=== PATIENT | female | born 1960 | race Hispanic/Latino ===

== ENCOUNTER 2017-09-20 10:52 | Outpatient (CLI) | payer BC | END 2017-09-20 10:53 | disposition home or self-care (01) | LOC: BICRAD 10:52 | PROVIDERS: ATTEND Physician Assistant | DX: R93.8 Abnormal findings on diagnostic imaging of other specified body structures (principal); D64.9 Anemia, unspecified | CPT/HCPCS: 36415; 71020; 83540; 83550 ==

== ENCOUNTER 2018-03-16 09:05 | Outpatient (CLI) | payer BC | END 2018-03-16 09:06 | disposition home or self-care (01) | LOC: BICMAMMO 09:05 | PROVIDERS: ATTEND Family Medicine | DX: Z12.31 Encounter for screening mammogram for malignant neoplasm of breast (principal) | CPT/HCPCS: 77063; 77067 ==

== ENCOUNTER 2019-02-09 07:42 | Outpatient (CLI) | payer BC ==
--- NOTE | 2019-02-09 08:51 | ULT ---
GALLBLADDER ULTRASOUND: INDICATION: Right upper quadrant pain. FINDINGS: Gallbladder has a normal sonographic appearance. No evidence of gallstones. Common duct is normal ca liber measured at 2 mm. Liver is echogenic suggesting fatty infiltration. The pancreas is partially imaged and appears unremarkable as visualized but is mostly obscured. The right kidney is imaged an d appears unremarkable. IMPRESSION: 1. No evidence of gallstones. 2. Evidence of hepatic steatosis. POS: [facility]
== END 2019-02-09 07:43 | disposition home or self-care (01) ==
LOC: BICULT 07:42
PROVIDERS: ATTEND Internal Medicine Gastroenterology
DX: K21.9 Gastro-esophageal reflux disease without esophagitis (principal); R10.11 Right upper quadrant pain; D50.9 Iron deficiency anemia, unspecified; K76.0 Fatty (change of) liver, not elsewhere classified
CPT/HCPCS: 76705

== ENCOUNTER 2019-04-05 12:55 | Outpatient (CLI) | payer BC ==
--- NOTE | 2019-04-05 13:39 | MMO ---
Bilateral MAMMO Bilat Screen [facility]. CLINICAL HISTORY: Patient is 59 years old and is seen for screening. The patient has no family history of breast cancer. The patient has no personal history of cancer. VIEWS: The views performed were: bilateral craniocaudal with tomosynthesis; bilateral mediolateral oblique with tomosynthesis; and left mediolateral oblique. FILMS COMPARED: The present examination has been compared to a prior imaging study performed at [facility] on 03/16/2018. MAMMOGRAM FINDINGS: There are scattered fibroglandular densities. There are no suspicious masses, suspicious calcifications, or new areas of architectural distortion. IMPRESSION: THERE IS NO MAMMOGRAPHIC EVIDENCE OF MALIGNANCY. A ROUTINE FOLLOW-UP MAMMOGRAM IN 1 YEAR IS RECOMMENDED. THE RESULTS OF THIS EXAM WERE SENT TO THE PATIENT. ACR BI-RADS Category 1 - Negative MAMMOGRAPHY NOTE: 1. A negative mammogram report should not delay a biopsy if a dominant of clinically suspicious mass is present. 2. Approximately 10% to 15% of breast cancers are not detected by mammography. 3. Adenosis and dense breasts may obscure an underlying neoplasm.
== END 2019-04-05 12:56 | disposition home or self-care (01) ==
LOC: BICMAMMO 12:55
PROVIDERS: ATTEND Family Medicine
DX: Z12.31 Encounter for screening mammogram for malignant neoplasm of breast (principal)
CPT/HCPCS: 77063; 77067

== ENCOUNTER 2019-09-26 07:52 | Outpatient (CLI) | payer BC ==
--- NOTE | 2019-09-26 10:49 | ULT ---
ABDOMEN ULTRASOUND: HISTORY: Right upper quadrant pain. FINDINGS: The liver demonstrates increased echogenicity, consistent with fatty infiltration with a focal area o f sparing adjacent to the gallbladder. No focal mass or intrahepatic ductal dilatation is seen. No ga llstones, gallbladder wall thickening or pericholecystic fluid is identified. the spleen, kidneys, vi sualized portions of the aorta, IVC and pancreas appear normal. The urinary bladder has a normal appe arance. No free fluid is seen. IMPRESSION: Fatty liver. POS: [facility]
== END 2019-09-26 07:53 | disposition home or self-care (01) ==
LOC: BICULT 07:52
PROVIDERS: ATTEND Family Medicine
DX: R10.11 Right upper quadrant pain (principal); K76.0 Fatty (change of) liver, not elsewhere classified
CPT/HCPCS: 76856; 93975

== ENCOUNTER 2020-07-28 13:54 | Outpatient (CLI) | payer BC ==
--- NOTE | 2020-07-28 14:37 | MMO ---
Bilateral MAMMO Bilat Screen [facility]. CLINICAL HISTORY: Patient is 60 years old and is seen for screening. The patient has no family history of breast cancer. The patient has no personal history of cancer. VIEWS: The views performed were: bilateral craniocaudal with tomosynthesis and bilateral mediolateral oblique with tomosynthesis. FILMS COMPARED: The present examination has been compared to prior imaging studies performed at [facility] on 03/16/2018 and 04/05/2019, and at [facility] on 12/09/2015 and 02/10/2017. This study has been interpreted with the assistance of computer-aided detection. MAMMOGRAM FINDINGS: There are scattered fibroglandular densities. There are benign appearing calcifications in the right breast. There are no suspicious masses, suspicious calcifications, or new areas of architectural distortion. IMPRESSION: THERE IS NO MAMMOGRAPHIC EVIDENCE OF MALIGNANCY. A ROUTINE FOLLOW-UP MAMMOGRAM IN 1 YEAR IS RECOMMENDED. THE RESULTS OF THIS EXAM WERE SENT TO THE PATIENT. ACR BI-RADS Category 2 - Benign finding MAMMOGRAPHY NOTE: 1. A negative mammogram report should not delay a biopsy if a dominant of clinically suspicious mass is present. 2. Approximately 10% to 15% of breast cancers are not detected by mammography. 3. Adenosis and dense breasts may obscure an underlying neoplasm. Reported by: DONA HARRINGTON MD Electonically Signed: [id number]
== END 2020-07-28 13:55 | disposition home or self-care (01) ==
LOC: BICMAMMO 13:54
PROVIDERS: ATTEND Family Medicine
DX: Z12.31 Encounter for screening mammogram for malignant neoplasm of breast (principal)
CPT/HCPCS: 77063; 77067

== ENCOUNTER 2020-10-17 01:38 | Inpatient (IN) | payer BC ==
[2020-10-17 02:22] LABS: #Lymphocytes 0.7 thou/uL (1.20-3.40); #Monocytes 0.3 thou/uL (0.11-0.59); %Lymphocytes 14.5 % (21.0-51.0); %Monocytes 5.7 % (0.0-10.0); %Neutrophils 79.8 % (42.0-75.0); Hemoglobin 10.8 g/dL (12.0-16.0); Mean Corpuscular HGB CONC 32.4 g/dL (32.0-36.0); Mean Corpuscular Hemoglobin 25.8 pg (27.0-31.0); Mean Corpuscular Volume 79.7 fL (78.0-98.0); Mean Platelet Volume 7.9 fL (7.4-10.4); Platelet Count 202 thou/uL (130-400); RBC Distribution Width 13.6 % (11.5-14.5); Red Blood Cell (RBC) Count 4.19 mill/uL (4.20-5.40)
[2020-10-17 02:44] LABS: ALT (SGPT) 31 U/L (8-55); AST (SGOT) 41 U/L (5-34); Albumin 3.4 g/dL (3.5-5.0); Alkaline Phosphatase 74 U/L (40-110); Anion Gap 16 mmol/L (10-20); BUN (Urea Nitrogen) 16 mg/dL (9.8-20.1); Bilirubin, Total 0.3 mg/dL (0.2-1.2); Calc. Creatinine Clearance 0 mL/min (70-130); Calcium 7.7 mg/dL (7.8-10.44); Carbon Dioxide 23 mmol/L (22-29); Chloride 96 mmol/L (98-107); Globulin 3.3 g/dL (2.4-3.5); Glucose 145 mg/dL (70-105); Potassium 3.1 mmol/L (3.5-5.1); Protein, Total 6.7 g/dL (6.0-8.3); Sodium 132 mmol/L (136-145)
[2020-10-17] MEDS ORDERED: Acetaminophen 650 MG Suppository PR PRN (04:16)
[2020-10-17] MEDS ORDERED: Ondansetron PF 4 MG/2 ML Vial IVP PRN (04:16)
[2020-10-17] MEDS ORDERED: Ondansetron ODT 4 MG TAB PO PRN (04:16)
[2020-10-17] MEDS ORDERED: Calcium Carbonate 500 MG ChewTAB PO PRN (04:16)
--- NOTE | 2020-10-17 04:19 | PDOC.HHP ---
Hospitalist HPI - History of Present Illness resp distress History of Present Illness: Case of an 60y/o female with pmhx of htn and svts who comes to hospital due to respiratory distress. patient refers she was on her usual state of health until a few days ago when she was diagnosed w covid 19. patient states she tested positive on 10/08 after 2 days of symptoms, since then patient has been isolating on her house. today patient started with worsening sob took her 02 sats and showed 70% at RA for which she caome to hospital for evaluation. patient refers fever chills cough and general malaise Hospitalist ROS - Review of Systems All other systems reviewed; all pertinent +/- noted in HPI/Subj Hospitalist History - Past Surgical History Past Surgical History: reports: Tonsillectomy - Family History Family History: reports: no pertinent history - Social History Smoking Status: Never smoker Alcohol: reports: None Drugs: reports: none Living Situation: With Family - Exam General Appearance: NAD, awake alert Eye: PERRL, anicteric sclera ENT: normocephalic atraumatic, no oropharyngeal lesions Neck: supple, symmetric, no JVD Heart: RRR, no murmur, no gallops Respiratory: rhonchi, tachypneic Gastrointestinal: soft, non-tender, non-distended Extremities: no cyanosis, no clubbing, no edema Skin: normal turgor, no lesions, no rashes Neurological: cranial nerve grossly intact, normal sensation to touch, no weakness Musculoskeletal: normal tone, normal strength, no muscle wasting Psychiatric: normal affect, normal behavior, A&O x 3 Hospitalist Results - Labs Result Diagrams: 10/17/20 02:13 10/17/20 02:13 Lab results: WBC 5.0 thou/uL (4.8-10.8) 10/17/20 02:13 Hgb 10.8 g/dL (12.0-16.0) L 10/17/20 02:13 Hct 33.4 % (36.0-47.0) L 10/17/20 02:13 MCV 79.7 fL (78.0-98.0) 10/17/20 02:13 Plt Count 202 thou/uL (130-400) 10/17/20 02:13 Neutrophils % 79.8 % (42.0-75.0) H 10/17/20 02:13 ESR Westergren 77 mm/hr (Less than 30) H 10/17/20 02:13 Sodium 132 mmol/L (136-145) L 10/17/20 02:13 Potassium 3.1 mmol/L (3.5-5.1) L 10/17/20 02:13 Chloride 96 mmol/L (98-107) L 10/17/20 02:13 Carbon Dioxide 23 mmol/L (22-29) 10/17/20 02:13 BUN 16 mg/dL (9.8-20.1) 10/17/20 02:13 Creatinine 0.78 mg/dL (0.6-1.1) 10/17/20 02:13 Glucose 145 mg/dL (70-105) H 10/17/20 02:13 Lactic Acid 1.7 mmol/L (0.5-2.2) 10/17/20 02:13 Calcium 7.7 mg/dL (7.8-10.44) L 10/17/20 02:13 Total Bilirubin 0.3 mg/dL (0.2-1.2) 10/17/20 02:13 AST 41 U/L (5-34) H 10/17/20 02:13 ALT 31 U/L (8-55) 10/17/20 02:13 Alkaline Phosphatase 74 U/L (40-110) 10/17/20 02:13 C-Reactive Protein 18.68 mg/dL (= or < 0.5) H 10/17/20 02:13 Serum Total Protein 6.7 g/dL (6.0-8.3) 10/17/20 02:13 Albumin 3.4 g/dL (3.5-5.0) L 10/17/20 02:13 Hospitalist H&P A/P - Problem (1) Pneumonia due to COVID-19 virus Code(s): U07.1 - COVID-19; J12.89 - OTHER VIRAL PNEUMONIA Status: Acute (2) Acute respiratory failure Code(s): J96.00 - ACUTE RESPIRATORY FAILURE, UNSP W HYPOXIA OR HYPERCAPNIA Status: Acute (3) Hx of supraventricular tachycardia Code(s): Z86.79 - PERSONAL HISTORY OF OTHER DISEASES OF THE CIRCULATORY SYSTEM Status: Acute (4) HTN (hypertension) Code(s): I10 - ESSENTIAL (PRIMARY) HYPERTENSION Status: Acute (5) Sepsis Code(s): A41.9 - SEPSIS, UNSPECIFIED ORGANISM Status: Acute - Plan Plan: Case of an 60y/o female with the stated pmhx who presents with covid 19 pneumonia and resp failure covid 19 - testes 10/08/2020 - cxr consistent with covid 19 - will start decadron ivfd - vit c d + zinc - isolation precautions resp failure - secondary to above - on high flow - weas as tolerated sepsis - sepsis bundles started - f/u LA htn / hx of svts - continue home meds
[2020-10-17] MEDS: Sodium Chloride 0.9% 1,000 ML IV SCH ×2 (04:53→19:26)
[2020-10-17 05:05] LABS: Troponin I 0.022 ng/mL (< 0.028)
[2020-10-17 07:31] LABS: Troponin I 0.024 ng/mL (< 0.028)
[2020-10-17] MEDS ORDERED: Enoxaparin Sodium 40 MG/0.4 ML SYRINGE ONE (09:49)
[2020-10-17] MEDS ORDERED: Dexamethasone 4 mg/ml Vial ONE (09:49)
[2020-10-17] MEDS: Dexamethasone 4 mg/ml Vial SLOW IVP SCH (09:57)
[2020-10-17] MEDS: Zinc Sulfate 220 MG CAP PO SCH (09:57)
[2020-10-17] MEDS: Ascorbic Acid 500 mg Chewable Tablet PO SCH (09:57)
[2020-10-17] MEDS: Cholecalciferol (Vitamin D3) 400 UNITS TAB PO SCH (09:57)
[2020-10-17] MEDS: Enoxaparin Sodium 40 MG/0.4 ML SYRINGE SC SCH (17:37)
[2020-10-18] MEDS: Guaifenesin DM 100-10/5 ML UDCUP PO PRN ×4 (00:55→20:36)
[2020-10-18 05:22] LABS: ALT (SGPT) 33 U/L (8-55); AST (SGOT) 36 U/L (5-34); Albumin 3.4 g/dL (3.5-5.0); Alkaline Phosphatase 71 U/L (40-110); Anion Gap 15 mmol/L (10-20); BUN (Urea Nitrogen) 13 mg/dL (9.8-20.1); Bilirubin, Total 0.3 mg/dL (0.2-1.2); Calc. Creatinine Clearance 0 mL/min (70-130); Calcium 8.3 mg/dL (7.8-10.44); Carbon Dioxide 23 mmol/L (22-29); Chloride 104 mmol/L (98-107); Globulin 3.8 g/dL (2.4-3.5); Glucose 121 mg/dL (70-105); Potassium 3.4 mmol/L (3.5-5.1); Protein, Total 7.2 g/dL (6.0-8.3); Sodium 139 mmol/L (136-145)
[2020-10-18 05:24] LABS: Band 8 % (5-11); Hemoglobin 11.4 g/dL (12.0-16.0); Lymphocytes 5 % (21-51); MDiff Complete? YES; Mean Corpuscular HGB CONC 32.5 g/dL (32.0-36.0); Mean Corpuscular Hemoglobin 26.4 pg (27.0-31.0); Mean Corpuscular Volume 81.2 fL (78.0-98.0); Mean Platelet Volume 7.7 fL (7.4-10.4); Monocytes 3 % (0-10); Neutrophil 84 % (42-75); Platelet Count 272 thou/uL (130-400); Red Blood Cell (RBC) Count 4.32 mill/uL (4.20-5.40); White Blood Cell (WBC) Count 11.3 thou/uL (4.8-10.8)
[2020-10-18] MEDS ORDERED: Acetaminophen 500 MG TAB ONE (08:41)
[2020-10-18] MEDS: Acetaminophen 325 MG TAB PO PRN (08:47)
[2020-10-18] MEDS ORDERED: Enoxaparin Sodium 40 MG/0.4 ML SYRINGE ONE ×2 (09:01→22:54)
[2020-10-18] MEDS ORDERED: Dexamethasone 4 mg/ml Vial ONE (09:01)
[2020-10-18] MEDS: Cholecalciferol (Vitamin D3) 400 UNITS TAB PO SCH (09:41)
[2020-10-18] MEDS: Ascorbic Acid 500 mg Chewable Tablet PO SCH (09:41)
[2020-10-18] MEDS: Dexamethasone 4 mg/ml Vial SLOW IVP SCH (09:41)
[2020-10-18] MEDS: Enoxaparin Sodium 40 MG/0.4 ML SYRINGE SC SCH (09:42)
[2020-10-18] MEDS: Zinc Sulfate 220 MG CAP PO SCH (09:42)
[2020-10-18] MEDS ORDERED: Potassium Chloride 20 MEQ TAB PO SCH (10:00)
[2020-10-18] MEDS ORDERED: Potassium Chloride 20 MEQ TAB ONE (13:30)
--- NOTE | 2020-10-18 18:36 | PDOC.HOSPP ---
- Subjective Subjective: Patient was seen examined at bedside. Patient appears to be stable on high flow nasal cannula. She had a fevers of 101.2 today. - Objective Vital Signs & Weight: Vital Signs (12 hours) Temp Pulse 10/18/20 09:17 98.5 F 10/18/20 08:47 101.2 F H 98 Result Diagrams: 10/18/20 04:34 10/18/20 04:34 Hospitalist ROS - Medication Medications: Active Medications Generic Name Dose Route Start Last Admin Trade Name Freq PRN Reason Stop Dose Admin Acetaminophen 650 mg 10/17/20 04:16 10/18/20 08:47 Acetaminophen 325 Mg Tab PO 650 mg Q4H PRN Administration Headache/Fever/Mild Pain (1-3) Ascorbic Acid 1,000 mg 10/17/20 09:00 10/18/20 09:41 Ascorbic Acid 500 Mg Chewable Tablet PO 1,000 mg DAILY HEIDI Administration Calcium Carbonate 1,000 mg 10/17/20 04:16 10/17/20 04:51 Calcium Carbonate 500 Mg Chewtab PO 1,000 mg Q4H PRN Administration Heartburn or Indigestion Cholecalciferol 400 units 10/17/20 09:00 10/18/20 09:41 Cholecalciferol (Vitamin D3) 400 Units Tab PO 400 units DAILY HEIDI Administration Dexamethasone 6 mg 10/17/20 09:00 10/18/20 09:41 Dexamethasone 4 Mg/Ml Vial SLOW IVP 6 mg DAILY HEIDI Administration Guaifenesin/Dextromethorphan 15 ml 10/17/20 04:16 10/18/20 09:42 Guaifenesin Dm 100-10/5 Ml Udcup PO 15 ml Q4H PRN Administration Cough Sodium Chloride 1,000 mls @ 70 mls/hr 10/17/20 04:30 10/17/20 19:26 Normal Saline 0.9% IV 1,000 mls .[id number] HEIDI Administration Zinc Sulfate 220 mg 10/17/20 09:00 10/18/20 09:42 Zinc Sulfate 220 Mg Cap PO 220 mg DAILY HEIDI Administration - Exam General Appearance: NAD Eye: PERRL ENT: normocephalic atraumatic Neck: supple Heart: RRR Respiratory: no wheezes, rhonchi Gastrointestinal: soft, non-tender Extremities: no cyanosis Skin: normal turgor Neurological: cranial nerve grossly intact Musculoskeletal: normal tone Psychiatric: normal affect, normal behavior, A&O x 3 Hosp A/P - Plan Patient is a pleasant 60 years old female who has significant past medical history of SVT, who presented to ED with short of breath. She was diagnosed with Covid pneumonia on 10/08/2020 Acute hypoxic respiratory failure due to COVID-19 pneumonia --cont Decadron/Vit C/D/Zinc --start convalescent plasma. No remdesivir d/t onset of symptoms --cont empiric abx, supportive cares. --Cont Lovenox 40 mg BID for DVT ppx COVID-19 pneumonia --as above Sepsis, present on admission --follow cultures. d/t viral pna History of SVT --NSR, pending home meds
[2020-10-19] MEDS: Enoxaparin Sodium 40 MG/0.4 ML SYRINGE SC SCH ×3 (00:02→20:31)
[2020-10-19] MEDS: Sodium Chloride 0.9% 1,000 ML IV SCH (03:28)
[2020-10-19 05:18] LABS: #Basophils 0.1 thou/uL (0.0-0.2); #Lymphocytes 0.9 thou/uL (1.20-3.40); #Monocytes 0.5 thou/uL (0.11-0.59); #Neutrophils 8.6 thou/uL (1.40-6.50); %Basophils 0.8 % (0.0-1.0); %Eosinophils 0.2 % (0.0-10.0); %Lymphocytes 8.5 % (21.0-51.0); %Monocytes 4.5 % (0.0-10.0); Hemoglobin 10.8 g/dL (12.0-16.0); Mean Corpuscular HGB CONC 31.9 g/dL (32.0-36.0); Mean Corpuscular Hemoglobin 25.9 pg (27.0-31.0); Mean Corpuscular Volume 81.3 fL (78.0-98.0); Mean Platelet Volume 7.4 fL (7.4-10.4); Platelet Count 311 thou/uL (130-400); RBC Distribution Width 14.1 % (11.5-14.5); Red Blood Cell (RBC) Count 4.18 mill/uL (4.20-5.40)
[2020-10-19] MEDS: Guaifenesin DM 100-10/5 ML UDCUP PO PRN ×3 (05:26→20:33)
[2020-10-19 05:29] LABS: ALT (SGPT) 31 U/L (8-55); AST (SGOT) 31 U/L (5-34); Albumin 3.2 g/dL (3.5-5.0); Alkaline Phosphatase 75 U/L (40-110); Anion Gap 13 mmol/L (10-20); BUN (Urea Nitrogen) 13 mg/dL (9.8-20.1); Bilirubin, Total 0.4 mg/dL (0.2-1.2); CRP (Inflammatory) 12.62 mg/dL (= or < 0.5); Calc. Creatinine Clearance 130 mL/min (70-130); Calcium 8.2 mg/dL (7.8-10.44); Carbon Dioxide 25 mmol/L (22-29); Chloride 106 mmol/L (98-107); Globulin 3.6 g/dL (2.4-3.5); Glucose 106 mg/dL (70-105); Potassium 3.7 mmol/L (3.5-5.1); Protein, Total 6.8 g/dL (6.0-8.3); Sodium 140 mmol/L (136-145)
[2020-10-19] MEDS: Dexamethasone 4 mg/ml Vial SLOW IVP SCH (07:44)
[2020-10-19] MEDS: Cholecalciferol (Vitamin D3) 400 UNITS TAB PO SCH (07:44)
[2020-10-19] MEDS: Ascorbic Acid 500 mg Chewable Tablet PO SCH (07:44)
[2020-10-19] MEDS: Zinc Sulfate 220 MG CAP PO SCH (07:46)
[2020-10-19] MEDS ORDERED: PROVENTIL INHALER 6.7 G (200 INHALATIONS) INH PRN (09:14)
[2020-10-19] MEDS ORDERED: ALPRAZolam 0.25 MG TAB PO SCH (09:30)
--- NOTE | 2020-10-19 14:13 | PDOC.HOSPP ---
- Subjective Subjective: Patient was seen examined at bedside. Patient remains on high flow with a rate of 45, and FiO2 of 43. She is out of the bed, sitting in a chair. No significant change in her symptoms. Initial blood culture came back and was notified by nursing staff that she has positive blood culture 2 with gram- positive cocci in cluster she is currently not on antibiotics. Her T-max is 99.2. - Objective Vital Signs & Weight: Vital Signs (12 hours) Temp Pulse Resp BP BP Pulse Ox 10/19/20 13:00 98.9 F 98 20 121/72 96 10/19/20 08:00 99.2 F 76 20 134/62 97 10/19/20 05:05 98.8 F 80 24 H 143/74 H 96 10/19/20 02:57 94 L Weight Weight 199 lb 9.6 oz I&O: 10/18/20 10/19/20 10/20/20 06:59 06:59 06:59 Intake Total 0 650 Balance 0 650 Result Diagrams: 10/19/20 04:48 10/19/20 04:48 Hospitalist ROS - Medication Medications: Active Medications Generic Name Dose Route Start Last Admin Trade Name Freq PRN Reason Stop Dose Admin Acetaminophen 650 mg 10/17/20 04:16 10/18/20 08:47 Acetaminophen 325 Mg Tab PO 650 mg Q4H PRN Administration Headache/Fever/Mild Pain (1-3) Ascorbic Acid 1,000 mg 10/17/20 09:00 10/19/20 07:44 Ascorbic Acid 500 Mg Chewable Tablet PO 1,000 mg DAILY HEIDI Administration Calcium Carbonate 1,000 mg 10/17/20 04:16 10/17/20 04:51 Calcium Carbonate 500 Mg Chewtab PO 1,000 mg Q4H PRN Administration Heartburn or Indigestion Cholecalciferol 400 units 10/17/20 09:00 10/19/20 07:44 Cholecalciferol (Vitamin D3) 400 Units Tab PO 400 units DAILY HEIDI Administration Dexamethasone 6 mg 10/17/20 09:00 10/19/20 07:44 Dexamethasone 4 Mg/Ml Vial SLOW IVP 6 mg DAILY HEIDI Administration Enoxaparin Sodium 40 mg 10/18/20 21:00 10/19/20 07:46 Enoxaparin Sodium 40 Mg/0.4 Ml Syringe SC 40 mg BID HEIDI Administration Guaifenesin/Dextromethorphan 15 ml 10/17/20 04:16 10/19/20 13:00 Guaifenesin Dm 100-10/5 Ml Udcup PO 15 ml Q4H PRN Administration Cough Pantoprazole Sodium 40 mg 10/19/20 09:00 10/19/20 07:46 Pantoprazole 40 Mg Tab PO 40 mg DAILY HEIDI Administration Zinc Sulfate 220 mg 10/17/20 09:00 10/19/20 07:46 Zinc Sulfate 220 Mg Cap PO 220 mg DAILY HEIDI Administration - Exam General Appearance: NAD Eye: PERRL ENT: normocephalic atraumatic Neck: supple Heart: RRR Respiratory: rhonchi Gastrointestinal: soft Extremities: no cyanosis, no clubbing Skin: normal turgor Neurological: cranial nerve grossly intact Musculoskeletal: normal tone Psychiatric: normal affect, normal behavior, A&O x 3 Hosp A/P - Plan Patient is a pleasant 60 years old female who has significant past medical history of SVT, who presented to ED with short of breath. She was diagnosed with Covid pneumonia on 10/08/2020 Acute hypoxic respiratory failure due to COVID-19 pneumonia --cont Decadron/Vit C/D/Zinc --s/p convalescent plasma. No remdesivir d/t onset of symptoms --cont supportive cares. --Cont Lovenox 40 mg BID for DVT ppx COVID-19 pneumonia --as above Positive Blood culture --Notified by staff, BCx positive for 2/4 GPC, will start vanc empirically while waiting for culture to finalize Sepsis, present on admission --follow cultures. d/t viral pna History of SVT --NSR, resume home meds.
[2020-10-19] MEDS ORDERED: Vancomycin 1 GM in Premix Bag 1 BAG IVPB SCH (14:15)
[2020-10-19] MEDS: ALPRAZolam 0.25 MG TAB PO PRN (23:08)
[2020-10-20] MEDS: Vancomycin 1 GM in Premix Bag 1 BAG IVPB SCH ×2 (01:16→13:41)
[2020-10-20] MEDS: ALPRAZolam 0.25 MG TAB PO PRN (05:01)
[2020-10-20 05:25] LABS: #Basophils 0.1 thou/uL (0.0-0.2); #Monocytes 0.3 thou/uL (0.11-0.59); #Neutrophils 8.5 thou/uL (1.40-6.50); %Basophils 0.7 % (0.0-1.0); %Eosinophils 0.2 % (0.0-10.0); %Lymphocytes 10.4 % (21.0-51.0); %Monocytes 3.4 % (0.0-10.0); %Neutrophils 85.3 % (42.0-75.0); Hemoglobin 10.6 g/dL (12.0-16.0); Mean Corpuscular HGB CONC 31.3 g/dL (32.0-36.0); Mean Corpuscular Hemoglobin 25.5 pg (27.0-31.0); Mean Corpuscular Volume 81.5 fL (78.0-98.0); Mean Platelet Volume 7.5 fL (7.4-10.4); Platelet Count 339 thou/uL (130-400); Red Blood Cell (RBC) Count 4.16 mill/uL (4.20-5.40)
[2020-10-20 05:44] LABS: ALT (SGPT) 27 U/L (8-55); AST (SGOT) 24 U/L (5-34); Alkaline Phosphatase 79 U/L (40-110); Anion Gap 16 mmol/L (10-20); BUN (Urea Nitrogen) 11 mg/dL (9.8-20.1); Bilirubin, Total 0.4 mg/dL (0.2-1.2); Calc. Creatinine Clearance 117 mL/min (70-130); Calcium 8.2 mg/dL (7.8-10.44); Carbon Dioxide 25 mmol/L (22-29); Chloride 103 mmol/L (98-107); Globulin 3.6 g/dL (2.4-3.5); Glucose 96 mg/dL (70-105); Potassium 3.3 mmol/L (3.5-5.1); Protein, Total 6.6 g/dL (6.0-8.3); Sodium 141 mmol/L (136-145)
[2020-10-20] MEDS: Cholecalciferol (Vitamin D3) 400 UNITS TAB PO SCH (09:23)
[2020-10-20] MEDS: Dexamethasone 4 mg/ml Vial SLOW IVP SCH (09:23)
[2020-10-20] MEDS: Ascorbic Acid 500 mg Chewable Tablet PO SCH (09:23)
[2020-10-20] MEDS: Digoxin 0.125 MG TAB PO SCH (09:24)
[2020-10-20] MEDS: Enoxaparin Sodium 40 MG/0.4 ML SYRINGE SC SCH ×2 (09:24→20:46)
[2020-10-20] MEDS: Hydrochlorothiazide 25 MG TAB PO SCH (09:25)
[2020-10-20] MEDS: Zinc Sulfate 220 MG CAP PO SCH (09:26)
[2020-10-20] MEDS: Lisinopril 5 MG TAB PO SCH (09:26)
[2020-10-20] MEDS: Acetaminophen 325 MG TAB PO PRN (10:01)
--- NOTE | 2020-10-20 14:19 | PDOC.HOSPP ---
- Subjective Subjective: Pt was seen and examined. out of bed to chair. O2 requirement went up, but is feeling fine. Low grade temp noted. - Objective Vital Signs & Weight: Vital Signs (12 hours) Temp Pulse Resp BP BP Pulse Ox 10/20/20 11:15 100.3 F H 95 20 108/56 L 98 10/20/20 10:31 100.3 F H 10/20/20 10:01 100.7 F H 10/20/20 09:30 100.7 F H 90 24 H 132/63 95 10/20/20 09:26 66 10/20/20 09:24 66 10/20/20 05:01 66 23 H 98 10/20/20 04:01 99.0 F 78 25 H 81 L Weight Admit Weight 199 lb 9.6 oz Weight 199 lb 9.6 oz I&O: 10/19/20 10/20/20 10/21/20 06:59 06:59 06:59 Intake Total 0 650 Balance 0 650 Result Diagrams: 10/20/20 04:41 10/20/20 04:41 Radiology Reviewed by me: Yes EKG Reviewed by me: Yes Hospitalist ROS - Medication Medications: Active Medications Generic Name Dose Route Start Last Admin Trade Name Freq PRN Reason Stop Dose Admin Acetaminophen 650 mg 10/17/20 04:16 10/20/20 10:01 Acetaminophen 325 Mg Tab PO 650 mg Q4H PRN Administration Headache/Fever/Mild Pain (1-3) Alprazolam 0.25 mg 10/19/20 09:07 10/20/20 05:01 Alprazolam 0.25 Mg Tab PO 0.25 mg TIDPRN PRN Administration Anxiety Ascorbic Acid 1,000 mg 10/17/20 09:00 10/20/20 09:23 Ascorbic Acid 500 Mg Chewable Tablet PO 1,000 mg DAILY HEIDI Administration Calcium Carbonate 1,000 mg 10/17/20 04:16 10/17/20 04:51 Calcium Carbonate 500 Mg Chewtab PO 1,000 mg Q4H PRN Administration Heartburn or Indigestion Cholecalciferol 400 units 10/17/20 09:00 10/20/20 09:23 Cholecalciferol (Vitamin D3) 400 Units Tab PO 400 units DAILY HEIDI Administration Dexamethasone 6 mg 10/17/20 09:00 10/20/20 09:23 Dexamethasone 4 Mg/Ml Vial SLOW IVP 6 mg DAILY HEIDI Administration Digoxin 0.125 mg 10/20/20 09:00 10/20/20 09:24 Digoxin 0.125 Mg Tab PO 0.125 mg DAILY HEIDI Administration Enoxaparin Sodium 40 mg 10/18/20 21:00 10/20/20 09:24 Enoxaparin Sodium 40 Mg/0.4 Ml Syringe SC 40 mg BID HEIDI Administration Guaifenesin/Dextromethorphan 15 ml 10/17/20 04:16 10/19/20 20:33 Guaifenesin Dm 100-10/5 Ml Udcup PO 15 ml Q4H PRN Administration Cough Hydrochlorothiazide 12.5 mg 10/20/20 09:00 10/20/20 09:25 Hydrochlorothiazide 25 Mg Tab PO 12.5 mg DAILY HEIDI Administration Vancomycin HCl 1 gm/ Device 200 mls @ 200 mls/hr 10/20/20 02:00 10/20/20 13:41 IVPB 200 mls 0200,1400 HEIDI Administration Lisinopril 5 mg 10/20/20 09:00 10/20/20 09:26 Lisinopril 5 Mg Tab PO 5 mg DAILY HEIDI Administration Pantoprazole Sodium 40 mg 10/19/20 09:00 10/20/20 09:26 Pantoprazole 40 Mg Tab PO 40 mg DAILY HEIDI Administration Zinc Sulfate 220 mg 10/17/20 09:00 10/20/20 09:26 Zinc Sulfate 220 Mg Cap PO 220 mg DAILY HEIDI Administration - Exam General Appearance: NAD Eye: PERRL ENT: normocephalic atraumatic Neck: supple Heart: RRR Respiratory: rhonchi Gastrointestinal: soft Extremities: no cyanosis Skin: normal turgor Neurological: cranial nerve grossly intact Musculoskeletal: normal tone Psychiatric: normal affect, normal behavior, A&O x 3 Hosp A/P - Plan Patient is a pleasant 60 years old female who has significant past medical history of SVT, who presented to ED with short of breath. She was diagnosed with COVID pneumonia on 10/08/2020 Acute hypoxic respiratory failure due to COVID-19 pneumonia --cont Decadron/Vit C/D/Zinc --s/p convalescent plasma. No remdesivir d/t onset of symptoms --cont supportive cares. --Cont Lovenox 40 mg BID for DVT ppx. Wean O2 as tolerated. COVID-19 pneumonia --as above Positive Blood culture --Notified by staff, BCx positive for 2/4 GPC, started vanc empirically while waiting for culture to finalize Sepsis, present on admission --follow cultures. d/t viral pna History of SVT --NSR, resume home meds (Toprol, Dig)
[2020-10-20] MEDS: guaiFENesin/Codeine 200 mg/20 mg 10 ml Cup PO PRN ×2 (15:10→20:46)
[2020-10-20] MEDS ORDERED: Ketamine 50 MG/ML (10ML VIAL) ONE (15:29)
[2020-10-20] MEDS: guaiFENesin ER 600 MG TAB PO SCH (20:46)
[2020-10-21] MEDS: Vancomycin 1 GM in Premix Bag 1 BAG IVPB SCH ×2 (02:02→19:48)
[2020-10-21] MEDS: guaiFENesin/Codeine 200 mg/20 mg 10 ml Cup PO PRN (02:41)
[2020-10-21 05:18] LABS: #Basophils 0.1 thou/uL (0.0-0.2); #Lymphocytes 1.3 thou/uL (1.20-3.40); #Monocytes 0.4 thou/uL (0.11-0.59); #Neutrophils 8.1 thou/uL (1.40-6.50); %Eosinophils 0.2 % (0.0-10.0); %Lymphocytes 12.7 % (21.0-51.0); %Monocytes 3.6 % (0.0-10.0); %Neutrophils 82.4 % (42.0-75.0); Hemoglobin 10.4 g/dL (12.0-16.0); Mean Corpuscular HGB CONC 31.7 g/dL (32.0-36.0); Mean Corpuscular Hemoglobin 25.8 pg (27.0-31.0); Mean Corpuscular Volume 81.6 fL (78.0-98.0); Mean Platelet Volume 7.5 fL (7.4-10.4); Platelet Count 351 thou/uL (130-400); RBC Distribution Width 14.1 % (11.5-14.5); Red Blood Cell (RBC) Count 4.03 mill/uL (4.20-5.40); White Blood Cell (WBC) Count 9.9 thou/uL (4.8-10.8)
[2020-10-21 05:35] LABS: Vancomycin, Trough 25.6 ug/mL
[2020-10-21 05:40] LABS: ALT (SGPT) 38 U/L (8-55); AST (SGOT) 27 U/L (5-34); Albumin 2.9 g/dL (3.5-5.0); Alkaline Phosphatase 90 U/L (40-110); Anion Gap 13 mmol/L (10-20); BUN (Urea Nitrogen) 11 mg/dL (9.8-20.1); Bilirubin, Total 0.6 mg/dL (0.2-1.2); CRP (Inflammatory) 20.94 mg/dL (= or < 0.5); Calc. Creatinine Clearance 128 mL/min (70-130); Calcium 8.2 mg/dL (7.8-10.44); Carbon Dioxide 29 mmol/L (22-29); Chloride 99 mmol/L (98-107); Globulin 3.5 g/dL (2.4-3.5); Glucose 104 mg/dL (70-105); Potassium 3.4 mmol/L (3.5-5.1); Protein, Total 6.4 g/dL (6.0-8.3); Sodium 138 mmol/L (136-145)
[2020-10-21] MEDS: Ascorbic Acid 500 mg Chewable Tablet PO SCH (08:55)
[2020-10-21] MEDS: Dexamethasone 4 mg/ml Vial SLOW IVP SCH ×2 (08:56→19:48)
[2020-10-21] MEDS: Cholecalciferol (Vitamin D3) 400 UNITS TAB PO SCH (08:56)
[2020-10-21] MEDS: Digoxin 0.125 MG TAB PO SCH (08:56)
[2020-10-21] MEDS: guaiFENesin ER 600 MG TAB PO SCH ×2 (08:56→19:48)
[2020-10-21] MEDS: Enoxaparin Sodium 40 MG/0.4 ML SYRINGE SC SCH ×2 (08:56→19:49)
[2020-10-21] MEDS: Hydrochlorothiazide 25 MG TAB PO SCH (08:56)
[2020-10-21] MEDS: Zinc Sulfate 220 MG CAP PO SCH (08:57)
[2020-10-21] MEDS: Lisinopril 5 MG TAB PO SCH (08:57)
--- NOTE | 2020-10-21 09:51 | RAD ---
PORTABLE CHEST: HISTORY: Respiratory failure. COVID pneumonia. COMPARISON: 10/17/2020. FINDINGS: There are hazy bilateral infiltrates consistent with COVID pneumonia. More confluent infiltrates in the mid and peripheral left lung. 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 Heart size u pper normal and stable. IMPRESSION: Persistent bilateral infiltrates slightly more extensive on the left. POS: [facility]
[2020-10-21] MEDS ORDERED: Vancomycin 1 GM in Premix Bag 1 BAG IVPB SCH (13:00)
[2020-10-21 13:21] LABS: Vancomycin, Random 7.1 ug/mL (See Comment)
[2020-10-21] MEDS ORDERED: Potassium Chloride 20 MEQ TAB PO SCH (15:15)
--- NOTE | 2020-10-21 15:40 | PDOC.HOSPP ---
- Subjective Subjective: Patient was seen examined at bedside. Patient had a T-max of 99.2. She still remains on high flow, and when able with a rate of 60, and FiO2 of 65. She is out of bed to chair. Overall she is feeling fine. Potassium slightly low. Repeated chest x-ray today, still have extensive infiltrate, especially on the left side. Her CRP also went up. She currently is on Decadron at 6 mg daily. We will increase it to twice daily. - Objective Vital Signs & Weight: Vital Signs (12 hours) Temp Pulse Resp BP Pulse Ox 10/21/20 13:30 99.2 F 85 20 149/72 H 97 10/21/20 08:57 70 10/21/20 08:56 70 10/21/20 08:50 93 L 10/21/20 08:45 99.3 F 96 24 H 129/70 93 L Weight Admit Weight 199 lb 9.6 oz Weight 199 lb 9.6 oz I&O: 10/20/20 10/21/20 10/22/20 06:59 06:59 06:59 Intake Total 650 1050 400 Output Total 1250 Balance 650 -200 400 Result Diagrams: 10/21/20 04:36 10/21/20 04:36 Radiology Reviewed by me: Yes EKG Reviewed by me: Yes Hospitalist ROS - Medication Medications: Active Medications Generic Name Dose Route Start Last Admin Trade Name Freq PRN Reason Stop Dose Admin Acetaminophen 650 mg 10/17/20 04:16 10/20/20 10:01 Acetaminophen 325 Mg Tab PO 650 mg Q4H PRN Administration Headache/Fever/Mild Pain (1-3) Alprazolam 0.25 mg 10/19/20 09:07 10/20/20 05:01 Alprazolam 0.25 Mg Tab PO 0.25 mg TIDPRN PRN Administration Anxiety Ascorbic Acid 1,000 mg 10/17/20 09:00 10/21/20 08:55 Ascorbic Acid 500 Mg Chewable Tablet PO 1,000 mg DAILY HEIDI Administration Calcium Carbonate 1,000 mg 10/17/20 04:16 10/17/20 04:51 Calcium Carbonate 500 Mg Chewtab PO 1,000 mg Q4H PRN Administration Heartburn or Indigestion Cholecalciferol 400 units 10/17/20 09:00 10/21/20 08:56 Cholecalciferol (Vitamin D3) 400 Units Tab PO 400 units DAILY HEIDI Administration Digoxin 0.125 mg 10/20/20 09:00 10/21/20 08:56 Digoxin 0.125 Mg Tab PO 0.125 mg DAILY HEIDI Administration Enoxaparin Sodium 40 mg 10/18/20 21:00 10/21/20 08:56 Enoxaparin Sodium 40 Mg/0.4 Ml Syringe SC 40 mg BID HEIDI Administration Guaifenesin 600 mg 10/20/20 21:00 10/21/20 08:56 Guaifenesin Er 600 Mg Tab PO 600 mg Q12HR HEIDI Administration Guaifenesin/Codeine Phosphate 10 ml 10/20/20 13:04 10/21/20 02:41 Guaifenesin/Codeine 200 Mg/20 Mg 10 Ml Cup PO 10 ml Q6H PRN Administration Cough Guaifenesin/Dextromethorphan 15 ml 10/17/20 04:16 10/19/20 20:33 Guaifenesin Dm 100-10/5 Ml Udcup PO 15 ml Q4H PRN Administration Cough Hydrochlorothiazide 12.5 mg 10/20/20 09:00 10/21/20 08:56 Hydrochlorothiazide 25 Mg Tab PO 12.5 mg DAILY HEIDI Administration Lisinopril 5 mg 10/20/20 09:00 10/21/20 08:57 Lisinopril 5 Mg Tab PO 5 mg DAILY HEIDI Administration Metoprolol Succinate 25 mg 10/20/20 21:00 10/20/20 20:46 Metoprolol Succinate Xl 25 Mg Tab PO 25 mg HS HEIDI Administration Pantoprazole Sodium 40 mg 10/19/20 09:00 10/21/20 08:57 Pantoprazole 40 Mg Tab PO 40 mg DAILY HEIDI Administration Zinc Sulfate 220 mg 10/17/20 09:00 10/21/20 08:57 Zinc Sulfate 220 Mg Cap PO 220 mg DAILY HEIDI Administration - Exam General Appearance: NAD Eye: PERRL ENT: normocephalic atraumatic Neck: supple, symmetric, no JVD Heart: RRR Respiratory: rhonchi Gastrointestinal: soft, non-tender Extremities: no cyanosis Skin: normal turgor Neurological: cranial nerve grossly intact Musculoskeletal: normal tone, normal strength Psychiatric: normal affect, normal behavior, A&O x 3 Hosp A/P - Plan Patient is a pleasant 60 years old female who has significant past medical history of SVT, who presented to ED with short of breath. She was diagnosed with COVID pneumonia on 10/08/2020 Acute hypoxic respiratory failure due to COVID-19 pneumonia --Given incr CRP level, will bump Decadron to BID. Cont Vit C/D/Zinc --s/p convalescent plasma. No remdesivir d/t onset of symptoms out of timeframe for any meaningful treatment --cont supportive cares. --Cont Lovenox 40 mg BID for DVT ppx. Wean O2 as tolerated. COVID-19 pneumonia --as above Positive Blood culture --Notified by staff, BCx positive for 2/4 GPC, started vanc empirically while waiting for culture to finalize Sepsis, present on admission --follow cultures. d/t viral pna History of SVT --NSR, resume home meds (Toprol, Dig) Hypokalemia --replaced.
[2020-10-21] MEDS: Guaifenesin DM 100-10/5 ML UDCUP PO PRN (19:53)
[2020-10-22] MEDS: ALPRAZolam 0.25 MG TAB PO PRN ×2 (01:35→13:52)
[2020-10-22] MEDS: guaiFENesin/Codeine 200 mg/20 mg 10 ml Cup PO PRN ×3 (02:06→18:10)
[2020-10-22 05:24] LABS: #Basophils 0.1 thou/uL (0.0-0.2); #Lymphocytes 0.9 thou/uL (1.20-3.40); #Monocytes 0.4 thou/uL (0.11-0.59); #Neutrophils 5.7 thou/uL (1.40-6.50); %Basophils 1.7 % (0.0-1.0); %Eosinophils 0.1 % (0.0-10.0); %Lymphocytes 12.3 % (21.0-51.0); %Monocytes 5.3 % (0.0-10.0); %Neutrophils 80.7 % (42.0-75.0); Hemoglobin 10.6 g/dL (12.0-16.0); Mean Corpuscular HGB CONC 31.4 g/dL (32.0-36.0); Mean Corpuscular Hemoglobin 25.5 pg (27.0-31.0); Mean Corpuscular Volume 81.4 fL (78.0-98.0); Mean Platelet Volume 7.3 fL (7.4-10.4); Platelet Count 374 thou/uL (130-400); RBC Distribution Width 13.9 % (11.5-14.5); Red Blood Cell (RBC) Count 4.13 mill/uL (4.20-5.40); White Blood Cell (WBC) Count 7.1 thou/uL (4.8-10.8)
[2020-10-22 05:49] LABS: ALT (SGPT) 40 U/L (8-55); AST (SGOT) 30 U/L (5-34); Albumin 2.9 g/dL (3.5-5.0); Alkaline Phosphatase 103 U/L (40-110); Anion Gap 12 mmol/L (10-20); BUN (Urea Nitrogen) 15 mg/dL (9.8-20.1); Bilirubin, Total 0.5 mg/dL (0.2-1.2); CRP (Inflammatory) 18.62 mg/dL (= or < 0.5); Calc. Creatinine Clearance 132 mL/min (70-130); Calcium 8.3 mg/dL (7.8-10.44); Carbon Dioxide 30 mmol/L (22-29); Chloride 100 mmol/L (98-107); Globulin 3.8 g/dL (2.4-3.5); Glucose 131 mg/dL (70-105); Potassium 4.2 mmol/L (3.5-5.1); Protein, Total 6.7 g/dL (6.0-8.3); Sodium 138 mmol/L (136-145)
[2020-10-22] MEDS: Vancomycin 1 GM in Premix Bag 1 BAG IVPB SCH ×2 (05:59→17:35)
[2020-10-22] MEDS: Guaifenesin DM 100-10/5 ML UDCUP PO PRN (05:59)
[2020-10-22] MEDS: Ascorbic Acid 500 mg Chewable Tablet PO SCH (09:46)
[2020-10-22] MEDS: Dexamethasone 4 mg/ml Vial SLOW IVP SCH ×2 (09:47→20:26)
[2020-10-22] MEDS: Digoxin 0.125 MG TAB PO SCH (09:47)
[2020-10-22] MEDS: Cholecalciferol (Vitamin D3) 400 UNITS TAB PO SCH (09:47)
[2020-10-22] MEDS: Enoxaparin Sodium 40 MG/0.4 ML SYRINGE SC SCH ×2 (09:47→20:26)
[2020-10-22] MEDS: guaiFENesin ER 600 MG TAB PO SCH ×2 (09:48→20:26)
[2020-10-22] MEDS: Hydrochlorothiazide 25 MG TAB PO SCH (09:48)
[2020-10-22] MEDS: Lisinopril 5 MG TAB PO SCH (09:49)
[2020-10-22] MEDS: Zinc Sulfate 220 MG CAP PO SCH (09:49)
--- NOTE | 2020-10-22 15:14 | PDOC.HOSPP ---
- Subjective Subjective: breathing better. but no change in oxygenation. CRP trending down. No fever. - Objective Vital Signs & Weight: Vital Signs (12 hours) Temp Pulse Resp BP Pulse Ox 10/22/20 09:49 63 10/22/20 09:47 63 10/22/20 09:45 98.6 F 86 22 H 108/52 L 96 10/22/20 08:00 96 Weight Admit Weight 199 lb 9.6 oz Weight 199 lb 9.6 oz I&O: 10/21/20 10/22/20 10/23/20 06:59 06:59 06:59 Intake Total 1050 1570 Output Total 1250 900 Balance -200 670 Result Diagrams: 10/22/20 05:11 10/22/20 05:11 Radiology Reviewed by me: Yes EKG Reviewed by me: Yes Hospitalist ROS - Medication Medications: Active Medications Generic Name Dose Route Start Last Admin Trade Name Freq PRN Reason Stop Dose Admin Acetaminophen 650 mg 10/17/20 04:16 10/20/20 10:01 Acetaminophen 325 Mg Tab PO 650 mg Q4H PRN Administration Headache/Fever/Mild Pain (1-3) Alprazolam 0.25 mg 10/19/20 09:07 10/22/20 13:52 Alprazolam 0.25 Mg Tab PO 0.25 mg TIDPRN PRN Administration Anxiety Ascorbic Acid 1,000 mg 10/17/20 09:00 10/22/20 09:46 Ascorbic Acid 500 Mg Chewable Tablet PO 1,000 mg DAILY HEIDI Administration Calcium Carbonate 1,000 mg 10/17/20 04:16 10/17/20 04:51 Calcium Carbonate 500 Mg Chewtab PO 1,000 mg Q4H PRN Administration Heartburn or Indigestion Cholecalciferol 400 units 10/17/20 09:00 10/22/20 09:47 Cholecalciferol (Vitamin D3) 400 Units Tab PO 400 units DAILY [facility]I Administration Dexamethasone 6 mg 10/21/20 21:00 10/22/20 09:47 Dexamethasone 4 Mg/Ml Vial SLOW IVP 6 mg BID HEIDI Administration Digoxin 0.125 mg 10/20/20 09:00 10/22/20 09:47 Digoxin 0.125 Mg Tab PO 0.125 mg DAILY [facility] Administration Enoxaparin Sodium 40 mg 10/18/20 21:00 10/22/20 09:47 Enoxaparin Sodium 40 Mg/0.4 Ml Syringe SC 40 mg BID HEIDI Administration Guaifenesin 600 mg 10/20/20 21:00 10/22/20 09:48 Guaifenesin Er 600 Mg Tab PO 600 mg Q12HR HEIDI Administration Guaifenesin/Codeine Phosphate 10 ml 10/20/20 13:04 10/22/20 10:29 Guaifenesin/Codeine 200 Mg/20 Mg 10 Ml Cup PO 10 ml Q6H PRN Administration Cough Guaifenesin/Dextromethorphan 15 ml 10/17/20 04:16 10/22/20 05:59 Guaifenesin Dm 100-10/5 Ml Udcup PO 15 ml Q4H PRN Administration Cough Hydrochlorothiazide 12.5 mg 10/20/20 09:00 10/22/20 09:48 Hydrochlorothiazide 25 Mg Tab PO 12.5 mg DAILY HEIDI Administration Vancomycin HCl 1 gm/ Device 200 mls @ 200 mls/hr 10/21/20 17:00 10/22/20 05:59 IVPB 200 mls 0500,1700 HEIDI Administration Lisinopril 5 mg 10/20/20 09:00 10/22/20 09:49 Lisinopril 5 Mg Tab PO 5 mg DAILY [facility] Administration Metoprolol Succinate 25 mg 10/20/20 21:00 10/21/20 19:48 Metoprolol Succinate Xl 25 Mg Tab PO 25 mg HS HEIDI Administration Pantoprazole Sodium 40 mg 10/19/20 09:00 10/22/20 09:49 Pantoprazole 40 Mg Tab PO 40 mg DAILY [facility] Administration Zinc Sulfate 220 mg 10/17/20 09:00 10/22/20 09:49 Zinc Sulfate 220 Mg Cap PO 220 mg DAILY HEIDI Administration - Exam General Appearance: NAD Eye: PERRL ENT: normocephalic atraumatic Neck: supple Heart: RRR Respiratory: rhonchi Gastrointestinal: soft Extremities: no cyanosis Skin: normal turgor, no lesions Neurological: cranial nerve grossly intact Hosp A/P - Plan Patient is a pleasant 60 years old female who has significant past medical history of SVT, who presented to ED with short of breath. She was diagnosed with COVID pneumonia on 10/08/2020 Acute hypoxic respiratory failure due to COVID-19 pneumonia --Given incr CRP level, will bump Decadron to BID. Cont Vit C/D/Zinc --s/p convalescent plasma. No remdesivir d/t onset of symptoms out of timeframe for any meaningful treatment --cont supportive cares. --Cont Lovenox 40 mg BID for DVT ppx. Wean O2 as tolerated. COVID-19 pneumonia --as above Positive Blood culture --Notified by nursing staff, BCx positive for 2/4 GPC, started vanc empirically while waiting for culture to finalize. However, so far i do not see anything appears under micro. Sepsis, present on admission --follow cultures. d/t viral pna History of SVT --NSR, resume home meds (Toprol, Dig) Hypokalemia --replaced.
[2020-10-23] MEDS: guaiFENesin/Codeine 200 mg/20 mg 10 ml Cup PO PRN ×4 (02:47→22:43)
[2020-10-23] MEDS: Vancomycin 1 GM in Premix Bag 1 BAG IVPB SCH (04:55)
[2020-10-23 05:18] LABS: #Basophils 0.2 thou/uL (0.0-0.2); #Lymphocytes 0.9 thou/uL (1.20-3.40); #Monocytes 0.4 thou/uL (0.11-0.59); #Neutrophils 8.6 thou/uL (1.40-6.50); %Basophils 1.7 % (0.0-1.0); %Eosinophils 0.4 % (0.0-10.0); %Lymphocytes 8.6 % (21.0-51.0); %Monocytes 4.2 % (0.0-10.0); %Neutrophils 85.1 % (42.0-75.0); Hemoglobin 10.6 g/dL (12.0-16.0); Mean Corpuscular HGB CONC 31.6 g/dL (32.0-36.0); Mean Corpuscular Hemoglobin 26.1 pg (27.0-31.0); Mean Corpuscular Volume 82.7 fL (78.0-98.0); Mean Platelet Volume 7.6 fL (7.4-10.4); Platelet Count 367 thou/uL (130-400); Red Blood Cell (RBC) Count 4.04 mill/uL (4.20-5.40)
[2020-10-23 05:35] LABS: ALT (SGPT) 42 U/L (8-55); AST (SGOT) 24 U/L (5-34); Albumin 2.8 g/dL (3.5-5.0); Alkaline Phosphatase 95 U/L (40-110); Anion Gap 13 mmol/L (10-20); BUN (Urea Nitrogen) 14 mg/dL (9.8-20.1); Bilirubin, Total 0.4 mg/dL (0.2-1.2); CRP (Inflammatory) 8.39 mg/dL (= or < 0.5); Calc. Creatinine Clearance 126 mL/min (70-130); Calcium 8.3 mg/dL (7.8-10.44); Carbon Dioxide 29 mmol/L (22-29); Chloride 98 mmol/L (98-107); Globulin 3.8 g/dL (2.4-3.5); Glucose 134 mg/dL (70-105); Potassium 4.4 mmol/L (3.5-5.1); Protein, Total 6.6 g/dL (6.0-8.3); Sodium 136 mmol/L (136-145)
[2020-10-23] MEDS ORDERED: Vancomycin HCl 500 MG in Sodium Chloride 0.9% 100 ML IVPB SCH (06:00)
[2020-10-23] MEDS: Ascorbic Acid 500 mg Chewable Tablet PO SCH (07:49)
[2020-10-23] MEDS: Digoxin 0.125 MG TAB PO SCH (07:49)
[2020-10-23] MEDS: Cholecalciferol (Vitamin D3) 400 UNITS TAB PO SCH (07:49)
[2020-10-23] MEDS: Enoxaparin Sodium 40 MG/0.4 ML SYRINGE SC SCH ×2 (07:50→20:15)
[2020-10-23] MEDS: guaiFENesin ER 600 MG TAB PO SCH ×2 (07:50→20:14)
[2020-10-23] MEDS: Hydrochlorothiazide 25 MG TAB PO SCH (07:50)
[2020-10-23] MEDS: Zinc Sulfate 220 MG CAP PO SCH (07:51)
[2020-10-23] MEDS: Lisinopril 5 MG TAB PO SCH (07:51)
[2020-10-23] MEDS: Dexamethasone 4 mg/ml Vial SLOW IVP SCH ×2 (07:54→21:09)
[2020-10-23] MEDS: PROVENTIL INHALER 6.7 G (200 INHALATIONS) INH PRN ×3 (10:56→20:14)
[2020-10-23] MEDS: ALPRAZolam 0.25 MG TAB PO PRN (13:36)
--- NOTE | 2020-10-23 14:22 | PDOC.HOSPP ---
- Subjective Subjective: Patient was seen examined at bedside. She remains on high flow, weaning down slightly on FiO2 from 74-70 today. Blood pressure stable. Her CRP start coming down from 18 to 8 today. No fever - Objective Vital Signs & Weight: Vital Signs (12 hours) Temp Pulse Resp BP BP BP Pulse Ox 10/23/20 11:40 98.5 F 64 26 H 147/65 H 99 10/23/20 10:10 124/60 129/59 L 10/23/20 10:00 92 L 10/23/20 07:51 97.9 F 67 21 H 148/68 H 92 L 10/23/20 04:00 98.4 F 61 20 131/62 95 Pulse Ox Pulse Ox 10/23/20 11:40 10/23/20 10:10 96 92 L 10/23/20 10:00 10/23/20 07:51 10/23/20 04:00 Weight Admit Weight 199 lb 9.6 oz Weight 199 lb 9.6 oz I&O: 10/22/20 10/23/20 10/24/20 06:59 06:59 06:59 Intake Total 1570 550 Output Total 900 Balance 670 550 Result Diagrams: 10/23/20 04:04 10/23/20 04:03 Hospitalist ROS - Medication Medications: Active Medications Generic Name Dose Route Start Last Admin Trade Name Freq PRN Reason Stop Dose Admin Acetaminophen 650 mg 10/17/20 04:16 10/20/20 10:01 Acetaminophen 325 Mg Tab PO 650 mg Q4H PRN Administration Headache/Fever/Mild Pain (1-3) Albuterol Sulfate 0 puff 10/23/20 09:50 10/23/20 10:56 Proventil Inhaler 6.7 G (200 Inhalations) INH 2 puff Q4H PRN Administration SOB &/or Wheezing Alprazolam 0.25 mg 10/19/20 09:07 10/23/20 13:36 Alprazolam 0.25 Mg Tab PO 0.25 mg TIDPRN PRN Administration Anxiety Ascorbic Acid 1,000 mg 10/17/20 09:00 10/23/20 07:49 Ascorbic Acid 500 Mg Chewable Tablet PO 1,000 mg DAILY HEIDI Administration Calcium Carbonate 1,000 mg 10/17/20 04:16 10/17/20 04:51 Calcium Carbonate 500 Mg Chewtab PO 1,000 mg Q4H PRN Administration Heartburn or Indigestion Cholecalciferol 400 units 10/17/20 09:00 10/23/20 07:49 Cholecalciferol (Vitamin D3) 400 Units Tab PO 400 units DAILY [facility]I Administration Dexamethasone 6 mg 10/21/20 21:00 10/23/20 07:54 Dexamethasone 4 Mg/Ml Vial SLOW IVP 6 mg BID HEIDI Administration Digoxin 0.125 mg 10/20/20 09:00 10/23/20 07:49 Digoxin 0.125 Mg Tab PO 0.125 mg DAILY [facility]I Administration Enoxaparin Sodium 40 mg 10/18/20 21:00 10/23/20 07:50 Enoxaparin Sodium 40 Mg/0.4 Ml Syringe SC 40 mg BID HEIDI Administration Guaifenesin 600 mg 10/20/20 21:00 10/23/20 07:50 Guaifenesin Er 600 Mg Tab PO 600 mg Q12HR HEIDI Administration Guaifenesin/Codeine Phosphate 10 ml 10/20/20 13:04 10/23/20 11:03 Guaifenesin/Codeine 200 Mg/20 Mg 10 Ml Cup PO 10 ml Q6H PRN Administration Cough Hydrochlorothiazide 12.5 mg 10/20/20 09:00 10/23/20 07:50 Hydrochlorothiazide 25 Mg Tab PO 12.5 mg DAILY HEIDI Administration Lisinopril 5 mg 10/20/20 09:00 10/23/20 07:51 Lisinopril 5 Mg Tab PO 5 mg DAILY [facility]IDI Administration Metoprolol Succinate 25 mg 10/20/20 21:00 10/22/20 20:26 Metoprolol Succinate Xl 25 Mg Tab PO 25 mg HS HEIDI Administration Pantoprazole Sodium 40 mg 10/19/20 09:00 10/23/20 07:51 Pantoprazole 40 Mg Tab PO 40 mg DAILY [facility]I Administration Zinc Sulfate 220 mg 10/17/20 09:00 10/23/20 07:51 Zinc Sulfate 220 Mg Cap PO 220 mg DAILY HEIDI Administration - Exam General Appearance: NAD Eye: PERRL ENT: normocephalic atraumatic Neck: supple Heart: RRR Respiratory: rhonchi Gastrointestinal: soft Extremities: no cyanosis Skin: normal turgor Neurological: cranial nerve grossly intact Musculoskeletal: normal tone Psychiatric: normal affect, normal behavior, A&O x 3 Hosp A/P - Plan Patient is a pleasant 60 years old female who has significant past medical history of SVT, who presented to ED with short of breath. She was diagnosed with COVID pneumonia on 10/08/2020 Acute hypoxic respiratory failure due to COVID-19 pneumonia - on HiFlo --Given incr CRP level, will bump Decadron to BID. Cont Vit C/D/Zinc --s/p convalescent plasma. No remdesivir d/t onset of symptoms out of timeframe for any meaningful treatment --Cont Lovenox 40 mg BID for DVT ppx. Wean O2 as tolerated. --CRP is now trending down and finally able to wean her down on FiO2 --rpt CXR in AM COVID-19 pneumonia --as above Positive Blood culture --Notified by nursing staff, BCx positive for 2/4 GPC, started vanc empirically while waiting for culture to finalize. However, so far i do not see anything appears under micro. Sepsis, present on admission --follow cultures. d/t viral pna History of SVT --NSR, resume home meds (Toprol, Dig) Hypokalemia --replaced.
[2020-10-23] MEDS: Vancomycin 1.5 GRAM/300 ML BAG 1.5 GM in Premix Bag 1 BAG IVPB SCH ×2 (17:07→20:01)
[2020-10-24] MEDS: ALPRAZolam 0.25 MG TAB PO PRN ×3 (00:16→20:46)
[2020-10-24] MEDS: Benzonatate 100 MG CAP PO PRN ×2 (03:03→12:28)
[2020-10-24] MEDS: guaiFENesin/Codeine 200 mg/20 mg 10 ml Cup PO PRN ×4 (04:10→22:20)
[2020-10-24] MEDS: Dexamethasone 4 mg/ml Vial SLOW IVP SCH ×2 (07:31→20:45)
[2020-10-24] MEDS: PROVENTIL INHALER 6.7 G (200 INHALATIONS) INH PRN ×3 (07:32→16:22)
[2020-10-24] MEDS: Vancomycin 1.5 GRAM/300 ML BAG 1.5 GM in Premix Bag 1 BAG IVPB SCH (07:32)
--- NOTE | 2020-10-24 07:54 | RAD ---
Chest one view HISTORY: Pneumonia. Follow-up. COMPARISON: 10/21/2020. FINDINGS: Cardiac silhouette is magnified by projection. Pulmonary vasculature engorged. Patchy areas of predominantly peripheral infiltrate involving each lung slightly more dense than on t he prior study. Partial obscuration of the right hemidiaphragm apex. No pneumothorax. Retrocardiac density unchanged. Possible hiatal hernia. IMPRESSION : Slight interval radiographic progression of multifocal infiltrates.
[2020-10-24] MEDS: guaiFENesin ER 600 MG TAB PO SCH ×2 (08:04→20:46)
[2020-10-24] MEDS: Cholecalciferol (Vitamin D3) 400 UNITS TAB PO SCH (09:51)
[2020-10-24] MEDS: Enoxaparin Sodium 40 MG/0.4 ML SYRINGE SC SCH ×2 (09:52→20:46)
[2020-10-24] MEDS: Hydrochlorothiazide 25 MG TAB PO SCH (09:52)
[2020-10-24] MEDS: Lisinopril 5 MG TAB PO SCH (09:53)
[2020-10-24] MEDS: Digoxin 0.125 MG TAB PO SCH (09:53)
[2020-10-24] MEDS: Ascorbic Acid 500 mg Chewable Tablet PO SCH (09:53)
[2020-10-24] MEDS: Zinc Sulfate 220 MG CAP PO SCH (09:54)
--- NOTE | 2020-10-24 14:51 | PDOC.HOSPP ---
- Subjective Subjective: Pt was seen examined at bedside. Patient remains on high flow, at the rate of 60, and FiO2 of 74. Unfortunately, not weanable at this point. Repeated chest x-ray showed dense infiltrates, still remain pretty extensive. Her CRP is trending down. Patient in good spirit. No fever. No blood cultures updated. I was notified by the nursing staff few days ago, that her preliminary culture was positive. However, since stands no blood culture was updated. We will DC her empiric IV antibiotic at this time. We will continue with Decadron, and treatment for her COVID-19 pneumonia. Follow clinically. Hopefully she will start turnaround soon. Updated her sister on the phone. - Objective Vital Signs & Weight: Vital Signs (12 hours) Temp Pulse Resp BP BP Pulse Ox 10/24/20 11:40 98.6 F 102 H 30 H 115/59 L 97 10/24/20 07:20 98.5 F 70 13 133/62 88 L 10/24/20 03:39 98.2 F 66 28 H 118/72 92 L Weight Admit Weight 199 lb 9.6 oz Weight 199 lb 9.6 oz I&O: 10/23/20 10/24/20 10/25/20 06:59 06:59 06:59 Intake Total 550 900 Output Total 2600 Balance 550 -1700 Result Diagrams: 10/23/20 04:04 10/23/20 04:03 Hospitalist ROS - Medication Medications: Active Medications Generic Name Dose Route Start Last Admin Trade Name Freq PRN Reason Stop Dose Admin Acetaminophen 650 mg 10/17/20 04:16 10/20/20 10:01 Acetaminophen 325 Mg Tab PO 650 mg Q4H PRN Administration Headache/Fever/Mild Pain (1-3) Albuterol Sulfate 0 puff 10/23/20 09:50 10/24/20 12:29 Proventil Inhaler 6.7 G (200 Inhalations) INH 2 puff Q4H PRN Administration SOB &/or Wheezing Alprazolam 0.25 mg 10/19/20 09:07 10/24/20 14:32 Alprazolam 0.25 Mg Tab PO 0.25 mg TIDPRN PRN Administration Anxiety Ascorbic Acid 1,000 mg 10/17/20 09:00 10/24/20 09:53 Ascorbic Acid 500 Mg Chewable Tablet PO 1,000 mg DAILY HEIDI Administration Benzonatate 100 mg 10/24/20 02:50 10/24/20 12:28 Benzonatate 100 Mg Cap PO 100 mg TIDPRN PRN Administration Cough Calcium Carbonate 1,000 mg 10/17/20 04:16 10/17/20 04:51 Calcium Carbonate 500 Mg Chewtab PO 1,000 mg Q4H PRN Administration Heartburn or Indigestion Cholecalciferol 400 units 10/17/20 09:00 10/24/20 09:51 Cholecalciferol (Vitamin D3) 400 Units Tab PO 400 units DAILY HEIDI Administration Dexamethasone 6 mg 10/21/20 21:00 10/24/20 07:31 Dexamethasone 4 Mg/Ml Vial SLOW IVP 6 mg BID HEIDI Administration Digoxin 0.125 mg 10/20/20 09:00 10/24/20 09:53 Digoxin 0.125 Mg Tab PO 0.125 mg DAILY HEIDI Administration Enoxaparin Sodium 40 mg 10/18/20 21:00 10/24/20 09:52 Enoxaparin Sodium 40 Mg/0.4 Ml Syringe SC 40 mg BID HEIDI Administration Guaifenesin 600 mg 10/20/20 21:00 10/24/20 08:04 Guaifenesin Er 600 Mg Tab PO 600 mg Q12HR HEIDI Administration Guaifenesin/Codeine Phosphate 10 ml 10/20/20 13:04 10/24/20 09:51 Guaifenesin/Codeine 200 Mg/20 Mg 10 Ml Cup PO 10 ml Q6H PRN Administration Cough Hydrochlorothiazide 12.5 mg 10/20/20 09:00 10/24/20 09:52 Hydrochlorothiazide 25 Mg Tab PO 12.5 mg DAILY HEIDI Administration Lisinopril 5 mg 10/20/20 09:00 10/24/20 09:53 Lisinopril 5 Mg Tab PO 5 mg DAILY HEIDI Administration Metoprolol Succinate 25 mg 10/20/20 21:00 10/23/20 20:14 Metoprolol Succinate Xl 25 Mg Tab PO 25 mg HS HEIDI Administration Pantoprazole Sodium 40 mg 10/19/20 09:00 10/24/20 09:53 Pantoprazole 40 Mg Tab PO 40 mg DAILY HEIDI Administration Zinc Sulfate 220 mg 10/17/20 09:00 10/24/20 09:54 Zinc Sulfate 220 Mg Cap PO 220 mg DAILY HEIDI Administration Hosp A/P - Plan Patient is a pleasant 60 years old female who has significant past medical history of SVT, who presented to ED with short of breath. She was diagnosed with COVID pneumonia on 10/08/2020 Acute hypoxic respiratory failure due to COVID-19 pneumonia - on HiFlo --Given incr CRP level, will bump Decadron to BID. Cont Vit C/D/Zinc --s/p convalescent plasma. No remdesivir d/t onset of symptoms out of timeframe for any meaningful treatment --Cont Lovenox 40 mg BID for DVT ppx. Wean O2 as tolerated. --CRP is now trending down and finally able to wean her down on FiO2 --rpt CXR in AM COVID-19 pneumonia --as above Positive Blood culture --Notified by nursing staff, BCx positive for 2/4 GPC, started vanc empirically while waiting for culture to finalize. However, so far i do not see anything appears under micro. Sepsis, present on admission --follow cultures. d/t viral pna History of SVT --NSR, resume home meds (Toprol, Dig) Hypokalemia --replaced.
[2020-10-24] MEDS: Benzonatate 100 MG CAP PO SCH ×2 (16:18→20:45)
--- NOTE | 2020-10-24 17:33 | PDOC.HOSPP ---
- Subjective Subjective: Pt was seen examined at bedside. Patient remains on high flow, at the rate of 60, and FiO2 of 74. Unfortunately, not weanable at this point. Repeated chest x-ray showed dense infiltrates, still remain pretty extensive. Her CRP is trending down. Patient in good spirit. No fever. No blood cultures updated. I was notified by the nursing staff few days ago, that her preliminary culture was positive. However, since stands no blood culture was updated. We will DC her empiric IV antibiotic at this time. We will continue with Decadron, and treatment for her COVID-19 pneumonia. Follow clinically. Hopefully she will start turnaround soon. Updated her sister on the phone. - Objective Vital Signs & Weight: Vital Signs (12 hours) Temp Pulse Resp BP Pulse Ox 10/24/20 16:15 98.5 F 72 32 H 126/61 98 10/24/20 11:40 98.6 F 102 H 30 H 115/59 L 97 10/24/20 07:20 98.5 F 70 13 133/62 88 L Weight Admit Weight 199 lb 9.6 oz Weight 199 lb 9.6 oz I&O: 10/23/20 10/24/20 10/25/20 06:59 06:59 06:59 Intake Total 550 900 Output Total 2600 850 Balance 550 -1700 -850 Result Diagrams: 10/23/20 04:04 10/23/20 04:03 Hospitalist ROS - Medication Medications: Active Medications Generic Name Dose Route Start Last Admin Trade Name Freq PRN Reason Stop Dose Admin Acetaminophen 650 mg 10/17/20 04:16 10/20/20 10:01 Acetaminophen 325 Mg Tab PO 650 mg Q4H PRN Administration Headache/Fever/Mild Pain (1-3) Albuterol Sulfate 0 puff 10/23/20 09:50 10/24/20 16:22 Proventil Inhaler 6.7 G (200 Inhalations) INH 2 puff Q4H PRN Administration SOB &/or Wheezing Alprazolam 0.25 mg 10/19/20 09:07 10/24/20 14:32 Alprazolam 0.25 Mg Tab PO 0.25 mg TIDPRN PRN Administration Anxiety Ascorbic Acid 1,000 mg 10/17/20 09:00 10/24/20 09:53 Ascorbic Acid 500 Mg Chewable Tablet PO 1,000 mg DAILY HEIDI Administration Benzonatate 100 mg 10/24/20 02:50 10/24/20 12:28 Benzonatate 100 Mg Cap PO 100 mg TIDPRN PRN Administration Cough Benzonatate 100 mg 10/24/20 15:00 10/24/20 16:18 Benzonatate 100 Mg Cap PO Not Given TID [facility] Calcium Carbonate 1,000 mg 10/17/20 04:16 10/17/20 04:51 Calcium Carbonate 500 Mg Chewtab PO 1,000 mg Q4H PRN Administration Heartburn or Indigestion Cholecalciferol 400 units 10/17/20 09:00 10/24/20 09:51 Cholecalciferol (Vitamin D3) 400 Units Tab PO 400 units DAILY [facility] Administration Dexamethasone 6 mg 10/21/20 21:00 10/24/20 07:31 Dexamethasone 4 Mg/Ml Vial SLOW IVP 6 mg BID [facility] Administration Digoxin 0.125 mg 10/20/20 09:00 10/24/20 09:53 Digoxin 0.125 Mg Tab PO 0.125 mg DAILY HEIDI Administration Enoxaparin Sodium 40 mg 10/18/20 21:00 10/24/20 09:52 Enoxaparin Sodium 40 Mg/0.4 Ml Syringe SC 40 mg BID HEIDI Administration Guaifenesin 600 mg 10/20/20 21:00 10/24/20 08:04 Guaifenesin Er 600 Mg Tab PO 600 mg Q12HR HEIDI Administration Guaifenesin/Codeine Phosphate 10 ml 10/20/20 13:04 10/24/20 16:23 Guaifenesin/Codeine 200 Mg/20 Mg 10 Ml Cup PO 10 ml Q6H PRN Administration Cough Hydrochlorothiazide 12.5 mg 10/20/20 09:00 10/24/20 09:52 Hydrochlorothiazide 25 Mg Tab PO 12.5 mg DAILY HEIDI Administration Lisinopril 5 mg 10/20/20 09:00 10/24/20 09:53 Lisinopril 5 Mg Tab PO 5 mg DAILY HEIDI Administration Metoprolol Succinate 25 mg 10/20/20 21:00 10/23/20 20:14 Metoprolol Succinate Xl 25 Mg Tab PO 25 mg HS HEIDI Administration Pantoprazole Sodium 40 mg 10/19/20 09:00 10/24/20 09:53 Pantoprazole 40 Mg Tab PO 40 mg DAILY HEIDI Administration Zinc Sulfate 220 mg 10/17/20 09:00 10/24/20 09:54 Zinc Sulfate 220 Mg Cap PO 220 mg DAILY EHIDI Administration - Exam General Appearance: NAD Eye: PERRL ENT: normocephalic atraumatic Neck: supple Heart: RRR Respiratory: rhonchi Gastrointestinal: soft Extremities: no cyanosis Neurological: cranial nerve grossly intact Hosp A/P - Plan Patient is a pleasant 60 years old female who has significant past medical history of SVT, who presented to ED with short of breath. She was diagnosed with COVID pneumonia on 10/08/2020 Acute hypoxic respiratory failure due to COVID-19 pneumonia - on HiFlo --Given incr CRP level and severity of disease; Decadron was increased to BID. Cont Vit C/D/Zinc --s/p convalescent plasma. No remdesivir d/t onset of symptoms out of timeframe for any meaningful treatment --Cont Lovenox 40 mg BID for DVT ppx. Wean O2 as tolerated. --CRP is now trending down, wean O2 as sonja --rpt CXR - still dense and extensive infiltrate --cont supportive cares. Add Doxy empirically COVID-19 pneumonia --as above Positive Blood culture --Notified by nursing staff, BCx positive for 2/4 GPC, pt was started on Vanc while waiting to finalize but nothing show up in micro last several days. Will d/c empiric IV abx, Vanc at this time and follow clinically. Sepsis, present on admission --follow cultures. d/t viral pna History of SVT --NSR, resume home meds (Toprol, Dig) Hypokalemia --replaced.
[2020-10-24] MEDS: Doxycycline 100 MG CAP PO SCH (20:45)
[2020-10-24] MEDS: Acetaminophen 325 MG TAB PO PRN (22:20)
[2020-10-25] MEDS: Benzonatate 100 MG CAP PO PRN (03:34)
[2020-10-25 05:11] LABS: #Basophils 0.2 thou/uL (0.0-0.2); #Lymphocytes 1.1 thou/uL (1.20-3.40); #Monocytes 0.5 thou/uL (0.11-0.59); #Neutrophils 12.2 thou/uL (1.40-6.50); %Basophils 1.1 % (0.0-1.0); %Eosinophils 0.3 % (0.0-10.0); %Lymphocytes 7.8 % (21.0-51.0); %Monocytes 3.5 % (0.0-10.0); %Neutrophils 87.4 % (42.0-75.0); Hemoglobin 10.8 g/dL (12.0-16.0); Mean Corpuscular HGB CONC 31.6 g/dL (32.0-36.0); Mean Corpuscular Hemoglobin 25.8 pg (27.0-31.0); Mean Corpuscular Volume 81.6 fL (78.0-98.0); Mean Platelet Volume 7.6 fL (7.4-10.4); Platelet Count 335 thou/uL (130-400); RBC Distribution Width 14.2 % (11.5-14.5); White Blood Cell (WBC) Count 13.9 thou/uL (4.8-10.8)
[2020-10-25 05:35] LABS: Anion Gap 12 mmol/L (10-20); BUN (Urea Nitrogen) 18 mg/dL (9.8-20.1); Calc. Creatinine Clearance 145 mL/min (70-130); Calcium 8.5 mg/dL (7.8-10.44); Carbon Dioxide 29 mmol/L (22-29); Chloride 98 mmol/L (98-107); Glucose 141 mg/dL (70-105); Potassium 4.9 mmol/L (3.5-5.1); Sodium 134 mmol/L (136-145)
[2020-10-25] MEDS: Hydrochlorothiazide 25 MG TAB PO SCH (09:12)
[2020-10-25] MEDS: Zinc Sulfate 220 MG CAP PO SCH (09:13)
[2020-10-25] MEDS: guaiFENesin ER 600 MG TAB PO SCH ×2 (09:13→20:20)
[2020-10-25] MEDS: Enoxaparin Sodium 40 MG/0.4 ML SYRINGE SC SCH ×2 (09:13→20:20)
[2020-10-25] MEDS: PROVENTIL INHALER 6.7 G (200 INHALATIONS) INH PRN ×2 (09:13→18:03)
[2020-10-25] MEDS: Cholecalciferol (Vitamin D3) 400 UNITS TAB PO SCH (09:14)
[2020-10-25] MEDS: Doxycycline 100 MG CAP PO SCH ×2 (09:14→20:20)
[2020-10-25] MEDS: Digoxin 0.125 MG TAB PO SCH (09:14)
[2020-10-25] MEDS: Lisinopril 5 MG TAB PO SCH (09:14)
[2020-10-25] MEDS: Ascorbic Acid 500 mg Chewable Tablet PO SCH (09:14)
[2020-10-25] MEDS: Benzonatate 100 MG CAP PO SCH ×3 (09:14→20:20)
[2020-10-25] MEDS: Dexamethasone 4 mg/ml Vial SLOW IVP SCH ×2 (09:15→20:19)
[2020-10-25] MEDS: guaiFENesin/Codeine 200 mg/20 mg 10 ml Cup PO PRN ×2 (12:17→18:03)
[2020-10-25] MEDS: ALPRAZolam 0.25 MG TAB PO PRN ×2 (13:55→20:20)
[2020-10-25] MEDS: Acetaminophen 325 MG TAB PO PRN (18:19)
--- NOTE | 2020-10-25 20:30 | PDOC.HOSPP ---
- Subjective Encounter Date: 10/25/20 Encounter Time: 19:15 Subjective: f/u for COVID PNA/hypoxic resp failure on high-flow with 60L/min. Feels better overall. - Objective Vital Signs & Weight: Vital Signs (12 hours) Temp Pulse Resp BP Pulse Ox 10/25/20 17:23 98.4 F 76 22 H 121/59 L 99 10/25/20 09:14 94 L Weight Admit Weight 199 lb 9.6 oz Weight 199 lb 9.6 oz I&O: 10/24/20 10/25/20 10/26/20 06:59 06:59 06:59 Intake Total 900 1200 1300 Output Total 2600 1750 1600 Balance -1700 -550 -300 Result Diagrams: 10/25/20 04:58 10/25/20 04:58 Additional Labs: Laboratory Tests 10/20/20 10/21/20 10/22/20 04:41 04:36 05:11 C-Reactive Protein 11.30 H 20.94 H 18.62 H 10/23/20 10/24/20 10/25/20 04:03 04:29 04:58 C-Reactive Protein 8.39 H 5.12 H 7.10 H Radiology Reviewed by me: Yes (PCXR - bilat pulm infiltrates) Hospitalist ROS - Medication Medications: Active Medications Generic Name Dose Route Start Last Admin Trade Name Freq PRN Reason Stop Dose Admin Acetaminophen 650 mg 10/17/20 04:16 10/25/20 18:19 Acetaminophen 325 Mg Tab PO 650 mg Q4H PRN Administration Headache/Fever/Mild Pain (1-3) Albuterol Sulfate 0 puff 10/23/20 09:50 10/25/20 18:03 Proventil Inhaler 6.7 G (200 Inhalations) INH 2 puff Q4H PRN Administration SOB &/or Wheezing Alprazolam 0.25 mg 10/19/20 09:07 10/25/20 20:20 Alprazolam 0.25 Mg Tab PO 0.25 mg TIDPRN PRN Administration Anxiety Ascorbic Acid 1,000 mg 10/17/20 09:00 10/25/20 09:14 Ascorbic Acid 500 Mg Chewable Tablet PO 1,000 mg DAILY HEIDI Administration Benzonatate 100 mg 10/24/20 02:50 10/25/20 03:34 Benzonatate 100 Mg Cap PO 100 mg TIDPRN PRN Administration Cough Benzonatate 100 mg 10/24/20 15:00 10/25/20 20:20 Benzonatate 100 Mg Cap PO 100 mg TID HEIDI Administration Calcium Carbonate 1,000 mg 10/17/20 04:16 10/17/20 04:51 Calcium Carbonate 500 Mg Chewtab PO 1,000 mg Q4H PRN Administration Heartburn or Indigestion Cholecalciferol 400 units 10/17/20 09:00 10/25/20 09:14 Cholecalciferol (Vitamin D3) 400 Units Tab PO 400 units DAILY HEIDI Administration Dexamethasone 6 mg 10/21/20 21:00 10/25/20 20:19 Dexamethasone 4 Mg/Ml Vial SLOW IVP 6 mg BID HEIDI Administration Digoxin 0.125 mg 10/20/20 09:00 10/25/20 09:14 Digoxin 0.125 Mg Tab PO 0.125 mg DAILY HEIDI Administration Doxycycline Hyclate 100 mg 10/24/20 21:00 10/25/20 20:20 Doxycycline 100 Mg Cap PO 100 mg BID HEIDI Administration Enoxaparin Sodium 40 mg 10/18/20 21:00 10/25/20 20:20 Enoxaparin Sodium 40 Mg/0.4 Ml Syringe SC 40 mg BID HEIDI Administration Guaifenesin 600 mg 10/20/20 21:00 10/25/20 20:20 Guaifenesin Er 600 Mg Tab PO 600 mg Q12HR HEIDI Administration Guaifenesin/Codeine Phosphate 10 ml 10/20/20 13:04 10/25/20 18:03 Guaifenesin/Codeine 200 Mg/20 Mg 10 Ml Cup PO 10 ml Q6H PRN Administration Cough Hydrochlorothiazide 12.5 mg 10/20/20 09:00 10/25/20 09:12 Hydrochlorothiazide 25 Mg Tab PO 12.5 mg DAILY HEIDI Administration Lisinopril 5 mg 10/20/20 09:00 10/25/20 09:14 Lisinopril 5 Mg Tab PO 5 mg DAILY HEIDI Administration Metoprolol Succinate 25 mg 10/20/20 21:00 10/25/20 20:20 Metoprolol Succinate Xl 25 Mg Tab PO 25 mg HS HEIDI Administration Pantoprazole Sodium 40 mg 10/19/20 09:00 10/25/20 09:13 Pantoprazole 40 Mg Tab PO 40 mg DAILY HEIDI Administration Zinc Sulfate 220 mg 10/17/20 09:00 10/25/20 09:13 Zinc Sulfate 220 Mg Cap PO 220 mg DAILY HEIDI Administration - Exam General Appearance: NAD, awake alert Eye: PERRL, anicteric sclera ENT: normocephalic atraumatic, no oropharyngeal lesions Neck: supple, symmetric, no JVD, no thyromegaly, no lymphadenopathy Heart: RRR, no gallops, no rubs, normal peripheral pulses Heart - other findings: S1, S2 Respiratory: tachypneic Respiratory - other findings: scattered coarse sounds, diminished in bases Gastrointestinal: soft, non-tender, non-distended, normal bowel sounds, no palpable masses Extremities: no cyanosis, no clubbing, no edema Skin: normal turgor, no lesions, no rashes Neurological: cranial nerve grossly intact, no new deficit Musculoskeletal: normal tone, normal strength, no muscle wasting Psychiatric: normal affect, A&O x 3 Hosp A/P (1) Pneumonia due to COVID-19 virus Code(s): U07.1 - COVID-19; J12.89 - OTHER VIRAL PNEUMONIA Status: Acute Plan: Slow progress, continue Dexamethasone/Doxycycline/Albuterol/Vit C/Zinc/Vit D3/Lovenox (2) Acute respiratory failure Code(s): J96.00 - ACUTE RESPIRATORY FAILURE, UNSP W HYPOXIA OR HYPERCAPNIA Status: Acute Plan: Continue high-flow NC, wean as clinically indicated (3) HTN (hypertension) Code(s): I10 - ESSENTIAL (PRIMARY) HYPERTENSION Status: Chronic Qualifiers: Hypertension type: essential hypertension Qualified Code(s): I10 - Ess ential (primary) hypertension Plan: Stable, continue Metoprolol (4) Sepsis Code(s): A41.9 - SEPSIS, UNSPECIFIED ORGANISM Status: Acute Plan: Secondary to #1, resolved - Plan continue antibiotics, PT/OT, delinquency prevention social worker, respiratory therapy, out of bed/ambulate, DVT proph w/SCDs continue supportive mgmt Continue Dexamethasone/Lovenox/Doxycycline Incentive spirometry OOB/ambulate Wean high-flow as clinically indicated
[2020-10-26] MEDS: guaiFENesin/Codeine 200 mg/20 mg 10 ml Cup PO PRN (00:30)
[2020-10-26] MEDS: ALPRAZolam 0.25 MG TAB PO PRN ×2 (05:54→20:20)
[2020-10-26] MEDS: Hydrochlorothiazide 25 MG TAB PO SCH (09:19)
[2020-10-26] MEDS: Doxycycline 100 MG CAP PO SCH ×2 (09:19→20:15)
[2020-10-26] MEDS: Enoxaparin Sodium 40 MG/0.4 ML SYRINGE SC SCH ×2 (09:19→20:17)
[2020-10-26] MEDS: Cholecalciferol (Vitamin D3) 400 UNITS TAB PO SCH (09:20)
[2020-10-26] MEDS: Lisinopril 5 MG TAB PO SCH (09:20)
[2020-10-26] MEDS: Ascorbic Acid 500 mg Chewable Tablet PO SCH (09:20)
[2020-10-26] MEDS: Zinc Sulfate 220 MG CAP PO SCH (09:20)
[2020-10-26] MEDS: Digoxin 0.125 MG TAB PO SCH (09:20)
[2020-10-26] MEDS: Benzonatate 100 MG CAP PO SCH ×3 (09:20→20:15)
[2020-10-26] MEDS: Dexamethasone 4 mg/ml Vial SLOW IVP SCH ×2 (09:21→20:15)
[2020-10-26] MEDS: guaiFENesin ER 600 MG TAB PO SCH ×2 (09:27→20:14)
[2020-10-26] MEDS ORDERED: Ketorolac Tromethamine 30 MG/ML VIAL IVP PRN (10:24)
[2020-10-26] MEDS ORDERED: Ketorolac Tromethamine 30 MG/ML VIAL IVP SCH (10:30)
[2020-10-26] MEDS: PROVENTIL INHALER 6.7 G (200 INHALATIONS) INH PRN (18:04)
--- NOTE | 2020-10-26 19:33 | PDOC.HOSPP ---
- Subjective Encounter Date: 10/26/20 Encounter Time: 18:40 Subjective: f/u for COVID PNA/hypoxic resp failure on high-flow @ 60L/min NC. Still SOB with minimal exertion. Prone ventilated approx 3hrs today. - Objective Vital Signs & Weight: Vital Signs (12 hours) Temp Pulse Resp BP Pulse Ox 10/26/20 15:14 98.4 F 72 22 H 144/66 H 96 10/26/20 12:00 86 29 H 100 10/26/20 09:14 100 10/26/20 08:00 98.5 F 80 28 H 127/70 100 Weight Admit Weight 199 lb 9.6 oz Weight 199 lb 9.6 oz I&O: 10/25/20 10/26/20 10/27/20 06:59 06:59 06:59 Intake Total 1200 1300 400 Output Total 1750 1600 600 Balance -550 -300 -200 Result Diagrams: 10/25/20 04:58 10/25/20 04:58 Additional Labs: Laboratory Tests 10/20/20 10/21/20 10/22/20 04:41 04:36 05:11 C-Reactive Protein 11.30 H 20.94 H 18.62 H 10/23/20 10/24/20 10/25/20 04:03 04:29 04:58 C-Reactive Protein 8.39 H 5.12 H 7.10 H EKG Reviewed by me: Yes (Tele - SR) Hospitalist ROS - Medication Medications: Active Medications Generic Name Dose Route Start Last Admin Trade Name Freq PRN Reason Stop Dose Admin Acetaminophen 650 mg 10/17/20 04:16 10/25/20 18:19 Acetaminophen 325 Mg Tab PO 650 mg Q4H PRN Administration Headache/Fever/Mild Pain (1-3) Albuterol Sulfate 0 puff 10/23/20 09:50 10/26/20 18:04 Proventil Inhaler 6.7 G (200 Inhalations) INH 2 puff Q4H PRN Administration SOB &/or Wheezing Alprazolam 0.25 mg 10/19/20 09:07 10/26/20 05:54 Alprazolam 0.25 Mg Tab PO 0.25 mg TIDPRN PRN Administration Anxiety Ascorbic Acid 1,000 mg 10/17/20 09:00 10/26/20 09:20 Ascorbic Acid 500 Mg Chewable Tablet PO 1,000 mg DAILY HEIDI Administration Benzonatate 100 mg 10/24/20 02:50 10/25/20 03:34 Benzonatate 100 Mg Cap PO 100 mg TIDPRN PRN Administration Cough Benzonatate 100 mg 10/24/20 15:00 10/26/20 15:07 Benzonatate 100 Mg Cap PO 100 mg TID HEIDI Administration Calcium Carbonate 1,000 mg 10/17/20 04:16 10/17/20 04:51 Calcium Carbonate 500 Mg Chewtab PO 1,000 mg Q4H PRN Administration Heartburn or Indigestion Cholecalciferol 400 units 10/17/20 09:00 10/26/20 09:20 Cholecalciferol (Vitamin D3) 400 Units Tab PO 400 units DAILY HEIDI Administration Dexamethasone 6 mg 10/21/20 21:00 10/26/20 09:21 Dexamethasone 4 Mg/Ml Vial SLOW IVP 6 mg BID HEIDI Administration Digoxin 0.125 mg 10/20/20 09:00 10/26/20 09:20 Digoxin 0.125 Mg Tab PO 0.125 mg DAILY HEIDI Administration Doxycycline Hyclate 100 mg 10/24/20 21:00 10/26/20 09:19 Doxycycline 100 Mg Cap PO 100 mg BID HEIDI Administration Enoxaparin Sodium 40 mg 10/18/20 21:00 10/26/20 09:19 Enoxaparin Sodium 40 Mg/0.4 Ml Syringe SC 40 mg BID HEIDI Administration Guaifenesin 600 mg 10/20/20 21:00 10/26/20 09:27 Guaifenesin Er 600 Mg Tab PO 600 mg Q12HR HEIDI Administration Guaifenesin/Codeine Phosphate 10 ml 10/20/20 13:04 10/26/20 00:30 Guaifenesin/Codeine 200 Mg/20 Mg 10 Ml Cup PO 10 ml Q6H PRN Administration Cough Hydrochlorothiazide 12.5 mg 10/20/20 09:00 10/26/20 09:19 Hydrochlorothiazide 25 Mg Tab PO 12.5 mg DAILY HEIDI Administration Lisinopril 5 mg 10/20/20 09:00 10/26/20 09:20 Lisinopril 5 Mg Tab PO 5 mg DAILY HEIDI Administration Metoprolol Succinate 25 mg 10/20/20 21:00 10/25/20 20:20 Metoprolol Succinate Xl 25 Mg Tab PO 25 mg HS HEIDI Administration Pantoprazole Sodium 40 mg 10/19/20 09:00 10/26/20 09:20 Pantoprazole 40 Mg Tab PO 40 mg DAILY HEIDI Administration Zinc Sulfate 220 mg 10/17/20 09:00 10/26/20 09:20 Zinc Sulfate 220 Mg Cap PO 220 mg DAILY HEIDI Administration - Exam General Appearance: NAD, awake alert Eye: PERRL, anicteric sclera ENT: normocephalic atraumatic, no oropharyngeal lesions Neck: supple, symmetric, no JVD, no thyromegaly, no lymphadenopathy Heart: RRR, no gallops, no rubs, normal peripheral pulses Heart - other findings: S1, S2 Respiratory: tachypneic Respiratory - other findings: diminished in bases, scattered coarse sounds Gastrointestinal: soft, non-tender, non-distended, normal bowel sounds, no palpable masses Extremities: no cyanosis, no clubbing, no edema Skin: normal turgor, no lesions Neurological: cranial nerve grossly intact, no new deficit Musculoskeletal: normal tone, normal strength, no muscle wasting Psychiatric: normal affect, A&O x 3 Hosp A/P (1) Pneumonia due to COVID-19 virus Code(s): U07.1 - COVID-19; J12.89 - OTHER VIRAL PNEUMONIA Status: Acute Plan: Continue Dexamethasone/Doxycycline/Lovenox/Vit C/Zinc (2) Acute respiratory failure Code(s): J96.00 - ACUTE RESPIRATORY FAILURE, UNSP W HYPOXIA OR HYPERCAPNIA Status: Acute Plan: Attempt slow wean of high-flow in am, currently on 60L/min (3) HTN (hypertension) Code(s): I10 - ESSENTIAL (PRIMARY) HYPERTENSION Status: Chronic Qualifiers: Hypertension type: essential hypertension Qualified Code(s): I10 - Essential (primary) hypertension (4) Sepsis Code(s): A41.9 - SEPSIS, UNSPECIFIED ORGANISM Status: Acute - Plan continue antibiotics, PT/OT, social work job titles, respiratory therapy, incentive spirometry, DVT proph w/SCDs continue supportive mgmt Continue Dexamethasone/Lovenox/Doxycycline Incentive spirometry OOB/ambulate Wean high-flow as clinically indicated
[2020-10-26] MEDS: Acetaminophen 325 MG TAB PO PRN (20:20)
[2020-10-27] MEDS: ALPRAZolam 0.25 MG TAB PO PRN ×3 (06:54→20:00)
[2020-10-27] MEDS: Enoxaparin Sodium 40 MG/0.4 ML SYRINGE SC SCH ×2 (09:50→20:05)
[2020-10-27] MEDS: Doxycycline 100 MG CAP PO SCH ×2 (09:50→20:00)
[2020-10-27] MEDS: Dexamethasone 4 mg/ml Vial SLOW IVP SCH ×2 (09:50→20:02)
[2020-10-27] MEDS: Digoxin 0.125 MG TAB PO SCH (09:51)
[2020-10-27] MEDS: Zinc Sulfate 220 MG CAP PO SCH (09:51)
[2020-10-27] MEDS: Lisinopril 5 MG TAB PO SCH (09:51)
[2020-10-27] MEDS: Ascorbic Acid 500 mg Chewable Tablet PO SCH (09:51)
[2020-10-27] MEDS: guaiFENesin ER 600 MG TAB PO SCH ×2 (09:51→20:01)
[2020-10-27] MEDS: Benzonatate 100 MG CAP PO SCH ×3 (09:52→20:00)
[2020-10-27] MEDS: Hydrochlorothiazide 25 MG TAB PO SCH (09:52)
[2020-10-27] MEDS: Cholecalciferol (Vitamin D3) 400 UNITS TAB PO SCH (09:52)
--- NOTE | 2020-10-27 19:16 | PDOC.HOSPP ---
- Subjective Encounter Date: 10/27/20 Encounter Time: 18:20 Subjective: f/u for COVID PNA/hypoxic resp failure on high-flow 60L/min NC. Prone ventilation in bed and feels better. - Objective Vital Signs & Weight: Vital Signs (12 hours) Temp Pulse Resp BP BP Pulse Ox 10/27/20 16:00 98.2 F 88 22 H 128/62 93 L 10/27/20 12:00 98.8 F 82 24 H 113/66 97 10/27/20 09:51 77 10/27/20 07:50 91 L 10/27/20 07:23 97.3 F L 77 22 H 114/64 94 L Weight Admit Weight 199 lb 9.6 oz Weight 199 lb 9.6 oz I&O: 10/26/20 10/27/20 10/28/20 06:59 06:59 06:59 Intake Total 1300 400 840 Output Total 1600 600 900 Balance -300 -200 -60 Result Diagrams: 10/25/20 04:58 10/25/20 04:58 Additional Labs: Laboratory Tests 10/20/20 10/21/20 10/22/20 04:41 04:36 05:11 C-Reactive Protein 11.30 H 20.94 H 18.62 H 10/23/20 10/24/20 10/25/20 04:03 04:29 04:58 C-Reactive Protein 8.39 H 5.12 H 7.10 H Hospitalist ROS - Medication Medications: Active Medications Generic Name Dose Route Start Last Admin Trade Name Freq PRN Reason Stop Dose Admin Acetaminophen 650 mg 10/17/20 04:16 10/26/20 20:20 Acetaminophen 325 Mg Tab PO 650 mg Q4H PRN Administration Headache/Fever/Mild Pain (1-3) Albuterol Sulfate 0 puff 10/23/20 09:50 10/26/20 18:04 Proventil Inhaler 6.7 G (200 Inhalations) INH 2 puff Q4H PRN Administration SOB &/or Wheezing Alprazolam 0.25 mg 10/19/20 09:07 10/27/20 15:19 Alprazolam 0.25 Mg Tab PO 0.25 mg TIDPRN PRN Administration Anxiety Ascorbic Acid 1,000 mg 10/17/20 09:00 10/27/20 09:51 Ascorbic Acid 500 Mg Chewable Tablet PO 1,000 mg DAILY HEIDI Administration Benzonatate 100 mg 10/24/20 02:50 10/25/20 03:34 Benzonatate 100 Mg Cap PO 100 mg TIDPRN PRN Administration Cough Benzonatate 100 mg 10/24/20 15:00 10/27/20 15:05 Benzonatate 100 Mg Cap PO 100 mg TID HEIDI Administration Calcium Carbonate 1,000 mg 10/17/20 04:16 10/17/20 04:51 Calcium Carbonate 500 Mg Chewtab PO 1,000 mg Q4H PRN Administration Heartburn or Indigestion Cholecalciferol 400 units 10/17/20 09:00 10/27/20 09:52 Cholecalciferol (Vitamin D3) 400 Units Tab PO 400 units DAILY HEIDI Administration Dexamethasone 6 mg 10/21/20 21:00 10/27/20 09:50 Dexamethasone 4 Mg/Ml Vial SLOW IVP 6 mg BID HEIDI Administration Digoxin 0.125 mg 10/20/20 09:00 10/27/20 09:51 Digoxin 0.125 Mg Tab PO 0.125 mg DAILY HEIDI Administration Doxycycline Hyclate 100 mg 10/24/20 21:00 10/27/20 09:50 Doxycycline 100 Mg Cap PO 100 mg BID HEIDI Administration Enoxaparin Sodium 40 mg 10/18/20 21:00 10/27/20 09:50 Enoxaparin Sodium 40 Mg/0.4 Ml Syringe SC 40 mg BID HEIDI Administration Guaifenesin 600 mg 10/20/20 21:00 10/27/20 09:51 Guaifenesin Er 600 Mg Tab PO 600 mg Q12HR HEIDI Administration Guaifenesin/Codeine Phosphate 10 ml 10/20/20 13:04 10/26/20 00:30 Guaifenesin/Codeine 200 Mg/20 Mg 10 Ml Cup PO 10 ml Q6H PRN Administration Cough Hydrochlorothiazide 12.5 mg 10/20/20 09:00 10/27/20 09:52 Hydrochlorothiazide 25 Mg Tab PO 12.5 mg DAILY HEIDI Administration Lisinopril 5 mg 10/20/20 09:00 10/27/20 09:51 Lisinopril 5 Mg Tab PO 5 mg DAILY HEIDI Administration Metoprolol Succinate 25 mg 10/20/20 21:00 10/26/20 20:15 Metoprolol Succinate Xl 25 Mg Tab PO 25 mg HS HEIDI Administration Pantoprazole Sodium 40 mg 10/19/20 09:00 10/27/20 09:51 Pantoprazole 40 Mg Tab PO 40 mg DAILY HEIDI Administration Sodium Chloride 10 ml 10/26/20 21:00 10/27/20 09:52 Flush - Normal Saline 10 Ml Syringe IVF 10 ml Q12HR HEIDI Administration Zinc Sulfate 220 mg 10/17/20 09:00 10/27/20 09:51 Zinc Sulfate 220 Mg Cap PO 220 mg DAILY HEIDI Administration - Exam General Appearance: NAD, awake alert Eye: PERRL, anicteric sclera ENT: normocephalic atraumatic, no oropharyngeal lesions Neck: supple, symmetric, no JVD, no thyromegaly Heart: RRR, no gallops, no rubs, normal peripheral pulses Heart - other findings: S1, S2 Respiratory: tachypneic Respiratory - other findings: scattered coarse sounds, diminished in bases Gastrointestinal: soft, non-tender, non-distended, normal bowel sounds, no palpable masses Extremities: no cyanosis, no clubbing, no edema Skin: normal turgor, no lesions Neurological: cranial nerve grossly intact, no new deficit Musculoskeletal: normal tone, normal strength, no muscle wasting Psychiatric: normal affect, A&O x 3 Hosp A/P (1) Pneumonia due to COVID-19 virus Code(s): U07.1 - COVID-19; J12.89 - OTHER VIRAL PNEUMONIA Status: Acute Plan: Continue Dexamethasone/Lovenox/Doxycycline/Vit C/Zinc (2) Acute respiratory failure Code(s): J96.00 - ACUTE RESPIRATORY FAILURE, UNSP W HYPOXIA OR HYPERCAPNIA Status: Acute Plan: Continue O2 supplementation, titrate to clinical response (3) HTN (hypertension) Code(s): I10 - ESSENTIAL (PRIMARY) HYPERTENSION Status: Chronic Qualifiers: Hypertension type: essential hypertension Qualified Code(s): I10 - Essential (primary) hypertension (4) Sepsis Code(s): A41.9 - SEPSIS, UNSPECIFIED ORGANISM Status: Acute - Plan continue antibiotics, geriatric social worker, respiratory therapy, incentive spirometry, out of bed/ambulate, DVT proph w/SCDs continue supportive mgmt Continue Dexamethasone/Lovenox/Doxycycline Incentive spirometry OOB/ambulate Wean high-flow as clinically indicated Add Phenergan syrup for cough AM lab: CRP, Ferritin, CRP
[2020-10-28] MEDS: Digoxin 0.125 MG TAB PO SCH (10:20)
[2020-10-28] MEDS: Hydrochlorothiazide 25 MG TAB PO SCH (10:20)
[2020-10-28] MEDS: Benzonatate 100 MG CAP PO SCH ×3 (10:20→20:32)
[2020-10-28] MEDS: Lisinopril 5 MG TAB PO SCH (10:20)
[2020-10-28] MEDS: Doxycycline 100 MG CAP PO SCH (10:20)
[2020-10-28] MEDS: Cholecalciferol (Vitamin D3) 400 UNITS TAB PO SCH (10:21)
[2020-10-28] MEDS: Ascorbic Acid 500 mg Chewable Tablet PO SCH (10:21)
[2020-10-28] MEDS: guaiFENesin ER 600 MG TAB PO SCH ×2 (10:22→20:41)
[2020-10-28] MEDS: Enoxaparin Sodium 40 MG/0.4 ML SYRINGE SC SCH ×2 (10:22→20:40)
[2020-10-28] MEDS: Zinc Sulfate 220 MG CAP PO SCH (10:22)
[2020-10-28] MEDS: ALPRAZolam 0.25 MG TAB PO PRN (10:36)
[2020-10-28 11:48] LABS: Actual Bicarbonate (HCO3a) 25.9 mEq/L (22-28); Base Excess (BEa) 1.7 mEq/L (-2.0 to +3.0); CO2 Tension 39.4 mmHg (35.0-45.0); Calcium, Ionized (arterial) 1.17 mmol/L (1.12-1.30); Carboxyhemoglobin (COHb) 0.9 gm% (0.0-3.0); Hemoglobin (Hb) 12.6 g/dL (12.0-16.0); pH, Arterial 7.44 (7.35-7.45)
[2020-10-28] MEDS ORDERED: Dexamethasone 4 mg/ml Vial SLOW IVP SCH (12:00)
[2020-10-28 12:04] LABS: O2 Tension (PaO2), arterial 53.3 mmHg (> 80.0)
[2020-10-28 12:05] LABS: Puncture Site RRA
[2020-10-28] MEDS ORDERED: Fentanyl CADD 100 ML ONE (12:57)
[2020-10-28] MEDS ORDERED: Ventilator Sedation Protocol 1 EACH FS ONE (13:00)
[2020-10-28] MEDS ORDERED: Propofol 1,000 MG/100 ML VIAL IV ONE (13:00)
[2020-10-28 13:30] LABS: Actual Bicarbonate (HCO3a) 26.7 mEq/L (22-28); Base Excess (BEa) -0.4 mEq/L (-2.0 to +3.0); CO2 Tension 54.8 mmHg (35.0-45.0); Calcium, Ionized (arterial) 1.18 mmol/L (1.12-1.30); Carboxyhemoglobin (COHb) 0.9 gm% (0.0-3.0); O2 Tension (PaO2), arterial 64.9 mmHg (> 80.0); Potassium - ABG Lab 4.57 mmol/L (3.70-5.30); pH, Arterial 7.31 (7.35-7.45)
[2020-10-28 13:32] LABS: Puncture Site RRA
--- NOTE | 2020-10-28 13:45 | RAD ---
XR Chest 1 View Portable History: Intubated patient Comparison: Radiograph October 24, 2020 Findings: Degenerative tip above the rosemary 1.2 cm. Enteric tube tip gastric fundus. Extensive perihilar peripheral airspace opacities. No pneumothorax. No definite pneumomediastinum. Impression: Interval intubation and placement of enteric tube both in good position.
[2020-10-28] MEDS ORDERED: Propofol BOLUS 1,000 MG/100 ML VIAL IV PRN (14:45)
[2020-10-28] MEDS ORDERED: DISCONTINUE PREVIOUS NARCOTIC PAIN MEDICATIONS AND BENZODIAZEPINES FS SCH (14:45)
[2020-10-28] MEDS ORDERED: Morphine 2 MG/ML VIAL SLOW IVP PRN (14:45)
[2020-10-28] MEDS ORDERED: Fentanyl BOLUS 250 ML IVPB PRN (14:45)
[2020-10-28] MEDS: Dexamethasone 4 mg/ml Vial SLOW IVP SCH ×2 (14:49→20:34)
[2020-10-28] MEDS: Vancomycin 1.5 GRAM/300 ML BAG 1.5 GM in Premix Bag 1 BAG IVPB SCH (15:01)
--- NOTE | 2020-10-28 15:10 | PDOC.HOSPP ---
- Subjective Encounter Date: 10/28/20 Encounter Time: 10:30 Subjective: Patient appears very short of breath currently on BiPAP. Appears very tachypneic. - Objective Vital Signs & Weight: Vital Signs (12 hours) Temp Pulse Resp BP BP BP Pulse Ox 10/28/20 14:42 110 H 90/55 L 10/28/20 14:00 98.9 F 24 H 100 10/28/20 13:00 110 H 164/97 H 10/28/20 12:54 24 H 10/28/20 11:45 106 H 10/28/20 11:36 100 40 H 125/77 91 L 10/28/20 11:10 118 H 10/28/20 11:01 96.0 F L 114 H 36 H 118/84 91 L 10/28/20 10:30 95 36 H 151/68 H 93 L 10/28/20 10:20 87 10/28/20 09:00 87 10/28/20 08:50 85 36 H 164/70 H 94 L 10/28/20 08:25 90 L 10/28/20 07:37 97.6 F 78 26 H 130/61 130/61 96 10/28/20 05:00 90 L 10/28/20 03:19 98.3 F 95 21 H 138/85 Weight Admit Weight 199 lb 9.6 oz Weight 199 lb 9.6 oz Most Recent Monitor Data Heart Rate from ECG 105 NIBP 75/45 NIBP BP-Mean 55 Respiration from ECG 25 SpO2 97 I&O: 10/27/20 10/28/20 10/29/20 06:59 06:59 06:59 Intake Total 400 840 Output Total 600 900 850 Balance -200 -60 -850 Result Diagrams: 10/25/20 04:58 10/25/20 04:58 Hospitalist ROS - Review of Systems Other: Patient tachypneic unable to provide. - Medication Medications: Active Medications Generic Name Dose Route Start Last Admin Trade Name Freq PRN Reason Stop Dose Admin Acetaminophen 650 mg 10/17/20 04:16 10/26/20 20:20 Acetaminophen 325 Mg Tab PO 650 mg Q4H PRN Administration Headache/Fever/Mild Pain (1-3) Albuterol Sulfate 0 puff 10/23/20 09:50 10/26/20 18:04 Proventil Inhaler 6.7 G (200 Inhalations) INH 2 puff Q4H PRN Administration SOB &/or Wheezing Ascorbic Acid 1,000 mg 10/17/20 09:00 10/28/20 10:21 Ascorbic Acid 500 Mg Chewable Tablet PO Not Given DAILY HEIDI Benzonatate 100 mg 10/24/20 02:50 10/25/20 03:34 Benzonatate 100 Mg Cap PO 100 mg TIDPRN PRN Administration Cough Benzonatate 100 mg 10/24/20 15:00 10/28/20 15:00 Benzonatate 100 Mg Cap PO Not Given TID HEIDI Calcium Carbonate 1,000 mg 10/17/20 04:16 10/17/20 04:51 Calcium Carbonate 500 Mg Chewtab PO 1,000 mg Q4H PRN Administration Heartburn or Indigestion Cholecalciferol 400 units 10/17/20 09:00 10/28/20 10:21 Cholecalciferol (Vitamin D3) 400 Units Tab PO Not Given DAILY [facility] Digoxin 0.125 mg 10/20/20 09:00 10/28/20 10:20 Digoxin 0.125 Mg Tab PO 0.125 mg DAILY [facility] Administration Enoxaparin Sodium 40 mg 10/18/20 21:00 10/28/20 10:22 Enoxaparin Sodium 40 Mg/0.4 Ml Syringe SC 40 mg BID [facility] Administration Guaifenesin 600 mg 10/20/20 21:00 10/28/20 10:22 Guaifenesin Er 600 Mg Tab PO Not Given Q12HR HEIDI Guaifenesin/Codeine Phosphate 10 ml 10/20/20 13:04 10/26/20 00:30 Guaifenesin/Codeine 200 Mg/20 Mg 10 Ml Cup PO 10 ml Q6H PRN Administration Cough Hydrochlorothiazide 12.5 mg 10/20/20 09:00 10/28/20 10:20 Hydrochlorothiazide 25 Mg Tab PO 12.5 mg DAILY HEIDI Administration Lisinopril 5 mg 10/20/20 09:00 10/28/20 10:20 Lisinopril 5 Mg Tab PO 5 mg DAILY HEIDI Administration Metoprolol Succinate 25 mg 10/20/20 21:00 10/27/20 20:01 Metoprolol Succinate Xl 25 Mg Tab PO 25 mg HS HEIDI Administration Pantoprazole Sodium 40 mg 10/19/20 09:00 10/28/20 10:20 Pantoprazole 40 Mg Tab PO 40 mg DAILY HEIDI Administration Sodium Chloride 10 ml 10/26/20 21:00 10/28/20 10:22 Flush - Normal Saline 10 Ml Syringe IVF 10 ml Q12HR HEIDI Administration Zinc Sulfate 220 mg 10/17/20 09:00 10/28/20 10:22 Zinc Sulfate 220 Mg Cap PO Not Given DAILY HEIDI - Exam General - other findings: Appears tachypneic, uncomfortable Heart: negative: RRR, no murmur, no gallops, no rubs, normal peripheral pulses, irregular, diminshed peripheral pulses, murmur present, II/IV, III/IV Respiratory: negative: CTAB, no wheezes, no rales, no ronchi, normal chest expansion, no tachypnea, normal percussion, rales, rhonchi, tachypneic, wheezes Gastrointestinal: negative: soft, non-tender, non-distended, normal bowel sounds, no palpable masses, no hepatomegaly, no splenomegaly, no bruit, no guarding, no rigidity, tender to palpation, distended, diminished bowl sounds, voluntary guarding Extremities: 1+ LE edema Hosp A/P (1) Acute respiratory failure with hypoxia Code(s): J96.01 - ACUTE RESPIRATORY FAILURE WITH HYPOXIA Status: Acute (2) Pneumonia due to COVID-19 virus Code(s): U07.1 - COVID-19; J12.89 - OTHER VIRAL PNEUMONIA Status: Acute (3) Sepsis Code(s): A41.9 - SEPSIS, UNSPECIFIED ORGANISM Status: Acute (4) HTN (hypertension) Code(s): I10 - ESSENTIAL (PRIMARY) HYPERTENSION Status: Chronic Qualifiers: Hypertension type: essential hypertension Qualified Code(s): I10 - Essential (primary) hypertension - Plan Patient up in bed appears ill. Appears very tachypneic on BiPAP. ABG O2 is 53. Patient will be transferred to ICU for possible intubation today. Will check labs in the a.m. Family called and updated.
[2020-10-28] MEDS: Lorazepam 2 MG/ML VIAL SLOW IVP PRN ×3 (15:13→20:44)
[2020-10-28] MEDS: Vecuronium 10 MG VIAL IV PRN ×2 (15:22→20:43)
[2020-10-28] MEDS ORDERED: Norepinephrine 8 MG/0.9% NS 250 ML ONE (15:26)
[2020-10-28] MEDS ORDERED: Norepinephrine 8 MG/0.9% NS 250 ML IVPB SCH (15:30)
[2020-10-28] MEDS ORDERED: Albumin 5% 500 ML ONE (15:30)
[2020-10-28] MEDS: Sodium Chloride 0.9% 1,000 ML IV SCH (16:47)
[2020-10-28] MEDS: Propofol 1,000 MG/100 ML VIAL IV PRN (17:37)
[2020-10-28] MEDS: Cefepime 1 GM in Sodium Chloride 0.9% 100 ML IVPB SCH (20:33)
[2020-10-29] MEDS: Lorazepam 2 MG/ML VIAL SLOW IVP PRN ×5 (00:17→22:35)
[2020-10-29] MEDS: Vecuronium 10 MG VIAL IV PRN ×4 (00:39→22:52)
[2020-10-29] MEDS: Sodium Chloride 0.9% 1,000 ML IV SCH ×2 (00:51→11:29)
[2020-10-29 05:43] LABS: Anion Gap 11 mmol/L (10-20); BUN (Urea Nitrogen) 20 mg/dL (9.8-20.1); CRP (Inflammatory) 30.38 mg/dL (= or < 0.5); Calc. Creatinine Clearance 143 mL/min (70-130); Calcium 8.4 mg/dL (7.8-10.44); Carbon Dioxide 27 mmol/L (22-29); Chloride 104 mmol/L (98-107); Glucose 157 mg/dL (70-105); Potassium 4.7 mmol/L (3.5-5.1); Sodium 137 mmol/L (136-145)
[2020-10-29 05:57] LABS: INR-International Normal Ratio 1.2; PTT 37.9 sec (22.9-36.1); Prothrombin Time 15.8 sec (12.0-14.7)
[2020-10-29 06:09] LABS: Band 5 % (5-11); Hemoglobin 9.8 g/dL (12.0-16.0); Hypochromia SLIGHT = 6-15 cells (100X) (0-5/hpf); Lymphocytes 7 % (21-51); MDiff Complete? YES; Mean Corpuscular HGB CONC 31.2 g/dL (32.0-36.0); Mean Corpuscular Hemoglobin 26.7 pg (27.0-31.0); Mean Corpuscular Volume 85.6 fL (78.0-98.0); Mean Platelet Volume 8.2 fL (7.4-10.4); Monocytes 5 % (0-10); Neutrophil 83 % (42-75); Platelet Count 307 thou/uL (130-400); Platelet Morphology Comment Appears Adequate; RBC Distribution Width 14.7 % (11.5-14.5); Red Blood Cell (RBC) Count 3.65 mill/uL (4.20-5.40); White Blood Cell (WBC) Count 24.3 thou/uL (4.8-10.8)
[2020-10-29] MEDS ORDERED: Fentanyl CADD 100 ML ONE ×2 (06:10→23:19)
[2020-10-29] MEDS: Fentanyl CADD 100 ML IV SCH ×2 (06:16→23:39)
--- NOTE | 2020-10-29 06:53 | CON ---
DATE OF CONSULTATION: HISTORY OF PRESENT ILLNESS: Abida Bourgeois is a 60-year-old female, who has been in the hospital since 10/17/2020, this is day #12 with payan positive pneumonia progressively getting worse for the last 24 hours. Blood gas shows severe hypoxemia with respiratory acidosis. No recent x-ray in the last 4 days. Last x-ray showed bilateral pulmonary infiltrates. When I went to visit in the room, she is breathing 40 times a minute, sats were 90% on a BiPAP. She needs to be intubated. Anesthesia is called to intubate the patient. Her initial presentation, she had fever, cough. She has received antibiotics and Decadron. In spite of this, condition has gotten progressively worse. PAST MEDICAL HISTORY: 1. Cardiac arrhythmias. 2. Hyperlipidemia. 3. Hypertension. PREVIOUS SURGERIES: Tonsillectomy. SOCIAL HISTORY: No alcohol. No tobacco abuse. HOME MEDICINES: Prior to admission; 1. Toprol-XL 25. 2. Hydrochlorothiazide 12.5. 3. Protonix 40. 4. Enalapril 5. 5. Digoxin 125. ALLERGIES: PENICILLIN, AMOXICILLIN. PHYSICAL EXAMINATION: VITAL SIGNS: O2 saturation 90%, respirations 40, blood pressure 120/80, pulse 120. CHEST: Rhonchi without crackles. No wheezing. CARDIAC: Sinus tach. ABDOMEN: Soft. LABORATORY DATA: PO2 was 53, pCO2 of 39, pH of 7.44 on a BiPAP, FiO2 of 75%, low PEEP of 7. No recent lab is done. Last labs; white count 13,000, H and H of 10 and 34, platelet count 335. Last chemistry, lytes were normal. C-reactive protein has been elevated at 7. Thyroid function was normal. Cultures negative. ASSESSMENT: Payan positive pneumonia, respiratory failure, obesity, cardiac arrhythmias. PLAN: Decadron increased to 10 mg, empiric broad-spectrum antibiotics, we will intubate and prone her for 3 days. Prognosis remains guarded. This is a 45-minute critical care time. Job ID: [id number]
[2020-10-29] MEDS: Dexamethasone 4 mg/ml Vial SLOW IVP SCH ×2 (07:48→20:34)
[2020-10-29] MEDS: Cefepime 1 GM in Sodium Chloride 0.9% 100 ML IVPB SCH ×2 (07:50→20:34)
[2020-10-29] MEDS: Enoxaparin Sodium 40 MG/0.4 ML SYRINGE SC SCH ×2 (07:50→20:35)
[2020-10-29] MEDS: Cholecalciferol (Vitamin D3) 400 UNITS TAB PO SCH (07:51)
[2020-10-29] MEDS: Ascorbic Acid 500 mg Chewable Tablet PO SCH (07:51)
[2020-10-29] MEDS: Digoxin 0.125 MG TAB PO SCH (07:51)
[2020-10-29] MEDS: Zinc Sulfate 220 MG CAP PO SCH (07:51)
[2020-10-29] MEDS: guaiFENesin ER 600 MG TAB PO SCH ×2 (07:51→20:35)
[2020-10-29] MEDS: Benzonatate 100 MG CAP PO SCH (07:52)
--- NOTE | 2020-10-29 08:14 | RAD ---
XR Chest 1 View Portable History: Ventilated patient Comparison: Radiograph prior day Findings: Endotracheal tube tip at the clavicular level. Enteric tube tip in gastric body. Extensive airspace opacities of the lungs. Heart size is enlarged. No pneumothorax. The right IJ central venous catheter has been removed. Possible catheter projects over the left neck not definitively venous in location. Impression: 1. Possible catheter projecting over the left neck not definitively venous. The right IJ central veno us catheter has been removed. 2. Background parenchymal opacities are similar. No pneumothorax or pneumomediastinum. Lindsey notified of findings via telephone at 8:11 AM.
[2020-10-29] MEDS ORDERED: Dexamethasone 4 mg/ml Vial SLOW IVP SCH (09:00)
[2020-10-29] MEDS: Propofol 1,000 MG/100 ML VIAL IV PRN ×2 (10:03→17:44)
--- NOTE | 2020-10-29 10:06 | PRG ---
DATE OF SERVICE: 10/29/2020 SUBJECTIVE: Abida Bourgeois is a 60-year-old female who was intubated yesterday, day 12 in the hospital. OBJECTIVE: VITAL SIGNS: Blood pressure is low at 99/50, pulse , respiratory rate 18, sats , on 65% with low PEEP of 8. CHEST: No wheezing, no crackles. CARDIAC: Normal S1. ABDOMEN: No masses. LABORATORY DATA: White count 24,000, H and H 9 and 31, platelet count is normal. Lytes are normal. X-ray still shows bilateral infiltrates. ASSESSMENT: 1. Cheatham positive pneumonia. 2. Respiratory failure. 3. Morbid obesity. PLAN: We are going to prone her for 3 days. Continue PT, supportive care. One-half hour of critical time. Job ID: [id number]
[2020-10-29] MEDS: PROVENTIL INHALER 6.7 G (200 INHALATIONS) INH PRN (18:58)
[2020-10-30] MEDS: Lorazepam 2 MG/ML VIAL SLOW IVP PRN ×3 (01:16→16:06)
[2020-10-30] MEDS: Vecuronium 10 MG VIAL IV PRN (01:16)
[2020-10-30] MEDS: Sodium Chloride 0.9% 1,000 ML IV SCH ×4 (03:07→23:16)
[2020-10-30] MEDS: Propofol 1,000 MG/100 ML VIAL IV PRN ×3 (04:43→17:56)
[2020-10-30 04:52] LABS: #Lymphocytes 0.5 thou/uL (1.20-3.40); #Monocytes 0.6 thou/uL (0.11-0.59); #Neutrophils 10.9 thou/uL (1.40-6.50); %Basophils 0.1 % (0.0-1.0); %Eosinophils 0.2 % (0.0-10.0); %Lymphocytes 4.1 % (21.0-51.0); %Monocytes 4.6 % (0.0-10.0); Mean Corpuscular HGB CONC 31.3 g/dL (32.0-36.0); Mean Corpuscular Hemoglobin 26.7 pg (27.0-31.0); Mean Corpuscular Volume 85.3 fL (78.0-98.0); Mean Platelet Volume 8.2 fL (7.4-10.4); Platelet Count 284 thou/uL (130-400); RBC Distribution Width 14.7 % (11.5-14.5); Red Blood Cell (RBC) Count 3.37 mill/uL (4.20-5.40)
[2020-10-30 05:04] LABS: Anion Gap 11 mmol/L (10-20); BUN (Urea Nitrogen) 27 mg/dL (9.8-20.1); Calc. Creatinine Clearance 128 mL/min (70-130); Calcium 8.1 mg/dL (7.8-10.44); Carbon Dioxide 25 mmol/L (22-29); Chloride 107 mmol/L (98-107); Glucose 157 mg/dL (70-105); Potassium 5.1 mmol/L (3.5-5.1); Sodium 138 mmol/L (136-145)
--- NOTE | 2020-10-30 08:49 | RAD ---
EXAM: CHEST ONE VIEW HISTORY: On ventilator. Follow-up evaluation. COMPARISON: 10/29/2020 FINDINGS: Endotracheal tube, nasogastric tube, right-sided vascular catheter remain in place and unchanged in p osition. Cardiac silhouette is magnified by patient rotation and portable technique. Again noted is elevation of the right hemidiaphragm. Increased interstitial alveolar opacities are again seen diffus georgiana throughout the lungs bilaterally not significantly changed when compared to prior exam. No significant interval change from prior study. IMPRESSION: Stable chest with diffuse bilateral interstitial and alveolar opacities likely related to bilateral p neumonia.
[2020-10-30] MEDS: Ascorbic Acid 500 mg Chewable Tablet PO SCH (09:00)
--- NOTE | 2020-10-30 09:36 | PDOC.HOSPP ---
- Subjective Encounter Date: 10/29/20 Encounter Time: 10:30 Subjective: pt is intubated - Objective Vital Signs & Weight: Vital Signs (12 hours) Temp Pulse Resp BP 10/30/20 06:17 63 132/66 10/30/20 06:00 32 H 10/30/20 04:00 51 H 10/30/20 02:00 24 H 10/30/20 01:08 115 H 105/62 10/30/20 00:00 24 H 10/29/20 22:05 73 93/59 L 10/29/20 22:00 96.1 F L 24 H Weight Admit Weight 199 lb 9.6 oz Weight 199 lb 9.6 oz Most Recent Monitor Data Heart Rate from ECG 61 NIBP 104/63 NIBP BP-Mean 76 Respiration from ECG 24 SpO2 96 I&O: 10/29/20 10/30/20 10/31/20 06:59 06:59 06:59 Intake Total 2914.1 1632 Output Total 2490 1225 170 Balance 424.1 407 -170 Result Diagrams: 10/30/20 04:23 10/30/20 04:23 Hospitalist ROS - Review of Systems Other: intubated - Medication Medications: Active Medications Generic Name Dose Route Start Last Admin Trade Name Freq PRN Reason Stop Dose Admin Acetaminophen 650 mg 10/17/20 04:16 10/26/20 20:20 Acetaminophen 325 Mg Tab PO 650 mg Q4H PRN Administration Headache/Fever/Mild Pain (1-3) Albuterol Sulfate 0 puff 10/23/20 09:50 10/29/20 18:58 Proventil Inhaler 6.7 G (200 Inhalations) INH 2 puff Q4H PRN Administration SOB &/or Wheezing Ascorbic Acid 1,000 mg 10/17/20 09:00 10/29/20 07:51 Ascorbic Acid 500 Mg Chewable Tablet PO 1,000 mg DAILY HEIDI Administration Benzonatate 100 mg 10/24/20 02:50 10/25/20 03:34 Benzonatate 100 Mg Cap PO 100 mg TIDPRN PRN Administration Cough Calcium Carbonate 1,000 mg 10/17/20 04:16 10/17/20 04:51 Calcium Carbonate 500 Mg Chewtab PO 1,000 mg Q4H PRN Administration Heartburn or Indigestion Cholecalciferol 400 units 10/17/20 09:00 10/29/20 07:51 Cholecalciferol (Vitamin D3) 400 Units Tab PO 400 units DAILY HEIDI Administration Dexamethasone 10 mg 10/28/20 21:00 10/29/20 20:34 Dexamethasone 4 Mg/Ml Vial SLOW IVP 10 mg BID HEIDI Administration Digoxin 0.125 mg 10/20/20 09:00 10/29/20 07:51 Digoxin 0.125 Mg Tab PO Not Given DAILY HEIDI Enoxaparin Sodium 40 mg 10/18/20 21:00 10/29/20 20:35 Enoxaparin Sodium 40 Mg/0.4 Ml Syringe SC 40 mg BID HEIDI Administration Guaifenesin 600 mg 10/20/20 21:00 10/29/20 20:35 Guaifenesin Er 600 Mg Tab PO 600 mg Q12HR HEIDI Administration Guaifenesin/Codeine Phosphate 10 ml 10/20/20 13:04 10/26/20 00:30 Guaifenesin/Codeine 200 Mg/20 Mg 10 Ml Cup PO 10 ml Q6H PRN Administration Cough Cefepime HCl 1 gm/ Sodium 100 mls @ 200 mls/hr 10/28/20 21:00 10/29/20 20:34 Chloride IVPB 100 mls Q12HR HEIDI Administration Doxycycline Hyclate 100 mg/ 100 mls @ 100 mls/hr 10/28/20 21:00 10/29/20 20:34 Sodium Chloride IVPB 11/04/20 21:01 100 mls Q12HR HEIDI Administration Fentanyl 100 mls @ 0 mls/hr 10/28/20 14:45 10/29/20 23:39 Fentanyl Cadd IV 11/27/20 14:45 100 mls INF HEIDI Administration Protocol Per Protocol Lorazepam 2 mg 10/28/20 14:45 10/30/20 06:28 Lorazepam 2 Mg/Ml Vial SLOW IVP 11/27/20 14:45 2 mg Q1H PRN Administration Breakthrough agitation Metoprolol Succinate 25 mg 10/20/20 21:00 10/29/20 20:35 Metoprolol Succinate Xl 25 Mg Tab PO Not Given HS HEIDI Propofol 1,000 mg 10/28/20 14:45 10/30/20 04:43 Propofol 1,000 Mg/100 Ml Vial IV 11/27/20 14:45 1,000 mg INF PRN Administration TO ACHIEVE GOAL RASS Protocol Sodium Chloride 10 ml 10/26/20 21:00 10/29/20 20:35 Flush - Normal Saline 10 Ml Syringe IVF 10 ml Q12HR HEIDI Administration Vecuronium [place] 10 mg 10/28/20 12:54 10/30/20 01:16 Vecuronium 10 Mg Vial IV 10 mg Q1H PRN Administration Agitation Zinc Sulfate 220 mg 10/17/20 09:00 10/29/20 07:51 Zinc Sulfate 220 Mg Cap PO 220 mg DAILY HEIDI Administration - Exam Heart: negative: RRR, no murmur, no gallops, no rubs, normal peripheral pulses, irregular, diminshed peripheral pulses, murmur present, II/IV, III/IV Respiratory: negative: CTAB, no wheezes, no rales, no ronchi, normal chest expansion, no tachypnea, normal percussion, rales, rhonchi, tachypneic, wheezes Gastrointestinal: negative: soft, non-tender, non-distended, normal bowel sounds, no palpable masses, no hepatomegaly, no splenomegaly, no bruit, no guarding, no rigidity, tender to palpation, distended, diminished bowl sounds, voluntary guarding Extremities: negative: no cyanosis, no clubbing, no edema, 1+ LE edema, 2+ LE edema, clubbing Hosp A/P (1) Acute respiratory failure with hypoxia Code(s): J96.01 - ACUTE RESPIRATORY FAILURE WITH HYPOXIA Status: Acute (2) Pneumonia due to COVID-19 virus Code(s): U07.1 - COVID-19; J12.89 - OTHER VIRAL PNEUMONIA Status: Acute (3) Sepsis Code(s): A41.9 - SEPSIS, UNSPECIFIED ORGANISM Status: Acute (4) HTN (hypertension) Code(s): I10 - ESSENTIAL (PRIMARY) HYPERTENSION Status: Chronic Qualifiers: Hypertension type: essential hypertension Qualified Code(s): I10 - Essential (primary) hypertension - Plan Patient up in bed appears ill. Appears very tachypneic on BiPAP. ABG O2 is 53. Patient will be transferred to ICU for possible intubation today. Will check labs in the a.m. Family called and updated. 10/29 pt continues to be intubated. will continue to monitor. pt's oxygen has been weaned down. Her crp is high. will montior. she is on abx. dvt ppx.
--- NOTE | 2020-10-30 09:40 | PRG ---
DATE OF SERVICE: 10/30/2020 SUBJECTIVE: Abida Bourgeois this morning remains in the prone position. OBJECTIVE: VITAL SIGNS: Temperature 96, pulse 80, blood pressure 106/59, respiratory rate 18. CHEST: No wheezing, no crackles. CARDIAC: Normal S1, S2. No gallops. ABDOMEN: Soft. LABORATORY DATA: White count 12,000. Lytes are normal. Her saturations are 96%, low PEEP of 9. She is on bilevel at 70%. ASSESSMENT: [place] positive pneumonia, respiratory failure, morbid obesity. PLAN: She is day 3 in the prone position. She is on high-dose steroids, antibiotics, Decadron. One-half hour of critical care time. Job ID: [id number]
[2020-10-30] MEDS: Enoxaparin Sodium 40 MG/0.4 ML SYRINGE SC SCH ×2 (09:41→22:02)
[2020-10-30] MEDS: Digoxin 0.125 MG TAB PO SCH ×2 (09:41→09:43)
[2020-10-30] MEDS: Cefepime 1 GM in Sodium Chloride 0.9% 100 ML IVPB SCH ×2 (09:41→21:19)
[2020-10-30] MEDS: Zinc Sulfate 220 MG CAP PO SCH (09:43)
[2020-10-30] MEDS: Cholecalciferol (Vitamin D3) 400 UNITS TAB PO SCH (09:44)
[2020-10-30] MEDS: Dexamethasone 4 mg/ml Vial SLOW IVP SCH ×2 (09:45→22:01)
[2020-10-30] MEDS: Pantoprazole 40 MG GRANULES PACKET PER TUBE SCH (09:45)
[2020-10-30] MEDS: guaiFENesin ER 600 MG TAB PO SCH (09:47)
[2020-10-30] MEDS: GUAIFENESIN SF SOLN 200 MG/10 ML UDCUP PO SCH ×3 (11:47→23:39)
[2020-10-30] MEDS: Fentanyl CADD 100 ML IV SCH (14:26)
--- NOTE | 2020-10-30 15:17 | PDOC.HOSPP ---
- Subjective Encounter Date: 10/30/20 Encounter Time: 10:00 Subjective: Patient intubated - Objective Vital Signs & Weight: Vital Signs (12 hours) Pulse Resp BP Pulse Ox 10/30/20 14:13 79 115/60 10/30/20 12:00 30 H 10/30/20 10:37 62 104/66 10/30/20 10:00 29 H 10/30/20 09:43 63 10/30/20 08:00 30 H 94 L 10/30/20 06:17 63 132/66 10/30/20 06:00 32 H 10/30/20 04:00 51 H Weight Admit Weight 199 lb 9.6 oz Weight 199 lb 9.6 oz Most Recent Monitor Data Heart Rate from ECG 55 NIBP 110/64 NIBP BP-Mean 79 Respiration from ECG 24 SpO2 95 I&O: 10/29/20 10/30/20 10/31/20 06:59 06:59 06:59 Intake Total 2914.1 1632 Output Total 2490 1225 325 Balance 424.1 407 -325 Result Diagrams: 10/30/20 04:23 10/30/20 04:23 Hospitalist ROS - Review of Systems Gastrointestinal: denies: nausea, vomiting, abdominal pain, diarrhea, constipation, melena, hematochezia, other Genitourinary: denies: dysuria, frequency, incontinence, hematuria, retention, other Musculoskeletal: denies: neck pain, shoulder pain, arm pain, back pain, hand pain, leg pain, foot pain, other - Medication Medications: Active Medications Generic Name Dose Route Start Last Admin Trade Name Freq PRN Reason Stop Dose Admin Acetaminophen 650 mg 10/17/20 04:16 10/26/20 20:20 Acetaminophen 325 Mg Tab PO 650 mg Q4H PRN Administration Headache/Fever/Mild Pain (1-3) Albuterol Sulfate 0 puff 10/23/20 09:50 10/29/20 18:58 Proventil Inhaler 6.7 G (200 Inhalations) INH 2 puff Q4H PRN Administration SOB &/or Wheezing Ascorbic Acid 1,000 mg 10/17/20 09:00 10/30/20 09:00 Ascorbic Acid 500 Mg Chewable Tablet PO 1,000 mg DAILY HEIDI Administration Benzonatate 100 mg 10/24/20 02:50 10/25/20 03:34 Benzonatate 100 Mg Cap PO 100 mg TIDPRN PRN Administration Cough Calcium Carbonate 1,000 mg 10/17/20 04:16 10/17/20 04:51 Calcium Carbonate 500 Mg Chewtab PO 1,000 mg Q4H PRN Administration Heartburn or Indigestion Cholecalciferol 400 units 10/17/20 09:00 10/30/20 09:44 Cholecalciferol (Vitamin D3) 400 Units Tab PO 400 units DAILY HEIDI Administration Dexamethasone 10 mg 10/28/20 21:00 10/30/20 09:45 Dexamethasone 4 Mg/Ml Vial SLOW IVP 10 mg BID HEIDI Administration Digoxin 0.125 mg 10/20/20 09:00 10/30/20 09:43 Digoxin 0.125 Mg Tab PO 0.125 mg DAILY HEIDI Administration Enoxaparin Sodium 40 mg 10/18/20 21:00 10/30/20 09:41 Enoxaparin Sodium 40 Mg/0.4 Ml Syringe SC 40 mg BID HEIDI Administration Guaifenesin 200 mg 10/30/20 12:00 10/30/20 11:47 Diabetic Tussin 200 Mg/10 Ml Udcup PO 200 mg Q6HR HEIDI Administration Guaifenesin/Codeine Phosphate 10 ml 10/20/20 13:04 10/26/20 00:30 Guaifenesin/Codeine 200 Mg/20 Mg 10 Ml Cup PO 10 ml Q6H PRN Administration Cough Cefepime HCl 1 gm/ Sodium 100 mls @ 200 mls/hr 10/28/20 21:00 10/30/20 09:41 Chloride IVPB 100 mls Q12HR HEIDI Administration Doxycycline Hyclate 100 mg/ 100 mls @ 100 mls/hr 10/28/20 21:00 10/30/20 09:46 Sodium Chloride IVPB 11/04/20 21:01 100 mls Q12HR HEIDI Administration Fentanyl 100 mls @ 0 mls/hr 10/28/20 14:45 10/30/20 14:26 Fentanyl Cadd IV 11/27/20 14:45 100 mls INF HEIDI Administration Protocol Per Protocol Sodium Chloride 1,000 mls @ 50 mls/hr 10/30/20 09:23 10/30/20 09:47 Normal Saline 0.9% IV Not Given .Q20H HEIDI Lorazepam 2 mg 10/28/20 14:45 10/30/20 06:28 Lorazepam 2 Mg/Ml Vial SLOW IVP 11/27/20 14:45 2 mg Q1H PRN Administration Breakthrough agitation Metoprolol Succinate 25 mg 10/20/20 21:00 10/29/20 20:35 Metoprolol Succinate Xl 25 Mg Tab PO Not Given HS HEIDI Pantoprazole Sodium 40 mg 10/30/20 09:00 10/30/20 09:45 Pantoprazole 40 Mg Granules Packet PER TUBE 40 mg DAILY HEIDI Administration Propofol 1,000 mg 10/28/20 14:45 10/30/20 11:47 Propofol 1,000 Mg/100 Ml Vial IV 11/27/20 14:45 1,000 mg INF PRN Administration TO ACHIEVE GOAL RASS Protocol Sodium Chloride 10 ml 10/26/20 21:00 10/30/20 09:46 Flush - Normal Saline 10 Ml Syringe IVF 10 ml Q12HR HEIDI Administration Vecuronium [place] 10 mg 10/28/20 12:54 10/30/20 01:16 Vecuronium 10 Mg Vial IV 10 mg Q1H PRN Administration Agitation Zinc Sulfate 220 mg 10/17/20 09:00 10/30/20 09:43 Zinc Sulfate 220 Mg Cap PO 220 mg DAILY HEIDI Administration - Exam Heart: negative: RRR, no murmur, no gallops, no rubs, normal peripheral pulses, irregular, diminshed peripheral pulses, murmur present, II/IV, III/IV Respiratory: negative: CTAB, no wheezes, no rales, no ronchi, normal chest expansion, no tachypnea, normal percussion, rales, rhonchi, tachypneic, wheezes Gastrointestinal: negative: soft, non-tender, non-distended, normal bowel sounds, no palpable masses, no hepatomegaly, no splenomegaly, no bruit, no guarding, no rigidity, tender to palpation, distended, diminished bowl sounds, voluntary guarding Hosp A/P (1) Acute respiratory failure with hypoxia Code(s): J96.01 - ACUTE RESPIRATORY FAILURE WITH HYPOXIA Status: Acute (2) Pneumonia due to COVID-19 virus Code(s): U07.1 - COVID-19; J12.89 - OTHER VIRAL PNEUMONIA Status: Acute (3) Sepsis Code(s): A41.9 - SEPSIS, UNSPECIFIED ORGANISM Status: Acute (4) HTN (hypertension) Code(s): I10 - ESSENTIAL (PRIMARY) HYPERTENSION Status: Chronic Qualifiers: Hypertension type: essential hypertension Qualified Code(s): I10 - Essential (primary) hypertension - Plan Patient up in bed appears ill. Appears very tachypneic on BiPAP. ABG O2 is 53. Patient will be transferred to ICU for possible intubation today. Will check labs in the a.m. Family called and updated. 10/29 pt continues to be intubated. will continue to monitor. pt's oxygen has been weaned down. Her crp is high. will montior. she is on abx. dvt ppx. 10/30 patient continues to be intubated. Will continue antibiotics. We will check CRP in a.m. Patient on antibiotics. Patient on DVT prophylaxis
[2020-10-31] MEDS: Propofol 1,000 MG/100 ML VIAL IV PRN ×3 (02:32→22:49)
[2020-10-31 04:55] LABS: #Lymphocytes 0.7 thou/uL (1.20-3.40); #Monocytes 0.5 thou/uL (0.11-0.59); #Neutrophils 11.2 thou/uL (1.40-6.50); %Basophils 0.1 % (0.0-1.0); %Eosinophils 0.1 % (0.0-10.0); %Lymphocytes 5.3 % (21.0-51.0); %Monocytes 4.2 % (0.0-10.0); %Neutrophils 90.3 % (42.0-75.0); Hemoglobin 8.7 g/dL (12.0-16.0); Mean Corpuscular HGB CONC 31.5 g/dL (32.0-36.0); Mean Corpuscular Hemoglobin 26.5 pg (27.0-31.0); Mean Corpuscular Volume 84.3 fL (78.0-98.0); Mean Platelet Volume 8.4 fL (7.4-10.4); Platelet Count 267 thou/uL (130-400); RBC Distribution Width 14.9 % (11.5-14.5); Red Blood Cell (RBC) Count 3.29 mill/uL (4.20-5.40); White Blood Cell (WBC) Count 12.4 thou/uL (4.8-10.8)
[2020-10-31] MEDS ORDERED: Fentanyl CADD 100 ML ONE ×2 (04:57→20:50)
[2020-10-31 05:00] LABS: Anion Gap 12 mmol/L (10-20); BUN (Urea Nitrogen) 28 mg/dL (9.8-20.1); Calc. Creatinine Clearance 143 mL/min (70-130); Carbon Dioxide 25 mmol/L (22-29); Chloride 107 mmol/L (98-107); Glucose 164 mg/dL (70-105); Potassium 4.9 mmol/L (3.5-5.1); Sodium 139 mmol/L (136-145)
[2020-10-31] MEDS: Fentanyl CADD 100 ML IV SCH ×2 (05:04→21:00)
[2020-10-31] MEDS: GUAIFENESIN SF SOLN 200 MG/10 ML UDCUP PO SCH ×3 (05:08→20:35)
[2020-10-31] MEDS: Lorazepam 2 MG/ML VIAL SLOW IVP PRN ×2 (05:08→10:18)
[2020-10-31] MEDS: Vecuronium 10 MG VIAL IV PRN ×3 (05:08→16:58)
[2020-10-31 06:59] LABS: Actual Bicarbonate (HCO3a) 25.8 mEq/L (22-28); Base Excess (BEa) 0.2 mEq/L (-2.0 to +3.0); CO2 Tension 46.5 mmHg (35.0-45.0); Calcium, Ionized (arterial) 1.19 mmol/L (1.12-1.30); Carboxyhemoglobin (COHb) 0.7 gm% (0.0-3.0); Hemoglobin (Hb) 9.5 g/dL (12.0-16.0); O2 Tension (PaO2), arterial 64.6 mmHg (> 80.0); Potassium - ABG Lab 4.73 mmol/L (3.70-5.30); pH, Arterial 7.36 (7.35-7.45)
[2020-10-31 07:25] LABS: Puncture Site RRA
[2020-10-31 07:39] LABS: ALV-art Gradient 412.025 mmHg (0-20)
[2020-10-31] MEDS: Cefepime 1 GM in Sodium Chloride 0.9% 100 ML IVPB SCH ×2 (08:41→20:35)
[2020-10-31] MEDS: Ascorbic Acid 500 mg Chewable Tablet PO SCH (08:41)
[2020-10-31] MEDS: Dexamethasone 4 mg/ml Vial SLOW IVP SCH ×2 (08:42→20:36)
[2020-10-31] MEDS: Pantoprazole 40 MG GRANULES PACKET PER TUBE SCH (08:43)
[2020-10-31] MEDS: Enoxaparin Sodium 40 MG/0.4 ML SYRINGE SC SCH ×2 (08:48→20:43)
[2020-10-31] MEDS: Cholecalciferol (Vitamin D3) 400 UNITS TAB PO SCH (09:12)
[2020-10-31] MEDS: Digoxin 0.125 MG TAB PO SCH (09:12)
[2020-10-31] MEDS: Zinc Sulfate 220 MG CAP PO SCH (09:17)
--- NOTE | 2020-10-31 09:17 | PRG ---
DATE OF SERVICE: 10/31/2020 SUBJECTIVE: A 60-year-old female who was prone for 3 days. OBJECTIVE: VITAL SIGNS: Pulse 89, blood pressure 140/76, sats are rate of 18, low PEEP of 11, still 70% FiO2. CHEST: No wheezing. No crackles. CARDIAC: Normal S1, S2. ABDOMEN: No masses. LABORATORY DATA: X-ray still shows bilateral infiltrates. White count 12,000. PO2 was 64, pCO2 . ASSESSMENT: Respiratory failure, pay[place] positive pneumonia, morbid obesity, encephalopathy. PLAN: Try and decrease FiO2 as possible less than 50. Continue otherwise supportive care. She is not weanable. One-half hour of critical time. Job ID: [id number]
--- NOTE | 2020-10-31 09:22 | RAD ---
PORTABLE CHEST: HISTORY: Respiratory distress and COVID pneumonia. COMPARISON: Endotracheal and NG tubes and right central line are unchanged in position. Interstitial alveolar in filtrates are stable. IMPRESSION: Stable exam. POS: ASMITA
--- NOTE | 2020-10-31 20:18 | PDOC.HOSPP ---
- Subjective Encounter Date: 10/31/20 Encounter Time: 12:30 Subjective: Intubated - Objective Vital Signs & Weight: Vital Signs (12 hours) Pulse Resp 10/31/20 18:41 70 10/31/20 18:00 20 10/31/20 16:00 20 10/31/20 14:26 66 10/31/20 14:00 25 H 10/31/20 12:00 32 H 10/31/20 10:55 131 H 10/31/20 10:00 25 H 10/31/20 09:12 68 Weight Admit Weight 199 lb 9.6 oz Weight 199 lb 9.6 oz Most Recent Monitor Data Heart Rate from ECG 68 NIBP 106/67 NIBP BP-Mean 80 Respiration from ECG 18 SpO2 94 I&O: 10/30/20 10/31/20 11/01/20 06:59 06:59 06:59 Intake Total 1632 2669 1231 Output Total 1225 1375 890 Balance 407 1294 341 Result Diagrams: 10/31/20 04:06 10/31/20 04:06 Hospitalist ROS - Review of Systems Other: Patient intubated - Medication Medications: Active Medications Generic Name Dose Route Start Last Admin Trade Name Freq PRN Reason Stop Dose Admin Acetaminophen 650 mg 10/17/20 04:16 10/26/20 20:20 Acetaminophen 325 Mg Tab PO 650 mg Q4H PRN Administration Headache/Fever/Mild Pain (1-3) Albuterol Sulfate 0 puff 10/23/20 09:50 10/29/20 18:58 Proventil Inhaler 6.7 G (200 Inhalations) INH 2 puff Q4H PRN Administration SOB &/or Wheezing Ascorbic Acid 1,000 mg 10/17/20 09:00 10/31/20 08:41 Ascorbic Acid 500 Mg Chewable Tablet PO 1,000 mg DAILY HEIDI Administration Benzonatate 100 mg 10/24/20 02:50 10/25/20 03:34 Benzonatate 100 Mg Cap PO 100 mg TIDPRN PRN Administration Cough Calcium Carbonate 1,000 mg 10/17/20 04:16 10/17/20 04:51 Calcium Carbonate 500 Mg Chewtab PO 1,000 mg Q4H PRN Administration Heartburn or Indigestion Cholecalciferol 400 units 10/17/20 09:00 10/31/20 09:12 Cholecalciferol (Vitamin D3) 400 Units Tab PO 400 units DAILY HEIDI Administration Dexamethasone 10 mg 10/28/20 21:00 10/31/20 08:42 Dexamethasone 4 Mg/Ml Vial SLOW IVP 10 mg BID HEIDI Administration Digoxin 0.125 mg 10/20/20 09:00 10/31/20 09:12 Digoxin 0.125 Mg Tab PO 0.125 mg DAILY HEIDI Administration Enoxaparin Sodium 40 mg 10/18/20 21:00 10/31/20 08:48 Enoxaparin Sodium 40 Mg/0.4 Ml Syringe SC 40 mg BID HEIDI Administration Guaifenesin 200 mg 10/30/20 12:00 10/31/20 13:15 Diabetic Tussin 200 Mg/10 Ml Udcup PO 200 mg Q6HR HEIDI Administration Guaifenesin/Codeine Phosphate 10 ml 10/20/20 13:04 10/26/20 00:30 Guaifenesin/Codeine 200 Mg/20 Mg 10 Ml Cup PO 10 ml Q6H PRN Administration Cough Cefepime HCl 1 gm/ Sodium 100 mls @ 200 mls/hr 10/28/20 21:00 10/31/20 08:41 Chloride IVPB 100 mls Q12HR HEIDI Administration Doxycycline Hyclate 100 mg/ 100 mls @ 100 mls/hr 10/28/20 21:00 10/31/20 09:13 Sodium Chloride IVPB 11/04/20 21:01 100 mls Q12HR HEIDI Administration Fentanyl 100 mls @ 0 mls/hr 10/28/20 14:45 10/31/20 05:04 Fentanyl Cadd IV 11/27/20 14:45 100 mls INF HEIDI Administration Protocol Per Protocol Sodium Chloride 1,000 mls @ 50 mls/hr 10/30/20 09:23 10/30/20 18:43 Normal Saline 0.9% IV 1,000 mls .Q20H HEIDI Administration Lorazepam 2 mg 10/28/20 14:45 10/31/20 10:18 Lorazepam 2 Mg/Ml Vial SLOW IVP 11/27/20 14:45 2 mg Q1H PRN Administration Breakthrough agitation Metoprolol Succinate 25 mg 10/20/20 21:00 10/30/20 22:03 Metoprolol Succinate Xl 25 Mg Tab PO Not Given HS HEIDI Pantoprazole Sodium 40 mg 10/30/20 09:00 10/31/20 08:43 Pantoprazole 40 Mg Granules Packet PER TUBE 40 mg DAILY HEIDI Administration Propofol 1,000 mg 10/28/20 14:45 10/31/20 09:40 Propofol 1,000 Mg/100 Ml Vial IV 11/27/20 14:45 1,000 mg INF PRN Administration TO ACHIEVE GOAL RASS Protocol Sodium Chloride 10 ml 10/26/20 21:00 10/31/20 09:14 Flush - Normal Saline 10 Ml Syringe IVF 10 ml Q12HR HEIDI Administration Sodium Chloride 10 ml 10/26/20 10:30 10/31/20 09:13 Flush - Normal Saline 10 Ml Syringe IVF 10 ml PRN PRN Administration Saline Flush Vecuronium [place] 10 mg 10/28/20 12:54 10/31/20 16:58 Vecuronium 10 Mg Vial IV 10 mg Q1H PRN Administration Agitation Zinc Sulfate 220 mg 10/17/20 09:00 10/31/20 09:17 Zinc Sulfate 220 Mg Cap PO 220 mg DAILY HEIDI Administration - Exam Neck: negative: supple, symmetric, no JVD, no thyromegaly, no lymphadenopathy, no carotid bruit, JVD Heart: negative: RRR, no murmur, no gallops, no rubs, normal peripheral pulses, irregular, diminshed peripheral pulses, murmur present, II/IV, III/IV Respiratory: negative: CTAB, no wheezes, no rales, no ronchi, normal chest expansion, no tachypnea, normal percussion, rales, rhonchi, tachypneic, wheezes Gastrointestinal: negative: soft, non-tender, non-distended, normal bowel sounds, no palpable masses, no hepatomegaly, no splenomegaly, no bruit, no guarding, no rigidity, tender to palpation, distended, diminished bowl sounds, voluntary guarding Hosp A/P (1) Acute respiratory failure with hypoxia Code(s): J96.01 - ACUTE RESPIRATORY FAILURE WITH HYPOXIA Status: Acute (2) Pneumonia due to COVID-19 virus Code(s): U07.1 - COVID-19; J12.89 - OTHER VIRAL PNEUMONIA Status: Acute (3) Sepsis Code(s): A41.9 - SEPSIS, UNSPECIFIED ORGANISM Status: Acute (4) HTN (hypertension) Code(s): I10 - ESSENTIAL (PRIMARY) HYPERTENSION Status: Chronic Qualifiers: Hypertension type: essential hypertension Qualified Code(s): I10 - Essential (primary) hypertension - Plan Patient up in bed appears ill. Appears very tachypneic on BiPAP. ABG O2 is 53. Patient will be transferred to ICU for possible intubation today. Will check labs in the a.m. Family called and updated. 10/29 pt continues to be intubated. will continue to monitor. pt's oxygen has been weaned down. Her crp is high. will montior. she is on abx. dvt ppx. 10/30 patient continues to be intubated. Will continue antibiotics. We will check CRP in a.m. Patient on antibiotics. Patient on DVT prophylaxis 10/31 continues to be intubated she was prone before however currently she is on her back. Patient's sister called and updated. We will continue antibiotics. Patient on DVT prophylaxis. We will continue steroids. She is not on Levophed.
[2020-10-31] MEDS: Sodium Chloride 0.9% 1,000 ML IV SCH (22:49)
[2020-11-01] MEDS: GUAIFENESIN SF SOLN 200 MG/10 ML UDCUP PO SCH ×4 (02:17→17:34)
[2020-11-01] MEDS: Propofol 1,000 MG/100 ML VIAL IV PRN ×3 (05:00→18:16)
[2020-11-01 05:05] LABS: #Lymphocytes 0.8 thou/uL (1.20-3.40); #Monocytes 0.4 thou/uL (0.11-0.59); #Neutrophils 9.7 thou/uL (1.40-6.50); %Eosinophils 0.2 % (0.0-10.0); %Lymphocytes 7.2 % (21.0-51.0); %Monocytes 3.8 % (0.0-10.0); %Neutrophils 88.8 % (42.0-75.0); Hemoglobin 8.8 g/dL (12.0-16.0); Mean Corpuscular HGB CONC 31.1 g/dL (32.0-36.0); Mean Corpuscular Hemoglobin 26.4 pg (27.0-31.0); Mean Corpuscular Volume 84.8 fL (78.0-98.0); Mean Platelet Volume 8.3 fL (7.4-10.4); Platelet Count 251 thou/uL (130-400); Red Blood Cell (RBC) Count 3.34 mill/uL (4.20-5.40); White Blood Cell (WBC) Count 10.9 thou/uL (4.8-10.8)
[2020-11-01 05:24] LABS: ALT (SGPT) 39 U/L (8-55); AST (SGOT) 19 U/L (5-34); Albumin 2.6 g/dL (3.5-5.0); Alkaline Phosphatase 97 U/L (40-110); Bilirubin, Direct 0.2 mg/dL (0.1-0.3); Bilirubin, Total 0.3 mg/dL (0.2-1.2); Protein, Total 5.9 g/dL (6.0-8.3)
[2020-11-01 05:38] LABS: Anion Gap 12 mmol/L (10-20); BUN (Urea Nitrogen) 27 mg/dL (9.8-20.1); Calc. Creatinine Clearance 158 mL/min (70-130); Carbon Dioxide 26 mmol/L (22-29); Chloride 105 mmol/L (98-107); Glucose 176 mg/dL (70-105); Potassium 5.1 mmol/L (3.5-5.1); Sodium 138 mmol/L (136-145)
--- NOTE | 2020-11-01 08:02 | PDOC.PULCC ---
CCU Progress Note: Subj/Obj - Subjective Date: 11/01/20 Time: 08:01 Subjective: Remains on mechanical ventilation, bilevel mode, in the supine position for treatment of COVID-19 pneumonia. - Objective Allergies/Adverse Reactions: Allergies Allergy/AdvReac Type Severity Reaction Status Date / Time amoxicillin Allergy Intermediate Rash Verified 10/19/20 01:49 latex Allergy Verified 10/19/20 01:49 Medications: Current Medications Acetaminophen (Acetaminophen 325 Mg Tab) 650 mg PO Q4H PRN PRN Reason: Headache/Fever/Mild Pain (1-3) Last Admin: 10/26/20 20:20 Dose: 650 mg Documented by: Acetaminophen (Acetaminophen 650 Mg Suppository) 650 mg [place] Q4H PRN PRN Reason: Headache/Fever/Mild Pain (1-3) Albuterol Sulfate (Proventil Inhaler 6.7 G (200 Inhalations)) 0 puff INH Q4H PRN PRN Reason: SOB &/or Wheezing Last Admin: 10/29/20 18:58 Dose: 2 puff Documented by: Ascorbic Acid (Ascorbic Acid 500 Mg Chewable Tablet) 1,000 mg PO DAILY [facility] Last Admin: 10/31/20 08:41 Dose: 1,000 mg Documented by: Benzonatate (Benzonatate 100 Mg Cap) 100 mg PO TIDPRN PRN PRN Reason: Cough Last Admin: 10/25/20 03:34 Dose: 100 mg Documented by: Calcium Carbonate (Calcium Carbonate 500 Mg Chewtab) 1,000 mg PO Q4H PRN PRN Reason: Heartburn or Indigestion Last Admin: 10/17/20 04:51 Dose: 1,000 mg Documented by: Cholecalciferol (Cholecalciferol (Vitamin D3) 400 Units Tab) 400 units PO DAILY [facility] Last Admin: 10/31/20 09:12 Dose: 400 units Documented by: Dexamethasone (Dexamethasone 4 Mg/Ml Vial) 10 mg SLOW IVP BID [facility] Last Admin: 10/31/20 20:36 Dose: 10 mg Documented by: Digoxin (Digoxin 0.125 Mg Tab) 0.125 mg PO DAILY [facility] Last Admin: 10/31/20 09:12 Dose: 0.125 mg Documented by: Enoxaparin Sodium (Enoxaparin Sodium 40 Mg/0.4 Ml Syringe) 40 mg SC BID [facility] Last Admin: 10/31/20 20:43 Dose: 40 mg Documented by: Guaifenesin (Diabetic Tussin 200 Mg/10 Ml Udcup) 200 mg PO Q6HR [facility] Last Admin: 11/01/20 06:06 Dose: 200 mg Documented by: Guaifenesin/Codeine Phosphate (Guaifenesin/Codeine 200 Mg/20 Mg 10 Ml Cup) 10 ml PO Q6H PRN PRN Reason: Cough Last Admin: 10/26/20 00:30 Dose: 10 ml Documented by: Cefepime HCl 1 gm/ Sodium (Chloride) 100 mls @ 200 mls/hr IVPB Q12HR [facility] Last Admin: 10/31/20 20:35 Dose: 100 mls Documented by: Doxycycline Hyclate 100 mg/ (Sodium Chloride) 100 mls @ 100 mls/hr IVPB Q12HR [facility] Stop: 11/04/20 21:01 Last Admin: 10/31/20 20:38 Dose: 100 mls Documented by: Fentanyl (Fentanyl Cadd) 100 mls @ 0 mls/hr IV INF [facility]; Protocol Stop: 11/27/20 14:45 Last Admin: 10/31/20 21:00 Dose: 100 mls Documented by: Fentanyl Citrate (Fentanyl Bolus) 250 mls @ 0 mls/hr IVPB PRN PRN PRN Reason: Breakthrough pain/agitation Stop: 11/27/20 14:45 Norepinephrine Bitartrate (Levophed) 250 mls @ 0 mls/hr IVPB INF [facility]; Protocol Sodium Chloride (Normal Saline 0.9%) 1,000 mls @ 50 mls/hr IV .Q20H [facility] Last Admin: 10/31/20 22:49 Dose: 1,000 mls Documented by: Lorazepam (Lorazepam 2 Mg/Ml Vial) 2 mg SLOW IVP Q1H PRN PRN Reason: Breakthrough agitation Stop: 11/27/20 14:45 Last Admin: 10/31/20 10:18 Dose: 2 mg Documented by: Metoprolol Succinate (Metoprolol Succinate Xl 25 Mg Tab) 25 mg PO HS [facility] Last Admin: 10/31/20 20:43 Dose: 25 mg Documented by: Morphine Sulfate (Morphine 2 Mg/Ml Vial) 2 mg SLOW IVP Q1H PRN PRN Reason: Breakthrough Pain/Agitation Stop: 11/27/20 14:45 Discontinue Previous Narcotic Pain Medications And Benzodiazepines 1 each FS .ONE [facility] Stop: 11/27/20 14:45 Ondansetron HCl (Ondansetron Odt 4 Mg Tab) 4 mg PO Q6H PRN PRN Reason: Nausea/Vomiting Ondansetron HCl (Ondansetron Pf 4 Mg/2 Ml Vial) 4 mg IVP Q6H PRN PRN Reason: Nausea/Vomiting Pantoprazole Sodium (Pantoprazole 40 Mg Granules Packet) 40 mg PER TUBE DAILY [facility] Last Admin: 10/31/20 08:43 Dose: 40 mg Documented by: Propofol (Propofol 1,000 Mg/100 Ml Vial) 1,000 mg IV INF [facility]; Protocol PRN Reason: TO ACHIEVE GOAL RASS Stop: 11/27/20 14:45 Last Admin: 11/01/20 05:00 Dose: 1,000 mg Documented by: Propofol (Propofol Bolus 1,000 Mg/100 Ml Vial) 20 mg IV Q5MIN PRN PRN Reason: BREAKTHROUGH AGITATION Stop: 11/27/20 14:45 Sodium Chloride (Flush - Normal Saline 10 Ml Syringe) 10 ml IVF Q12HR [facility] Last Admin: 10/31/20 20:42 Dose: 10 ml Documented by: Sodium Chloride (Flush - Normal Saline 10 Ml Syringe) 10 ml IVF PRN PRN PRN Reason: Saline Flush Last Admin: 10/31/20 09:13 Dose: 10 ml Documented by: Vecuronium [place] (Vecuronium 10 Mg Vial) 10 mg IV Q1H PRN PRN Reason: Agitation Last Admin: 10/31/20 16:58 Dose: 10 mg Documented by: Zinc Sulfate (Zinc Sulfate 220 Mg Cap) 220 mg PO DAILY [facility] Last Admin: 10/31/20 09:17 Dose: 220 mg Documented by: FELIX Reviewed: Yes Vital Signs and I&O: Vital Signs Temp 97.5 F L 11/01/20 04:00 Pulse 75 11/01/20 07:37 Resp 21 H 11/01/20 06:00 BP 113/75 10/31/20 22:16 Pulse Ox 92 L 10/31/20 20:00 Intake & Output 10/31/20 11/01/20 11/01/20 18:59 06:59 18:59 Intake Total 1231 1001 Output Total 890 890 50 Balance 341 111 -50 Weight 199 lb 9.6 oz 199 lb 1.239 oz Intake: Intake, IV Amount 1111 454 Cefepime 1 gm In Sodium 100 100 Chloride 0.9% 100 ml @ 200 mls/hr IVPB Q12HR [facility] Rx#:[id number] Doxycycline Hyclate 100 100 100 mg In Sodium Chloride 0.9 % 100 ml @ 100 mls/hr IVPB Q12HR [facility] Rx#: [id number] Fentanyl CADD 100 ml @ 70 75 Per Protocol IV INF [facility] Rx#:[id number] Propofol 1000 mg (See 193 179 Protocol) IV INF PRN Rx#: [id number] Sodium Chloride 0.9% 1, 648 000 ml @ 50 mls/hr IV . Q20H [facility] Rx#:[id number] Tube Feeding 547 Tube Irrigant 120 Output: Output, [place] [phone] Other: Voiding Method Indwelling Catheter Indwelling Catheter Vent Setting: Bilevel, rate 18, high pressure 34, low pressure 12, FiO2 70% Spontaneous Breathing Test: not done CCU Progress Note: Exam - Physical Exam Constitutional: NAD HEENT: PERRLA Neck: no nodes, no JVD Cardiovascular: RRR Respiratory: rhonchi Gastrointestinal: soft, non-tender Musculoskeletal: edema present Neurological: moves all 4 limbs Lymphatic: no nodes Skin: no rash CCU Progress Note: Data - Labs Result Diagrams: 11/01/20 04:08 11/01/20 04:08 - ABG Interpretation ABG Results: ABG pH 7.36 (7.35-7.45) 10/31/20 06:51 ABG pCO2 46.5 mmHg (35.0-45.0) H 10/31/20 06:51 ABG Base Excess 0.2 mEq/L (-2.0 to +3.0) 10/31/20 06:51 CCU Progress Note: A/P - Time Spent with Patient Time (minutes): 35 (Critical care time) - Plan Plan: COVID-19 pneumonia Acute hypoxic respiratory failure require mechanical relation with no improvement in oxygenation overnight The plan is to continue mechanical ventilation on current settings. Continue steroids, anticoagulation, and antibiotics. Prognosis is very poor for functional recovery.
[2020-11-01] MEDS: Digoxin 0.125 MG TAB PO SCH (08:30)
[2020-11-01] MEDS: Cholecalciferol (Vitamin D3) 400 UNITS TAB PO SCH (08:31)
[2020-11-01] MEDS: Ascorbic Acid 500 mg Chewable Tablet PO SCH (08:31)
[2020-11-01] MEDS: Cefepime 1 GM in Sodium Chloride 0.9% 100 ML IVPB SCH ×2 (08:34→19:38)
[2020-11-01] MEDS: Enoxaparin Sodium 40 MG/0.4 ML SYRINGE SC SCH ×2 (08:35→19:40)
[2020-11-01] MEDS: Pantoprazole 40 MG GRANULES PACKET PER TUBE SCH (08:35)
[2020-11-01] MEDS: Dexamethasone 4 mg/ml Vial SLOW IVP SCH ×2 (08:35→19:39)
[2020-11-01] MEDS: Zinc Sulfate 220 MG CAP PO SCH (08:36)
--- NOTE | 2020-11-01 09:59 | EKG ---
Test Reason : SOB Blood Pressure : / mmHG Vent. Rate : 068 BPM Atrial Rate : 068 BPM P-R Int : 156 ms QRS Dur : 104 ms QT Int : 414 ms P-R-T Axes : 032 004 -04 degrees QTc Int : 440 ms Normal sinus rhythm Normal ECG Confirmed by ANGIE BURNETTE, XIOMARA Doshi ([id number]), online editor DEAN CASTRO ([id number]) on 11/01/2020 9:59:05 AM Referred By: Confirmed By:XIOMARA ADAMS MD
[2020-11-01] MEDS: Lorazepam 2 MG/ML VIAL SLOW IVP PRN (12:07)
[2020-11-01] MEDS ORDERED: Fentanyl CADD 100 ML ONE (14:01)
--- NOTE | 2020-11-01 15:23 | PDOC.HOSPP ---
- Subjective Encounter Date: 11/01/20 non-verbal (On the vent) - Objective Vital Signs & Weight: Vital Signs (12 hours) Temp Pulse Resp 11/01/20 14:39 97 11/01/20 12:00 98 F 21 H 11/01/20 11:25 64 11/01/20 10:00 20 11/01/20 08:30 68 11/01/20 08:00 99 F 18 11/01/20 07:37 75 11/01/20 06:00 21 H 11/01/20 04:00 97.5 F L 22 H Weight Admit Weight 199 lb 9.6 oz Weight 199 lb 1.239 oz Most Recent Monitor Data Heart Rate from ECG 63 NIBP 116/69 NIBP BP-Mean 84 Respiration from ECG 18 SpO2 93 I&O: 10/31/20 11/01/20 11/02/20 06:59 06:59 06:59 Intake Total 2669 2232 200 Output Total 1375 1780 530 Balance 1294 452 -330 Result Diagrams: 11/01/20 04:08 11/01/20 04:08 Hospitalist ROS - Medication Medications: Active Medications Generic Name Dose Route Start Last Admin Trade Name Freq PRN Reason Stop Dose Admin Acetaminophen 650 mg 10/17/20 04:16 10/26/20 20:20 Acetaminophen 325 Mg Tab PO 650 mg Q4H PRN Administration Headache/Fever/Mild Pain (1-3) Albuterol Sulfate 0 puff 10/23/20 09:50 10/29/20 18:58 Proventil Inhaler 6.7 G (200 Inhalations) INH 2 puff Q4H PRN Administration SOB &/or Wheezing Ascorbic Acid 1,000 mg 10/17/20 09:00 11/01/20 08:31 Ascorbic Acid 500 Mg Chewable Tablet PO 1,000 mg DAILY [facility] Administration Benzonatate 100 mg 10/24/20 02:50 10/25/20 03:34 Benzonatate 100 Mg Cap PO 100 mg TIDPRN PRN Administration Cough Calcium Carbonate 1,000 mg 10/17/20 04:16 10/17/20 04:51 Calcium Carbonate 500 Mg Chewtab PO 1,000 mg Q4H PRN Administration Heartburn or Indigestion Cholecalciferol 400 units 10/17/20 09:00 11/01/20 08:31 Cholecalciferol (Vitamin D3) 400 Units Tab PO 400 units DAILY [facility] Administration Dexamethasone 10 mg 10/28/20 21:00 11/01/20 08:35 Dexamethasone 4 Mg/Ml Vial SLOW IVP 10 mg BID [facility] Administration Digoxin 0.125 mg 10/20/20 09:00 11/01/20 08:30 Digoxin 0.125 Mg Tab PO 0.125 mg DAILY [facility] Administration Enoxaparin Sodium 40 mg 10/18/20 21:00 11/01/20 08:35 Enoxaparin Sodium 40 Mg/0.4 Ml Syringe SC 40 mg BID [facility] Administration Guaifenesin 200 mg 10/30/20 12:00 11/01/20 11:30 Diabetic Tussin 200 Mg/10 Ml Udcup PO 200 mg Q6HR [facility] Administration Guaifenesin/Codeine Phosphate 10 ml 10/20/20 13:04 10/26/20 00:30 Guaifenesin/Codeine 200 Mg/20 Mg 10 Ml Cup PO 10 ml Q6H PRN Administration Cough Cefepime HCl 1 gm/ Sodium 100 mls @ 200 mls/hr 10/28/20 21:00 11/01/20 08:34 Chloride IVPB 100 mls Q12HR [facility] Administration Doxycycline Hyclate 100 mg/ 100 mls @ 100 mls/hr 10/28/20 21:00 11/01/20 11:29 Sodium Chloride IVPB 11/04/20 21:01 100 mls Q12HR [facility] Administration Fentanyl 100 mls @ 0 mls/hr 10/28/20 14:45 10/31/20 21:00 Fentanyl Cadd IV 11/27/20 14:45 100 mls INF [facility] Administration Protocol Per Protocol Sodium Chloride 1,000 mls @ 50 mls/hr 10/30/20 09:23 10/31/20 22:49 Normal Saline 0.9% IV 1,000 mls .Q20H [facility] Administration Lorazepam 2 mg 10/28/20 14:45 11/01/20 12:07 Lorazepam 2 Mg/Ml Vial SLOW IVP 11/27/20 14:45 2 mg Q1H PRN Administration Breakthrough agitation Metoprolol Succinate 25 mg 10/20/20 21:00 10/31/20 20:43 Metoprolol Succinate Xl 25 Mg Tab PO 25 mg HS [facility] Administration Pantoprazole Sodium 40 mg 10/30/20 09:00 11/01/20 08:35 Pantoprazole 40 Mg Granules Packet PER TUBE 40 mg DAILY [facility] Administration Propofol 1,000 mg 10/28/20 14:45 11/01/20 12:07 Propofol 1,000 Mg/100 Ml Vial IV 11/27/20 14:45 1,000 mg INF PRN Administration TO ACHIEVE GOAL RASS Protocol Sodium Chloride 10 ml 10/26/20 21:00 11/01/20 09:00 Flush - Normal Saline 10 Ml Syringe IVF 10 ml Q12HR [facility] Administration Sodium Chloride 10 ml 10/26/20 10:30 10/31/20 09:13 Flush - Normal Saline 10 Ml Syringe IVF 10 ml PRN PRN Administration Saline Flush Vecuronium [place] 10 mg 10/28/20 12:54 10/31/20 16:58 Vecuronium 10 Mg Vial IV 10 mg Q1H PRN Administration Agitation Zinc Sulfate 220 mg 10/17/20 09:00 11/01/20 08:36 Zinc Sulfate 220 Mg Cap PO 220 mg DAILY [facility] Administration - Exam General Appearance: ill appearing ENT: normocephalic atraumatic Heart: RRR Respiratory: normal chest expansion, no tachypnea Hosp A/P (1) Acute respiratory failure Code(s): J96.00 - ACUTE RESPIRATORY FAILURE, UNSP W HYPOXIA OR HYPERCAPNIA Status: Acute (2) Pneumonia due to COVID-19 virus Code(s): U07.1 - COVID-19; J12.89 - OTHER VIRAL PNEUMONIA Status: Acute - Plan Continue ventilator management per critical care team. The patient is on 70% FiO2. Continue dexamethasone and anticoagulation.
[2020-11-01] MEDS: Sodium Chloride 0.9% 1,000 ML IV SCH (17:28)
[2020-11-02] MEDS: Propofol 1,000 MG/100 ML VIAL IV PRN ×4 (01:13→17:29)
[2020-11-02] MEDS: GUAIFENESIN SF SOLN 200 MG/10 ML UDCUP PO SCH ×5 (01:13→20:18)
[2020-11-02 04:47] LABS: #Eosinphils 0.2 thou/uL (0.0-0.7); #Lymphocytes 1.1 thou/uL (1.20-3.40); #Monocytes 0.7 thou/uL (0.11-0.59); #Neutrophils 7.8 thou/uL (1.40-6.50); %Basophils 0.1 % (0.0-1.0); %Eosinophils 1.7 % (0.0-10.0); %Lymphocytes 11.7 % (21.0-51.0); %Monocytes 6.9 % (0.0-10.0); %Neutrophils 79.5 % (42.0-75.0); Mean Corpuscular HGB CONC 31.8 g/dL (32.0-36.0); Mean Corpuscular Hemoglobin 27.1 pg (27.0-31.0); Mean Corpuscular Volume 85.2 fL (78.0-98.0); Mean Platelet Volume 8.3 fL (7.4-10.4); Platelet Count 268 thou/uL (130-400); RBC Distribution Width 14.9 % (11.5-14.5); Red Blood Cell (RBC) Count 3.32 mill/uL (4.20-5.40); White Blood Cell (WBC) Count 9.8 thou/uL (4.8-10.8)
[2020-11-02 05:12] LABS: Anion Gap 10 mmol/L (10-20); BUN (Urea Nitrogen) 23 mg/dL (9.8-20.1); Calc. Creatinine Clearance 152 mL/min (70-130); Calcium 8.1 mg/dL (7.8-10.44); Carbon Dioxide 31 mmol/L (22-29); Chloride 103 mmol/L (98-107); Glucose 158 mg/dL (70-105); Potassium 5.3 mmol/L (3.5-5.1); Sodium 139 mmol/L (136-145)
[2020-11-02] MEDS ORDERED: Fentanyl CADD 100 ML ONE ×2 (05:58→21:23)
[2020-11-02] MEDS: Fentanyl CADD 100 ML IV SCH ×2 (06:00→21:28)
[2020-11-02] MEDS: Dexamethasone 4 mg/ml Vial SLOW IVP SCH ×2 (09:50→20:14)
[2020-11-02] MEDS: Enoxaparin Sodium 40 MG/0.4 ML SYRINGE SC SCH ×2 (09:50→20:18)
[2020-11-02] MEDS: Pantoprazole 40 MG GRANULES PACKET PER TUBE SCH (09:50)
[2020-11-02] MEDS: Cholecalciferol (Vitamin D3) 400 UNITS TAB PO SCH (09:50)
[2020-11-02] MEDS: Lorazepam 2 MG/ML VIAL SLOW IVP PRN ×3 (09:51→21:16)
[2020-11-02] MEDS: Digoxin 0.125 MG TAB PO SCH (10:36)
[2020-11-02] MEDS: Zinc Sulfate 220 MG CAP PO SCH (10:36)
[2020-11-02] MEDS: Cefepime 1 GM in Sodium Chloride 0.9% 100 ML IVPB SCH ×2 (10:36→20:13)
[2020-11-02] MEDS: Ascorbic Acid 500 mg Chewable Tablet PO SCH (10:37)
--- NOTE | 2020-11-02 10:42 | PDOC.PULCC ---
CCU Progress Note: Subj/Obj - Subjective Date: 11/02/20 Time: 10:40 Subjective: About the same, sedated on mechanical ventilation. - Objective Allergies/Adverse Reactions: Allergies Allergy/AdvReac Type Severity Reaction Status Date / Time amoxicillin Allergy Intermediate Rash Verified 10/19/20 01:49 latex Allergy Verified 10/19/20 01:49 MAR Reviewed: Yes Vital Signs and I&O: Vital Signs Temp 98.5 F 11/02/20 08:00 Pulse 82 11/02/20 10:36 Resp 20 11/02/20 06:00 BP 100/57 L 11/02/20 02:25 Pulse Ox 96 11/01/20 20:00 Intake & Output 11/01/20 11/02/20 11/02/20 18:59 06:59 18:59 Intake Total 1618 597.5 Output Total 945 800 230 Balance 673 -202.5 -230 Weight 199 lb 4.766 oz Intake: Intake, IV Amount 1038 457.5 Cefepime 1 gm In Sodium 100 100 Chloride 0.9% 100 ml @ 200 mls/hr IVPB Q12HR [facility] Rx#:[id number] Doxycycline Hyclate 100 100 100 mg In Sodium Chloride 0.9 % 100 ml @ 100 mls/hr IVPB Q12HR [facility] Rx#: [id number] Fentanyl CADD 100 ml @ 74.5 Per Protocol IV INF [facility] Rx#:[id number] Propofol 1000 mg (See 196 183 Protocol) IV INF PRN Rx#: [id number] Sodium Chloride 0.9% 1, 642 000 ml @ 50 mls/hr IV . Q20H [facility] Rx#:[id number] Tube Feeding 520 Tube Irrigant 60 140 Output: Output, [place] 945 800 230 Other: Voiding Method Indwelling Catheter Indwelling Catheter Vent Setting: Bilevel, rate 18, high pressure 34, low pressure 12, FiO2 50% Spontaneous Breathing Test: not done CCU Progress Note: Exam - Physical Exam Constitutional: NAD HEENT: PERRLA Neck: no nodes, no JVD Cardiovascular: RRR Respiratory: rhonchi Gastrointestinal: soft, non-tender Musculoskeletal: edema present Neurological: moves all 4 limbs CCU Progress Note: Data - Labs Result Diagrams: 11/02/20 04:25 11/02/20 04:25 - ABG Interpretation ABG Results: ABG pH 7.36 (7.35-7.45) 10/31/20 06:51 ABG pCO2 46.5 mmHg (35.0-45.0) H 10/31/20 06:51 ABG Base Excess 0.2 mEq/L (-2.0 to +3.0) 10/31/20 06:51 - Radiology Interpretation Chest x-ray Status: image reviewed by me (Unchanged) CCU Progress Note: A/P - Problems (1) Acute respiratory failure with hypoxia Current Visit: Yes Status: Acute Code(s): J96.01 - ACUTE RESPIRATORY FAILURE WITH HYPOXIA (2) Pneumonia due to COVID-19 virus Current Visit: Yes Status: Acute Code(s): U07.1 - COVID-19; J12.89 - OTHER VIRAL PNEUMONIA - Time Spent with Patient Time (minutes): 30 (Critical care time) - Plan Plan: The patient is stable on current mechanical ventilation settings. I do not feel she is weanable at the moment. I reviewed her orders and we will continue current management.
--- NOTE | 2020-11-02 13:13 | PDOC.HOSPP ---
- Subjective Encounter Date: 11/02/20 non-verbal (On the vent) Subjective: No significant change since yesterday. - Objective Vital Signs & Weight: Vital Signs (12 hours) Temp Pulse Resp BP 11/02/20 10:36 82 11/02/20 08:00 98.5 F 11/02/20 07:25 85 11/02/20 06:00 98.3 F 20 11/02/20 04:00 97.9 F 18 11/02/20 02:25 67 100/57 L 11/02/20 02:00 21 H Weight Admit Weight 199 lb 9.6 oz Weight 199 lb 4.766 oz Most Recent Monitor Data Heart Rate from ECG 73 NIBP 100/58 NIBP BP-Mean 72 Respiration from ECG 16 SpO2 97 I&O: 11/01/20 11/02/20 11/03/20 06:59 06:59 06:59 Intake Total 2232 2215.5 Output Total 1780 1745 475 Balance 452 470.5 -475 Result Diagrams: 11/02/20 04:25 11/02/20 04:25 Hospitalist ROS - Medication Medications: Active Medications Generic Name Dose Route Start Last Admin Trade Name Freq PRN Reason Stop Dose Admin Acetaminophen 650 mg 10/17/20 04:16 10/26/20 20:20 Acetaminophen 325 Mg Tab PO 650 mg Q4H PRN Administration Headache/Fever/Mild Pain (1-3) Albuterol Sulfate 0 puff 10/23/20 09:50 10/29/20 18:58 Proventil Inhaler 6.7 G (200 Inhalations) INH 2 puff Q4H PRN Administration SOB &/or Wheezing Ascorbic Acid 1,000 mg 10/17/20 09:00 11/02/20 10:37 Ascorbic Acid 500 Mg Chewable Tablet PO 1,000 mg DAILY [facility] Administration Benzonatate 100 mg 10/24/20 02:50 10/25/20 03:34 Benzonatate 100 Mg Cap PO 100 mg TIDPRN PRN Administration Cough Calcium Carbonate 1,000 mg 10/17/20 04:16 10/17/20 04:51 Calcium Carbonate 500 Mg Chewtab PO 1,000 mg Q4H PRN Administration Heartburn or Indigestion Cholecalciferol 400 units 10/17/20 09:00 11/02/20 09:50 Cholecalciferol (Vitamin D3) 400 Units Tab PO 400 units DAILY [facility] Administration Dexamethasone 10 mg 10/28/20 21:00 11/02/20 09:50 Dexamethasone 4 Mg/Ml Vial SLOW IVP 10 mg BID [facility] Administration Digoxin 0.125 mg 10/20/20 09:00 11/02/20 10:36 Digoxin 0.125 Mg Tab PO 0.125 mg DAILY [facility] Administration Enoxaparin Sodium 40 mg 10/18/20 21:00 11/02/20 09:50 Enoxaparin Sodium 40 Mg/0.4 Ml Syringe SC 40 mg BID [facility] Administration Guaifenesin 200 mg 10/30/20 12:00 11/02/20 12:25 Diabetic Tussin 200 Mg/10 Ml Udcup PO 200 mg Q6HR [facility] Administration Guaifenesin/Codeine Phosphate 10 ml 10/20/20 13:04 10/26/20 00:30 Guaifenesin/Codeine 200 Mg/20 Mg 10 Ml Cup PO 10 ml Q6H PRN Administration Cough Cefepime HCl 1 gm/ Sodium 100 mls @ 200 mls/hr 10/28/20 21:00 11/02/20 10:36 Chloride IVPB 100 mls Q12HR [facility] Administration Doxycycline Hyclate 100 mg/ 100 mls @ 100 mls/hr 10/28/20 21:00 11/02/20 09: 00 Sodium Chloride IVPB 11/04/20 21:01 100 mls Q12HR [facility] Administration Fentanyl 100 mls @ 0 mls/hr 10/28/20 14:45 11/02/20 06:00 Fentanyl Cadd IV 11/27/20 14:45 100 mls INF [facility] Administration Protocol Per Protocol Sodium Chloride 1,000 mls @ 50 mls/hr 10/30/20 09:23 11/01/20 17:28 Normal Saline 0.9% IV 1,000 mls .Q20H [facility] Administration Lorazepam 2 mg 10/28/20 14:45 11/02/20 13:06 Lorazepam 2 Mg/Ml Vial SLOW IVP 11/27/20 14:45 2 mg Q1H PRN Administration Breakthrough agitation Metoprolol Succinate 25 mg 10/20/20 21:00 11/01/20 19:40 Metoprolol Succinate Xl 25 Mg Tab PO 25 mg HS [facility] Administration Pantoprazole Sodium 40 mg 10/30/20 09:00 01/17/21 09:50 Pantoprazole 40 Mg Granules Packet PER TUBE 40 mg DAILY [facility] Administration Propofol 1,000 mg 10/28/20 14:45 11/02/20 12:06 Propofol 1,000 Mg/100 Ml Vial IV 11/27/20 14:45 1,000 mg INF PRN Administration TO ACHIEVE GOAL RASS Protocol Sodium Chloride 10 ml 10/26/20 21:00 11/01/20 19:40 Flush - Normal Saline 10 Ml Syringe IVF 10 ml Q12HR [facility] Administration Sodium Chloride 10 ml 10/26/20 10:30 10/31/20 09:13 Flush - Normal Saline 10 Ml Syringe IVF 10 ml PRN PRN Administration Saline Flush Vecuronium [place] 10 mg 10/28/20 12:54 10/31/20 16:58 Vecuronium 10 Mg Vial IV 10 mg Q1H PRN Administration Agitation Zinc Sulfate 220 mg 10/17/20 09:00 11/02/20 10:36 Zinc Sulfate 220 Mg Cap PO 220 mg DAILY [facility] Administration Hosp A/P (1) Acute respiratory failure Code(s): J96.00 - ACUTE RESPIRATORY FAILURE, UNSP W HYPOXIA OR HYPERCAPNIA Status: Acute (2) Pneumonia due to COVID-19 virus Code(s): U07.1 - COVID-19; J12.89 - OTHER VIRAL PNEUMONIA Status: Acute - Plan Continue ventilator management per critical care team. The patient is on 70% FiO2. Continue dexamethasone, antibiotics and anticoagulation.
[2020-11-02] MEDS: Sodium Chloride 0.9% 1,000 ML IV SCH (17:29)
[2020-11-02] MEDS ORDERED: Polyethylene Glycol 3350 17 GM Packet PO SCH (23:45)
[2020-11-03] MEDS: Propofol 1,000 MG/100 ML VIAL IV PRN ×3 (00:13→17:30)
[2020-11-03] MEDS: Vecuronium 10 MG VIAL IV PRN (00:14)
[2020-11-03 04:49] LABS: #Monocytes 0.4 thou/uL (0.11-0.59); %Basophils 0.1 % (0.0-1.0); %Eosinophils 0.5 % (0.0-10.0); %Lymphocytes 11.9 % (21.0-51.0); %Monocytes 4.2 % (0.0-10.0); %Neutrophils 83.4 % (42.0-75.0); Hemoglobin 8.6 g/dL (12.0-16.0); Mean Corpuscular HGB CONC 30.5 g/dL (32.0-36.0); Mean Corpuscular Hemoglobin 26.1 pg (27.0-31.0); Mean Corpuscular Volume 85.6 fL (78.0-98.0); Mean Platelet Volume 8.3 fL (7.4-10.4); Platelet Count 247 thou/uL (130-400); RBC Distribution Width 14.7 % (11.5-14.5); Red Blood Cell (RBC) Count 3.29 mill/uL (4.20-5.40); White Blood Cell (WBC) Count 8.5 thou/uL (4.8-10.8)
[2020-11-03 05:03] LABS: Anion Gap 9 mmol/L (10-20); BUN (Urea Nitrogen) 19 mg/dL (9.8-20.1); Calc. Creatinine Clearance 171 mL/min (70-130); Calcium 7.9 mg/dL (7.8-10.44); Carbon Dioxide 32 mmol/L (22-29); Chloride 101 mmol/L (98-107); Glucose 140 mg/dL (70-105); Potassium 5.2 mmol/L (3.5-5.1); Sodium 137 mmol/L (136-145)
[2020-11-03 05:05] LABS: Digoxin Less than 0.15 ng/mL (0.8-2.0)
[2020-11-03] MEDS: GUAIFENESIN SF SOLN 200 MG/10 ML UDCUP PO SCH ×3 (05:37→17:29)
[2020-11-03 07:50] LABS: Actual Bicarbonate (HCO3a) 34.2 mEq/L (22-28); Base Excess (BEa) 5.7 mEq/L (-2.0 to +3.0); Carboxyhemoglobin (COHb) 0.6 gm% (0.0-3.0); Hemoglobin (Hb) 9.8 g/dL (12.0-16.0); O2 Tension (PaO2), arterial 78.9 mmHg (> 80.0); Potassium - ABG Lab 4.95 mmol/L (3.70-5.30); pH, Arterial 7.27 (7.35-7.45)
[2020-11-03 08:41] LABS: CO2 Tension 75.9 mmHg (35.0-45.0); Puncture Site LRA
[2020-11-03 08:42] LABS: ALV-art Gradient 254.025 mmHg (0-20)
[2020-11-03] MEDS: Pantoprazole 40 MG GRANULES PACKET PER TUBE SCH (09:46)
[2020-11-03] MEDS: Cholecalciferol (Vitamin D3) 400 UNITS TAB PO SCH (09:46)
[2020-11-03] MEDS: Ascorbic Acid 500 mg Chewable Tablet PO SCH (09:46)
[2020-11-03] MEDS: Dexamethasone 4 mg/ml Vial SLOW IVP SCH ×2 (09:46→20:52)
[2020-11-03] MEDS: Zinc Sulfate 220 MG CAP PO SCH (09:46)
[2020-11-03] MEDS: Enoxaparin Sodium 40 MG/0.4 ML SYRINGE SC SCH ×2 (09:47→20:53)
[2020-11-03] MEDS: Polyethylene Glycol 3350 17 GM Packet PO SCH (09:47)
[2020-11-03] MEDS: Cefepime 1 GM in Sodium Chloride 0.9% 100 ML IVPB SCH ×2 (09:47→20:52)
[2020-11-03] MEDS: Digoxin 0.125 MG TAB PO SCH (09:59)
--- NOTE | 2020-11-03 10:02 | PRG ---
DATE OF SERVICE: 11/03/2020 SUBJECTIVE: Abida Bourgeois is a 60-year-old morbidly obese female, who is intubated on the vent with payan positive pneumonia. OBJECTIVE: VITAL SIGNS: Temperature is 97, pulse 56, blood pressure 94/56, sats are 94%, I's and O's have been consistently positive. CHEST: No wheezing. No crackles. CARDIAC: Normal S1, S2. ABDOMEN: No masses. LABORATORY DATA: White count 8000, 26, platelet count is normal. PO2 is 78, pCO2 60%, low PEEP of 12, bilevel. Lytes are normal. ASSESSMENT: Payan positive pneumonia, respiratory failure, respiratory acidosis, morbidly obese. PLAN: She is not weanable at this stage, day 17 in the hospital. Continue supportive care, PT. Nutrition. Prognosis is guarded. One-half hour of critical care time. Job ID: [id number]
[2020-11-03] MEDS ORDERED: Fentanyl CADD 100 ML ONE (12:07)
[2020-11-03] MEDS: Lorazepam 2 MG/ML VIAL SLOW IVP PRN ×2 (12:24→20:51)
--- NOTE | 2020-11-03 14:34 | PDOC.HOSPP ---
- Subjective Encounter Date: 11/03/20 Subjective: Remains on the ventilator. - Objective Vital Signs & Weight: Vital Signs (12 hours) Temp Pulse Resp BP Pulse Ox 11/03/20 14:27 57 L 105/65 11/03/20 14:00 21 H 11/03/20 12:00 24 H 11/03/20 11:39 53 L 98/66 11/03/20 10:00 20 11/03/20 09:59 53 L 11/03/20 08:00 97.5 F L 20 96 11/03/20 07:25 53 L 94/56 L 11/03/20 06:00 18 11/03/20 04:00 97.8 F 18 Weight Admit Weight 199 lb 9.6 oz Weight 201 lb 8.04 oz Most Recent Monitor Data Heart Rate from ECG 56 NIBP 105/65 NIBP BP-Mean 78 Respiration from ECG 18 SpO2 98 I&O: 11/02/20 11/03/20 11/04/20 06:59 06:59 06:59 Intake Total 2215.5 2726 60 Output Total 1745 1615 388 Balance 470.5 1111 -328 Result Diagrams: 11/03/20 04:15 11/03/20 04:15 Hospitalist ROS - Medication Medications: Active Medications Generic Name Dose Route Start Last Admin Trade Name Freq PRN Reason Stop Dose Admin Acetaminophen 650 mg 10/17/20 04:16 10/26/20 20:20 Acetaminophen 325 Mg Tab PO 650 mg Q4H PRN Administration Headache/Fever/Mild Pain (1-3) Albuterol Sulfate 0 puff 10/23/20 09:50 10/29/20 18:58 Proventil Inhaler 6.7 G (200 Inhalations) INH 2 puff Q4H PRN Administration SOB &/or Wheezing Ascorbic Acid 1,000 mg 10/17/20 09:00 11/03/20 09:46 Ascorbic Acid 500 Mg Chewable Tablet PO 1,000 mg DAILY [facility] Administration Benzonatate 100 mg 10/24/20 02:50 10/25/20 03:34 Benzonatate 100 Mg Cap PO 100 mg TIDPRN PRN Administration Cough Calcium Carbonate 1,000 mg 10/17/20 04:16 10/17/20 04:51 Calcium Carbonate 500 Mg Chewtab PO 1,000 mg Q4H PRN Administration Heartburn or Indigestion Cholecalciferol 400 units 10/17/20 09:00 11/03/20 09:46 Cholecalciferol (Vitamin D3) 400 Units Tab PO 400 units DAILY [facility] Administration Dexamethasone 10 mg 10/28/20 21:00 11/03/20 09:46 Dexamethasone 4 Mg/Ml Vial SLOW IVP 10 mg BID [facility] Administration Digoxin 0.125 mg 10/20/20 09:00 11/03/20 09:59 Digoxin 0.125 Mg Tab PO Not Given DAILY [facility] Enoxaparin Sodium 40 mg 10/18/20 21:00 11/03/20 09:47 Enoxaparin Sodium 40 Mg/0.4 Ml Syringe SC 40 mg BID [facility] Administration Guaifenesin 200 mg 10/30/20 12:00 11/03/20 13:05 Diabetic Tussin 200 Mg/10 Ml Udcup PO 200 mg Q6HR [facility] Administration Guaifenesin/Codeine Phosphate 10 ml 10/20/20 13:04 10/26/20 00:30 Guaifenesin/Codeine 200 Mg/20 Mg 10 Ml Cup PO 10 ml Q6H PRN Administration Cough Cefepime HCl 1 gm/ Sodium 100 mls @ 200 mls/hr 10/28/20 21:00 11/03/20 09:47 Chloride IVPB 100 mls Q12HR [facility] Administration Doxycycline Hyclate 100 mg/ 100 mls @ 100 mls/hr 10/28/20 21:00 11/03/20 09:46 Sodium Chloride IVPB 11/04/20 21:01 100 mls Q12HR [facility] Administration Fentanyl 100 mls @ 0 mls/hr 10/28/20 14:45 11/02/20 21:28 Fentanyl Cadd IV 11/27/20 14:45 100 mls INF [facility] Administration Protocol Per Protocol Sodium Chloride 1,000 mls @ 50 mls/hr 10/30/20 09:23 11/02/20 17:29 Normal Saline 0.9% IV 1,000 mls .Q20H [facility] Administration Lorazepam 2 mg 10/28/20 14:45 11/03/20 12:24 Lorazepam 2 Mg/Ml Vial SLOW IVP 11/27/20 14:45 2 mg Q1H PRN Administration Breakthrough agitation Metoprolol Succinate 25 mg 10/20/20 21:00 11/02/20 20:18 Metoprolol Succinate Xl 25 Mg Tab PO Not Given HS [facility] Morphine Sulfate 2 mg 10/28/20 14:45 11/02/20 21:39 Morphine 2 Mg/Ml Vial SLOW IVP 11/27/20 14:45 2 mg Q1H PRN Administration Breakthrough Pain/Agitation Pantoprazole Sodium 40 mg 10/30/20 09:00 11/03/20 09:46 Pantoprazole 40 Mg Granules Packet PER TUBE 40 mg DAILY HEIDI Administration Polyethylene Glycol 17 gm 11/03/20 09:00 11/03/20 09:47 Polyethylene Glycol 3350 17 Gm Packet PO 17 gm DAILY HEIDI Administration Propofol 1,000 mg 10/28/20 14:45 11/03/20 05:37 Propofol 1,000 Mg/100 Ml Vial IV 11/27/20 14:45 1,000 mg INF PRN Administration TO ACHIEVE GOAL RASS Protocol Sodium Chloride 10 ml 10/26/20 21:00 11/03/20 09:47 Flush - Normal Saline 10 Ml Syringe IVF 10 ml Q12HR HEIDI Administration Sodium Chloride 10 ml 10/26/20 10:30 10/31/20 09:13 Flush - Normal Saline 10 Ml Syringe IVF 10 ml PRN PRN Administration Saline Flush Vecuronium [place] 10 mg 10/28/20 12:54 11/03/20 00:14 Vecuronium 10 Mg Vial IV 10 mg Q1H PRN Administration Agitation Zinc Sulfate 220 mg 10/17/20 09:00 11/03/20 09:46 Zinc Sulfate 220 Mg Cap PO 220 mg DAILY HEIDI Administration - Exam ENT: normocephalic atraumatic Neck: supple Respiratory: normal chest expansion, no tachypnea Extremities: no cyanosis Hosp A/P (1) Acute respiratory failure Code(s): J96.00 - ACUTE RESPIRATORY FAILURE, UNSP W HYPOXIA OR HYPERCAPNIA Status: Acute (2) Pneumonia due to COVID-19 virus Code(s): U07.1 - COVID-19; J12.89 - OTHER VIRAL PNEUMONIA Status: Acute - Plan Continue ventilator management per critical care team. The patient is on 70% FiO2 unchanged from yesterday. Continue dexamethasone, antibiotics and anticoagulation.
[2020-11-03] MEDS: Sodium Chloride 0.9% 1,000 ML IV SCH (15:36)
[2020-11-04] MEDS: Propofol 1,000 MG/100 ML VIAL IV PRN ×4 (01:11→18:20)
[2020-11-04] MEDS: GUAIFENESIN SF SOLN 200 MG/10 ML UDCUP PO SCH ×4 (01:39→18:00)
[2020-11-04] MEDS: Lorazepam 2 MG/ML VIAL SLOW IVP PRN ×4 (01:44→20:39)
[2020-11-04] MEDS ORDERED: Fentanyl CADD 100 ML ONE ×2 (01:47→15:22)
[2020-11-04] MEDS: Fentanyl CADD 100 ML IV SCH (01:48)
[2020-11-04 05:07] LABS: #Eosinphils 0.1 thou/uL (0.0-0.7); #Lymphocytes 0.9 thou/uL (1.20-3.40); #Monocytes 0.5 thou/uL (0.11-0.59); #Neutrophils 8.6 thou/uL (1.40-6.50); %Basophils 0.1 % (0.0-1.0); %Eosinophils 0.6 % (0.0-10.0); %Lymphocytes 8.9 % (21.0-51.0); %Monocytes 4.5 % (0.0-10.0); %Neutrophils 85.9 % (42.0-75.0); Hemoglobin 8.8 g/dL (12.0-16.0); Mean Corpuscular HGB CONC 30.9 g/dL (32.0-36.0); Mean Corpuscular Hemoglobin 26.5 pg (27.0-31.0); Mean Corpuscular Volume 85.9 fL (78.0-98.0); Mean Platelet Volume 8.5 fL (7.4-10.4); Platelet Count 236 thou/uL (130-400); RBC Distribution Width 14.8 % (11.5-14.5); Red Blood Cell (RBC) Count 3.32 mill/uL (4.20-5.40)
[2020-11-04 05:34] LABS: Anion Gap 9 mmol/L (10-20); BUN (Urea Nitrogen) 19 mg/dL (9.8-20.1); Calc. Creatinine Clearance 181 mL/min (70-130); Calcium 7.8 mg/dL (7.8-10.44); Carbon Dioxide 33 mmol/L (22-29); Glucose 161 mg/dL (70-105); Potassium 5.4 mmol/L (3.5-5.1)
[2020-11-04 06:05] LABS: Chloride 99 mmol/L (98-107); Sodium 136 mmol/L (136-145)
--- NOTE | 2020-11-04 08:17 | RAD ---
Portable frontal chest radiograph: 11/04/2020 COMPARISON: 10/31/2020 HISTORY: Ventilated patient, Covid pneumonia FINDINGS: Stable endotracheal tube, nasogastric tube, and right-sided vascular catheter. No pneumothorax is evident. There is extensive interstitial and alveolar opacity bilaterally, most pr ominent within the left lung base, not significantly changed when compared to the prior exam. IMPRESSION: No significant interval change.
[2020-11-04] MEDS: Cefepime 1 GM in Sodium Chloride 0.9% 100 ML IVPB SCH ×2 (08:23→19:49)
[2020-11-04] MEDS: Pantoprazole 40 MG GRANULES PACKET PER TUBE SCH (08:23)
[2020-11-04] MEDS: Polyethylene Glycol 3350 17 GM Packet PO SCH (08:23)
[2020-11-04] MEDS: Zinc Sulfate 220 MG CAP PO SCH (08:23)
[2020-11-04] MEDS: Cholecalciferol (Vitamin D3) 400 UNITS TAB PO SCH (08:23)
[2020-11-04] MEDS: Ascorbic Acid 500 mg Chewable Tablet PO SCH (08:23)
[2020-11-04] MEDS: Dexamethasone 4 mg/ml Vial SLOW IVP SCH ×2 (08:24→19:50)
[2020-11-04] MEDS: Enoxaparin Sodium 40 MG/0.4 ML SYRINGE SC SCH ×2 (08:24→19:50)
[2020-11-04] MEDS: Digoxin 0.125 MG TAB PO SCH (08:30)
[2020-11-04] MEDS: Sodium Chloride 0.9% 1,000 ML IV SCH (08:56)
--- NOTE | 2020-11-04 09:18 | PRG ---
DATE OF SERVICE: 11/04/2020 SUBJECTIVE: A 60-year-old morbidly obese female. OBJECTIVE: VITAL SIGNS: This morning, temperature is 97, pulse 56, blood pressure 94/52, 60% FiO2, sats 100%. I's and O's remain good. CHEST: No wheezing. No crackles. CARDIAC: Normal S1, S2. ABDOMEN: No masses. LABORATORY STUDIES: White count 10,000, hemoglobin and hematocrit are stable, platelet count is normal. Lytes are normal. X-ray looks slightly improved. ASSESSMENT AND PLAN: [place] positive pneumonia, morbid obesity, respiratory failure. Continue high-dose steroids, antibiotics, supportive care, PT, nutrition. Laxative is given in the form of Kayexalate today. We will follow. One-half hour of critical care time. Job ID: [id number]
--- NOTE | 2020-11-04 12:45 | PDOC.HOSPP ---
- Subjective Encounter Date: 11/04/20 non-verbal (On the ventilator) - Objective Vital Signs & Weight: Vital Signs (12 hours) Temp Pulse Resp BP Pulse Ox 11/04/20 11:00 73 156/77 H 11/04/20 10:00 18 11/04/20 08:00 18 96 11/04/20 07:51 56 L 94/52 L 11/04/20 06:00 24 H 11/04/20 04:00 97.0 F L 23 H 11/04/20 02:00 18 Weight Admit Weight 199 lb 9.6 oz Weight 202 lb 6.15 oz Most Recent Monitor Data Heart Rate from ECG 64 NIBP 115/64 NIBP BP-Mean 81 Respiration from ECG 18 SpO2 91 I&O: 11/03/20 11/04/20 11/05/20 06:59 06:59 06:59 Intake Total 2726 3265 30 Output Total 1615 1218 900 Balance 1111 2047 -870 Result Diagrams: 11/04/20 04:40 11/04/20 04:40 Hospitalist ROS - Medication Medications: Active Medications Generic Name Dose Route Start Last Admin Trade Name Freq PRN Reason Stop Dose Admin Acetaminophen 650 mg 10/17/20 04:16 10/26/20 20:20 Acetaminophen 325 Mg Tab PO 650 mg Q4H PRN Administration Headache/Fever/Mild Pain (1-3) Albuterol Sulfate 0 puff 10/23/20 09:50 10/29/20 18:58 Proventil Inhaler 6.7 G (200 Inhalations) INH 2 puff Q4H PRN Administration SOB &/or Wheezing Ascorbic Acid 1,000 mg 10/17/20 09:00 11/04/20 08:23 Ascorbic Acid 500 Mg Chewable Tablet PO 1,000 mg DAILY HEIDI Administration Benzonatate 100 mg 10/24/20 02:50 10/25/20 03:34 Benzonatate 100 Mg Cap PO 100 mg TIDPRN PRN Administration Cough Calcium Carbonate 1,000 mg 10/17/20 04:16 10/17/20 04:51 Calcium Carbonate 500 Mg Chewtab PO 1,000 mg Q4H PRN Administration Heartburn or Indigestion Cholecalciferol 400 units 10/17/20 09:00 11/04/20 08:23 Cholecalciferol (Vitamin D3) 400 Units Tab PO 400 units DAILY HEIDI Administration Dexamethasone 10 mg 10/28/20 21:00 11/04/20 08:24 Dexamethasone 4 Mg/Ml Vial SLOW IVP 10 mg BID HEIDI Administration Digoxin 0.125 mg 10/20/20 09:00 11/03/20 09:59 Digoxin 0.125 Mg Tab PO Not Given DAILY HEIDI Enoxaparin Sodium 40 mg 10/18/20 21:00 11/04/20 08:24 Enoxaparin Sodium 40 Mg/0.4 Ml Syringe SC 40 mg BID HEIDI Administration Guaifenesin 200 mg 10/30/20 12:00 11/04/20 12:21 Diabetic Tussin 200 Mg/10 Ml Udcup PO 200 mg Q6HR HEIDI Administration Guaifenesin/Codeine Phosphate 10 ml 10/20/20 13:04 10/26/20 00:30 Guaifenesin/Codeine 200 Mg/20 Mg 10 Ml Cup PO 10 ml Q6H PRN Administration Cough Cefepime HCl 1 gm/ Sodium 100 mls @ 200 mls/hr 10/28/20 21:00 11/04/20 08:23 Chloride IVPB 100 mls Q12HR HEIDI Administration Doxycycline Hyclate 100 mg/ 100 mls @ 100 mls/hr 10/28/20 21:00 11/04/20 08:24 Sodium Chloride IVPB 11/04/20 21:01 100 mls Q12HR HEIDI Administration Fentanyl 100 mls @ 0 mls/hr 10/28/20 14:45 11/04/20 01:48 Fentanyl Cadd IV 11/27/20 14:45 100 mls INF HEIDI Administration Protocol Per Protocol Sodium Chloride 1,000 mls @ 50 mls/hr 10/30/20 09:23 11/04/20 08:56 Normal Saline 0.9% IV 1,000 mls .Q20H HEIDI Administration Lorazepam 2 mg 10/28/20 14:45 11/04/20 11:06 Lorazepam 2 Mg/Ml Vial SLOW IVP 11/27/20 14:45 2 mg Q1H PRN Administration Breakthrough agitation Metoprolol Succinate 25 mg 10/20/20 21:00 11/03/20 20:53 Metoprolol Succinate Xl 25 Mg Tab PO Not Given HS HEIDI Morphine Sulfate 2 mg 10/28/20 14:45 11/02/20 21:39 Morphine 2 Mg/Ml Vial SLOW IVP 11/27/20 14:45 2 mg Q1H PRN Administration Breakthrough Pain/Agitation Pantoprazole Sodium 40 mg 10/30/20 09:00 11/04/20 08:23 Pantoprazole 40 Mg Granules Packet PER TUBE 40 mg DAILY HEIDI Administration Polyethylene Glycol 17 gm 11/03/20 09:00 11/04/20 08:23 Polyethylene Glycol 3350 17 Gm Packet PO 17 gm DAILY HEIDI Administration Propofol 1,000 mg 10/28/20 14:45 11/04/20 07:30 Propofol 1,000 Mg/100 Ml Vial IV 11/27/20 14:45 1,000 mg INF PRN Administration TO ACHIEVE GOAL RASS Protocol Sodium Chloride 10 ml 10/26/20 21:00 11/04/20 08:26 Flush - Normal Saline 10 Ml Syringe IVF 10 ml Q12HR HEIDI Administration Sodium Chloride 10 ml 10/26/20 10:30 11/04/20 08:25 Flush - Normal Saline 10 Ml Syringe IVF 10 ml PRN PRN Administration Saline Flush Vecuronium Gardner 10 mg 10/28/20 12:54 11/03/20 00:14 Vecuronium 10 Mg Vial IV 10 mg Q1H PRN Administration Agitation Zinc Sulfate 220 mg 10/17/20 09:00 11/04/20 08:23 Zinc Sulfate 220 Mg Cap PO 220 mg DAILY HEIDI Administration - Exam General Appearance: awake alert ENT: normocephalic atraumatic Neck: supple Heart: RRR Respiratory: normal chest expansion, no tachypnea Extremities: no cyanosis, no clubbing Hosp A/P (1) Acute respiratory failure Code(s): J96.00 - ACUTE RESPIRATORY FAILURE, UNSP W HYPOXIA OR HYPERCAPNIA Status: Acute (2) Pneumonia due to COVID-19 virus Code(s): U07.1 - COVID-19; J12.89 - OTHER VIRAL PNEUMONIA Status: Acute - Plan Continue ventilator management per critical care team. The patient has been bradycardic. Digoxin was placed on hold. The patient is on 70% FiO2 unchanged from yesterday. Continue dexamethasone, antibiotics and anticoagulation.
[2020-11-05] MEDS: GUAIFENESIN SF SOLN 200 MG/10 ML UDCUP PO SCH ×4 (00:23→17:50)
[2020-11-05] MEDS: Lorazepam 2 MG/ML VIAL SLOW IVP PRN ×5 (01:15→19:28)
[2020-11-05] MEDS: Propofol 1,000 MG/100 ML VIAL IV PRN ×3 (01:15→16:34)
[2020-11-05] MEDS: Sodium Chloride 0.9% 1,000 ML IV SCH ×2 (03:29→16:30)
[2020-11-05 05:30] LABS: BUN (Urea Nitrogen) 16 mg/dL (9.8-20.1); Calc. Creatinine Clearance 184 mL/min (70-130); Calcium 7.8 mg/dL (7.8-10.44); Glucose 143 mg/dL (70-105)
[2020-11-05 05:34] LABS: Band 5 % (5-11); Hemoglobin 8.8 g/dL (12.0-16.0); Lymphocytes 12 % (21-51); MDiff Complete? YES; Mean Corpuscular HGB CONC 30.5 g/dL (32.0-36.0); Mean Corpuscular Hemoglobin 26.2 pg (27.0-31.0); Mean Platelet Volume 8.5 fL (7.4-10.4); Metamyelocyte 1 % (0-0); Monocytes 5 % (0-10); Myelocyte 1 % (0-0); Neutrophil 76 % (42-75); Platelet Count 230 thou/uL (130-400); RBC Distribution Width 14.8 % (11.5-14.5); Red Blood Cell (RBC) Count 3.35 mill/uL (4.20-5.40); White Blood Cell (WBC) Count 10.7 thou/uL (4.8-10.8)
[2020-11-05 05:51] LABS: Chloride 97 mmol/L (98-107); Sodium 138 mmol/L (136-145)
[2020-11-05 05:54] LABS: Anion Gap 13 mmol/L (10-20); Carbon Dioxide 33 mmol/L (22-29)
[2020-11-05] MEDS ORDERED: Fentanyl CADD 100 ML ONE ×3 (06:25→17:44)
[2020-11-05] MEDS: Fentanyl CADD 100 ML IV SCH ×2 (06:31→18:55)
--- NOTE | 2020-11-05 08:58 | RAD ---
PORTABLE CHEST: INDICATION: Pneumonia. CCU followup on ventilator. COMPARISON: 11/04/2020. FINDINGS: ET tube, NG tube, and central line unchanged. There are hazy bilateral infiltrates which do not appe ar significantly changed from yesterday considering the differences in technique. IMPRESSION: Stable chest. POS: OFF
[2020-11-05] MEDS: Enoxaparin Sodium 40 MG/0.4 ML SYRINGE SC SCH ×2 (08:59→19:27)
[2020-11-05] MEDS: Cholecalciferol (Vitamin D3) 400 UNITS TAB PO SCH (08:59)
[2020-11-05] MEDS: Ascorbic Acid 500 mg Chewable Tablet PO SCH (08:59)
[2020-11-05] MEDS: Polyethylene Glycol 3350 17 GM Packet PO SCH (08:59)
[2020-11-05] MEDS: Zinc Sulfate 220 MG CAP PO SCH (08:59)
[2020-11-05] MEDS: Dexamethasone 4 mg/ml Vial SLOW IVP SCH ×2 (09:00→19:27)
[2020-11-05] MEDS: Cefepime 1 GM in Sodium Chloride 0.9% 100 ML IVPB SCH ×2 (09:00→19:27)
[2020-11-05] MEDS: Pantoprazole 40 MG GRANULES PACKET PER TUBE SCH (09:01)
[2020-11-05] MEDS: Digoxin 0.125 MG TAB PO SCH (09:01)
--- NOTE | 2020-11-05 09:13 | PRG ---
DATE OF SERVICE: 11/05/2020 SUBJECTIVE: Abida Bourgeois, morbidly obese female, still sedated on the vent. OBJECTIVE: VITAL SIGNS: Temperature 97, pulse 65, blood pressure 95/56, 50%, PEEP of 12, sats 90%. I's and O's have been even. She has still not had a bowel movement. CHEST: No wheezing. No crackles. CARDIAC: Normal S1. ABDOMEN: No masses. LABORATORY AND DIAGNOSTIC STUDIES: Potassium is 5, H and H is stable. X-ray looks somewhat better. ASSESSMENT: Respiratory failure, payan positive pneumonia, slowly improving. Vent being adjusted. Continue antibiotics, doxycycline, high-dose steroids. Avoid paralytics if possible. One-half hour of critical time. Job ID: [id number]
--- OUTSIDE RECORDS SUMMARY | 2020-11-05 10:29 | XMS | Patient Health Record ---
:1960 Author Organization [facility] Address [address] [place] [address] Care Team Providers Name Role Phone Elian Unavailable [phone] Jet Unavailable [phone] Parminder Unavailable [phone] Cameron Unavailable [phone] Curly Unavailable [phone] Veracrblake Unavailable [phone] Andriy Unavailable [phone] Sanchez Unavailable [phone] Deleyosef Unavailable [phone] PROBLEMS Type Condition ICD9-CM JST54-LP Onset Condition SNOMED Code Notes Code Code Dates Status Problem Hyperlipemia 272.4 Active 77799105 Problem Unspecified 401.9 Active 50335991 essential hypertension Problem Acute non G44.209 Active 687909160 intractable tension-type headache Problem Menopause 627.2 Active 392562989 Problem SVT I47.1 Active 3457611 (supraventricular tachycardia) Problem Other iron D50.8 Active 02342316 deficiency anemia Problem Depression with F41.8 Active 15647909 anxiety Problem Contact with and Z20.828 Active 295408668 (suspected) exposure to other viral communicable diseases Problem Essential I10 Active 48144101 hypertension Problem Encounter for Z11.59 Active 795422668 screening for other viral diseases Problem Bruxism F45.8 Active 416163448 Problem Eye muscle twitches R25.3 Active 502897719 Problem Fatty liver K76.0 Active 789918358 Problem Gastroesophageal K21.9 Active 504672422 reflux disease, esophagitis presence not specified Problem Acute upper J06.9 Active 37204233 respiratory infection, unspecified ALLERGIES Allergen (clinical drug Drug/Non Drug Allergy Reaction Allergy Type Onset Date Status ingredient) documented on EMR amoxicillin Amoxicillin([facility] rash Drug Allergy Active Code:[address]-11) ENCOUNTERS from 1960 to 2020-11-05 Encounter Location Date Provider Diagnosis [facility] [address] Sep, Yudith Plummer COVID-19 U07.1 [facility] [place] [place] Hypox ia R09.02 ; [id number] Nausea R11.0 an d Other viral pneumonia J12.8 9 IMMUNIZATIONS Vaccine Route Administration Date Status Flu Quadrivalent PF 0.5 ml IM IM Intramuscular Aug 13, 2019 A dministered Flu Quadrivalent PF 0.5 ml IM IM Intramuscular Aug 10, 2018 A dministered Flu Quadrivalent PF 0.5 ml IM IM Intramuscular Aug 08, 2017 A dministered Flu Quadrivalent PF 0.5 ml IM IM Intramuscular Sep 26, 2014 Administered zzFlu Trivalent 0.5 (3 Yrs +) IM Unknown Jul 06, 2013 Administered Dexamethasone IM Intramuscular Oct 16, 2020 Administered Tdap (Adacel) IM Intramuscular Aug 10, 2018 Administered SOCIAL HISTORY Tobacco Use: Social History Observation Description Date Details (start date - stop date) Never Smoker Sex Assigned At : Social History Observation Description Sex Assigned At Unknown Smoking Question Answer Notes Are you a: never smoker REASON FOR REFERRAL from 1960 to 2020-11-05 Reason CCM Referring Provider First Name Krystle Referring Provider Last Name Parminder Referring Provider Specialty Family Practice Referred Provider [facility], Medical Records Referral Priority Routine VITAL SIGNS from 1960 to 2020-11-05 Weight 190.8 lbs February, Height 60 in February, BMI 37.26 kg/m2 February, Heart Rate 91 /min Sep, Temperature 99.4 degrees Fahrenheit Sep, Oximetry 91 % Sep, Respiratory Rate 18 /min February, Blood pressure systolic 128 mm Hg February, Blood pressure diastolic 80 mm Hg February, MEDICATIONS Medication SIG (Take, Route, Notes Start Date End Date Status Frequency, Duration) Dexamethasone 6 MG 1 tablet Orally Once a Sep, Active day START 10/17/20 for 5 days Albuterol Sulfate 108 (90 1 puff as needed Sep, Active Base) MCG/ACT Inhalation via spacer every 4 hrs as needed for chest tightness/cough Omeprazole 40 MG 1 capsule 30 minutes Sep, Active before morning meal Orally Once a day for 30 day(s) INHALER SPACER FOR USE DIRECTED Q4-6 Sep, Active ALBUTEROL INHALER HRS W INHALER FOR WHEEZE Azithromycin 250 MG 2 tablet on the first Sep, Active day, then 1 tablet daily for 4 days Orally Once a day for 5 day(s) PROCEDURES No Information RESULTS REASON FOR VISIT sxs, Respiratory [facility] PUI, covid-19 positive...fever, SXS AND EXP 10/04, Respiratory Clinic PUI, exp/sxs, Respiratory Clinic PUI, covid testing , sore throat/coughing , 6 month follow up weight , call back, burning/pain in upper abdomen-oked gh , 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, 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, Refill, Hida Scan Denial, 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, new dx code , Weight loss, Weight loss, talk about test , physical/lab , Needs referral, Needs referral, refill, uti, Prescription , shakey, Prescription, Annual Physical , labs per AD ,Work Excuse , Discussion of bloodwork, refill , Prescription , question for a work note , Tamiflu, si nus(congestion, cough, fever, chills), Medications verified by reviewing meds in EHR; pt did not bring bottles or list today, referral , needs to change referral doctor name , nurse call back , Medciation questions, had another attack, f/u er, Medications verified by reviewing bottles brought in by patient today, return your call, FEET SWOLLEN/FLU SHOT , AD pt- Tension Headache x 3 days, Medications verified by reviewing meds in EHR; pt did not bring bottles or list today, headaches, discuss issue, headache, right ear ,discomfort, Medications verified by reviewing meds in EHR; pt did not bring bottles or list today, f/u bp meds, bp meds, abdominal pain, RLQ pain for 3 weeks. pt denies fever, denies change in appetite/bowel habbits. pt states pain is inconsistent, dull achy., f/u depression, flexeril refill, flu like sxs, Returning a calll , Shoulder pain - not w/c & flu vaccine , 2. shoulder pain starts in L shoulder and sometimes radiates across her back to the R side. "Feels like tension or muscle pain". Has been going on for about 6months, recently getting worse and interfering with ADL's. , 3 mo fu for htn, Poss URI , RE: QUESTION ABOUT MEDS, BP follow up , Discuss poss refer, Dizzy , Medications verified by reviewing meds in EHR; pt did not bring bottles or list today, BPprobs , Medications verified by reviewing bottles brought in by patient today, Needs a referral, ultrasound questions , UTI not better , Abd pain , AD pt - LABS LFTS.LIPIDS, F/U UTI, TIGHTNESS IN CHEST, blood cell count question , UTI , f/u cholesterol . AD HTN/LIPIDS, NEEDS REFFERALL, f/u rash : c/oitchy rash all over body x 6wks, rx, PREDNISONE 20 MG, RASH OVER BODY x 2 wks, hypertension, brought meds. F/U Hypertension, SINUS INF. AD URI, elevated lipid, FU B/P. F/U Hypertension, F/U ON BP. F/U Hypertension, POSS FLU. AD URI MEDICAL (GENERAL) HISTORY Type Description Date Medical History menopausal age 43 Medical History hypertension Medical History hyperchol Medical History SVT--Davis Medical History Hiatal Hernia Medical History fatty liver and GB sludge Surgical History colonoscopy-due every 5 yrs 2013 Surgical History EGD-Astudillo (Dx Hiatal Hernia) 11/17/17 Goals Section No Information Health Concerns No Information MEDICAL EQUIPMENT No Information MENTAL STATUS No Information FUNCTIONAL STATUS No Information ASSESSMENTS Encounter Date Diagnosis Assessment Notes Treatment Notes Treatm ent Clinical Notes Sep, COVID-19 (ICD-10 - d/w'd pt go U07.1) to the ED for ANY worsening symptoms Sep, Hypoxia (ICD-10 - R09.02) Sep, Nausea (ICD-10 - R11.0) Sep, Other viral pneumonia (ICD-10 - J12.89) Sep, COVID-19 (ICD-10 - cont supportive care U07.1) and prec to pt Sep, Other Increase fluids, vaporizor/steam showers, tylenol/ibuprofen for comfort. Pt to call or return to clinic if sxs persist or worsen. Pt understands and agrees to plan Sep, Encounter for COVID FACTS AND screening for other INFORMATION: viral diseases The most up to date (ICD-10 - Z11.59) information on COVID-19 can be found at https://www.cdc.gov/ COVID19. There are many COVID viruses. COVID-19 is caused by the SARS-CoV-2 virus. The COVID-19 virus can cause mild to severe respiratory illness. This particular COVID virus was first identified in [facility]. It has now been identified in over 60 countries. COVID-19 is an aerosol virus. A third of infections are spread by individuals who do not have symptoms. Many individuals will show signs or symptoms of being sick. They can have fevers, cough, sneezing, difficulty breathing, loss of taste and/or smell. It can also feel like allergies. You can be tested because you have been in close contact with an individual suspected of or confirmed to have COVID-19. Known and potential risks and benefits of the COVID-19 nasal swab test: Potential risks: 1) possible discomfort or other complications that can happen during sample collection; 2) possible incorrect test. Potential benefits include: 1) the results, along with other information, can help your healthcare provider make informed recommendations about your care. 2) the results of this test may help limit the spread of COVID-19 to your family and other contacts in the community. A positive test means that it is very likely that you have COVID-19. Therefore, you should isolate yourself to avoid spreading the virus to others. There is a small risk that this positive test can be wrong. Your healthcare provider will work with you to determine how to best take care of you based on the test results along with other factors of your medical history and your symptoms, possible exposures, and geographic location of places you recently travele d. A negative test result means that the virus that causes COVID-19 was not found in the sample from your nasal cavity. A negative test while a patient has symptoms usually, but not always, indicates that the patients symptoms are not caused by COVID-19. Again, your healthcare provider will work with you to determine how to best take care of you based on the test results along with other factors of your medical history and your symptoms, possible exposures, and geographic location of places you recently travele d. It is important that you work with your health care provider to determine the next steps you should take. IF YOU DO TEST POSITIVE FOR COVID-19: PLEASE PURCHASE A PULSE OXIMETER TO MONITOR YOUR OXYGEN SATURATION. IF YOU HAVE COVID, YOU MUST PAY CLOSE ATTENTION TO YOUR OXYGEN SATURATION PATIENT DO NOT HAVE A SENSE OF SHORTNESS OF BREATH WITH THIS INFECTION. THIS INFECTION IS AN UPPER RESPIRATORY AND LOWER RESPIRATORY INFECTION. TRY TO LIE ON YOU STOMACH MUCH POSSIBLE THIS TAKES THE WEIGHT OFF YOUR HEART AND MAY SLOW MOVEMENT OF THE INFECTION TO THE CHEST. OVER THE COUNTER REMEDIES THAT HAVE BEEN FOUND HELPFUL FOR ADULTS (Parents should talk to their child's production gear cutter): 1) VITAMIN C, 2,000 MG 2 -3 TIMES DAILY FOR 2) ZINC 325 MG DAILY 3) ASPIRIN 325 MG DAILY (UNLESS CONTRAINDICATED AND NOT FOR CHILDREN ) 4) MELATONIN 10 MG BEFORE BED. PLEASE HAVE A LOW THESHOLD FOR GOING TO THE ER PATIENTS GET INTO TROUBLE WHEN THEY WAIT TOO LONG. ISOLATION CAN BE STOPPED WHEN ALL FOUR CONDTIONS HAVE BEEN MET: 1. PATIENT HAS BEEN FEVER FREE FOR AT LEAST 24 HOURS WITHOUT FEVER REDUCING MEDICATIONS (SUCH ACETAMINOPHEN OR IBUPROFEN). 2. COUGH AND RESPIRATIORY SYMPTOMS HAVE IMPROVED FOR AT LEAST 24 HRS. 3. IT HAS BEEN 10 DAYS SINCE SYMPTOMS COMMENCED. 4. PATIENT'S PRIMARY CARE PHYSICIAN AGREES THAT SELF-ISOLATION CAN BE STOPPED. Please follow up with a primary care provider at the next available visit. If you need assistance scheduling with a [facility] primary care provider or finding a primary care provider then please contact the clinic at [phone]. If your symptoms worsen then you need to be re-evaluated. For worsening symptoms, please go to the ER. See your patient instructions for more information on warning signs and symptoms. Sep, Contact with and (suspected) exposure to other viral communicable diseases (ICD-10 - Z20.828) Sep, Acute upper respiratory infection, unspecified (ICD-10 - J06.9) Sep, Other PCP notes say she should be tested in a few days, and appt scheduled for 10/11 already. Will return 10/11 for [address]. Sep, Acute URI (ICD-10 - Drowsiness or J06.9) Dizziness can occur with physical condition or medication and this could pose a hazard with operating heavy machinery such as a motor vehicle or other activies., Return to clinic/health care for condition that worsens or fails to improve. QUARANTINE UNTIL NEGATIVE TEST RECEIVED; I WOULD BE TESTED FOR COVID IN ABOUT 4-5 DAYS SINCE YOU ARE ASYMPTOMATIC. February, Adult BMI > 30 Discussed risks (ICD-10 - E66.8) associated with pt's weight and BMI>30. Discussed the need for weight loss, preferably by lifestyle changes, to reduce current and future health risks. Encouraged increased intake of fresh fruits/vegetables, reduction of processed and high-calorie/high-ca rb foods, and portion control. February, High blood pressure stable with meds (ICD-10 - I10) February, Hyperglycemia (ICD-10 noted wt loss with - R73.9) diet and exercise. will repeat lab February, Fatty liver (ICD-10 - see above K76.0) February, Other Importance of low sodium diet, exercise, and compliance with medication discussed. 15 minutes face to face with pt Dec, Fatty liver (ICD-10 - K76.0) Dec, Gastroesophageal If not improving reflux disease, return to clinic esophagitis presence not specified (ICD-10 - K21.9) Sep, Right upper quadrant pain (ICD-10 - R10.11) Aug, Right upper quadrant pain (ICD-10 - R10.11) Aug, Right upper quadrant pain (ICD-10 - R10.11) Aug, Gallbladder pain (ICD-10 - K82.9) Jul, Annual physical exam (ICD-10 - Z00.00) Jul, Severe obesity (BMI Discussed risks >= 40) (ICD-10 - associated with pt's E66.01) weight and BMI>40. Discussed the need for weight loss, preferably by lifestyle changes, to reduce current and future health risks. Encouraged increased intake of fresh fruits/vegetables, reduction of processed and high-calorie/high-ca rb foods, and portion control. Jul, Encounter for screening mammogram for breast cancer (ICD-10 - Z12.31) Jul, Fasting hyperglycemia (ICD-10 - R73.01) Jul, Encounter for administration of vaccine (ICD-10 - Z23) Nov, Depression with anxiety (ICD-10 - F41.8) Oct, Frequency of Return to urination and clinic/health care polyuria (ICD-10 - for condition that R35.0) worsens or fails to improve. Oct, UTI symptoms (ICD-10 - R39.9) Sep, Depression with Discussed risks, anxiety (ICD-10 - benefits, and side F41.8) effects of antidepressants, including worsening of symptoms and increased risk of suicidal ideation and sexual side effects. Discussed risks of initial nausea and headache which usually resolves within the first 7-14 days. Discussed that initial benefits may not be achieved until 14-21 days after starting it and maximum effect may not be achieved for 1-2 months. Patient should discontinue medication if symptoms worsen, including suicidal ideation, but that pt should notify us if this occurs. Pt verbalized understanding. Sep, Elevated fasting glucose (ICD-10 - R73.01) Sep, Eye muscle twitches (ICD-10 - R25.3) Jul, Annual physical exam (ICD-10 - Z00.00) Jul, Hirsutism (ICD-10 - L68.0) Jul, Encounter for administration of vaccine (ICD-10 - Z23) Jul, Annual physical exam (ICD-10 - Z00.00) Mar, Other iron deficiency anemia (ICD-10 - D50.8) Mar, Other iron deficiency anemia (ICD-10 - D50.8) Mar, Other iron deficiency consider FIT and anemia (ICD-10 - referral for D50.8) colonoscopy Mar, Other iron deficiency anemia (ICD-10 - D50.8) Mar, Other iron deficiency anemia (ICD-10 - D50.8) Mar, High blood pressure (ICD-10 - I10) Mar, High blood pressure (ICD-10 - I10) Mar, High blood pressure (ICD-10 - I10) Mar, High blood pressure (ICD-10 - I10) Mar, High blood pressure (ICD-10 - I10) Mar, SVT (supraventricular tachycardia) (ICD-10 - I47.1) Mar, SVT (supraventricular tachycardia) (ICD-10 - I47.1) Mar, SVT (supraventricular tachycardia) (ICD-10 - I47.1) Mar, SVT (supraventricular tachycardia) (ICD-10 - I47.1) Mar, SVT (supraventricular tachycardia) (ICD-10 - I47.1) Mar, Annual physical exam (ICD-10 - Z00.00) Mar, Annual physical exam (ICD-10 - Z00.00) Mar, Annual physical exam (ICD-10 - Z00.00) Mar, Annual physical exam (ICD-10 - Z00.00) Mar, Annual physical exam (ICD-10 - Z00.00) Mar, Other Importance of low sodium diet, exercise, and compliance with medication discussed. 15 minutes face to face with pt Nov, Essential hypertension (ICD-10 - I10) Nov, Influenza B (ICD-10 - Recommend rest, J10.1) fluids, OTC symptomatic meds prn. RTC if not better in 7-10 days. Nov, Flu-like symptoms Patient notifed. (ICD-10 - R68.89) Meds sent in. Sep, SVT (supraventricular Discussed use of tachycardia) (ICD-10 cardizem as needed - I47.1) in the interim pending appt with cardiology if she is minimally symptomatic. May also try preforming Valsava maneuver to terminate the rhythm. If tachycardia persists despite these measures or she has syncope or near syncope, she should go back to ER. Sep, Abnormal chest x-ray (ICD-10 - R93.8) Sep, Anemia, unspecified type (ICD-10 - D64.9) Sep, Essential hypertension (ICD-10 - I10) Jul, Annual physical exam (ICD-10 - Z00.00) Jul, High blood pressure (ICD-10 - I10) Jul, Other Importance of low sodium diet, exercise, and compliance with medication discussed. 15 minutes face to face with pt Jul, Tension headache Advised patient to (ICD-10 - G44.209) take valium prior to bedtime x 3 days then as needed thereafter. Jul, Bruxism (ICD-10 - Recommended follow F45.8) up with her dentist to discuss possible use of mouthguards. Jan, AGE (acute gastroenteritis) (ICD-10 - K52.9) Dec, Acute non intractable tension-type headache (ICD-10 - G44.209) Dec, AGE (acute increase fluids gastroenteritis) (ICD-10 - K52.9) Mar, High blood pressure (ICD-10 - I10) Mar, Other Importance of low sodium diet, exercise, and compliance with medication discussed. 15 minutes face to face with pt Jan, Abdominal pain rec eval with dr (ICD9-CM - 789.00) Iker with possible pelvic u/s and if NL will proceed with CT abd and pelvis. start daily fiber and OTC probiotic. consider SSRI Oct, Trapezius muscle spasm (ICD9-CM - 728.85) Sep, Influenza-like Although your flu illness (ICD9-CM - test is negative 487.1) today due to your symptoms and exposure to sister with similar symptoms and her testing positive for flu will treat for flu. Sep, Fever (ICD9-CM - Alternate Tylenol 780.60) with Motrin every 4 hours. Drink plenty of clear fluids. Sep, Exposure to influenza (ICD9-CM - V01.79) Sep, Upper back pain (ICD9-CM - 724.5) Sep, Trapezius muscle Recommend take spasm (ICD9-CM - muscle relaxer at 728.85) night. Recommend Aleve 2 pills in the morning and 1 pill at night x 10-14 days. Alternate heat and then ice to affected area. Stretches daily. Recommend massage and managed care director. [facility] ([facility]), Dr[facility] Jarvis, [facility], [facility]. If symptoms worsen or persist return to clinic to discuss need for imaging. Sep, Rhomboid muscle pain (ICD9-CM - 729.1) Sep, Grief reaction Discussion regading (ICD9-CM - 309.0) treatment options including medications and couseling held. Discussed different types of medication, usual course of treatment and time to improvement in symptoms along with side effects of medications. Will start Viibryd trial-coupon for a free starter kit provided. Recommend you look into couseling, possibly through catholic, if you need a referral for a couselor call and one will be plac ed. If you develop thoughts of harming yourself or others call the office immediately. Sep, Other Healthy Upper Back: Exercises material was printed The following Patient Education materials were given: Healthy Upper Back: Exercises [id number], en-us, 10.3 Apr, Upper respiratory Drink plenty of infection (ICD9-CM - clear fluids and get 465.9) plenty of rest. Recommend continue with the Robitussin DM or use Corcidin HBP. Vaporizer in your room. If symptoms worsen or persist return to clinic. Apr, Hypertension (ICD9-CM Continue with your - 401.9) medications as prescribed. Check your blood pressure at least 2 times per week and keep a log of this, and bring this to your next appointment. Low salt diet. Avoid tobacco exposure. Aim for 30 minutes of moderately vigorous exercise at least 3 times a week. Apr, Hypertension (ICD9-CM uncontrolled Check your blood - 401.9) today pressure at least 2 times per week and keep a log of this, and bring this to your next appointment. Low salt diet. Avoid tobacco exposure. Aim for 30 minutes of moderately vigorous exercise at least 3 times a week. Will give you a prescription for Clonidine to take if your blood pressure is greater than 160/90 Apr, Chest pain (ICD9-CM - A referral has been 786.50) placed, if you do not hear from our referral center within a week about arranging an appointment please call our office. Jan, Unspecified essential Continue with your hypertension (ICD9-CM Vasotec as - 401.9) prescribed. Will add HCTZ 1/2-1 pill as needed for elevated BP readings (>140 for the top and/or >85 for the bottom). Drink plenty of clear fluids. Jan, Elevated blood pressure reading (ICD9-CM - 796.2) Nov, Abdominal pain (ICD9-CM - 789.00) Nov, Dysuria (ICD9-CM - 788.1) Nov, Vaginitis (ICD9-CM - 616.10) Nov, Unspecified essential hypertension (ICD9-CM - 401.9) Nov, Other and unspecified hyperlipidemia (ICD9-CM - 272.4) Oct, Other abnormal clinical finding (ICD9-CM - 796.4) Oct, Dysuria (ICD9-CM - 788.1) Oct, Dysuria (ICD9-CM - 788.1) Oct, Urinary tract infection, site not specified (ICD9-CM - 599.0) Jun, Unspecified essential hypertension (ICD9-CM - 401.9) Jun, Other and unspecified hyperlipidemia (ICD9-CM - 272.4) May, Rash and other nonspecific skin eruption (ICD9-CM - 782.1) Apr, Rash and other nonspecific skin eruption (ICD9-CM - 782.1) May, Unspecified essential hypertension (ICD9-CM - 401.9) Apr, Unspecified sinusitis (chronic) (ICD9-CM - 473.9) Apr, Acute upper respiratory infections of unspecified site (ICD9-CM - 465.9) Apr, Unspecified essential hypertension (ICD9-CM - 401.9) May, Unspecified essential hypertension (ICD9-CM - 401.9) May, Unspecified essential hypertension (ICD9-CM - 401.9) Aug, Fever and other physiologic disturbances of temperature regulation (ICD9-CM - 780.6) Aug, Acute upper respiratory infections of unspecified site (ICD9-CM - 465.9) Aug, Acute pharyngitis (ICD9-CM - 462) PLAN OF TREATMENT Medication Medication Name Sig Start Date Stop Date Dexamethasone 6 MG 1 tablet Orally Once a day Sep, START 10/17/20 for 5 days INHALER SPACER FOR ALBUTEROL USE DIRECTED Q4-6 HRS W Sep, INHALER INHALER FOR WHEEZE Azithromycin 250 MG 2 tablet on the first day, Sep, then 1 tablet daily for 4 days Orally Once a day for 5 day(s) Omeprazole 40 MG 1 capsule 30 minutes before Sep, morning meal Orally Once a day for 30 day(s) Albuterol Sulfate 108 (90 Base) 1 puff as needed Inhalation 31 D ec, 2020 MCG/ACT via spacer every 4 hrs as needed for chest tightness/cough Treatment Notes Assessment Notes Clinical Notes Acute URI Drowsiness or Dizziness can occur with physical condition or medication and this could pose a hazard with operating heavy machinery such as a motor vehicle or other activies., Return to clinic/health care for condition that worsens or fails to improve.QUARANTINE UNTIL NEGATIVE TEST RECEIVED; I WOULD BE TESTED FOR COVID IN ABOUT 4-5 DAYS SINCE YOU ARE ASYMPTOMATIC. SVT (supraventricular Discussed use of cardizem as tachycardia) needed in the interim pending appt with cardiology if she is minimally symptomatic. May also try preforming Valsava maneuver to terminate the rhythm. If tachycardia persists despite these measures or she has syncope or near syncope, she should go back to ER. Hypertension Continue with your medications as prescribed. Check your blood pressure at least 2 times per week and keep a log of this, and bring this to your next appointment. Low salt diet. Avoid tobacco exposure. Aim for 30 minutes of moderately vigorous exercise at least 3 times a week. Tension headache Advised patient to take valium prior to bedtime x 3 days then as needed thereafter. Encounter for screening for COVID FACTS AND other viral diseases INFORMATION:The most up to date information on COVID-19 can be found at https://www.cdc.gov/COVID19.Th ere are many COVID viruses. COVID-19 is caused by the SARS-CoV-2 virus. The COVID-19 virus can cause mild to severe respiratory illness. This particular COVID virus was first identified in [facility]. It has now been identified in over 60 countries. COVID-19 is an aerosol virus. A third of infections are spread by individuals who do not have symptoms. Many individuals will show signs or symptoms of being sick. They can have fevers, cough, sneezing, difficulty breathing, loss of taste and/or smell. It can also feel like allergies.You can be tested because you have been in close contact with an individual suspected of or confirmed to have COVID-19.Known and potential risks and benefits of the COVID-19 nasal swab test:Potential risks: 1) possible discomfort or other complications that can happen during sample collection; 2) possible incorrect test.Potential benefits include: 1) the results, along with other information, can help your healthcare provider make informed recommendations about your care. 2) the results of this test may help limit the spread of COVID-19 to your family and other contacts in the community.A positive test means that it is very likely that you have COVID-19. Therefore, you should isolate yourself to avoid spreading the virus to others. There is a small risk that this positive test can be wrong. Your healthcare provider will work with you to determine how to best take care of you based on the test results along with other factors of your medical history and your symptoms, possible exposures, and geographic location of places you recently traveled.A negative test result means that the virus that causes COVID-19 was not found in the sample from your nasal cavity. A negative test while a patient has symptoms usually, but not always, indicates that the patients symptoms are not caused by COVID-19. Again, your healthcare provider will work with you to determine how to best take care of you based on the test results along with other factors of your medical history and your symptoms, possible exposures, and geographic location of places you recently traveled.It is important that you work with your health care provider to determine the next steps you should take.IF YOU DO TEST POSITIVE FOR COVID-19:PLEASE PURCHASE A PULSE OXIMETER TO MONITOR YOUR OXYGEN SATURATION. IF YOU HAVE COVID, YOU MUST PAY CLOSE ATTENTION TO YOUR OXYGEN SATURATION PATIENT DO NOT HAVE A SENSE OF SHORTNESS OF BREATH WITH THIS INFECTION.THIS INFECTION IS AN UPPER RESPIRATORY AND LOWER RESPIRATORY INFECTION. 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 PATIENT HAS BEEN FEVER FREE FOR AT LEAST 24 HOURS WITHOUT FEVER REDUCING MEDICATIONS (SUCH ACETAMINOPHEN OR IBUPROFEN).2. COUGH AND RESPIRATIORY SYMPTOMS HAVE IMPROVED FOR AT LEAST 24 HRS.3. IT HAS BEEN 10 DAYS SINCE SYMPTOMS COMMENCED.4. PATIENT'S PRIMARY CARE PHYSICIAN AGREES THAT SELF-ISOLATION CAN BE STOPPED.Please follow up with a primary care provider at the next available visit. If you need assistance scheduling with a [facility] primary care provider or finding a primary care provider then please contact the clinic at [phone]. If your symptoms worsen then you need to be re-evaluated. For worsening symptoms, please go to the ER. See your patient instructions for more information on warning signs and symptoms. COVID-19 cont supportive care and prec to pt Severe obesity (BMI >= 40) Discussed risks associated with pt's weight and BMI>40. Discussed the need for weight loss, preferably by lifestyle changes, to reduce current and future health risks. Encouraged increased intake of fresh fruits/vegetables, reduction of processed and high-calorie/high-carb foods, and portion control. Bruxism Recommended follow up with her dentist to discuss possible use of mouthguards. Influenza-like illness Although your flu test is negative today due to your symptoms and exposure to sister with similar symptoms and her testing positive for flu will treat for flu. Influenza B Recommend rest, fluids, OTC symptomatic meds prn. RTC if not better in 7-10 days. AGE (acute gastroenteritis) increase fluids COVID-19 d/w'd pt go to the E D for ANY worsening symptoms Hyperglycemia noted wt loss with diet and exercise. will repeat lab Unspecified essential Continue with your Vasotec as hypertension prescribed. Will add HCTZ 1/2-1 pill as needed for elevated BP readings (>140 for the top and/or >85 for the bottom). Drink plenty of clear fluids. Trapezius muscle spasm Recommend take muscle relaxer at night. Recommend Aleve 2 pills in the morning and 1 pill at night x 10-14 days. Alternate heat and then ice to affected area. Stretches daily. Recommend massage and managed care director. [facility] ([facility]), Dr. Jarvis, [facility], [facility]. If symptoms worsen or persist return to clinic to discuss need for imaging. Abdominal pain rec eval with dr Dong with possible pelvic u/s and if NL will proceed with CT abd and pelvis. start daily fiber and OTC probiotic. consider SSRI Gastroesophageal reflux If not improving return to disease, esophagitis presence clinic not specified Depression with anxiety Discussed risks, benefits, and side effects of antidepressants, including worsening of symptoms and increased risk of suicidal ideation and sexual side effects. Discussed risks of initial nausea and headache which usually resolves within the first 7-14 days. Discussed that initial benefits may not be achieved until 14-21 days after starting it and maximum effect may not be achieved for 1-2 months. Patient should discontinue medication if symptoms worsen, including suicidal ideation, but that pt should notify us if this occurs. Pt verbalized understanding. Grief reaction Discussion regading treatment options including medications and couseling held. Discussed different types of medication, usual course of treatment and time to improvement in symptoms along with side effects of medications.Will start Viibryd trial-coupon for a free starter kit provided.Recommend you look into couseling, possibly through [facility], if you need a referral for a couselor call and one will be placed.If you develop thoughts of harming yourself or others call the office immediately. Upper respiratory infection Drink plenty of clear fluids and get plenty of rest. Recommend continue with the Robitussin DM or use Corcidin HBP. Vaporizer in your room. If symptoms worsen or persist return to clinic. Fatty liver see above Frequency of urination and Return to clinic/health care polyuria for condition that worsens or fails to improve. Other iron deficiency anemia consider FIT and referral for colonoscopy Flu-like symptoms Patient notifed. Meds sent in. Chest pain A referral has been placed, if you do not hear from our referral center within a week about arranging an appointment please call our office. Fever Alternate Tylenol with Motrin every 4 hours. Drink plenty of clear fluids. Hypertension Check your blood pressure at least 2 times per week and keep a log of this, and bring this to your next appointment. Low salt diet. Avoid tobacco exposure. Aim for 30 minutes of moderately vigorous exercise at least 3 times a week.Will give you a prescription for Clonidine to take if your blood pressure is greater than 160/90 Adult BMI > 30 Discussed risks associated with pt's weight and BMI>30. Discussed the need for weight loss, preferably by lifestyle changes, to reduce current and future health risks. Encouraged increased intake of fresh fruits/vegetables, reduction of processed and high-calorie/high-carb foods, and portion control. High blood pressure stable with meds Future Test Test Name Order Date GEN [id number] COMPREHENSIVE METABOLIC [id number] Referrals Referral Date Details 2014-01-01 2014-01-01, RUQ Abdominal pa in, Que Astudillo 2014-04-25 2014-04-25, chest pain/press ure|HTN, Paul Brenden 2017-10-11 2017-10-11, SVT, Paul Ed rehmanerrez 2017-11-09 2017-11-09, new onset anemia , change in bowel habits, hx of polyps, 1st degree relative with colon C A, Que Astudillo eval and treat ? Leland Bradford, [address], [place], [address], 2019-01-29 2019-01-29, eval and treat , [facility], Que Astudillo SVT / Hypertension, Paul Davis 2019-08-23 2019-08-23, obesity 2020-06-11 2020-06-11, SVT / Hypertensi on, Paul Davis [facility] Next Appt Details 1-7d, prn Reason: Insurance Providers Payer Name Payer Payer Insured Name Patient Coverage Covera ge End Address Phone Relationship to Start Date [place] [employer] [phone] Maryam Bourgeois [facility] [employer] [id number] [facility] [address]"
--- NOTE | 2020-11-05 13:29 | PDOC.HOSPP ---
- Subjective Encounter Date: 11/05/20 non-verbal (On the ventilator) - Objective Vital Signs & Weight: Vital Signs (12 hours) Temp Pulse Resp BP 11/05/20 12:00 23 H 11/05/20 11:16 64 133/76 11/05/20 10:00 18 11/05/20 09:01 60 11/05/20 08:00 98.1 F 18 11/05/20 07:16 65 95/56 L 11/05/20 06:00 20 11/05/20 04:00 97.4 F L 22 H 11/05/20 02:00 18 Weight Admit Weight 199 lb 9.6 oz Weight 200 lb 2.876 oz Most Recent Monitor Data Heart Rate from ECG 77 NIBP 101/70 NIBP BP-Mean 80 Respiration from ECG 17 SpO2 85 I&O: 11/04/20 11/05/20 11/06/20 06:59 06:59 06:59 Intake Total 3265 3658.5 100 Output Total 1218 2550 320 Balance 2047 1108.5 -220 Result Diagrams: 11/05/20 04:05 11/05/20 04:05 Hospitalist ROS - Medication Medications: Active Medications Generic Name Dose Route Start Last Admin Trade Name Freq PRN Reason Stop Dose Admin Acetaminophen 650 mg 10/17/20 04:16 10/26/20 20:20 Acetaminophen 325 Mg Tab PO 650 mg Q4H PRN Administration Headache/Fever/Mild Pain (1-3) Albuterol Sulfate 0 puff 10/23/20 09:50 10/29/20 18:58 Proventil Inhaler 6.7 G (200 Inhalations) INH 2 puff Q4H PRN Administration SOB &/or Wheezing Ascorbic Acid 1,000 mg 10/17/20 09:00 11/05/20 08:59 Ascorbic Acid 500 Mg Chewable Tablet PO 1,000 mg DAILY HEIDI Administration Benzonatate 100 mg 10/24/20 02:50 10/25/20 03:34 Benzonatate 100 Mg Cap PO 100 mg TIDPRN PRN Administration Cough Calcium Carbonate 1,000 mg 10/17/20 04:16 10/17/20 04:51 Calcium Carbonate 500 Mg Chewtab PO 1,000 mg Q4H PRN Administration Heartburn or Indigestion Cholecalciferol 400 units 10/17/20 09:00 11/05/20 08:59 Cholecalciferol (Vitamin D3) 400 Units Tab PO 400 units DAILY HEIDI Administration Dexamethasone 10 mg 10/28/20 21:00 11/05/20 09:00 Dexamethasone 4 Mg/Ml Vial SLOW IVP 10 mg BID HEIDI Administration Digoxin 0.125 mg 10/20/20 09:00 11/05/20 09:01 Digoxin 0.125 Mg Tab PO Not Given DAILY HEIDI Enoxaparin Sodium 40 mg 10/18/20 21:00 11/05/20 08:59 Enoxaparin Sodium 40 Mg/0.4 Ml Syringe SC 40 mg BID HEIDI Administration Guaifenesin 200 mg 10/30/20 12:00 11/05/20 11:58 Diabetic Tussin 200 Mg/10 Ml Udcup PO 200 mg Q6HR HEIDI Administration Guaifenesin/Codeine Phosphate 10 ml 10/20/20 13:04 10/26/20 00:30 Guaifenesin/Codeine 200 Mg/20 Mg 10 Ml Cup PO 10 ml Q6H PRN Administration Cough Cefepime HCl 1 gm/ Sodium 100 mls @ 200 mls/hr 10/28/20 21:00 11/05/20 09:00 Chloride IVPB 100 mls Q12HR HEIDI Administration Fentanyl 100 mls @ 0 mls/hr 10/28/20 14:45 11/05/20 06:31 Fentanyl Cadd IV 11/27/20 14:45 100 mls INF HEIDI Administration Protocol Per Protocol Sodium Chloride 1,000 mls @ 50 mls/hr 10/30/20 09:23 11/05/20 03:29 Normal Saline 0.9% IV Not Given .Q20H HEIDI Lactulose 20 gm 11/05/20 08:50 11/05/20 09:12 Lactulose 20 Gm/30 Ml Udcup PO 20 gm DAILYPRN PRN Administration Constipation Lorazepam 2 mg 10/28/20 14:45 11/05/20 10:30 Lorazepam 2 Mg/Ml Vial SLOW IVP 11/27/20 14:45 2 mg Q1H PRN Administration Breakthrough agitation Metoprolol Succinate 25 mg 10/20/20 21:00 11/04/20 19:42 Metoprolol Succinate Xl 25 Mg Tab PO Not Given HS HEIDI Morphine Sulfate 2 mg 10/28/20 14:45 11/02/20 21:39 Morphine 2 Mg/Ml Vial SLOW IVP 11/27/20 14:45 2 mg Q1H PRN Administration Breakthrough Pain/Agitation Pantoprazole Sodium 40 mg 10/30/20 09:00 11/05/20 09:01 Pantoprazole 40 Mg Granules Packet PER TUBE 40 mg DAILY HEIDI Administration Polyethylene Glycol 17 gm 11/03/20 09:00 11/05/20 08:59 Polyethylene Glycol 3350 17 Gm Packet PO 17 gm DAILY HEIDI Administration Propofol 1,000 mg 10/28/20 14:45 11/05/20 05:56 Propofol 1,000 Mg/100 Ml Vial IV 11/27/20 14:45 1,000 mg INF PRN Administration TO ACHIEVE GOAL RASS Protocol Sodium Chloride 10 ml 10/26/20 21:00 11/05/20 09:03 Flush - Normal Saline 10 Ml Syringe IVF 10 ml Q12HR HEIDI Administration Sodium Chloride 10 ml 10/26/20 10:30 11/05/20 09:02 Flush - Normal Saline 10 Ml Syringe IVF 10 ml PRN PRN Administration Saline Flush Vecuronium [place] 10 mg 10/28/20 12:54 11/03/20 00:14 Vecuronium 10 Mg Vial IV 10 mg Q1H PRN Administration Agitation Zinc Sulfate 220 mg 10/17/20 09:00 11/05/20 08:59 Zinc Sulfate 220 Mg Cap PO 220 mg DAILY HEIDI Administration - Exam ENT: normocephalic atraumatic Heart: RRR Respiratory: normal chest expansion, no tachypnea Hosp A/P (1) Acute respiratory failure Code(s): J96.00 - ACUTE RESPIRATORY FAILURE, UNSP W HYPOXIA OR HYPERCAPNIA Status: Acute (2) Pneumonia due to COVID-19 virus Code(s): U07.1 - COVID-19; J12.89 - OTHER VIRAL PNEUMONIA Status: Acute - Plan Continue ventilator management per critical care team. Bradycardia resolved. Continue dexamethasone, antibiotics and anticoagulation.
[2020-11-06] MEDS: GUAIFENESIN SF SOLN 200 MG/10 ML UDCUP PO SCH ×4 (00:37→19:34)
[2020-11-06] MEDS: Propofol 1,000 MG/100 ML VIAL IV PRN ×4 (00:37→19:14)
[2020-11-06] MEDS: Lorazepam 2 MG/ML VIAL SLOW IVP PRN ×6 (01:10→21:56)
[2020-11-06 05:34] LABS: BUN (Urea Nitrogen) 16 mg/dL (9.8-20.1); Calc. Creatinine Clearance 179 mL/min (70-130); Calcium 8.5 mg/dL (7.8-10.44); Glucose 130 mg/dL (70-105)
[2020-11-06 05:43] LABS: Anion Gap 14 mmol/L (10-20); Carbon Dioxide 37 mmol/L (22-29); Chloride 93 mmol/L (98-107); Potassium 4.6 mmol/L (3.5-5.1); Sodium 139 mmol/L (136-145)
[2020-11-06 06:42] LABS: Band 8 % (5-11); Hemoglobin 9.7 g/dL (12.0-16.0); Lymphocytes 10 % (21-51); MDiff Complete? YES; Mean Corpuscular HGB CONC 31.1 g/dL (32.0-36.0); Mean Corpuscular Hemoglobin 26.5 pg (27.0-31.0); Mean Corpuscular Volume 85.5 fL (78.0-98.0); Mean Platelet Volume 8.6 fL (7.4-10.4); Monocytes 2 % (0-10); Neutrophil 80 % (42-75); Platelet Count 246 thou/uL (130-400); RBC Distribution Width 15.5 % (11.5-14.5); Red Blood Cell (RBC) Count 3.66 mill/uL (4.20-5.40); White Blood Cell (WBC) Count 19.6 thou/uL (4.8-10.8)
[2020-11-06] MEDS: Ascorbic Acid 500 mg Chewable Tablet PO SCH (08:26)
[2020-11-06] MEDS: Cholecalciferol (Vitamin D3) 400 UNITS TAB PO SCH (08:26)
[2020-11-06] MEDS: Pantoprazole 40 MG GRANULES PACKET PER TUBE SCH (08:27)
[2020-11-06] MEDS: Dexamethasone 4 mg/ml Vial SLOW IVP SCH ×2 (08:28→21:23)
[2020-11-06] MEDS: Enoxaparin Sodium 40 MG/0.4 ML SYRINGE SC SCH ×2 (08:29→21:23)
[2020-11-06] MEDS: Zinc Sulfate 220 MG CAP PO SCH (08:29)
[2020-11-06] MEDS: Polyethylene Glycol 3350 17 GM Packet PO SCH (08:45)
[2020-11-06] MEDS: Cefepime 1 GM in Sodium Chloride 0.9% 100 ML IVPB SCH ×2 (08:45→21:23)
--- NOTE | 2020-11-06 08:50 | RAD ---
AP CHEST: HISTORY: Pneumonia. CCU followup. COMPARISON: 11/05/2020. FINDINGS: ET tube and NG tube unchanged. Bilateral diffuse hazy infiltrates again noted. Small effusions. No evidence of significant interval change. POS: AGW
--- NOTE | 2020-11-06 09:23 | PRG ---
DATE OF SERVICE: 11/06/2020 SUBJECTIVE: Abida Bourgeois is a 60-year-old female, who is intubated on the vent. OBJECTIVE: VITAL SIGNS: She is on 50% FiO2, saturations are 96%. Pulse 75, blood pressure 140/80, respirations 23. She is on day 20 in the hospital. CHEST: rhonchi. CARDIAC: Normal S1 and S2. No gallop. ABDOMEN: Soft. LABORATORY DATA: White count . X-ray shows bilateral infiltrates. ASSESSMENT AND PLAN: [place] positive pneumonia, respiratory failure, obesity. Not weanable. We are going to continue high-dose steroids; antibiotics, empiric; supportive care. We can probably try and discontinue the isolation 3 weeks into the course of her disease. Job ID: [id number]
[2020-11-06] MEDS ORDERED: Fentanyl CADD 100 ML ONE ×2 (09:39→23:28)
[2020-11-06] MEDS: Digoxin 0.125 MG TAB PO SCH (10:30)
--- NOTE | 2020-11-06 13:28 | PDOC.HOSPP ---
- Subjective Encounter Date: 11/06/20 non-verbal (On the vent) - Objective Vital Signs & Weight: Vital Signs (12 hours) Temp Pulse Resp BP 11/06/20 10:49 61 124/79 11/06/20 10:30 81 11/06/20 10:00 18 11/06/20 08:46 81 137/82 11/06/20 08:00 24 H 11/06/20 06:00 16 11/06/20 04:00 97.6 F 16 11/06/20 02:28 79 94/58 L 11/06/20 02:00 16 Weight Admit Weight 199 lb 9.6 oz Weight 198 lb 6.656 oz Most Recent Monitor Data Heart Rate from ECG 63 NIBP 124/79 NIBP BP-Mean 94 Respiration from ECG 17 SpO2 91 I&O: 11/05/20 11/06/20 11/07/20 06:59 06:59 06:59 Intake Total 3658.5 2910 100 Output Total 2550 2890 80 Balance 1108.5 20 20 Result Diagrams: 11/06/20 03:40 11/06/20 03:40 Hospitalist ROS - Medication Medications: Active Medications Generic Name Dose Route Start Last Admin Trade Name Freq PRN Reason Stop Dose Admin Acetaminophen 650 mg 10/17/20 04:16 10/26/20 20:20 Acetaminophen 325 Mg Tab PO 650 mg Q4H PRN Administration Headache/Fever/Mild Pain (1-3) Albuterol Sulfate 0 puff 10/23/20 09:50 10/29/20 18:58 Proventil Inhaler 6.7 G (200 Inhalations) INH 2 puff Q4H PRN Administration SOB &/or Wheezing Ascorbic Acid 1,000 mg 10/17/20 09:00 11/06/20 08:26 Ascorbic Acid 500 Mg Chewable Tablet PO 1,000 mg DAILY HEIDI Administration Benzonatate 100 mg 10/24/20 02:50 10/25/20 03:34 Benzonatate 100 Mg Cap PO 100 mg TIDPRN PRN Administration Cough Calcium Carbonate 1,000 mg 10/17/20 04:16 10/17/20 04:51 Calcium Carbonate 500 Mg Chewtab PO 1,000 mg Q4H PRN Administration Heartburn or Indigestion Cholecalciferol 400 units 10/17/20 09:00 11/06/20 08:26 Cholecalciferol (Vitamin D3) 400 Units Tab PO 400 units DAILY HEIDI Administration Dexamethasone 10 mg 10/28/20 21:00 11/06/20 08:28 Dexamethasone 4 Mg/Ml Vial SLOW IVP 10 mg BID HEIDI Administration Digoxin 0.125 mg 10/20/20 09:00 11/06/20 10:30 Digoxin 0.125 Mg Tab PO Not Given DAILY HEIDI Enoxaparin Sodium 40 mg 10/18/20 21:00 11/06/20 08:29 Enoxaparin Sodium 40 Mg/0.4 Ml Syringe SC 40 mg BID HEIDI Administration Guaifenesin 200 mg 10/30/20 12:00 11/06/20 05:18 Diabetic Tussin 200 Mg/10 Ml Udcup PO 200 mg Q6HR HEIDI Administration Guaifenesin/Codeine Phosphate 10 ml 10/20/20 13:04 10/26/20 00:30 Guaifenesin/Codeine 200 Mg/20 Mg 10 Ml Cup PO 10 ml Q6H PRN Administration Cough Cefepime HCl 1 gm/ Sodium 100 mls @ 200 mls/hr 10/28/20 21:00 11/06/20 08:45 Chloride IVPB 100 mls Q12HR HEIDI Administration Fentanyl 100 mls @ 0 mls/hr 10/28/20 14:45 11/05/20 18:55 Fentanyl Cadd IV 11/27/20 14:45 100 mls INF HEIDI Administration Protocol Per Protocol Sodium Chloride 1,000 mls @ 50 mls/hr 10/30/20 09:23 11/05/20 16:30 Normal Saline 0.9% IV 1,000 mls .Q20H HEIDI Administration Lactulose 20 gm 11/05/20 08:50 11/06/20 08:45 Lactulose 20 Gm/30 Ml Udcup PO 20 gm DAILYPRN PRN Administration Constipation Lorazepam 2 mg 10/28/20 14:45 11/06/20 11:42 Lorazepam 2 Mg/Ml Vial SLOW IVP 11/27/20 14:45 2 mg Q1H PRN Administration Breakthrough agitation Metoprolol Succinate 25 mg 10/20/20 21:00 11/05/20 19:14 Metoprolol Succinate Xl 25 Mg Tab PO Not Given HS HEIDI Morphine Sulfate 2 mg 10/28/20 14:45 11/02/20 21:39 Morphine 2 Mg/Ml Vial SLOW IVP 11/27/20 14:45 2 mg Q1H PRN Administration Breakthrough Pain/Agitation Pantoprazole Sodium 40 mg 10/30/20 09:00 11/06/20 08:27 Pantoprazole 40 Mg Granules Packet PER TUBE 40 mg DAILY HEIDI Administration Polyethylene Glycol 17 gm 11/03/20 09:00 11/06/20 08:45 Polyethylene Glycol 3350 17 Gm Packet PO 17 gm DAILY HEIDI Administration Propofol 1,000 mg 10/28/20 14:45 11/06/20 13:18 Propofol 1,000 Mg/100 Ml Vial IV 11/27/20 14:45 1,000 mg INF PRN Administration TO ACHIEVE GOAL RASS Protocol Sodium Chloride 10 ml 10/26/20 21:00 11/06/20 09:44 Flush - Normal Saline 10 Ml Syringe IVF 10 ml Q12HR HEIDI Administration Sodium Chloride 10 ml 10/26/20 10:30 11/05/20 09:02 Flush - Normal Saline 10 Ml Syringe IVF 10 ml PRN PRN Administration Saline Flush Vecuronium [place] 10 mg 10/28/20 12:54 11/03/20 00:14 Vecuronium 10 Mg Vial IV 10 mg Q1H PRN Administration Agitation Zinc Sulfate 220 mg 10/17/20 09:00 11/06/20 08:29 Zinc Sulfate 220 Mg Cap PO 220 mg DAILY HEIDI Administration - Exam ENT: normocephalic atraumatic Neck: supple Respiratory: normal chest expansion, no tachypnea Extremities: no cyanosis, no clubbing Hosp A/P (1) Acute respiratory failure Code(s): J96.00 - ACUTE RESPIRATORY FAILURE, UNSP W HYPOXIA OR HYPERCAPNIA Status: Acute (2) Pneumonia due to COVID-19 virus Code(s): U07.1 - COVID-19; J12.89 - OTHER VIRAL PNEUMONIA Status: Acute - Plan Continue ventilator management per critical care team. She remains mildly bradycardic. Not ready to be weaned off yet per pulmonology. Continue dexamethasone, antibiotics and anticoagulation.
[2020-11-06] MEDS: Sodium Chloride 0.9% 1,000 ML IV SCH (14:08)
[2020-11-06] MEDS ORDERED: Magnesium Citrate 300 ML BOT PO SCH (17:30)
[2020-11-06] MEDS: guaiFENesin/Codeine 200 mg/20 mg 10 ml Cup PO PRN (18:05)
[2020-11-07] MEDS: GUAIFENESIN SF SOLN 200 MG/10 ML UDCUP PO SCH ×5 (00:10→23:05)
[2020-11-07] MEDS: Lorazepam 2 MG/ML VIAL SLOW IVP PRN ×4 (00:18→21:31)
[2020-11-07] MEDS: Propofol 1,000 MG/100 ML VIAL IV PRN ×5 (00:25→23:29)
[2020-11-07 04:03] LABS: #Basophils 0.1 thou/uL (0.0-0.2); #Eosinphils 0.1 thou/uL (0.0-0.7); #Lymphocytes 0.8 thou/uL (1.20-3.40); #Monocytes 0.3 thou/uL (0.11-0.59); #Neutrophils 8.9 thou/uL (1.40-6.50); %Basophils 1.4 % (0.0-1.0); %Eosinophils 0.8 % (0.0-10.0); %Lymphocytes 7.4 % (21.0-51.0); %Neutrophils 87.4 % (42.0-75.0); Hemoglobin 8.8 g/dL (12.0-16.0); Mean Corpuscular HGB CONC 31.3 g/dL (32.0-36.0); Mean Corpuscular Hemoglobin 27.1 pg (27.0-31.0); Mean Corpuscular Volume 86.6 fL (78.0-98.0); Mean Platelet Volume 8.4 fL (7.4-10.4); Platelet Count 201 thou/uL (130-400); RBC Distribution Width 15.6 % (11.5-14.5); Red Blood Cell (RBC) Count 3.24 mill/uL (4.20-5.40); White Blood Cell (WBC) Count 10.1 thou/uL (4.8-10.8)
[2020-11-07 04:24] LABS: BUN (Urea Nitrogen) 17 mg/dL (9.8-20.1); Calc. Creatinine Clearance 189 mL/min (70-130); Calcium 8.2 mg/dL (7.8-10.44); Glucose 132 mg/dL (70-105)
[2020-11-07 04:33] LABS: Anion Gap 15 mmol/L (10-20); Carbon Dioxide 35 mmol/L (22-29); Chloride 94 mmol/L (98-107); Potassium 4.8 mmol/L (3.5-5.1); Sodium 139 mmol/L (136-145)
[2020-11-07] MEDS: Cefepime 1 GM in Sodium Chloride 0.9% 100 ML IVPB SCH ×2 (08:14→19:51)
[2020-11-07] MEDS: Ascorbic Acid 500 mg Chewable Tablet PO SCH (08:14)
[2020-11-07] MEDS: Enoxaparin Sodium 40 MG/0.4 ML SYRINGE SC SCH ×2 (08:15→19:51)
[2020-11-07] MEDS: Dexamethasone 4 mg/ml Vial SLOW IVP SCH ×2 (08:15→19:51)
[2020-11-07] MEDS: Zinc Sulfate 220 MG CAP PO SCH (08:16)
[2020-11-07] MEDS: Pantoprazole 40 MG GRANULES PACKET PER TUBE SCH (08:16)
[2020-11-07] MEDS ORDERED: Dexamethasone 4 mg/ml Vial SLOW IVP SCH (09:30)
--- NOTE | 2020-11-07 09:40 | PRG ---
DATE OF SERVICE: 11/07/2020 SUBJECTIVE: Abida Bourgeois is a 60-year-old female, remains intubated on the vent. OBJECTIVE: VITAL SIGNS: Temperature 98. She has finally had a big bowel movement. Her sats on 50% are 98%. She is in bilevel high peak pressures at 30, but most of it may be from obesity. CHEST: No wheezing. No crackles. CARDIAC: Normal S1. IMPRESSION: Morbid obesity, respiratory failure, slowly improving. PLAN: I am going to decrease her low PEEP. Continue high-dose steroids, supportive care, PT, empiric antibiotics. She is probably going to end up getting a trach because she has significant sleep apnea. Day #21, one-half hour of critical time. Job ID: [id number]
[2020-11-07] MEDS: Digoxin 0.125 MG TAB PO SCH (09:50)
[2020-11-07] MEDS: Polyethylene Glycol 3350 17 GM Packet PO SCH (10:25)
--- NOTE | 2020-11-07 13:40 | PDOC.HOSPP ---
- Subjective Encounter Date: 11/07/20 non-verbal (On the ventilator.) - Objective Vital Signs & Weight: Vital Signs (12 hours) Temp Pulse Resp BP 11/07/20 12:00 97.6 F 16 11/07/20 10:53 60 11/07/20 10:00 18 11/07/20 09:50 71 11/07/20 08:00 97.9 F 22 H 11/07/20 06:41 71 11/07/20 06:00 22 H 11/07/20 04:00 19 11/07/20 02:16 67 116/69 11/07/20 02:00 16 Weight Admit Weight 199 lb 9.6 oz Weight 205 lb 7.533 oz Most Recent Monitor Data Heart Rate from ECG 57 NIBP 122/74 NIBP BP-Mean 90 Respiration from ECG 16 SpO2 94 I&O: 11/06/20 11/07/20 11/08/20 06:59 06:59 06:59 Intake Total 2910 2909.6 160 Output Total 2890 2915 475 Balance 20 -5.4 -315 Result Diagrams: 11/07/20 03:39 11/07/20 03:30 Hospitalist ROS - Medication Medications: Active Medications Generic Name Dose Route Start Last Admin Trade Name Freq PRN Reason Stop Dose Admin Acetaminophen 650 mg 10/17/20 04:16 10/26/20 20:20 Acetaminophen 325 Mg Tab PO 650 mg Q4H PRN Administration Headache/Fever/Mild Pain (1-3) Albuterol Sulfate 0 puff 10/23/20 09:50 10/29/20 18:58 Proventil Inhaler 6.7 G (200 Inhalations) INH 2 puff Q4H PRN Administration SOB &/or Wheezing Ascorbic Acid 1,000 mg 10/17/20 09:00 11/07/20 08:14 Ascorbic Acid 500 Mg Chewable Tablet PO 1,000 mg DAILY HEIDI Administration Benzonatate 100 mg 10/24/20 02:50 10/25/20 03:34 Benzonatate 100 Mg Cap PO 100 mg TIDPRN PRN Administration Cough Calcium Carbonate 1,000 mg 10/17/20 04:16 10/17/20 04:51 Calcium Carbonate 500 Mg Chewtab PO 1,000 mg Q4H PRN Administration Heartburn or Indigestion Cholecalciferol 400 units 10/17/20 09:00 11/06/20 08:26 Cholecalciferol (Vitamin D3) 400 Units Tab PO 400 units DAILY HEIDI Administration Digoxin 0.125 mg 10/20/20 09:00 11/07/20 09:50 Digoxin 0.125 Mg Tab PO Not Given DAILY HEIDI Enoxaparin Sodium 40 mg 10/18/20 21:00 11/07/20 08:15 Enoxaparin Sodium 40 Mg/0.4 Ml Syringe SC 40 mg BID HEIDI Administration Guaifenesin 200 mg 10/30/20 12:00 11/07/20 09:49 Diabetic Tussin 200 Mg/10 Ml Udcup PO 200 mg Q6HR HEIDI Administration Guaifenesin/Codeine Phosphate 10 ml 10/20/20 13:04 11/06/20 18:05 Guaifenesin/Codeine 200 Mg/20 Mg 10 Ml Cup PO 10 ml Q6H PRN Administration Cough Cefepime HCl 1 gm/ Sodium 100 mls @ 200 mls/hr 10/28/20 21:00 11/07/20 08:14 Chloride IVPB 100 mls Q12HR HEIDI Administration Fentanyl 100 mls @ 0 mls/hr 10/28/20 14:45 11/05/20 18:55 Fentanyl Cadd IV 11/27/20 14:45 100 mls INF HEIDI Administration Protocol Per Protocol Sodium Chloride 1,000 mls @ 50 mls/hr 10/30/20 09:23 11/06/20 14:08 Normal Saline 0.9% IV 1,000 mls .Q20H HEIDI Administration Lactulose 20 gm 11/05/20 08:50 11/06/20 08:45 Lactulose 20 Gm/30 Ml Udcup PO 20 gm DAILYPRN PRN Administration Constipation Lorazepam 2 mg 10/28/20 14:45 11/07/20 13:05 Lorazepam 2 Mg/Ml Vial SLOW IVP 11/27/20 14:45 2 mg Q1H PRN Administration Breakthrough agitation Metoprolol Succinate 25 mg 10/20/20 21:00 11/06/20 21:23 Metoprolol Succinate Xl 25 Mg Tab PO 25 mg HS HEIDI Administration Morphine Sulfate 2 mg 10/28/20 14:45 11/02/20 21:39 Morphine 2 Mg/Ml Vial SLOW IVP 11/27/20 14:45 2 mg Q1H PRN Administration Breakthrough Pain/Agitation Pantoprazole Sodium 40 mg 10/30/20 09:00 11/07/20 08:16 Pantoprazole 40 Mg Granules Packet PER TUBE 40 mg DAILY HEIDI Administration Polyethylene Glycol 17 gm 11/03/20 09:00 11/07/20 10:25 Polyethylene Glycol 3350 17 Gm Packet PO Not Given DAILY HEIDI Propofol 1,000 mg 10/28/20 14:45 11/07/20 08:16 Propofol 1,000 Mg/100 Ml Vial IV 11/27/20 14:45 1,000 mg INF PRN Administration TO ACHIEVE GOAL RASS Protocol Sodium Chloride 10 ml 10/26/20 21:00 11/07/20 09:49 Flush - Normal Saline 10 Ml Syringe IVF 10 ml Q12HR HEIDI Administration Sodium Chloride 10 ml 10/26/20 10:30 11/05/20 09:02 Flush - Normal Saline 10 Ml Syringe IVF 10 ml PRN PRN Administration Saline Flush Vecuronium [place] 10 mg 10/28/20 12:54 11/03/20 00:14 Vecuronium 10 Mg Vial IV 10 mg Q1H PRN Administration Agitation Zinc Sulfate 220 mg 10/17/20 09:00 11/07/20 08:16 Zinc Sulfate 220 Mg Cap PO 220 mg DAILY HEIDI Administration - Exam General Appearance: awake alert Neck: supple Heart: RRR Respiratory: normal chest expansion, no tachypnea Extremities: no cyanosis, no clubbing Hosp A/P (1) Acute respiratory failure Code(s): J96.00 - ACUTE RESPIRATORY FAILURE, UNSP W HYPOXIA OR HYPERCAPNIA Status: Acute (2) Pneumonia due to COVID-19 virus Code(s): U07.1 - COVID-19; J12.89 - OTHER VIRAL PNEUMONIA Status: Acute - Plan Continue ventilator management per critical care team. She is on pressure support setting and her PEEP is being weaned off as tolerated. She remains mildly bradycardic. Not ready to be weaned off yet per pulmonology. Continue dexamethasone, antibiotics and anticoagulation. Anticipate that the patient will require tracheostomy.
[2020-11-07] MEDS: Sodium Chloride 0.9% 1,000 ML IV SCH (15:07)
[2020-11-07] MEDS ORDERED: Fentanyl CADD 100 ML ONE (15:38)
[2020-11-07] MEDS: Cholecalciferol (Vitamin D3) 400 UNITS TAB PO SCH (15:53)
[2020-11-07] MEDS ORDERED: Morphine 2 MG/ML VIAL SLOW IVP PRN (19:35)
[2020-11-07] MEDS ORDERED: Fentanyl BOLUS 250 ML IVPB PRN (19:35)
[2020-11-08] MEDS: GUAIFENESIN SF SOLN 200 MG/10 ML UDCUP PO SCH ×4 (05:05→23:10)
[2020-11-08 05:34] LABS: #Basophils 0.2 thou/uL (0.0-0.2); #Eosinphils 0.1 thou/uL (0.0-0.7); #Lymphocytes 1.5 thou/uL (1.20-3.40); #Monocytes 0.6 thou/uL (0.11-0.59); #Neutrophils 11.6 thou/uL (1.40-6.50); %Basophils 1.4 % (0.0-1.0); %Eosinophils 0.6 % (0.0-10.0); %Lymphocytes 10.8 % (21.0-51.0); %Monocytes 4.5 % (0.0-10.0); %Neutrophils 82.6 % (42.0-75.0); Hemoglobin 9.4 g/dL (12.0-16.0); Mean Corpuscular HGB CONC 30.5 g/dL (32.0-36.0); Mean Platelet Volume 8.2 fL (7.4-10.4); Platelet Count 222 thou/uL (130-400); Red Blood Cell (RBC) Count 3.62 mill/uL (4.20-5.40); White Blood Cell (WBC) Count 14.1 thou/uL (4.8-10.8)
[2020-11-08 06:04] LABS: BUN (Urea Nitrogen) 18 mg/dL (9.8-20.1); Calc. Creatinine Clearance 177 mL/min (70-130); Calcium 8.6 mg/dL (7.8-10.44); Glucose 106 mg/dL (70-105)
[2020-11-08 06:13] LABS: Anion Gap 16 mmol/L (10-20); Carbon Dioxide 37 mmol/L (22-29); Chloride 93 mmol/L (98-107); Potassium 4.8 mmol/L (3.5-5.1); Sodium 141 mmol/L (136-145)
[2020-11-08] MEDS: Propofol 1,000 MG/100 ML VIAL IV PRN ×4 (06:45→23:42)
[2020-11-08] MEDS ORDERED: Fentanyl CADD 0 ML ONE (06:58)
[2020-11-08] MEDS ORDERED: Fentanyl CADD 100 ML ONE ×2 (07:50→23:07)
[2020-11-08] MEDS: Enoxaparin Sodium 40 MG/0.4 ML SYRINGE SC SCH ×2 (09:00→20:00)
[2020-11-08] MEDS: Zinc Sulfate 220 MG CAP PO SCH (09:01)
[2020-11-08] MEDS: Dexamethasone 4 mg/ml Vial SLOW IVP SCH ×2 (09:02→20:00)
[2020-11-08] MEDS: Ascorbic Acid 500 mg Chewable Tablet PO SCH (09:02)
[2020-11-08] MEDS: Pantoprazole 40 MG GRANULES PACKET PER TUBE SCH (09:02)
[2020-11-08] MEDS: Polyethylene Glycol 3350 17 GM Packet PO SCH (09:02)
[2020-11-08] MEDS: Cholecalciferol (Vitamin D3) 400 UNITS TAB PO SCH (09:02)
[2020-11-08] MEDS: Digoxin 0.125 MG TAB PO SCH (10:02)
--- NOTE | 2020-11-08 14:41 | PDOC.HOSPP ---
- Subjective Encounter Date: 11/08/20 Subjective: ORALLY INTUBATED - Objective Vital Signs & Weight: Vital Signs (12 hours) Temp Pulse Resp 11/08/20 13:52 68 11/08/20 11:20 70 11/08/20 10:02 69 11/08/20 08:00 98.2 F 20 11/08/20 07:02 69 11/08/20 06:00 18 11/08/20 04:00 24 H 11/08/20 03:24 58 L 11/08/20 03:00 98.1 F Weight Admit Weight 199 lb 9.6 oz Weight 198 lb 13.711 oz Most Recent Monitor Data Heart Rate from ECG 65 NIBP 131/71 NIBP BP-Mean 91 Respiration from ECG 16 SpO2 95 I&O: 11/07/20 11/08/20 11/09/20 06:59 06:59 06:59 Intake Total 2909.6 2416.1 Output Total 2915 4170 1275 Balance -5.4 -1753.9 -1275 Result Diagrams: 11/08/20 05:20 11/08/20 05:20 Hospitalist ROS - Review of Systems ROS unobtainable: due to endotracheal tube - Medication Medications: Active Medications Generic Name Dose Route Start Last Admin Trade Name Freq PRN Reason Stop Dose Admin Acetaminophen 650 mg 10/17/20 04:16 10/26/20 20:20 Acetaminophen 325 Mg Tab PO 650 mg Q4H PRN Administration Headache/Fever/Mild Pain (1-3) Albuterol Sulfate 0 puff 10/23/20 09:50 10/29/20 18:58 Proventil Inhaler 6.7 G (200 Inhalations) INH 2 puff Q4H PRN Administration SOB &/or Wheezing Ascorbic Acid 1,000 mg 10/17/20 09:00 11/08/20 09:02 Ascorbic Acid 500 Mg Chewable Tablet PO 1,000 mg DAILY HEIDI Administration Benzonatate 100 mg 10/24/20 02:50 10/25/20 03:34 Benzonatate 100 Mg Cap PO 100 mg TIDPRN PRN Administration Cough Calcium Carbonate 1,000 mg 10/17/20 04:16 10/17/20 04:51 Calcium Carbonate 500 Mg Chewtab PO 1,000 mg Q4H PRN Administration Heartburn or Indigestion Cholecalciferol 400 units 10/17/20 09:00 11/08/20 09:02 Cholecalciferol (Vitamin D3) 400 Units Tab PO 400 units DAILY HEIDI Administration Dexamethasone 6 mg 11/07/20 21:00 11/08/20 09:02 Dexamethasone 4 Mg/Ml Vial SLOW IVP 6 mg BID HEIDI Administration Digoxin 0.125 mg 10/20/20 09:00 11/08/20 10:02 Digoxin 0.125 Mg Tab PO Not Given DAILY HEIDI Enoxaparin Sodium 40 mg 10/18/20 21:00 11/08/20 09:00 Enoxaparin Sodium 40 Mg/0.4 Ml Syringe SC 40 mg BID HEIDI Administration Guaifenesin 200 mg 10/30/20 12:00 11/08/20 05:05 Diabetic Tussin 200 Mg/10 Ml Udcup PO 200 mg Q6HR HEIDI Administration Guaifenesin/Codeine Phosphate 10 ml 10/20/20 13:04 11/06/20 18:05 Guaifenesin/Codeine 200 Mg/20 Mg 10 Ml Cup PO 10 ml Q6H PRN Administration Cough Sodium Chloride 1,000 mls @ 50 mls/hr 10/30/20 09:23 11/07/20 15:07 Normal Saline 0.9% IV 1,000 mls .Q20H HEIDI Administration Lactulose 20 gm 11/05/20 08:50 11/06/20 08:45 Lactulose 20 Gm/30 Ml Udcup PO 20 gm DAILYPRN PRN Administration Constipation Metoprolol Succinate 25 mg 10/20/20 21:00 11/07/20 19:52 Metoprolol Succinate Xl 25 Mg Tab PO 25 mg HS HEIDI Administration Pantoprazole Sodium 40 mg 10/30/20 09:00 11/08/20 09:02 Pantoprazole 40 Mg Granules Packet PER TUBE 40 mg DAILY HEIDI Administration Polyethylene Glycol 17 gm 11/03/20 09:00 11/08/20 09:02 Polyethylene Glycol 3350 17 Gm Packet PO 17 gm DAILY HEIDI Administration Propofol 1,000 mg 10/28/20 14:45 11/08/20 12:33 Propofol 1,000 Mg/100 Ml Vial IV 11/27/20 14:45 1,000 mg INF PRN Administration TO ACHIEVE GOAL RASS Protocol Sodium Chloride 10 ml 10/26/20 21:00 11/08/20 09:04 Flush - Normal Saline 10 Ml Syringe IVF 10 ml Q12HR HEIDI Administration Sodium Chloride 10 ml 10/26/20 10:30 11/05/20 09:02 Flush - Normal Saline 10 Ml Syringe IVF 10 ml PRN PRN Administration Saline Flush Vecuronium [place] 10 mg 10/28/20 12:54 11/03/20 00:14 Vecuronium 10 Mg Vial IV 10 mg Q1H PRN Administration Agitation Zinc Sulfate 220 mg 10/17/20 09:00 11/08/20 09:01 Zinc Sulfate 220 Mg Cap PO 220 mg DAILY HEIDI Administration - Exam General - other findings: Orally intubated Eye: anicteric sclera ENT: normocephalic atraumatic Neck: supple Heart: no murmur Respiratory - other findings: decrease air [place] Gastrointestinal: soft Extremities: no cyanosis Skin: no lesions Neurological: cranial nerve grossly intact Psychiatric - other findings: unable to access intubated Hosp A/P - Plan Acute respiratory failure Pneumonia due to COVID-19 virus Continue ventilator management per critical care team. Continue dexamethasone, s/p antibiotics Anemia most likely of anemia of chronic disease DVT Prophylaxis with lovenox Discussed with nursing vickie
[2020-11-08] MEDS: Sodium Chloride 0.9% 1,000 ML IV SCH (15:18)
--- NOTE | 2020-11-08 19:00 | PRG ---
DATE OF SERVICE: 11/08/2020 SUBJECTIVE: Ms. Bourgeois remains mechanically ventilated. OBJECTIVE: VITAL SIGNS: Blood pressure 141/89, heart rate is in the 60s, respiratory rates in the teens. LUNGS: Remarkable for equal breath sounds. HEART: Regular rhythm. ABDOMEN: Soft. EXTREMITIES: Without asymmetry. DIAGNOSTIC STUDIES: chest x-ray done a couple days. White count is 14.1, hemoglobin 9.44, platelets 222. Electrolytes are unremarkable. Bicarb is 37, BUN 18, creatinine 0.48. IMPRESSION: 1. COVID pneumonia with extremely poor lung compliance at this point in time. 2. We will continue mechanical ventilation, sedation, nutritional support, etc. Job ID: [id number]
[2020-11-09 04:37] LABS: #Basophils 0.3 thou/uL (0.0-0.2); #Eosinphils 0.1 thou/uL (0.0-0.7); #Monocytes 0.4 thou/uL (0.11-0.59); #Neutrophils 10.7 thou/uL (1.40-6.50); %Basophils 2.1 % (0.0-1.0); %Eosinophils 0.5 % (0.0-10.0); %Lymphocytes 8.2 % (21.0-51.0); %Monocytes 2.8 % (0.0-10.0); %Neutrophils 86.4 % (42.0-75.0); Hemoglobin 9.8 g/dL (12.0-16.0); Mean Corpuscular Hemoglobin 26.3 pg (27.0-31.0); Mean Platelet Volume 8.7 fL (7.4-10.4); Platelet Count 229 thou/uL (130-400); RBC Distribution Width 16.3 % (11.5-14.5); Red Blood Cell (RBC) Count 3.72 mill/uL (4.20-5.40); White Blood Cell (WBC) Count 12.4 thou/uL (4.8-10.8)
[2020-11-09 05:04] LABS: BUN (Urea Nitrogen) 16 mg/dL (9.8-20.1); Calc. Creatinine Clearance 174 mL/min (70-130); Calcium 8.8 mg/dL (7.8-10.44); Glucose 131 mg/dL (70-105)
[2020-11-09 05:13] LABS: Anion Gap 13 mmol/L (10-20); Carbon Dioxide 34 mmol/L (22-29); Chloride 93 mmol/L (98-107); Potassium 4.3 mmol/L (3.5-5.1); Sodium 136 mmol/L (136-145)
[2020-11-09] MEDS: GUAIFENESIN SF SOLN 200 MG/10 ML UDCUP PO SCH ×4 (05:41→23:09)
[2020-11-09] MEDS: Propofol 1,000 MG/100 ML VIAL IV PRN ×2 (06:44→13:52)
--- NOTE | 2020-11-09 09:19 | RAD ---
PORTABLE CHEST: 11/09/20 PROVIDED CLINICAL HISTORY: Respiratory insufficiency. COMPARISON: 11/06/2020 FINDINGS: Interval improvement in bilateral air space disease. Additional significant interval change with resp ect to the prior examination is not apparent. IMPRESSION: As above. POS: [place]
[2020-11-09] MEDS: Enoxaparin Sodium 40 MG/0.4 ML SYRINGE SC SCH ×2 (10:11→20:33)
[2020-11-09] MEDS: Polyethylene Glycol 3350 17 GM Packet PO SCH (10:11)
[2020-11-09] MEDS: Ascorbic Acid 500 mg Chewable Tablet PO SCH (10:12)
[2020-11-09] MEDS: Dexamethasone 4 mg/ml Vial SLOW IVP SCH ×2 (10:12→20:33)
[2020-11-09] MEDS: Cholecalciferol (Vitamin D3) 400 UNITS TAB PO SCH (10:12)
[2020-11-09] MEDS: Pantoprazole 40 MG GRANULES PACKET PER TUBE SCH (10:12)
[2020-11-09] MEDS: Lorazepam 2 MG/ML VIAL SLOW IVP PRN ×2 (10:13→17:35)
[2020-11-09] MEDS: Zinc Sulfate 220 MG CAP PO SCH (10:14)
[2020-11-09] MEDS: Sodium Chloride 0.9% 1,000 ML IV SCH (10:16)
--- NOTE | 2020-11-09 11:53 | PDOC.HOSPP ---
- Subjective Encounter Date: 11/09/20 - Objective Vital Signs & Weight: Vital Signs (12 hours) Temp Pulse Resp 11/09/20 10:57 87 11/09/20 07:00 58 L 11/09/20 06:00 16 11/09/20 04:00 98.3 F 17 11/09/20 02:59 61 11/09/20 02:00 20 11/09/20 00:00 98.7 F 18 Weight Admit Weight 199 lb 9.6 oz Weight 193 lb 12.581 oz Most Recent Monitor Data Heart Rate from ECG 57 NIBP 113/69 NIBP BP-Mean 83 Respiration from ECG 16 SpO2 100 I&O: 11/08/20 11/09/20 11/10/20 06:59 06:59 06:59 Intake Total 2416.1 3064.3 Output Total 4170 6400 Balance -1753.9 -3335.7 Result Diagrams: 11/09/20 03:45 11/09/20 03:45 Hospitalist ROS - Review of Systems ROS unobtainable: due to endotracheal tube - Medication Medications: Active Medications Generic Name Dose Route Start Last Admin Trade Name Freq PRN Reason Stop Dose Admin Acetaminophen 650 mg 10/17/20 04:16 10/26/20 20:20 Acetaminophen 325 Mg Tab PO 650 mg Q4H PRN Administration Headache/Fever/Mild Pain (1-3) Albuterol Sulfate 0 puff 10/23/20 09:50 10/29/20 18:58 Proventil Inhaler 6.7 G (200 Inhalations) INH 2 puff Q4H PRN Administration SOB &/or Wheezing Ascorbic Acid 1,000 mg 10/17/20 09:00 11/09/20 10:12 Ascorbic Acid 500 Mg Chewable Tablet PO 1,000 mg DAILY HEIDI Administration Benzonatate 100 mg 10/24/20 02:50 10/25/20 03:34 Benzonatate 100 Mg Cap PO 100 mg TIDPRN PRN Administration Cough Calcium Carbonate 1,000 mg 10/17/20 04:16 10/17/20 04:51 Calcium Carbonate 500 Mg Chewtab PO 1,000 mg Q4H PRN Administration Heartburn or Indigestion Cholecalciferol 400 units 10/17/20 09:00 11/09/20 10:12 Cholecalciferol (Vitamin D3) 400 Units Tab PO 400 units DAILY HEIDI Administration Dexamethasone 6 mg 11/07/20 21:00 11/09/20 10:12 Dexamethasone 4 Mg/Ml Vial SLOW IVP 6 mg BID HEIDI Administration Digoxin 0.125 mg 10/20/20 09:00 11/08/20 10:02 Digoxin 0.125 Mg Tab PO Not Given DAILY HEIDI Enoxaparin Sodium 40 mg 10/18/20 21:00 11/09/20 10:11 Enoxaparin Sodium 40 Mg/0.4 Ml Syringe SC 40 mg BID HEIDI Administration Guaifenesin 200 mg 10/30/20 12:00 11/09/20 10:11 Diabetic Tussin 200 Mg/10 Ml Udcup PO 200 mg Q6HR HEIDI Administration Guaifenesin/Codeine Phosphate 10 ml 10/20/20 13:04 11/06/20 18:05 Guaifenesin/Codeine 200 Mg/20 Mg 10 Ml Cup PO 10 ml Q6H PRN Administration Cough Sodium Chloride 1,000 mls @ 50 mls/hr 10/30/20 09:23 11/09/20 10:16 Normal Saline 0.9% IV 1,000 mls .Q20H HEIDI Administration Lactulose 20 gm 11/05/20 08:50 11/06/20 08:45 Lactulose 20 Gm/30 Ml Udcup PO 20 gm DAILYPRN PRN Administration Constipation Lorazepam 2 mg 11/07/20 19:35 11/09/20 10:13 Lorazepam 2 Mg/Ml Vial SLOW IVP 2 mg Q1H PRN Administration Breakthrough agitation Metoprolol Succinate 25 mg 10/20/20 21:00 11/08/20 20:01 Metoprolol Succinate Xl 25 Mg Tab PO 25 mg HS HEIDI Administration Pantoprazole Sodium 40 mg 10/30/20 09:00 11/09/20 10:12 Pantoprazole 40 Mg Granules Packet PER TUBE 40 mg DAILY HEIDI Administration Polyethylene Glycol 17 gm 11/03/20 09:00 11/09/20 10:11 Polyethylene Glycol 3350 17 Gm Packet PO 17 gm DAILY HEIDI Administration Propofol 1,000 mg 10/28/20 14:45 11/09/20 06:44 Propofol 1,000 Mg/100 Ml Vial IV 11/27/20 14:45 1,000 mg INF PRN Administration TO ACHIEVE GOAL RASS Protocol Sodium Chloride 10 ml 10/26/20 21:00 11/09/20 10:15 Flush - Normal Saline 10 Ml Syringe IVF 10 ml Q12HR HEIDI Administration Sodium Chloride 10 ml 10/26/20 10:30 11/05/20 09:02 Flush - Normal Saline 10 Ml Syringe IVF 10 ml PRN PRN Administration Saline Flush Vecuronium [place] 10 mg 10/28/20 12:54 11/03/20 00:14 Vecuronium 10 Mg Vial IV 10 mg Q1H PRN Administration Agitation Zinc Sulfate 220 mg 10/17/20 09:00 11/09/20 10:14 Zinc Sulfate 220 Mg Cap PO 220 mg DAILY HEIDI Administration - Exam General - other findings: orally intubated Eye: anicteric sclera ENT: normocephalic atraumatic Neck: supple Heart: no murmur Respiratory - other findings: decrease air [place] b/l Gastrointestinal: soft Extremities: no cyanosis Neurological: cranial nerve grossly intact Musculoskeletal: normal tone Psychiatric: normal affect Hosp A/P - Plan Acute respiratory failure Pneumonia due to COVID-19 virus Continue ventilator management per critical care team and wean as tolerated Continue dexamethasone, s/p antibiotics Anemia most likely of anemia of chronic disease DVT Prophylaxis with lovenox Discussed with nursing staff
[2020-11-09] MEDS: Digoxin 0.125 MG TAB PO SCH (13:17)
[2020-11-09] MEDS ORDERED: Fentanyl CADD 100 ML ONE (15:28)
--- NOTE | 2020-11-09 16:19 | PRG ---
DATE OF SERVICE: 11/09/2020 SUBJECTIVE: Abida Bourgeois remains mechanically ventilated. We have decreased her high PEEP some today. OBJECTIVE: VITAL SIGNS: Heart rate 70s, blood pressure 137/99, FiO2 is at 40%, and respiratory rates in the teens. LUNGS: Remarkable for equal breath sounds. HEART: Regular rhythm. ABDOMEN: Soft. EXTREMITIES: Without asymmetry or edema. DIAGNOSTIC STUDIES: Chest x-ray reviewed by me shows actually surprising improvement in both lungs. LABORATORY DATA: White count 12.4, hemoglobin 9.8, and platelets 229. Sodium 141, potassium 4.8, chloride 93, bicarb 37, BUN 18, and creatinine 0.48. IMPRESSION: Respiratory failure secondary to COVID pneumonia, perhaps improving slowly. We will continue supportive care. Job ID: [id number]
[2020-11-10 04:25] LABS: BUN (Urea Nitrogen) 17 mg/dL (9.8-20.1); Calc. Creatinine Clearance 169 mL/min (70-130); Calcium 8.5 mg/dL (7.8-10.44); Glucose 128 mg/dL (70-105)
[2020-11-10 04:34] LABS: Anion Gap 12 mmol/L (10-20); Carbon Dioxide 36 mmol/L (22-29); Chloride 96 mmol/L (98-107); Hemoglobin 9.4 g/dL (12.0-16.0); Mean Corpuscular HGB CONC 31.4 g/dL (32.0-36.0); Mean Corpuscular Hemoglobin 26.8 pg (27.0-31.0); Mean Corpuscular Volume 85.2 fL (78.0-98.0); Mean Platelet Volume 8.8 fL (7.4-10.4); Platelet Count 210 thou/uL (130-400); Potassium 4.3 mmol/L (3.5-5.1); RBC Distribution Width 16.3 % (11.5-14.5); Red Blood Cell (RBC) Count 3.52 mill/uL (4.20-5.40); Sodium 140 mmol/L (136-145); White Blood Cell (WBC) Count 11.3 thou/uL (4.8-10.8)
[2020-11-10 04:35] LABS: Band 4 % (5-11); Lymphocytes 9 % (21-51); MDiff Complete? YES; Metamyelocyte 1 % (0-0); Monocytes 5 % (0-10); Myelocyte 2 % (0-0); Neutrophil 79 % (42-75); Platelet Morphology Comment Appears Adequate
[2020-11-10] MEDS ORDERED: Fentanyl CADD 100 ML ONE (05:34)
[2020-11-10] MEDS: Propofol 1,000 MG/100 ML VIAL IV PRN ×3 (05:35→20:19)
[2020-11-10] MEDS: Sodium Chloride 0.9% 1,000 ML IV SCH ×2 (05:35→22:26)
[2020-11-10] MEDS: GUAIFENESIN SF SOLN 200 MG/10 ML UDCUP PO SCH ×3 (05:36→20:20)
[2020-11-10] MEDS: Dexamethasone 4 mg/ml Vial SLOW IVP SCH ×2 (08:24→20:18)
[2020-11-10] MEDS: Ascorbic Acid 500 mg Chewable Tablet PO SCH (08:25)
[2020-11-10] MEDS: Enoxaparin Sodium 40 MG/0.4 ML SYRINGE SC SCH ×2 (08:25→20:19)
[2020-11-10] MEDS: Zinc Sulfate 220 MG CAP PO SCH (08:25)
[2020-11-10] MEDS: Cholecalciferol (Vitamin D3) 400 UNITS TAB PO SCH (08:25)
[2020-11-10] MEDS: Pantoprazole 40 MG GRANULES PACKET PER TUBE SCH (08:25)
--- NOTE | 2020-11-10 09:01 | PRG ---
DATE OF SERVICE: 11/10/2020 SUBJECTIVE: Abida Bourgeois remains intubated on the vent. OBJECTIVE: VITAL SIGNS: Temperature 98, pulse 67, she is on 40% FiO2 with sats of 100%, low PEEP of 8, blood pressure 120/70. CHEST: No wheezing. No crackles. CARDIAC: Normal S1. ABDOMEN: No masses. LABORATORY DATA: White count is 11,000. Creatinine is normal. Bicarb is 36. IMPRESSION: Acute on chronic respiratory failure, probably underlying sleep apnea. PLAN: Trach and a PEG. X-ray is much improved. Slow weaning. One-half hour of critical time. Job ID: [id number]
[2020-11-10] MEDS: Polyethylene Glycol 3350 17 GM Packet PO SCH (09:17)
[2020-11-10] MEDS: Lorazepam 2 MG/ML VIAL SLOW IVP PRN (09:19)
--- NOTE | 2020-11-10 09:26 | PDOC.HOSPP ---
- Subjective Encounter Date: 11/10/20 Encounter Time: 11:30 Subjective: Patient stable on the vent. No events overnight. Brother is at bedside. Plan is for a trach and a PEG. Currently they are trying to get consent from patient's child. - Objective Vital Signs & Weight: Vital Signs (12 hours) Temp Pulse Resp 11/10/20 07:41 67 11/10/20 06:00 18 11/10/20 04:00 98.0 F 16 11/10/20 02:00 16 11/10/20 01:50 58 L 11/10/20 00:00 98.3 F 22 H 11/09/20 23:11 62 11/09/20 22:00 23 H Weight Admit Weight 199 lb 9.6 oz Weight 193 lb 5.526 oz Most Recent Monitor Data Heart Rate from ECG 58 NIBP 123/70 NIBP BP-Mean 87 Respiration from ECG 23 SpO2 96 I&O: 11/09/20 11/10/20 11/11/20 06:59 06:59 06:59 Intake Total 3064.3 2568.6 Output Total 6400 2545 Balance -3335.7 23.6 Result Diagrams: 11/10/20 03:20 11/10/20 03:20 Hospitalist ROS - Review of Systems ROS unobtainable: due to endotracheal tube - Medication Medications: Active Medications Generic Name Dose Route Start Last Admin Trade Name Freq PRN Reason Stop Dose Admin Acetaminophen 650 mg 10/17/20 04:16 10/26/20 20:20 Acetaminophen 325 Mg Tab PO 650 mg Q4H PRN Administration Headache/Fever/Mild Pain (1-3) Albuterol Sulfate 0 puff 10/23/20 09:50 10/29/20 18:58 Proventil Inhaler 6.7 G (200 Inhalations) INH 2 puff Q4H PRN Administration SOB &/or Wheezing Ascorbic Acid 1,000 mg 10/17/20 09:00 11/10/20 08:25 Ascorbic Acid 500 Mg Chewable Tablet PO 1,000 mg DAILY HEIDI Administration Benzonatate 100 mg 10/24/20 02:50 10/25/20 03:34 Benzonatate 100 Mg Cap PO 100 mg TIDPRN PRN Administration Cough Calcium Carbonate 1,000 mg 10/17/20 04:16 10/17/20 04:51 Calcium Carbonate 500 Mg Chewtab PO 1,000 mg Q4H PRN Administration Heartburn or Indigestion Cholecalciferol 400 units 10/17/20 09:00 11/10/20 08:25 Cholecalciferol (Vitamin D3) 400 Units Tab PO 400 units DAILY HEIDI Administration Dexamethasone 6 mg 11/07/20 21:00 11/10/20 08:24 Dexamethasone 4 Mg/Ml Vial SLOW IVP 6 mg BID HEIDI Administration Enoxaparin Sodium 40 mg 10/18/20 21:00 11/10/20 08:25 Enoxaparin Sodium 40 Mg/0.4 Ml Syringe SC 40 mg BID HEIDI Administration Guaifenesin 200 mg 10/30/20 12:00 11/10/20 05:36 Diabetic Tussin 200 Mg/10 Ml Udcup PO 200 mg Q6HR HEIDI Administration Guaifenesin/Codeine Phosphate 10 ml 10/20/20 13:04 11/06/20 18:05 Guaifenesin/Codeine 200 Mg/20 Mg 10 Ml Cup PO 10 ml Q6H PRN Administration Cough Sodium Chloride 1,000 mls @ 50 mls/hr 10/30/20 09:23 11/10/20 05:35 Normal Saline 0.9% IV 1,000 mls .Q20H HEIDI Administration Lactulose 20 gm 11/05/20 08:50 11/10/20 09:17 Lactulose 20 Gm/30 Ml Udcup PO 20 gm DAILYPRN PRN Administration Constipation Lorazepam 2 mg 11/07/20 19:35 11/10/20 09:19 Lorazepam 2 Mg/Ml Vial SLOW IVP 2 mg Q1H PRN Administration Breakthrough agitation Metoprolol Succinate 25 mg 10/20/20 21:00 11/09/20 20:34 Metoprolol Succinate Xl 25 Mg Tab PO 25 mg HS HEIDI Administration Pantoprazole Sodium 40 mg 10/30/20 09:00 11/10/20 08:25 Pantoprazole 40 Mg Granules Packet PER TUBE 40 mg DAILY HEIDI Administration Polyethylene Glycol 17 gm 11/03/20 09:00 11/10/20 09:17 Polyethylene Glycol 3350 17 Gm Packet PO 17 gm DAILY HEIDI Administration Propofol 1,000 mg 10/28/20 14:45 11/10/20 05:35 Propofol 1,000 Mg/100 Ml Vial IV 02/11/21 14:45 1,000 mg INF PRN Administration TO ACHIEVE GOAL RASS Protocol Sodium Chloride 10 ml 10/26/20 21:00 11/10/20 08:26 Flush - Normal Saline 10 Ml Syringe IVF 10 ml Q12HR HEIDI Administration Sodium Chloride 10 ml 10/26/20 10:30 11/05/20 09:02 Flush - Normal Saline 10 Ml Syringe IVF 10 ml PRN PRN Administration Saline Flush Vecuronium [place] 10 mg 10/28/20 12:54 11/03/20 00:14 Vecuronium 10 Mg Vial IV 10 mg Q1H PRN Administration Agitation Zinc Sulfate 220 mg 10/17/20 09:00 11/10/20 08:25 Zinc Sulfate 220 Mg Cap PO 220 mg DAILY HEIDI Administration - Exam General - other findings: Sedated on the vent ENT: moist mucosa ENT - other findings: ET tube and OG tube in place Heart: RRR, no murmur, no gallops, no rubs Respiratory: CTAB, no wheezes, no rales, no ronchi Respiratory - other findings: Good air movement on the vent Gastrointestinal: soft, non-tender, non-distended, normal bowel sounds Extremities: no edema Psychiatric - other findings: Sedated and minimally responsive Hosp A/P (1) Acute respiratory failure with hypoxia Code(s): J96.01 - ACUTE RESPIRATORY FAILURE WITH HYPOXIA Status: Acute (2) Pneumonia due to COVID-19 virus Code(s): U07.1 - COVID-19; J12.89 - OTHER VIRAL PNEUMONIA Status: Acute (3) HTN (hypertension) Code(s): I10 - ESSENTIAL (PRIMARY) HYPERTENSION Status: Chronic Qualifiers: Hypertension type: essential hypertension Qualified Code(s): I10 - Essential (primary) hypertension (4) MYLA (obstructive sleep apnea) Code(s): G47.33 - OBSTRUCTIVE SLEEP APNEA (ADULT) (PEDIATRIC) Status: Suspected - Plan Continue ventilator management per critical care team. She is on pressure support setting and her PEEP is being weaned off as tolerated. She remains mildly bradycardic. Not ready to be weaned off yet per pulmonology. Continue dexamethasone and anticoagulation. Off antibiotics Plan is for Trach and PEG, currently obtaining informed consent from family.
[2020-11-11] MEDS: Fentanyl CADD 100 ML IV SCH ×2 (00:16→20:38)
[2020-11-11] MEDS: GUAIFENESIN SF SOLN 200 MG/10 ML UDCUP PO SCH ×5 (01:06→20:09)
[2020-11-11] MEDS: Propofol 1,000 MG/100 ML VIAL IV PRN ×4 (03:50→20:09)
[2020-11-11 03:51] LABS: #Lymphocytes 1.5 thou/uL (1.20-3.40); #Monocytes 0.5 thou/uL (0.11-0.59); #Neutrophils 9.2 thou/uL (1.40-6.50); %Basophils 0.2 % (0.0-1.0); %Eosinophils 0.4 % (0.0-10.0); %Monocytes 4.1 % (0.0-10.0); %Neutrophils 82.3 % (42.0-75.0); Hemoglobin 9.5 g/dL (12.0-16.0); Mean Corpuscular HGB CONC 32.7 g/dL (32.0-36.0); Mean Corpuscular Hemoglobin 27.8 pg (27.0-31.0); Mean Corpuscular Volume 84.9 fL (78.0-98.0); Mean Platelet Volume 8.7 fL (7.4-10.4); Platelet Count 202 thou/uL (130-400); RBC Distribution Width 16.2 % (11.5-14.5); Red Blood Cell (RBC) Count 3.42 mill/uL (4.20-5.40); White Blood Cell (WBC) Count 11.2 thou/uL (4.8-10.8)
[2020-11-11 04:29] LABS: Anion Gap 12 mmol/L (10-20); BUN (Urea Nitrogen) 16 mg/dL (9.8-20.1); Calc. Creatinine Clearance 207 mL/min (70-130); Calcium 8.6 mg/dL (7.8-10.44); Carbon Dioxide 32 mmol/L (22-29); Chloride 98 mmol/L (98-107); Glucose 118 mg/dL (70-105); Potassium 3.7 mmol/L (3.5-5.1); Sodium 138 mmol/L (136-145)
[2020-11-11] MEDS ORDERED: Rocuronium Bromide 10 MG/ML (10ML VIAL) ONE (09:00)
[2020-11-11] MEDS ORDERED: PHENYLEPHRINE-NS 100 MCG/ML 10 ML SYRINGE ONE (09:00)
[2020-11-11] MEDS ORDERED: Dexamethasone 20 MG/5 ML VIAL ONE (09:00)
--- NOTE | 2020-11-11 09:06 | PDOC.HOSPP ---
- Subjective Encounter Date: 11/11/20 Encounter Time: 11:50 Subjective: Patient remains sedated on the vent. No events overnight. Plan for PEG and trach this week. - Objective Vital Signs & Weight: Vital Signs (12 hours) Temp Pulse Resp BP 11/11/20 08:32 56 L 91/47 L 11/11/20 08:00 97.4 F L 11/11/20 06:00 23 H 11/11/20 03:30 16 11/11/20 02:09 61 115/65 11/11/20 00:00 16 11/10/20 22:09 61 11/10/20 22:00 29 H Weight Admit Weight 199 lb 9.6 oz Weight 2.91 oz Most Recent Monitor Data Heart Rate from ECG 54 NIBP 96/50 NIBP BP-Mean 65 Respiration from ECG 18 SpO2 100 I&O: 11/10/20 11/11/20 11/12/20 06:59 06:59 06:59 Intake Total 2568.6 2132.8 Output Total 2545 3475 140 Balance 23.6 -1342.2 -140 Result Diagrams: 11/11/20 03:23 11/11/20 03:23 Hospitalist ROS - Review of Systems ROS unobtainable: due to endotracheal tube - Medication Medications: Active Medications Generic Name Dose Route Start Last Admin Trade Name Freq PRN Reason Stop Dose Admin Acetaminophen 650 mg 10/17/20 04:16 10/26/20 20:20 Acetaminophen 325 Mg Tab PO 650 mg Q4H PRN Administration Headache/Fever/Mild Pain (1-3) Albuterol Sulfate 0 puff 10/23/20 09:50 10/29/20 18:58 Proventil Inhaler 6.7 G (200 Inhalations) INH 2 puff Q4H PRN Administration SOB &/or Wheezing Ascorbic Acid 1,000 mg 10/17/20 09:00 11/10/20 08:25 Ascorbic Acid 500 Mg Chewable Tablet PO 1,000 mg DAILY HEIDI Administration Benzonatate 100 mg 10/24/20 02:50 10/25/20 03:34 Benzonatate 100 Mg Cap PO 100 mg TIDPRN PRN Administration Cough Calcium Carbonate 1,000 mg 10/17/20 04:16 10/17/20 04:51 Calcium Carbonate 500 Mg Chewtab PO 1,000 mg Q4H PRN Administration Heartburn or Indigestion Cholecalciferol 400 units 10/17/20 09:00 11/10/20 08:25 Cholecalciferol (Vitamin D3) 400 Units Tab PO 400 units DAILY HEIDI Administration Dexamethasone 6 mg 11/07/20 21:00 11/10/20 20:18 Dexamethasone 4 Mg/Ml Vial SLOW IVP 6 mg BID HEIDI Administration Enoxaparin Sodium 40 mg 10/18/20 21:00 11/10/20 20:19 Enoxaparin Sodium 40 Mg/0.4 Ml Syringe SC 40 mg BID HEIDI Administration Guaifenesin 200 mg 10/30/20 12:00 11/11/20 05:51 Diabetic Tussin 200 Mg/10 Ml Udcup PO 200 mg Q6HR HEIDI Administration Guaifenesin/Codeine Phosphate 10 ml 10/20/20 13:04 11/06/20 18:05 Guaifenesin/Codeine 200 Mg/20 Mg 10 Ml Cup PO 10 ml Q6H PRN Administration Cough Sodium Chloride 1,000 mls @ 50 mls/hr 10/30/20 09:23 11/10/20 22:26 Normal Saline 0.9% IV 1,000 mls .Q20H HEIDI Administration Fentanyl 100 mls @ 0 mls/hr 11/07/20 19:45 11/11/20 00:16 Fentanyl Cadd IV 100 mls INF HEIDI Administration Protocol Per Protocol Lactulose 20 gm 11/05/20 08:50 11/10/20 09:17 Lactulose 20 Gm/30 Ml Udcup PO 20 gm DAILYPRN PRN Administration Constipation Lorazepam 2 mg 11/07/20 19:35 11/10/20 09:19 Lorazepam 2 Mg/Ml Vial SLOW IVP 2 mg Q1H PRN Administration Breakthrough agitation Metoprolol Succinate 25 mg 10/20/20 21:00 11/10/20 20:16 Metoprolol Succinate Xl 25 Mg Tab PO Not Given HS HEIDI Pantoprazole Sodium 40 mg 10/30/20 09:00 11/10/20 08:25 Pantoprazole 40 Mg Granules Packet PER TUBE 40 mg DAILY HEIDI Administration Polyethylene Glycol 17 gm 11/03/20 09:00 11/10/20 09:17 Polyethylene Glycol 3350 17 Gm Packet PO 17 gm DAILY HEIDI Administration Propofol 1,000 mg 10/28/20 14:45 11/11/20 05:51 Propofol 1,000 Mg/100 Ml Vial IV 11/27/20 14:45 1,000 mg INF PRN Administration TO ACHIEVE GOAL RASS Protocol Sodium Chloride 10 ml 10/26/20 21:00 11/10/20 20:16 Flush - Normal Saline 10 Ml Syringe IVF 10 ml Q12HR HEIDI Administration Sodium Chloride 10 ml 10/26/20 10:30 11/05/20 09:02 Flush - Normal Saline 10 Ml Syringe IVF 10 ml PRN PRN Administration Saline Flush Zinc Sulfate 220 mg 10/17/20 09:00 11/10/20 08:25 Zinc Sulfate 220 Mg Cap PO 220 mg DAILY HEIDI Administration Hospitalist Exam Vitals: Vital Signs (12 hours) Temp Pulse Resp BP 11/11/20 08:32 56 L 91/47 L 11/11/20 08:00 97.4 F L 11/11/20 06:00 23 H 11/11/20 03:30 16 11/11/20 02:09 61 115/65 11/11/20 00:00 16 11/10/20 22:09 61 11/10/20 22:00 29 H Weight Admit Weight 199 lb 9.6 oz Weight 2.91 oz Most Recent Monitor Data Heart Rate from ECG 54 NIBP 96/50 NIBP BP-Mean 65 Respiration from ECG 18 SpO2 100 General - other findings: Sedated on the vent, no distress ENT: moist mucosa ENT - other findings: ET tube in place Heart: RRR, no murmur, no gallops, no rubs Respiratory: CTAB, no wheezes, no rales, no ronchi Gastrointestinal: soft, non-tender, non-distended, normal bowel sounds Extremities: no edema Psychiatric - other findings: Sedated Hosp A/P (1) Acute respiratory failure with hypoxia Code(s): J96.01 - ACUTE RESPIRATORY FAILURE WITH HYPOXIA Status: Acute (2) Pneumonia due to COVID-19 virus Code(s): U07.1 - COVID-19; J12.89 - OTHER VIRAL PNEUMONIA Status: Acute (3) HTN (hypertension) Code(s): I10 - ESSENTIAL (PRIMARY) HYPERTENSION Status: Chronic Qualifiers: Hypertension type: essential hypertension Qualified Code(s): I10 - Essential (primary) hypertension (4) MYLA (obstructive sleep apnea) Code(s): G47.33 - OBSTRUCTIVE SLEEP APNEA (ADULT) (PEDIATRIC) Status: Suspected - Plan Continue ventilator management per critical care team. She is on pressure support setting and her PEEP is being weaned off as tolerated. Bradycardia has resolved. Not ready to be weaned off yet per pulmonology. Continue dexamethasone and anticoagulation. Off antibiotics Plan is for Trach and PEG, family has given informed consent.
--- NOTE | 2020-11-11 09:15 | PRG ---
DATE OF SERVICE: SUBJECTIVE: Abida Bourgeois is a morbidly obese female, who has been intubated on the vent for a prolonged period of time, though she is slowly getting better, day 25, in the hospital, process of calling Surgery to do a trach and a PEG. OBJECTIVE: VITAL SIGNS: Temperature 97, pulse 56, blood pressure 90/47. Her sats on 35% FiO2, PEEP of 8, 98%. I's and O's have been good. CHEST: No wheezing. No crackles. CARDIAC: Normal S1. ABDOMEN: No masses. ASSESSMENT: Respiratory failure, payan positive pneumonia, prolonged intubation, morbid obesity, probably sleep apnea. PLAN: Trach and PEG are being ordered, we will start weaning thereafter. Discontinue paralytics and minimize sedation. Nutrition. One-half hour of critical care time. Job ID: [id number]
[2020-11-11] MEDS: Dexamethasone 4 mg/ml Vial SLOW IVP SCH ×2 (09:48→20:33)
[2020-11-11] MEDS: Zinc Sulfate 220 MG CAP PO SCH (09:48)
[2020-11-11] MEDS: Cholecalciferol (Vitamin D3) 400 UNITS TAB PO SCH (09:48)
[2020-11-11] MEDS: Pantoprazole 40 MG GRANULES PACKET PER TUBE SCH (09:49)
[2020-11-11] MEDS: Ascorbic Acid 500 mg Chewable Tablet PO SCH (09:53)
[2020-11-11] MEDS: Sodium Chloride 0.9% 1,000 ML IV SCH ×2 (13:55→20:47)
[2020-11-11] MEDS ORDERED: Bupivacaine PF 0.5% 30 ML VIAL ONE (15:34)
[2020-11-11] MEDS ORDERED: XYLOCAINE 2%-EPI 1:100,000 20 ML VIAL ONE (15:34)
[2020-11-11] MEDS: Polyethylene Glycol 3350 17 GM Packet PO SCH (17:00)
[2020-11-11] MEDS: Enoxaparin Sodium 40 MG/0.4 ML SYRINGE SC SCH ×2 (17:03→20:10)
[2020-11-11] MEDS ORDERED: Fentanyl 100 MCG/2 ML VIAL ONE (17:07)
[2020-11-11] MEDS ORDERED: Midazolam HCl 2 mg/2 ml Vial ONE (17:07)
[2020-11-11] MEDS ORDERED: Fentanyl CADD 100 ML ONE (20:36)
--- NOTE | 2020-11-11 23:51 | OP ---
DATE OF PROCEDURE: 11/11/2020 PREOPERATIVE DIAGNOSES: COVID pneumonia, respiratory failure, malnutrition, and oropharyngeal dysphagia. POSTOPERATIVE DIAGNOSES: COVID pneumonia, respiratory failure, malnutrition, and oropharyngeal dysphagia. PROCEDURES PERFORMED: #8 Shiley low-pressure cuffed tracheostomy tube and percutaneous endoscopic gastrostomy tube. ANESTHESIA: General anesthesia, local with 0.5% Marcaine 30 mL mixed with 1% Xylocaine with epinephrine 20 mL. DESCRIPTION OF PROCEDURE: The patient was taken to the operating room, where under general anesthesia, neck and chest and abdomen were prepared with ChloraPrep and draped in routine fashion. Local anesthetic was infiltrated in the skin and subcutaneous tissue about the operative site. Incision made transversely in the anterior neck above the manubrium, carried down to skin and platysma. Strap muscles dissected free and reflected laterally. Thyroid isthmus divided the midline over the trachea and bilateral anterolateral 3-0 Prolene sutures placed and air knots tied, anterior tracheal window excised over 2 cartilaginous rings below the cricoid, visualizing the endotracheal tube and under direct visualization, endotracheal tube withdrawn and #8 Shiley low-pressure cuffed tracheostomy inserted under direct visualization of the trachea, balloon inflated, connected to the ventilator with good oxygenation and CO2 return. Tommy placed in the subcutaneous tissue. Good hemostasis noted. Skin approximated with 3-0 Prolene on either side and tracheostomy appliance secured with 3-0 Prolene suture. Tracheostomy device secured with the securing strap and sterile dressing applied. The patient tolerated the procedure well. Endoscope was placed per os under direct visualization and using air insufflation passed throughout the esophagus into the stomach, noting a good indentation in left subxiphoid, where a stab incision was made and trocar catheter induced percutaneously into the gastric lumen, visualized endoscopically. Introducing a wire grasped with a snare, bringing the endoscope snare and wire out through the mouth. Visualized stomach and esophagus were normal. Feeding tube lubricated connected to the wire and brought down the esophagus, secured to the abdominal wall with a fixation device. Tube tailored to length and a fixation device, and a clamp applied and feeding device applied. The patient tolerated the procedure well. Job ID: [id number]
[2020-11-12] MEDS: Propofol 1,000 MG/100 ML VIAL IV PRN ×3 (04:07→21:41)
[2020-11-12 04:53] LABS: Band 2 % (5-11); Hemoglobin 9.3 g/dL (12.0-16.0); Lymphocytes 12 % (21-51); MDiff Complete? YES; Mean Corpuscular Hemoglobin 28.6 pg (27.0-31.0); Mean Corpuscular Volume 86.9 fL (78.0-98.0); Mean Platelet Volume 8.6 fL (7.4-10.4); Neutrophil 86 % (42-75); Platelet Count 191 thou/uL (130-400); Platelet Morphology Comment Appears Adequate; RBC Distribution Width 16.7 % (11.5-14.5); Red Blood Cell (RBC) Count 3.24 mill/uL (4.20-5.40); White Blood Cell (WBC) Count 9.4 thou/uL (4.8-10.8)
[2020-11-12 05:29] LABS: Anion Gap 12 mmol/L (10-20); BUN (Urea Nitrogen) 11 mg/dL (9.8-20.1); Calc. Creatinine Clearance 160 mL/min (70-130); Calcium 8.1 mg/dL (7.8-10.44); Carbon Dioxide 33 mmol/L (22-29); Chloride 99 mmol/L (98-107); Glucose 104 mg/dL (70-105); Potassium 3.5 mmol/L (3.5-5.1); Sodium 140 mmol/L (136-145)
[2020-11-12] MEDS: GUAIFENESIN SF SOLN 200 MG/10 ML UDCUP PO SCH ×4 (06:24→20:47)
--- NOTE | 2020-11-12 07:53 | PDOC.HOSPP ---
- Subjective Encounter Date: 11/12/20 Encounter Time: 08:40 Subjective: Patient had a run of 5 minutes of SVT this morning. It did resolve spontaneously. Nurse reports that for some reason patient's metoprolol was not given. She is written for extended release metoprolol. We will changed to s hort acting twice a day to allow it to be crushed. Patient had PEG and tracheostomy placed yesterday evening. - Objective Vital Signs & Weight: Vital Signs (12 hours) Pulse Resp BP 11/12/20 04:00 16 11/12/20 01:54 54 L 88/51 L 11/12/20 00:00 14 11/11/20 22:01 68 105/63 11/11/20 20:00 14 Weight Admit Weight 199 lb 9.6 oz Weight 188 lb 0.869 oz Most Recent Monitor Data Heart Rate from ECG 78 NIBP 157/77 NIBP BP-Mean 103 Respiration from ECG 21 SpO2 96 I&O: 11/11/20 11/12/20 11/13/20 06:59 06:59 06:59 Intake Total 2132.8 1965.5 Output Total 3475 3510 Balance -1342.2 -1544.5 Result Diagrams: 11/12/20 03:45 11/12/20 03:45 Hospitalist ROS - Review of Systems ROS unobtainable: due to endotracheal tube - Medication Medications: Active Medications Generic Name Dose Route Start Last Admin Trade Name Freq PRN Reason Stop Dose Admin Acetaminophen 650 mg 10/17/20 04:16 10/26/20 20:20 Acetaminophen 325 Mg Tab PO 650 mg Q4H PRN Administration Headache/Fever/Mild Pain (1-3) Albuterol Sulfate 0 puff 10/23/20 09:50 10/29/20 18:58 Proventil Inhaler 6.7 G (200 Inhalations) INH 2 puff Q4H PRN Administration SOB &/or Wheezing Ascorbic Acid 1,000 mg 10/17/20 09:00 11/11/20 09:53 Ascorbic Acid 500 Mg Chewable Tablet PO 1,000 mg DAILY HEIDI Administration Benzonatate 100 mg 10/24/20 02:50 10/25/20 03:34 Benzonatate 100 Mg Cap PO 100 mg TIDPRN PRN Administration Cough Calcium Carbonate 1,000 mg 10/17/20 04:16 10/17/20 04:51 Calcium Carbonate 500 Mg Chewtab PO 1,000 mg Q4H PRN Administration Heartburn or Indigestion Cholecalciferol 400 units 10/17/20 09:00 11/11/20 09:48 Cholecalciferol (Vitamin D3) 400 Units Tab PO 400 units DAILY HEIDI Administration Dexamethasone 6 mg 11/07/20 21:00 11/11/20 20:33 Dexamethasone 4 Mg/Ml Vial SLOW IVP 6 mg BID HEIDI Administration Enoxaparin Sodium 40 mg 10/18/20 21:00 11/11/20 20:10 Enoxaparin Sodium 40 Mg/0.4 Ml Syringe SC 40 mg BID HEIDI Administration Guaifenesin 200 mg 10/30/20 12:00 11/12/20 06:24 Diabetic Tussin 200 Mg/10 Ml Udcup PO 200 mg Q6HR HEIDI Administration Guaifenesin/Codeine Phosphate 10 ml 10/20/20 13:04 11/06/20 18:05 Guaifenesin/Codeine 200 Mg/20 Mg 10 Ml Cup PO 10 ml Q6H PRN Administration Cough Sodium Chloride 1,000 mls @ 50 mls/hr 10/30/20 09:23 11/11/20 20:47 Normal Saline 0.9% IV 1,000 mls .Q20H HEIDI Administration Fentanyl 100 mls @ 0 mls/hr 11/07/20 19:45 11/11/20 20:38 Fentanyl Cadd IV 100 mls INF HEIDI Administration Protocol Per Protocol Lactulose 20 gm 11/05/20 08:50 11/10/20 09:17 Lactulose 20 Gm/30 Ml Udcup PO 20 gm DAILYPRN PRN Administration Constipation Lorazepam 2 mg 11/07/20 19:35 11/10/20 09:19 Lorazepam 2 Mg/Ml Vial SLOW IVP 2 mg Q1H PRN Administration Breakthrough agitation Metoprolol Succinate 25 mg 10/20/20 21:00 11/11/20 20:10 Metoprolol Succinate Xl 25 Mg Tab PO Not Given HS HEIDI Pantoprazole Sodium 40 mg 10/30/20 09:00 11/11/20 09:49 Pantoprazole 40 Mg Granules Packet PER TUBE 40 mg DAILY HEIDI Administration Polyethylene Glycol 17 gm 11/03/20 09:00 11/11/20 17:00 Polyethylene Glycol 3350 17 Gm Packet PO Not Given DAILY HEIDI Propofol 1,000 mg 10/28/20 14:45 11/12/20 06:24 Propofol 1,000 Mg/100 Ml Vial IV 11/27/20 14:45 1,000 mg INF PRN Administration TO ACHIEVE GOAL RASS Protocol Sodium Chloride 10 ml 10/26/20 21:00 11/11/20 20:10 Flush - Normal Saline 10 Ml Syringe IVF 10 ml Q12HR HEIDI Administration Sodium Chloride 10 ml 10/26/20 10:30 11/05/20 09:02 Flush - Normal Saline 10 Ml Syringe IVF 10 ml PRN PRN Administration Saline Flush Zinc Sulfate 220 mg 10/17/20 09:00 11/11/20 09:48 Zinc Sulfate 220 Mg Cap PO 220 mg DAILY HEIDI Administration Hospitalist Exam Vitals: Vital Signs (12 hours) Pulse Resp BP 11/12/20 04:00 16 11/12/20 01:54 54 L 88/51 L 11/12/20 00:00 14 11/11/20 22:01 68 105/63 11/11/20 20:00 14 Weight Admit Weight 199 lb 9.6 oz Weight 188 lb 0.869 oz Most Recent Monitor Data Heart Rate from ECG 78 NIBP 157/77 NIBP BP-Mean 103 Respiration from ECG 21 SpO2 96 General - other findings: Sedated on the vent ENT: moist mucosa ENT - other findings: Tracheostomy in place Heart: RRR, no murmur, no gallops, no rubs Respiratory: CTAB, no wheezes, no rales, no ronchi Gastrointestinal: soft, non-tender, non-distended, normal bowel sounds Gastrointestinal - other findings: PEG tube in place Psychiatric - other findings: Sedated on the vent Hosp A/P (1) Acute respiratory failure with hypoxia Code(s): J96.01 - ACUTE RESPIRATORY FAILURE WITH HYPOXIA Status: Acute (2) Pneumonia due to COVID-19 virus Code(s): U07.1 - COVID-19; J12.89 - OTHER VIRAL PNEUMONIA Status: Acute (3) HTN (hypertension) Code(s): I10 - ESSENTIAL (PRIMARY) HYPERTENSION Status: Chronic Qualifiers: Hypertension type: essential hypertension Qualified Code(s): I10 - Essential (primary) hypertension (4) MYLA (obstructive sleep apnea) Code(s): G47.33 - OBSTRUCTIVE SLEEP APNEA (ADULT) (PEDIATRIC) Status: Suspected (5) Hx of supraventricular tachycardia Code(s): Z86.79 - PERSONAL HISTORY OF OTHER DISEASES OF THE CIRCULATORY SYSTEM Status: Chronic - Plan Continue ventilator management per critical care team. She is on pressure support setting and her PEEP is being weaned off as tolerated. Bradycardia has resolved. 5-minute run of SVT with history of paroxysmal SVT. Will resume patient's metoprolol. If recurs on metoprolol will consult cardiology. Not ready to be weaned off yet per pulmonology. Continue dexamethasone and anticoagulation. Off antibiotics Status post trach and PEG yesterday evening by Dr. Jaimes. Patient will need LTAC most likely.
[2020-11-12] MEDS: ALPRAZolam 0.25 MG TAB PO SCH ×3 (09:16→20:44)
[2020-11-12] MEDS: Metoprolol Tartrate 25 MG TAB PO SCH ×2 (09:16→20:44)
[2020-11-12] MEDS: Ascorbic Acid 500 mg Chewable Tablet PO SCH (09:16)
[2020-11-12] MEDS: Cholecalciferol (Vitamin D3) 400 UNITS TAB PO SCH (09:17)
[2020-11-12] MEDS: Pantoprazole 40 MG GRANULES PACKET PER TUBE SCH (09:17)
[2020-11-12] MEDS: Dexamethasone 4 mg/ml Vial SLOW IVP SCH ×2 (09:17→20:45)
[2020-11-12] MEDS: Polyethylene Glycol 3350 17 GM Packet PO SCH (09:17)
[2020-11-12] MEDS: Enoxaparin Sodium 40 MG/0.4 ML SYRINGE SC SCH ×2 (09:17→20:45)
[2020-11-12] MEDS: Zinc Sulfate 220 MG CAP PO SCH (09:18)
--- NOTE | 2020-11-12 09:22 | RAD ---
EXAM: CHEST ONE VIEW HISTORY: Respiratory insufficiency. On ventilator. Follow-up evaluation. COMPARISON: 11/09/2020 FINDINGS: Nasogastric tube has been removed with gastrostomy tube overlying the left upper quadrant. Endotrache al tube has been removed with a tracheostomy device in place. Right-sided vascular catheter is stable in position. Cardiac silhouette is magnified by suboptimal inspiration and portable technique. Bronchovascular markings are accentuated due to shallow depth inspiration and portable technique, but there are mild increased interstitial opacities bilaterally similar to prior exam. No new area of consolidation is seen. Questionable slight blunting of the right lateral costophrenic angle, but this may be related to overlying soft tissue density and limited evaluation due to overlying monitor leads. No other interval change. IMPRESSION: 1. Interval placement of tracheostomy device and endotracheal tube removal. 2. Interval removal of nasogastric tube and placement of gastrostomy tube. 3. Mild increased interstitial opacities within the lungs bilaterally which may be related to infecti ous pneumonitis and possibly Covid pneumonia.
--- NOTE | 2020-11-12 09:42 | PRG ---
DATE OF SERVICE: 11/12/2020 SUBJECTIVE: Abida Bourgeois is status post trach and a PEG this morning. OBJECTIVE: VITAL SIGNS: Temperature 98, pulse 75, blood pressure 150/75, 35% FiO2 with saturations are 98%. CHEST: Bilateral rhonchi and crackles. CARDIAC: Normal S1 and S2. No gallops. ABDOMEN: Soft. NEUROLOGIC: She is awake and responsive. LABORATORY DATA: White count 9000. Lytes are normal. IMPRESSION: 1. Respiratory failure, status post tracheostomy and percutaneous endoscopic gastrostomy. 2. Morbid obesity. 3. Probably underlying sleep apnea. PLAN: Continue high-dose steroids, supportive care, and PT. TIME SPENT: One-half hour of critical care time. Job ID: [id number]
[2020-11-12] MEDS ORDERED: Fentanyl CADD 100 ML ONE (15:38)
[2020-11-13] MEDS: Propofol 1,000 MG/100 ML VIAL IV PRN ×2 (00:38→05:36)
[2020-11-13 04:52] LABS: Anion Gap 9 mmol/L (10-20); BUN (Urea Nitrogen) 13 mg/dL (9.8-20.1); Calc. Creatinine Clearance 183 mL/min (70-130); Calcium 8.3 mg/dL (7.8-10.44); Carbon Dioxide 34 mmol/L (22-29); Chloride 102 mmol/L (98-107); Glucose 116 mg/dL (70-105); Potassium 3.6 mmol/L (3.5-5.1); Sodium 141 mmol/L (136-145)
[2020-11-13 04:55] LABS: #Monocytes 0.3 thou/uL (0.11-0.59); #Neutrophils 9.4 thou/uL (1.40-6.50); %Basophils 0.3 % (0.0-1.0); %Eosinophils 0.2 % (0.0-10.0); %Lymphocytes 9.5 % (21.0-51.0); %Monocytes 2.9 % (0.0-10.0); %Neutrophils 87.2 % (42.0-75.0); Hemoglobin 9.3 g/dL (12.0-16.0); Mean Corpuscular HGB CONC 31.7 g/dL (32.0-36.0); Mean Corpuscular Hemoglobin 27.3 pg (27.0-31.0); Mean Corpuscular Volume 85.9 fL (78.0-98.0); Mean Platelet Volume 9.1 fL (7.4-10.4); Platelet Count 211 thou/uL (130-400); RBC Distribution Width 16.9 % (11.5-14.5); White Blood Cell (WBC) Count 10.8 thou/uL (4.8-10.8)
[2020-11-13] MEDS: GUAIFENESIN SF SOLN 200 MG/10 ML UDCUP PO SCH ×4 (06:24→19:10)
[2020-11-13] MEDS: Polyethylene Glycol 3350 17 GM Packet PO SCH (08:05)
[2020-11-13] MEDS: Enoxaparin Sodium 40 MG/0.4 ML SYRINGE SC SCH ×2 (08:05→19:09)
[2020-11-13] MEDS: Ascorbic Acid 500 mg Chewable Tablet PO SCH (08:06)
[2020-11-13] MEDS: ALPRAZolam 0.25 MG TAB PO SCH (08:06)
[2020-11-13] MEDS: Cholecalciferol (Vitamin D3) 400 UNITS TAB PO SCH (08:06)
[2020-11-13] MEDS: Zinc Sulfate 220 MG CAP PO SCH (08:06)
[2020-11-13] MEDS: Pantoprazole 40 MG GRANULES PACKET PER TUBE SCH (08:06)
[2020-11-13] MEDS: Dexamethasone 4 mg/ml Vial SLOW IVP SCH ×2 (08:06→09:17)
[2020-11-13] MEDS: Metoprolol Tartrate 25 MG TAB PO SCH ×2 (08:13→19:09)
--- NOTE | 2020-11-13 09:12 | PRG ---
DATE OF SERVICE: SUBJECTIVE: This morning, opens her eyes. She is weak. OBJECTIVE: VITAL SIGNS: Respiratory rate is 15. She is on 35%, PEEP of 5, rate of 10. I's and O's have been good. CHEST: No wheezing, no crackles. CARDIAC: Normal S1, S2. ABDOMEN: No masses. LABORATORY DATA: Unremarkable. ASSESSMENT: [place] positive pneumonia, respiratory failure, morbid obesity, probably underlying sleep apnea. PLAN: Hold all sedation. She is going to eventually require placement. Day 26 in the hospital. We are going to decrease the steroids to once a day and then eventually put on some p.o. prednisone. One-half hour of critical care time. Job ID: [id number]
[2020-11-13] MEDS: Sodium Chloride 0.9% 1,000 ML IV SCH ×2 (11:09→22:44)
--- NOTE | 2020-11-13 14:28 | PDOC.HOSPP ---
- Subjective Encounter Date: 11/13/20 Encounter Time: 10:10 Subjective: Status post trach and PEG She is alert; [place] has a clear urine. Patient has a soft restraints. Propofol running. She was bradycardic with heart rate in the 40s. Her blood pressure systolic in the 9200 range in the monitor. Discussed with RN - Objective Vital Signs & Weight: Vital Signs (12 hours) Temp Pulse Pulse Pulse Resp BP BP 11/13/20 12:00 28 H 11/13/20 11:34 91 135/60 11/13/20 10:00 46 H 11/13/20 09:37 93 98 124/61 11/13/20 08:00 15 11/13/20 07:41 77 134/69 11/13/20 07:00 97.8 F 11/13/20 04:00 17 BP Pulse Ox Pulse Ox Pulse Ox 11/13/20 12:00 11/13/20 11:34 11/13/20 10:00 11/13/20 09:37 108/56 L 99 98 11/13/20 08:00 100 11/13/20 07:41 11/13/20 07:00 11/13/20 04:00 Weight Admit Weight 199 lb 9.6 oz Weight 2.854 oz Most Recent Monitor Data Heart Rate from ECG 79 NIBP 118/65 NIBP BP-Mean 82 Respiration from ECG 24 SpO2 97 I&O: 11/12/20 11/13/20 11/14/20 06:59 06:59 06:59 Intake Total 2883.8 1160 420 Output Total 4363 2055 545 Balance -1476.2 -895 -125 Result Diagrams: 11/13/20 03:45 11/13/20 03:45 Hospitalist ROS - Medication Medications: Active Medications Generic Name Dose Route Start Last Admin Trade Name Freq PRN Reason Stop Dose Admin Acetaminophen 650 mg 10/17/20 04:16 10/26/20 20:20 Acetaminophen 325 Mg Tab PO 650 mg Q4H PRN Administration Headache/Fever/Mild Pain (1-3) Albuterol Sulfate 0 puff 10/23/20 09:50 10/29/20 18:58 Proventil Inhaler 6.7 G (200 Inhalations) INH 2 puff Q4H PRN Administration SOB &/or Wheezing Alprazolam 0.25 mg 11/12/20 09:00 11/13/20 08:06 Alprazolam 0.25 Mg Tab PO 0.25 mg TID HEIDI Administration Ascorbic Acid 1,000 mg 10/17/20 09:00 11/13/20 08:06 Ascorbic Acid 500 Mg Chewable Tablet PO 1,000 mg DAILY HEIDI Administration Benzonatate 100 mg 10/24/20 02:50 10/25/20 03:34 Benzonatate 100 Mg Cap PO 100 mg TIDPRN PRN Administration Cough Calcium Carbonate 1,000 mg 10/17/20 04:16 10/17/20 04:51 Calcium Carbonate 500 Mg Chewtab PO 1,000 mg Q4H PRN Administration Heartburn or Indigestion Cholecalciferol 400 units 10/17/20 09:00 11/13/20 08:06 Cholecalciferol (Vitamin D3) 400 Units Tab PO 400 units DAILY HEIDI Administration Dexamethasone 6 mg 11/13/20 09:00 11/13/20 09:17 Dexamethasone 4 Mg/Ml Vial SLOW IVP Not Given DAILY HEIDI Enoxaparin Sodium 40 mg 10/18/20 21:00 11/13/20 08:05 Enoxaparin Sodium 40 Mg/0.4 Ml Syringe SC 40 mg BID HEIDI Administration Guaifenesin 200 mg 10/30/20 12:00 11/13/20 12:59 Diabetic Tussin 200 Mg/10 Ml Udcup PO 200 mg Q6HR HEIDI Administration Guaifenesin/Codeine Phosphate 10 ml 10/20/20 13:04 11/06/20 18:05 Guaifenesin/Codeine 200 Mg/20 Mg 10 Ml Cup PO 10 ml Q6H PRN Administration Cough Sodium Chloride 1,000 mls @ 50 mls/hr 10/30/20 09:23 11/13/20 11:09 Normal Saline 0.9% IV 1,000 mls .Q20H HEIDI Administration Fentanyl 100 mls @ 0 mls/hr 11/07/20 19:45 11/11/20 20:38 Fentanyl Cadd IV 100 mls INF HEIDI Administration Protocol Per Protocol Lactulose 20 gm 11/05/20 08:50 11/10/20 09:17 Lactulose 20 Gm/30 Ml Udcup PO 20 gm DAILYPRN PRN Administration Constipation Metoprolol Tartrate 12.5 mg 11/12/20 09:00 11/13/20 08:13 Metoprolol Tartrate 25 Mg Tab PO 12.5 mg BID HEIDI Administration Pantoprazole Sodium 40 mg 10/30/20 09:00 11/13/20 08:06 Pantoprazole 40 Mg Granules Packet PER TUBE 40 mg DAILY HEIDI Administration Polyethylene Glycol 17 gm 11/03/20 09:00 11/13/20 08:05 Polyethylene Glycol 3350 17 Gm Packet PO 17 gm DAILY HEIDI Administration Propofol 1,000 mg 10/28/20 14:45 11/13/20 05:36 Propofol 1,000 Mg/100 Ml Vial IV 11/27/20 14:45 1,000 mg INF PRN Administration TO ACHIEVE GOAL RASS Protocol Sodium Chloride 10 ml 10/26/20 21:00 11/13/20 08:14 Flush - Normal Saline 10 Ml Syringe IVF 10 ml Q12HR HEIDI Administration Sodium Chloride 10 ml 10/26/20 10:30 11/05/20 09:02 Flush - Normal Saline 10 Ml Syringe IVF 10 ml PRN PRN Administration Saline Flush Zinc Sulfate 220 mg 10/17/20 09:00 11/13/20 08:06 Zinc Sulfate 220 Mg Cap PO 220 mg DAILY HEIDI Administration Hospitalist Exam Vitals: Vital Signs (12 hours) Temp Pulse Pulse Pulse Resp BP BP 11/13/20 12:00 28 H 11/13/20 11:34 91 135/60 11/13/20 10:00 46 H 11/13/20 09:37 93 98 124/61 11/13/20 08:00 15 11/13/20 07:41 77 134/69 11/13/20 07:00 97.8 F 11/13/20 04:00 17 BP Pulse Ox Pulse Ox Pulse Ox 11/13/20 12:00 11/13/20 11:34 11/13/20 10:00 11/13/20 09:37 108/56 L 99 98 11/13/20 08:00 100 11/13/20 07:41 11/13/20 07:00 11/13/20 04:00 Weight Admit Weight 199 lb 9.6 oz Weight 2.854 oz Most Recent Monitor Data Heart Rate from ECG 79 NIBP 118/65 NIBP BP-Mean 82 Respiration from ECG 24 SpO2 97 General - other findings: On vent status post trach and PEG Eye: PERRL ENT: normocephalic atraumatic Neck: supple Heart: RRR Respiratory: CTAB Gastrointestinal: soft, no palpable masses Extremities: no cyanosis, 1+ LE edema Neurological: no focal deficits Psychiatric: oriented to person Hosp A/P - Plan Acute respiratory failure with hypoxia Code(s): J96.01 - ACUTE RESPIRATORY FAILURE WITH HYPOXIA Status: Acute (2) Pneumonia due to COVID-19 virus Code(s): U07.1 - COVID-19; J12.89 - OTHER VIRAL PNEUMONIA Status: Acute (3) HTN (hypertension) Code(s): I10 - ESSENTIAL (PRIMARY) HYPERTENSION Status: Chronic Qualifiers: Hypertension type: essential hypertension Qualified Code(s): I10 - Essential (primary) hypertension (4) MYLA (obstructive sleep apnea) Code(s): G47.33 - OBSTRUCTIVE SLEEP APNEA (ADULT) (PEDIATRIC) Status: Suspected (5) Hx of supraventricular tachycardia Code(s): Z86.79 - PERSONAL HISTORY OF OTHER DISEASES OF THE CIRCULATORY SYSTEM Status: Chronic - Plan Status post trach and PEG She is alert Continue ventilator management per critical care team. Continue dexamethasone and anticoagulation. Off antibiotics Status post trach and PEG by Dr. Jaimes- On she is given Xanax 3 times a day ---hold all sedation??? Discussed with salesperson men's and boys' clothing.
[2020-11-13] MEDS: ALPRAZolam 0.5 MG TAB PO SCH ×2 (15:04→19:09)
[2020-11-13] MEDS ORDERED: Fentanyl CADD 100 ML ONE (16:01)
[2020-11-14 04:52] LABS: #Basophils 0.1 thou/uL (0.0-0.2); #Eosinphils 0.3 thou/uL (0.0-0.7); #Monocytes 0.7 thou/uL (0.11-0.59); #Neutrophils 8.1 thou/uL (1.40-6.50); %Basophils 0.5 % (0.0-1.0); %Eosinophils 2.8 % (0.0-10.0); %Lymphocytes 18.1 % (21.0-51.0); %Monocytes 6.5 % (0.0-10.0); %Neutrophils 72.1 % (42.0-75.0); Hemoglobin 8.6 g/dL (12.0-16.0); Mean Corpuscular HGB CONC 31.5 g/dL (32.0-36.0); Mean Corpuscular Hemoglobin 27.3 pg (27.0-31.0); Mean Corpuscular Volume 86.7 fL (78.0-98.0); Mean Platelet Volume 8.8 fL (7.4-10.4); Platelet Count 190 thou/uL (130-400); RBC Distribution Width 17.5 % (11.5-14.5); Red Blood Cell (RBC) Count 3.13 mill/uL (4.20-5.40); White Blood Cell (WBC) Count 11.2 thou/uL (4.8-10.8)
[2020-11-14 05:47] LABS: Anion Gap 10 mmol/L (10-20); BUN (Urea Nitrogen) 13 mg/dL (9.8-20.1); Calc. Creatinine Clearance 0 mL/min (70-130); Carbon Dioxide 32 mmol/L (22-29); Chloride 107 mmol/L (98-107); Glucose 78 mg/dL (70-105); Sodium 146 mmol/L (136-145)
[2020-11-14 05:52] LABS: Potassium 2.9 mmol/L (3.5-5.1)
[2020-11-14] MEDS: GUAIFENESIN SF SOLN 200 MG/10 ML UDCUP PO SCH ×4 (06:27→23:50)
[2020-11-14] MEDS ORDERED: Potassium Chloride 40 MEQ in Premix Bag 1 BAG IVPB SCH (06:30)
[2020-11-14] MEDS: Enoxaparin Sodium 40 MG/0.4 ML SYRINGE SC SCH ×2 (09:15→19:46)
[2020-11-14] MEDS: Dexamethasone 4 mg/ml Vial SLOW IVP SCH (09:15)
[2020-11-14] MEDS: Ascorbic Acid 500 mg Chewable Tablet PO SCH (09:16)
[2020-11-14] MEDS: Metoprolol Tartrate 25 MG TAB PO SCH ×2 (09:16→19:45)
[2020-11-14] MEDS: Pantoprazole 40 MG GRANULES PACKET PER TUBE SCH (09:16)
[2020-11-14] MEDS: ALPRAZolam 0.5 MG TAB PO SCH ×3 (09:16→19:46)
[2020-11-14] MEDS: Cholecalciferol (Vitamin D3) 400 UNITS TAB PO SCH (09:18)
[2020-11-14] MEDS: Zinc Sulfate 220 MG CAP PO SCH (09:18)
[2020-11-14] MEDS: Polyethylene Glycol 3350 17 GM Packet PO SCH (09:18)
--- NOTE | 2020-11-14 15:21 | PDOC.HOSPP ---
- Subjective Encounter Date: 11/14/20 Encounter Time: 11:35 Subjective: No acute events noted overnight. she is stable currently. Afebrile and normotensive. - Objective Vital Signs & Weight: Vital Signs (12 hours) Temp Pulse Resp BP Pulse Ox 11/14/20 14:59 72 104/52 L 11/14/20 14:00 21 H 11/14/20 12:00 99.0 F 32 H 11/14/20 10:47 67 135/69 11/14/20 10:00 32 H 11/14/20 08:00 65 40 H 93/47 L 11/14/20 07:50 95 11/14/20 07:00 99.1 F 11/14/20 04:00 98.8 F 22 H Weight Admit Weight 199 lb 9.6 oz Weight 2.889 oz Most Recent Monitor Data Heart Rate from ECG 69 NIBP 104/52 NIBP BP-Mean 69 Respiration from ECG 31 SpO2 99 I&O: 11/13/20 11/14/20 11/15/20 06:59 06:59 06:59 Intake Total 1160 2975.1 430 Output Total 2055 2155 845 Balance -895 820.1 -415 Result Diagrams: 11/14/20 03:45 11/14/20 03:45 Hospitalist ROS - Medication Medications: Active Medications Generic Name Dose Route Start Last Admin Trade Name Freq PRN Reason Stop Dose Admin Acetaminophen 650 mg 10/17/20 04:16 10/26/20 20:20 Acetaminophen 325 Mg Tab PO 650 mg Q4H PRN Administration Headache/Fever/Mild Pain (1-3) Albuterol Sulfate 0 puff 10/23/20 09:50 10/29/20 18:58 Proventil Inhaler 6.7 G (200 Inhalations) INH 2 puff Q4H PRN Administration SOB &/or Wheezing Alprazolam 0.5 mg 11/13/20 15:00 11/14/20 14:27 Alprazolam 0.5 Mg Tab PO 0.5 mg TID HEIDI Administration Ascorbic Acid 1,000 mg 10/17/20 09:00 11/14/20 09:16 Ascorbic Acid 500 Mg Chewable Tablet PO 1,000 mg DAILY HEIDI Administration Benzonatate 100 mg 10/24/20 02:50 10/25/20 03:34 Benzonatate 100 Mg Cap PO 100 mg TIDPRN PRN Administration Cough Calcium Carbonate 1,000 mg 10/17/20 04:16 10/17/20 04:51 Calcium Carbonate 500 Mg Chewtab PO 1,000 mg Q4H PRN Administration Heartburn or Indigestion Cholecalciferol 400 units 10/17/20 09:00 11/14/20 09:18 Cholecalciferol (Vitamin D3) 400 Units Tab PO 400 units DAILY HEIDI Administration Dexamethasone 6 mg 11/13/20 09:00 11/14/20 09:15 Dexamethasone 4 Mg/Ml Vial SLOW IVP 6 mg DAILY HEIDI Administration Enoxaparin Sodium 40 mg 10/18/20 21:00 11/14/20 09:15 Enoxaparin Sodium 40 Mg/0.4 Ml Syringe SC 40 mg BID HEIDI Administration Guaifenesin 200 mg 10/30/20 12:00 11/14/20 11:51 Diabetic Tussin 200 Mg/10 Ml Udcup PO 200 mg Q6HR HEIDI Administration Guaifenesin/Codeine Phosphate 10 ml 10/20/20 13:04 11/06/20 18:05 Guaifenesin/Codeine 200 Mg/20 Mg 10 Ml Cup PO 10 ml Q6H PRN Administration Cough Fentanyl 100 mls @ 0 mls/hr 11/07/20 19:45 11/11/20 20:38 Fentanyl Cadd IV 100 mls INF HEIDI Administration Protocol Per Protocol Dexmedetomidine HCl 400 mcg/ 100 mls @ 0 mls/hr 11/13/20 14:30 11/14/20 06:27 Sodium Chloride IVPB 100 mls INF HEIDI Administration Protocol Titrate Lactulose 20 gm 11/05/20 08:50 11/10/20 09:17 Lactulose 20 Gm/30 Ml Udcup PO 20 gm DAILYPRN PRN Administration Constipation Metoprolol Tartrate 12.5 mg 11/12/20 09:00 11/14/20 09:16 Metoprolol Tartrate 25 Mg Tab PO 12.5 mg BID HEIDI Administration Pantoprazole Sodium 40 mg 10/30/20 09:00 11/14/20 09:16 Pantoprazole 40 Mg Granules Packet PER TUBE 40 mg DAILY HEIDI Administration Polyethylene Glycol 17 gm 11/03/20 09:00 11/14/20 09:18 Polyethylene Glycol 3350 17 Gm Packet PO Not Given DAILY HEIDI Propofol 1,000 mg 10/28/20 14:45 11/13/20 05:36 Propofol 1,000 Mg/100 Ml Vial IV 11/27/20 14:45 1,000 mg INF PRN Administration TO ACHIEVE GOAL RASS Protocol Sodium Chloride 10 ml 10/26/20 21:00 11/14/20 09:20 Flush - Normal Saline 10 Ml Syringe IVF 10 ml Q12HR HEIDI Administration Sodium Chloride 10 ml 10/26/20 10:30 11/05/20 09:02 Flush - Normal Saline 10 Ml Syringe IVF 10 ml PRN PRN Administration Saline Flush Zinc Sulfate 220 mg 10/17/20 09:00 11/14/20 09:18 Zinc Sulfate 220 Mg Cap PO 220 mg DAILY HEIDI Administration Hospitalist Exam Vitals: Vital Signs (12 hours) Temp Pulse Resp BP Pulse Ox 11/14/20 14:59 72 104/52 L 11/14/20 14:00 21 H 11/14/20 12:00 99.0 F 32 H 11/14/20 10:47 67 135/69 11/14/20 10:00 32 H 11/14/20 08:00 65 40 H 93/47 L 11/14/20 07:50 95 11/14/20 07:00 99.1 F 11/14/20 04:00 98.8 F 22 H Weight Admit Weight 199 lb 9.6 oz Weight 2.889 oz Most Recent Monitor Data Heart Rate from ECG 69 NIBP 104/52 NIBP BP-Mean 69 Respiration from ECG 31 SpO2 99 General Appearance: NAD, awake alert Eye: PERRL ENT: normocephalic atraumatic Neck: supple Heart: RRR, normal peripheral pulses Respiratory: CTAB, normal chest expansion Gastrointestinal: soft, normal bowel sounds Neurological: no new deficit Psychiatric: oriented to person Hosp A/P - Plan Acute respiratory failure with hypoxia Code(s): J96.01 - ACUTE RESPIRATORY FAILURE WITH HYPOXIA Status: Acute (2) Pneumonia due to COVID-19 virus Code(s): U07.1 - COVID-19; J12.89 - OTHER VIRAL PNEUMONIA Status: Acute (3) HTN (hypertension) Code(s): I10 - ESSENTIAL (PRIMARY) HYPERTENSION Status: Chronic Qualifiers: Hypertension type: essential hypertension Qualified Code(s): I10 - Essential (primary) hypertension (4) MYLA (obstructive sleep apnea) Code(s): G47.33 - OBSTRUCTIVE SLEEP APNEA (ADULT) (PEDIATRIC) Status: Suspected (5) Hx of supraventricular tachycardia Code(s): Z86.79 - PERSONAL HISTORY OF OTHER DISEASES OF THE CIRCULATORY SYSTEM Status: Chronic - Plan Status post trach and PEG Continue ventilator management per critical care team. Continue dexamethasone and anticoagulation. Off antibiotics Status post trach and PEG by Dr. Jaimes- On she is given Xanax 3 times a day ---hold all sedation??? Discussed with pump runner.
[2020-11-14] MEDS: guaiFENesin/Codeine 200 mg/20 mg 10 ml Cup PO PRN (19:45)
[2020-11-15 04:27] LABS: #Basophils 0.1 thou/uL (0.0-0.2); #Eosinphils 0.3 thou/uL (0.0-0.7); #Monocytes 0.6 thou/uL (0.11-0.59); #Neutrophils 6.7 thou/uL (1.40-6.50); %Basophils 1.2 % (0.0-1.0); %Eosinophils 3.2 % (0.0-10.0); %Lymphocytes 20.6 % (21.0-51.0); %Monocytes 6.1 % (0.0-10.0); %Neutrophils 68.8 % (42.0-75.0); Hemoglobin 8.5 g/dL (12.0-16.0); Mean Corpuscular HGB CONC 31.6 g/dL (32.0-36.0); Mean Corpuscular Hemoglobin 27.4 pg (27.0-31.0); Mean Corpuscular Volume 86.7 fL (78.0-98.0); Mean Platelet Volume 8.6 fL (7.4-10.4); Platelet Count 188 thou/uL (130-400); RBC Distribution Width 17.4 % (11.5-14.5); Red Blood Cell (RBC) Count 3.11 mill/uL (4.20-5.40); White Blood Cell (WBC) Count 9.7 thou/uL (4.8-10.8)
[2020-11-15 05:08] LABS: Anion Gap 9 mmol/L (10-20); BUN (Urea Nitrogen) 16 mg/dL (9.8-20.1); Calc. Creatinine Clearance 0 mL/min (70-130); Calcium 8.3 mg/dL (7.8-10.44); Carbon Dioxide 30 mmol/L (22-29); Chloride 106 mmol/L (98-107); Glucose 103 mg/dL (70-105); Potassium 3.4 mmol/L (3.5-5.1); Sodium 142 mmol/L (136-145)
[2020-11-15] MEDS: GUAIFENESIN SF SOLN 200 MG/10 ML UDCUP PO SCH ×4 (05:49→22:59)
--- NOTE | 2020-11-15 07:07 | PRG ---
DATE OF SERVICE: 11/14/2020 SUBJECTIVE: This morning, she is much calmer, much more awake, responsive. OBJECTIVE: VITAL SIGNS: Pulse 65, temperature 98, blood pressure 93/42, respirations 18, sats are 94 on 35% . CHEST: No wheezing. No crackles. CARDIAC: Normal S1. ABDOMEN: No masses. LABORATORY DATA: Good. IMPRESSION: Respiratory failure, payan positive pneumonia, encephalopathy, severe deconditioning. PLAN: 1. Low-dose Demadex, Xanax. Hopefully, we can be in the process of trying to get her transferred to LTAC soon once bed is available. 2. Discontinue IV fluids. TIME SPENT: One-half hour of critical care time. Job ID: [id number]
[2020-11-15] MEDS: Ascorbic Acid 500 mg Chewable Tablet PO SCH (08:19)
[2020-11-15] MEDS: Dexamethasone 4 mg/ml Vial SLOW IVP SCH (08:19)
[2020-11-15] MEDS: Cholecalciferol (Vitamin D3) 400 UNITS TAB PO SCH (08:19)
[2020-11-15] MEDS: Enoxaparin Sodium 40 MG/0.4 ML SYRINGE SC SCH ×2 (08:19→20:01)
[2020-11-15] MEDS: Zinc Sulfate 220 MG CAP PO SCH (08:19)
[2020-11-15] MEDS: Metoprolol Tartrate 25 MG TAB PO SCH ×2 (08:19→20:01)
[2020-11-15] MEDS: ALPRAZolam 0.5 MG TAB PO SCH ×3 (08:19→20:01)
[2020-11-15] MEDS: Pantoprazole 40 MG GRANULES PACKET PER TUBE SCH (08:19)
--- NOTE | 2020-11-15 13:59 | PRG ---
DATE OF SERVICE: 11/15/2020 SUBJECTIVE: The patient remains on mechanical ventilation through a tracheostomy, appears to be doing well. She is able to phonate when I deflate her cuff. OBJECTIVE: VITAL SIGNS: Temperature is 99.3, pulse 74, blood pressure 133/73, O2 saturation 99%. She is currently on SIMV rate of 8, tidal volume 400, PEEP 5, FiO2 35%. HEENT: Unremarkable. NECK: No JVD. Trach in good position. LUNGS: Fairly clear anteriorly. CARDIAC: S1, S2. Regular. ABDOMEN: Soft. EXTREMITIES: Edematous. LABORATORY DATA: White blood cell count 9.7, hematocrit 26.9, and platelet count 188. Sodium 142, potassium 3.4, chloride 106, CO2 30, BUN 16, creatinine 0.4, glucose 103. ASSESSMENT: 1. COVID-19 pneumonia. 2. Respiratory failure requiring mechanical ventilation and tracheostomy. PLAN: The patient is stable. We are waiting for LTAC placement. I have taken some of the superfluous medications off her MAR. Job ID: [id number]
--- NOTE | 2020-11-15 16:04 | PDOC.HOSPP ---
- Subjective Subjective: Patient was seen examined at bedside. No acute events overnight. Patient remained mechanical ventilated through her tracheostomy. - Objective Vital Signs & Weight: Vital Signs (12 hours) Temp Pulse Resp Pulse Ox 11/15/20 15:07 71 11/15/20 14:00 32 H 11/15/20 12:00 99.2 F 30 H 11/15/20 11:17 72 11/15/20 10:00 33 H 11/15/20 08:00 99.3 F 32 H 92 L 11/15/20 07:33 61 Weight Admit Weight 199 lb 9.6 oz Weight 2.896 oz Most Recent Monitor Data Heart Rate from ECG 68 NIBP 103/68 NIBP BP-Mean 79 Respiration from ECG 28 SpO2 95 I&O: 11/14/20 11/15/20 11/16/20 06:59 06:59 06:59 Intake Total 2975.1 2053.4 651.5 Output Total 2155 1935 1109 Balance 820.1 118.4 -457.5 Result Diagrams: 11/15/20 03:42 11/15/20 03:42 Additional Labs: Patient remained mechanical ventilated through tracheotomy. No acute events overnight per nursing staff. Patient appeared to tolerate her PEG tube feeding. Radiology Reviewed by me: Yes EKG Reviewed by me: Yes Hospitalist ROS - Medication Medications: Active Medications Generic Name Dose Route Start Last Admin Trade Name Freq PRN Reason Stop Dose Admin Acetaminophen 650 mg 10/17/20 04:16 10/26/20 20:20 Acetaminophen 325 Mg Tab PO 650 mg Q4H PRN Administration Headache/Fever/Mild Pain (1-3) Albuterol Sulfate 0 puff 10/23/20 09:50 10/29/20 18:58 Proventil Inhaler 6.7 G (200 Inhalations) INH 2 puff Q4H PRN Administration SOB &/or Wheezing Alprazolam 0.5 mg 11/13/20 15:00 11/15/20 08:19 Alprazolam 0.5 Mg Tab PO 0.5 mg TID HEIDI Administration Ascorbic Acid 1,000 mg 10/17/20 09:00 11/15/20 08:19 Ascorbic Acid 500 Mg Chewable Tablet PO 1,000 mg DAILY HEIDI Administration Benzonatate 100 mg 10/24/20 02:50 10/25/20 03:34 Benzonatate 100 Mg Cap PO 100 mg TIDPRN PRN Administration Cough Calcium Carbonate 1,000 mg 10/17/20 04:16 10/17/20 04:51 Calcium Carbonate 500 Mg Chewtab PO 1,000 mg Q4H PRN Administration Heartburn or Indigestion Cholecalciferol 400 units 10/17/20 09:00 11/15/20 08:19 Cholecalciferol (Vitamin D3) 400 Units Tab PO 400 units DAILY HEIDI Administration Dexamethasone 6 mg 11/13/20 09:00 11/15/20 08:19 Dexamethasone 4 Mg/Ml Vial SLOW IVP 6 mg DAILY HEIDI Administration Enoxaparin Sodium 40 mg 10/18/20 21:00 11/15/20 08:19 Enoxaparin Sodium 40 Mg/0.4 Ml Syringe SC 40 mg BID HEIDI Administration Guaifenesin 200 mg 10/30/20 12:00 11/15/20 11:42 Diabetic Tussin 200 Mg/10 Ml Udcup PO 200 mg Q6HR HEIDI Administration Guaifenesin/Codeine Phosphate 10 ml 10/20/20 13:04 11/14/20 19:45 Guaifenesin/Codeine 200 Mg/20 Mg 10 Ml Cup PO 10 ml Q6H PRN Administration Cough Fentanyl 100 mls @ 0 mls/hr 11/07/20 19:45 11/11/20 20:38 Fentanyl Cadd IV 100 mls INF HEIDI Administration Protocol Per Protocol Dexmedetomidine HCl 400 mcg/ 100 mls @ 0 mls/hr 11/13/20 14:30 11/15/20 02:14 Sodium Chloride IVPB 100 mls INF HEIDI Administration Protocol Titrate Lactulose 20 gm 11/05/20 08:50 11/10/20 09:17 Lactulose 20 Gm/30 Ml Udcup PO 20 gm DAILYPRN PRN Administration Constipation Metoprolol Tartrate 12.5 mg 11/12/20 09:00 11/15/20 08:19 Metoprolol Tartrate 25 Mg Tab PO 12.5 mg BID HEIDI Administration Pantoprazole Sodium 40 mg 10/30/20 09:00 11/15/20 08:19 Pantoprazole 40 Mg Granules Packet PER TUBE 40 mg DAILY HEIDI Administration Propofol 1,000 mg 10/28/20 14:45 11/13/20 05:36 Propofol 1,000 Mg/100 Ml Vial IV 11/27/20 14:45 1,000 mg INF PRN Administration TO ACHIEVE GOAL RASS Protocol Sodium Chloride 10 ml 10/26/20 21:00 11/15/20 08:23 Flush - Normal Saline 10 Ml Syringe IVF 10 ml Q12HR HEIDI Administration Sodium Chloride 10 ml 10/26/20 10:30 11/05/20 09:02 Flush - Normal Saline 10 Ml Syringe IVF 10 ml PRN PRN Administration Saline Flush Zinc Sulfate 220 mg 10/17/20 09:00 11/15/20 08:19 Zinc Sulfate 220 Mg Cap PO 220 mg DAILY HEIDI Administration Hospitalist Exam Vitals: Vital Signs (12 hours) Temp Pulse Resp Pulse Ox 11/15/20 15:07 71 11/15/20 14:00 32 H 11/15/20 12:00 99.2 F 30 H 11/15/20 11:17 72 11/15/20 10:00 33 H 11/15/20 08:00 99.3 F 32 H 92 L 11/15/20 07:33 61 Weight Admit Weight 199 lb 9.6 oz Weight 2.896 oz Most Recent Monitor Data Heart Rate from ECG 68 NIBP 103/68 NIBP BP-Mean 79 Respiration from ECG 28 SpO2 95 General Appearance: NAD Eye: PERRL ENT: normocephalic atraumatic Neck: supple Neck - other findings: Status post tracheotomy Heart: RRR Respiratory: CTAB, no wheezes Gastrointestinal: soft, non-tender Extremities: no cyanosis Skin: normal turgor Musculoskeletal: normal tone Psychiatric: normal affect, normal behavior Hosp A/P - Plan (1) Acute respiratory failure with hypoxia Code(s): J96.01 - ACUTE RESPIRATORY FAILURE WITH HYPOXIA Status: Acute (2) Pneumonia due to COVID-19 virus Code(s): U07.1 - COVID-19; J12.89 - OTHER VIRAL PNEUMONIA Status: Acute (3) HTN (hypertension) Code(s): I10 - ESSENTIAL (PRIMARY) HYPERTENSION Status: Chronic Qualifiers: Hypertension type: essential hypertension Qualified Code(s): I10 - Essent ial (primary) hypertension (4) MYLA (obstructive sleep apnea) Code(s): G47.33 - OBSTRUCTIVE SLEEP APNEA (ADULT) (PEDIATRIC) Status: Suspected (5) Hx of supraventricular tachycardia Code(s): Z86.79 - PERSONAL HISTORY OF OTHER DISEASES OF THE CIRCULATORY SYSTEM Status: Chronic - Plan Status post trach and PEG. Awaiting for LTAC placement. Cont Decadron, Lovenox for DVT ppx Pt completed course of empiric IV abx. cont supportive cares, prn anxiolytics
[2020-11-15] MEDS: guaiFENesin/Codeine 200 mg/20 mg 10 ml Cup PO PRN (20:01)
[2020-11-16 05:14] LABS: #Basophils 0.2 thou/uL (0.0-0.2); #Eosinphils 0.2 thou/uL (0.0-0.7); #Lymphocytes 1.8 thou/uL (1.20-3.40); #Monocytes 0.5 thou/uL (0.11-0.59); #Neutrophils 5.9 thou/uL (1.40-6.50); %Basophils 1.8 % (0.0-1.0); %Eosinophils 2.8 % (0.0-10.0); %Lymphocytes 21.3 % (21.0-51.0); %Monocytes 5.4 % (0.0-10.0); %Neutrophils 68.6 % (42.0-75.0); Hemoglobin 8.2 g/dL (12.0-16.0); Mean Corpuscular HGB CONC 31.9 g/dL (32.0-36.0); Mean Corpuscular Hemoglobin 27.9 pg (27.0-31.0); Mean Corpuscular Volume 87.3 fL (78.0-98.0); Mean Platelet Volume 8.8 fL (7.4-10.4); Platelet Count 184 thou/uL (130-400); RBC Distribution Width 17.6 % (11.5-14.5); Red Blood Cell (RBC) Count 2.95 mill/uL (4.20-5.40); White Blood Cell (WBC) Count 8.5 thou/uL (4.8-10.8)
[2020-11-16 05:30] LABS: Anion Gap 9 mmol/L (10-20); BUN (Urea Nitrogen) 21 mg/dL (9.8-20.1); Calc. Creatinine Clearance 0 mL/min (70-130); Calcium 8.3 mg/dL (7.8-10.44); Carbon Dioxide 32 mmol/L (22-29); Chloride 107 mmol/L (98-107); Glucose 108 mg/dL (70-105); Potassium 3.3 mmol/L (3.5-5.1); Sodium 145 mmol/L (136-145)
[2020-11-16] MEDS: GUAIFENESIN SF SOLN 200 MG/10 ML UDCUP PO SCH ×3 (05:33→17:23)
[2020-11-16] MEDS ORDERED: Potassium Chloride 40 MEQ in Sodium Chloride 0.9% 250 ML 250 ML IVPB SCH (08:00)
[2020-11-16] MEDS ORDERED: Electrolyte Replacement Protocol 1 EACH FS SCH (08:00)
[2020-11-16] MEDS: Metoprolol Tartrate 25 MG TAB PO SCH ×2 (09:01→20:16)
[2020-11-16] MEDS: Pantoprazole 40 MG GRANULES PACKET PER TUBE SCH (09:01)
[2020-11-16] MEDS: Dexamethasone 4 mg/ml Vial SLOW IVP SCH (09:01)
[2020-11-16] MEDS: ALPRAZolam 0.5 MG TAB PO SCH ×3 (09:02→20:16)
[2020-11-16] MEDS: Zinc Sulfate 220 MG CAP PO SCH (09:02)
[2020-11-16] MEDS: Enoxaparin Sodium 40 MG/0.4 ML SYRINGE SC SCH ×2 (09:02→20:16)
[2020-11-16] MEDS: Cholecalciferol (Vitamin D3) 400 UNITS TAB PO SCH (09:02)
[2020-11-16] MEDS: Ascorbic Acid 500 mg Chewable Tablet PO SCH (09:02)
--- NOTE | 2020-11-16 10:11 | PRG ---
DATE OF SERVICE: 11/16/2020 SUBJECTIVE: The patient is awake, alert. She is talking with her family on her iPhone. OBJECTIVE: VITAL SIGNS: Her temperature is 98.6, pulse is 61, blood pressure 97/60, O2 saturation 97%. She was 800 cubic centimeters fluid positive on her fluid balance last night. HEENT: Unremarkable. The trach in good position. LUNGS: Coarse breath sounds. CARDIAC: S1 and S2 regular. ABDOMEN: Soft. EXTREMITIES: Trace edema throughout. LABORATORY DATA: White blood cell count 8.5, hematocrit 25.7, and platelet count 184. Sodium 145, potassium 3.3, chloride 107, CO2 of 32, BUN 21, creatinine 0.5, and glucose 108. C-reactive protein 11.2. ASSESSMENT: COVID-19 pneumonia with acute respiratory failure, requiring mechanical ventilation and tracheostomy. She is improving slowly, but steadily and is in very good spirits. PLAN: Her potassium was replaced today and she will continue slow weaning. We are waiting LTAC placement. Job ID: [id number]
--- NOTE | 2020-11-16 14:23 | PDOC.HOSPP ---
- Subjective Subjective: Pt was seen and examined. sitting up, responded well, feeling ok. still mechanically ventilated, being wean by investment associate. no other acute event overnight - Objective Vital Signs & Weight: Vital Signs (12 hours) Temp Pulse Resp BP Pulse Ox 11/16/20 12:00 37 H 11/16/20 10:52 60 11/16/20 10:00 32 H 11/16/20 09:00 98.6 F 11/16/20 08:00 28 H 11/16/20 07:30 97 11/16/20 04:00 29 H 11/16/20 02:22 65 102/55 L Weight Admit Weight 199 lb 9.6 oz Weight 2.981 oz Most Recent Monitor Data Heart Rate from ECG 71 NIBP 129/78 NIBP BP-Mean 95 Respiration from ECG 38 SpO2 96 I&O: 11/15/20 11/16/20 11/17/20 06:59 06:59 06:59 Intake Total 2053.4 2579.4 791.5 Output Total 1935 1779 160 Balance 118.4 800.4 631.5 Result Diagrams: 11/16/20 04:10 11/16/20 04:10 Radiology Reviewed by me: Yes EKG Reviewed by me: Yes Hospitalist ROS - Medication Medications: Active Medications Generic Name Dose Route Start Last Admin Trade Name Freq PRN Reason Stop Dose Admin Acetaminophen 650 mg 10/17/20 04:16 10/26/20 20:20 Acetaminophen 325 Mg Tab PO 650 mg Q4H PRN Administration Headache/Fever/Mild Pain (1-3) Albuterol Sulfate 0 puff 10/23/20 09:50 10/29/20 18:58 Proventil Inhaler 6.7 G (200 Inhalations) INH 2 puff Q4H PRN Administration SOB &/or Wheezing Alprazolam 0.5 mg 11/13/20 15:00 11/16/20 09:02 Alprazolam 0.5 Mg Tab PO 0.5 mg TID HEIDI Administration Ascorbic Acid 1,000 mg 10/17/20 09:00 11/16/20 09:02 Ascorbic Acid 500 Mg Chewable Tablet PO 1,000 mg DAILY HEIDI Administration Benzonatate 100 mg 10/24/20 02:50 10/25/20 03:34 Benzonatate 100 Mg Cap PO 100 mg TIDPRN PRN Administration Cough Calcium Carbonate 1,000 mg 10/17/20 04:16 10/17/20 04:51 Calcium Carbonate 500 Mg Chewtab PO 1,000 mg Q4H PRN Administration Heartburn or Indigestion Cholecalciferol 400 units 10/17/20 09:00 11/16/20 09:02 Cholecalciferol (Vitamin D3) 400 Units Tab PO 400 units DAILY HEIDI Administration Dexamethasone 6 mg 11/13/20 09:00 11/16/20 09:01 Dexamethasone 4 Mg/Ml Vial SLOW IVP 6 mg DAILY HEIDI Administration Enoxaparin Sodium 40 mg 10/18/20 21:00 11/16/20 09:02 Enoxaparin Sodium 40 Mg/0.4 Ml Syringe SC 40 mg BID HEIDI Administration Guaifenesin 200 mg 10/30/20 12:00 11/16/20 12:41 Diabetic Tussin 200 Mg/10 Ml Udcup PO 200 mg Q6HR HEIDI Administration Guaifenesin/Codeine Phosphate 10 ml 10/20/20 13:04 11/15/20 20:01 Guaifenesin/Codeine 200 Mg/20 Mg 10 Ml Cup PO 10 ml Q6H PRN Administration Cough Fentanyl 100 mls @ 0 mls/hr 11/07/20 19:45 11/11/20 20:38 Fentanyl Cadd IV 100 mls INF HEIDI Administration Protocol Per Protocol Dexmedetomidine HCl 400 mcg/ 100 mls @ 0 mls/hr 11/13/20 14:30 11/16/20 02:45 Sodium Chloride IVPB 100 mls INF HEIDI Administration Protocol Titrate Lactulose 20 gm 11/05/20 08:50 11/10/20 09:17 Lactulose 20 Gm/30 Ml Udcup PO 20 gm DAILYPRN PRN Administration Constipation Metoprolol Tartrate 12.5 mg 11/12/20 09:00 11/16/20 09:01 Metoprolol Tartrate 25 Mg Tab PO 12.5 mg BID HEIDI Administration Pantoprazole Sodium 40 mg 10/30/20 09:00 11/16/20 09:01 Pantoprazole 40 Mg Granules Packet PER TUBE 40 mg DAILY HEIDI Administration Propofol 1,000 mg 10/28/20 14:45 11/13/20 05:36 Propofol 1,000 Mg/100 Ml Vial IV 11/27/20 14:45 1,000 mg INF PRN Administration TO ACHIEVE GOAL RASS Protocol Sodium Chloride 10 ml 10/26/20 21:00 11/16/20 09:03 Flush - Normal Saline 10 Ml Syringe IVF 10 ml Q12HR HEIDI Administration Sodium Chloride 10 ml 10/26/20 10:30 11/05/20 09:02 Flush - Normal Saline 10 Ml Syringe IVF 10 ml PRN PRN Administration Saline Flush Zinc Sulfate 220 mg 10/17/20 09:00 11/16/20 09:02 Zinc Sulfate 220 Mg Cap PO 220 mg DAILY HEIDI Administration Hospitalist Exam Vitals: Vital Signs (12 hours) Temp Pulse Resp BP Pulse Ox 11/16/20 12:00 37 H 11/16/20 10:52 60 11/16/20 10:00 32 H 11/16/20 09:00 98.6 F 11/16/20 08:00 28 H 11/16/20 07:30 97 11/16/20 04:00 29 H 11/16/20 02:22 65 102/55 L Weight Admit Weight 199 lb 9.6 oz Weight 2.981 oz Most Recent Monitor Data Heart Rate from ECG 71 NIBP 129/78 NIBP BP-Mean 95 Respiration from ECG 38 SpO2 96 General Appearance: NAD Eye: PERRL Eye - other findings: s/p trach ENT: normocephalic atraumatic Neck: supple Heart: RRR Respiratory: CTAB Gastrointestinal: soft Extremities: no cyanosis Skin: normal turgor Neurological: cranial nerve grossly intact Musculoskeletal: normal tone, normal strength Hosp A/P - Plan (1) Acute respiratory failure with hypoxia Code(s): J96.01 - ACUTE RESPIRATORY FAILURE WITH HYPOXIA Status: Acute (2) Pneumonia due to COVID-19 virus Code(s): U07.1 - COVID-19; J12.89 - OTHER VIRAL PNEUMONIA Status: Acute (3) HTN (hypertension) Code(s): I10 - ESSENTIAL (PRIMARY) HYPERTENSION Status: Chronic Qualifiers: Hypertension type: essential hypertension Qualified Code(s): I10 - Essential (primary) hypertension (4) MYLA (obstructive sleep apnea) Code(s): G47.33 - OBSTRUCTIVE SLEEP APNEA (ADULT) (PEDIATRIC) Status: Suspected (5) Hx of supraventricular tachycardia Code(s): Z86.79 - PERSONAL HISTORY OF OTHER DISEASES OF THE CIRCULATORY SYSTEM Status: Chronic - Plan Status post trach and PEG. Awaiting for LTAC placement. Cont Decadron, Lovenox for DVT ppx Pt completed course of empiric IV abx. cont supportive cares, prn anxiolytics replaced lytes. follow AM pt is being wean off
[2020-11-17] MEDS: GUAIFENESIN SF SOLN 200 MG/10 ML UDCUP PO SCH ×5 (00:20→23:55)
[2020-11-17 04:23] LABS: #Basophils 0.1 thou/uL (0.0-0.2); #Eosinphils 0.3 thou/uL (0.0-0.7); #Lymphocytes 2.3 thou/uL (1.20-3.40); #Monocytes 0.6 thou/uL (0.11-0.59); #Neutrophils 5.8 thou/uL (1.40-6.50); %Basophils 0.7 % (0.0-1.0); %Lymphocytes 25.4 % (21.0-51.0); %Monocytes 6.2 % (0.0-10.0); %Neutrophils 64.7 % (42.0-75.0); Hemoglobin 8.4 g/dL (12.0-16.0); Mean Corpuscular HGB CONC 31.2 g/dL (32.0-36.0); Mean Corpuscular Hemoglobin 27.3 pg (27.0-31.0); Mean Corpuscular Volume 87.7 fL (78.0-98.0); Mean Platelet Volume 8.3 fL (7.4-10.4); Platelet Count 193 thou/uL (130-400); RBC Distribution Width 17.4 % (11.5-14.5); Red Blood Cell (RBC) Count 3.06 mill/uL (4.20-5.40); White Blood Cell (WBC) Count 8.9 thou/uL (4.8-10.8)
[2020-11-17 05:01] LABS: Anion Gap 12 mmol/L (10-20); BUN (Urea Nitrogen) 21 mg/dL (9.8-20.1); Calc. Creatinine Clearance 176 mL/min (70-130); Calcium 8.3 mg/dL (7.8-10.44); Carbon Dioxide 30 mmol/L (22-29); Chloride 104 mmol/L (98-107); Glucose 90 mg/dL (70-105); Potassium 3.5 mmol/L (3.5-5.1); Sodium 142 mmol/L (136-145)
[2020-11-17] MEDS: Potassium Chloride 20 MEQ in Premix Bag 1 BAG IVPB SCH ×2 (06:47→08:46)
[2020-11-17] MEDS: Ascorbic Acid 500 mg Chewable Tablet PO SCH (08:36)
[2020-11-17] MEDS: Dexamethasone 4 mg/ml Vial SLOW IVP SCH (08:36)
[2020-11-17] MEDS: Cholecalciferol (Vitamin D3) 400 UNITS TAB PO SCH (08:36)
[2020-11-17] MEDS: ALPRAZolam 0.5 MG TAB PO SCH ×3 (08:36→20:45)
[2020-11-17] MEDS: Enoxaparin Sodium 40 MG/0.4 ML SYRINGE SC SCH ×2 (08:37→20:45)
[2020-11-17] MEDS: Pantoprazole 40 MG GRANULES PACKET PER TUBE SCH (08:37)
[2020-11-17] MEDS: Metoprolol Tartrate 25 MG TAB PO SCH ×2 (08:37→20:46)
[2020-11-17] MEDS: Zinc Sulfate 220 MG CAP PO SCH (08:38)
--- NOTE | 2020-11-17 09:23 | PRG ---
DATE OF SERVICE: 11/17/2020 SUBJECTIVE: Abida Bourgeois remains intubated in the vent, trach in place, awake, alert, responsive. OBJECTIVE: VITAL SIGNS: Temperature 98, pulse 61, blood pressure 124/80, saturations 100% on 35% FiO2, PEEP of 5. EXTREMITIES: She is moving all extremities. CHEST: No wheezing. No crackles. CARDIAC: Normal S1. ABDOMEN: No masses. LABORATORY DATA: Unremarkable. ASSESSMENT: Respiratory failure, payan positive pneumonia, morbid obesity, severe deconditioning, trach, and percutaneous endoscopic gastrostomy. PLAN: Probably try trach collar tomorrow. We are awaiting placement still. One-half hour of critical care time. Job ID: [id number]
[2020-11-17] MEDS: Loperamide HCl 2 MG CAP PO PRN (14:46)
--- NOTE | 2020-11-17 18:10 | PDOC.HOSPP ---
- Subjective Subjective: several episode of diarrhea, probably related to TF. Track Inspector plan to try trach collar today - Objective Vital Signs & Weight: Vital Signs (12 hours) Temp Pulse Pulse Pulse Resp BP BP 11/17/20 16:00 98.9 F 26 H 11/17/20 15:20 71 112/74 11/17/20 14:00 28 H 11/17/20 13:18 70 70 139/88 11/17/20 12:00 98.5 F 32 H 11/17/20 11:04 80 140/80 11/17/20 10:00 35 H 11/17/20 08:27 61 124/80 11/17/20 08:00 98.3 F 33 H BP Pulse Ox Pulse Ox Pulse Ox 11/17/20 16:00 11/17/20 15:20 11/17/20 14:00 11/17/20 13:18 123/70 100 100 11/17/20 12:00 11/17/20 11:04 11/17/20 10:00 11/17/20 08:27 11/17/20 08:00 100 Weight Admit Weight 199 lb 9.6 oz Weight 184 lb 8.43 oz Most Recent Monitor Data Heart Rate from ECG 70 NIBP 113/67 NIBP BP-Mean 82 Respiration from ECG 32 SpO2 99 I&O: 11/16/20 11/17/20 11/18/20 06:59 06:59 06:59 Intake Total 2579.4 2942.5 150 Output Total 1779 1650 1455 Balance 800.4 1292.5 -1305 Result Diagrams: 11/17/20 04:10 11/17/20 04:10 Radiology Reviewed by me: Yes EKG Reviewed by me: Yes Hospitalist ROS - Medication Medications: Active Medications Generic Name Dose Route Start Last Admin Trade Name Freq PRN Reason Stop Dose Admin Acetaminophen 650 mg 10/17/20 04:16 10/26/20 20:20 Acetaminophen 325 Mg Tab PO 650 mg Q4H PRN Administration Headache/Fever/Mild Pain (1-3) Albuterol Sulfate 0 puff 10/23/20 09:50 10/29/20 18:58 Proventil Inhaler 6.7 G (200 Inhalations) INH 2 puff Q4H PRN Administration SOB &/or Wheezing Alprazolam 0.5 mg 11/13/20 15:00 02/01/21 14:46 Alprazolam 0.5 Mg Tab PO 0.5 mg TID HEIDI Administration Ascorbic Acid 1,000 mg 10/17/20 09:00 11/17/20 08:36 Ascorbic Acid 500 Mg Chewable Tablet PO 1,000 mg DAILY HEIDI Administration Benzonatate 100 mg 10/24/20 02:50 10/25/20 03:34 Benzonatate 100 Mg Cap PO 100 mg TIDPRN PRN Administration Cough Calcium Carbonate 1,000 mg 10/17/20 04:16 10/17/20 04:51 Calcium Carbonate 500 Mg Chewtab PO 1,000 mg Q4H PRN Administration Heartburn or Indigestion Cholecalciferol 400 units 10/17/20 09:00 11/17/20 08:36 Cholecalciferol (Vitamin D3) 400 Units Tab PO 400 units DAILY HEIDI Administration Dexamethasone 6 mg 11/13/20 09:00 11/17/20 08:36 Dexamethasone 4 Mg/Ml Vial SLOW IVP 6 mg DAILY HEIDI Administration Enoxaparin Sodium 40 mg 10/18/20 21:00 11/17/20 08:37 Enoxaparin Sodium 40 Mg/0.4 Ml Syringe SC 40 mg BID HEIDI Administration Guaifenesin 200 mg 10/30/20 12:00 11/17/20 12:25 Diabetic Tussin 200 Mg/10 Ml Udcup PO 200 mg Q6HR HEIDI Administration Guaifenesin/Codeine Phosphate 10 ml 10/20/20 13:04 11/15/20 20:01 Guaifenesin/Codeine 200 Mg/20 Mg 10 Ml Cup PO 10 ml Q6H PRN Administration Cough Fentanyl 100 mls @ 0 mls/hr 11/07/20 19:45 11/11/20 20:38 Fentanyl Cadd IV 100 mls INF HEIDI Administration Protocol Per Protocol Dexmedetomidine HCl 400 mcg/ 100 mls @ 0 mls/hr 11/13/20 14:30 11/17/20 05:56 Sodium Chloride IVPB 100 mls INF HEIDI Administration Protocol Titrate Lactulose 20 gm 11/05/20 08:50 11/10/20 09:17 Lactulose 20 Gm/30 Ml Udcup PO 20 gm DAILYPRN PRN Administration Constipation Loperamide HCl 2 mg 11/17/20 14:36 11/17/20 14:46 Loperamide Hcl 2 Mg Cap PO 2 mg PRN PRN Administration Diarrhea/Loose Stools Metoprolol Tartrate 12.5 mg 11/12/20 09:00 11/17/20 08:37 Metoprolol Tartrate 25 Mg Tab PO Not Given BID HEIDI Pantoprazole Sodium 40 mg 10/30/20 09:00 11/17/20 08:37 Pantoprazole 40 Mg Granules Packet PER TUBE 40 mg DAILY HEIDI Administration Propofol 1,000 mg 10/28/20 14:45 11/13/20 05:36 Propofol 1,000 Mg/100 Ml Vial IV 11/27/20 14:45 1,000 mg INF PRN Administration TO ACHIEVE GOAL RASS Protocol Sertraline HCl 25 mg 11/16/20 21:00 11/17/20 08:38 Sertraline Hcl 25 Mg Tab PER TUBE 25 mg BID HEIDI Administration Sodium Chloride 10 ml 10/26/20 21:00 11/17/20 08:46 Flush - Normal Saline 10 Ml Syringe IVF 10 ml Q12HR HEIDI Administration Sodium Chloride 10 ml 10/26/20 10:30 11/05/20 09:02 Flush - Normal Saline 10 Ml Syringe IVF 10 ml PRN PRN Administration Saline Flush Zinc Sulfate 220 mg 10/17/20 09:00 11/17/20 08:38 Zinc Sulfate 220 Mg Cap PO 220 mg DAILY HEIDI Administration Hospitalist Exam Vitals: Vital Signs (12 hours) Temp Pulse Pulse Pulse Resp BP BP 11/17/20 16:00 98.9 F 26 H 11/17/20 15:20 71 112/74 11/17/20 14:00 28 H 11/17/20 13:18 70 70 139/88 11/17/20 12:00 98.5 F 32 H 11/17/20 11:04 80 140/80 11/17/20 10:00 35 H 11/17/20 08:27 61 124/80 11/17/20 08:00 98.3 F 33 H BP Pulse Ox Pulse Ox Pulse Ox 11/17/20 16:00 11/17/20 15:20 11/17/20 14:00 11/17/20 13:18 123/70 100 100 11/17/20 12:00 11/17/20 11:04 11/17/20 10:00 11/17/20 08:27 11/17/20 08:00 100 Weight Admit Weight 199 lb 9.6 oz Weight 184 lb 8.43 oz Most Recent Monitor Data Heart Rate from ECG 70 NIBP 113/67 NIBP BP-Mean 82 Respiration from ECG 32 SpO2 99 General - other findings: Status post trach Eye: PERRL ENT: normocephalic atraumatic Neck: supple Heart: RRR Respiratory: rhonchi Gastrointestinal: soft, non-tender Extremities: no cyanosis Skin: normal turgor Neurological: cranial nerve grossly intact Hosp A/P - Plan (1) Acute respiratory failure with hypoxia Code(s): J96.01 - ACUTE RESPIRATORY FAILURE WITH HYPOXIA Status: Acute (2) Pneumonia due to COVID-19 virus Code(s): U07.1 - COVID-19; J12.89 - OTHER VIRAL PNEUMONIA Status: Acute (3) HTN (hypertension) Code(s): I10 - ESSENTIAL (PRIMARY) HYPERTENSION Status: Chronic Qualifiers: Hypertension type: essential hypertension Qualified Code(s): I10 - Essential (primary) hypertension (4) MYLA (obstructive sleep apnea) Code(s): G47.33 - OBSTRUCTIVE SLEEP APNEA (ADULT) (PEDIATRIC) Status: Suspected (5) Hx of supraventricular tachycardia Code(s): Z86.79 - PERSONAL HISTORY OF OTHER DISEASES OF THE CIRCULATORY SYSTEM Status: Chronic - Plan Status post trach and PEG. Awaiting for LTAC placement. try trach collar today Cont Decadron, Lovenox for DVT ppx Pt completed course of empiric IV abx. cont supportive cares, prn anxiolytics Pulmologist is following
[2020-11-18 04:14] LABS: #Eosinphils 0.3 thou/uL (0.0-0.7); #Lymphocytes 2.6 thou/uL (1.20-3.40); #Monocytes 0.6 thou/uL (0.11-0.59); #Neutrophils 5.8 thou/uL (1.40-6.50); %Basophils 0.2 % (0.0-1.0); %Eosinophils 3.1 % (0.0-10.0); %Lymphocytes 28.1 % (21.0-51.0); %Monocytes 6.1 % (0.0-10.0); %Neutrophils 62.5 % (42.0-75.0); Hemoglobin 8.5 g/dL (12.0-16.0); Mean Corpuscular HGB CONC 31.3 g/dL (32.0-36.0); Mean Corpuscular Hemoglobin 27.6 pg (27.0-31.0); Mean Platelet Volume 8.6 fL (7.4-10.4); Platelet Count 216 thou/uL (130-400); RBC Distribution Width 17.4 % (11.5-14.5); Red Blood Cell (RBC) Count 3.08 mill/uL (4.20-5.40); White Blood Cell (WBC) Count 9.3 thou/uL (4.8-10.8)
[2020-11-18 04:52] LABS: Anion Gap 12 mmol/L (10-20); BUN (Urea Nitrogen) 21 mg/dL (9.8-20.1); Calc. Creatinine Clearance 198 mL/min (70-130); Calcium 8.4 mg/dL (7.8-10.44); Carbon Dioxide 30 mmol/L (22-29); Chloride 104 mmol/L (98-107); Glucose 87 mg/dL (70-105); Potassium 3.5 mmol/L (3.5-5.1); Sodium 142 mmol/L (136-145)
[2020-11-18] MEDS: GUAIFENESIN SF SOLN 200 MG/10 ML UDCUP PO SCH ×5 (06:00→23:28)
[2020-11-18] MEDS ORDERED: DC Sedation Protocol FS ONE (09:18)
[2020-11-18] MEDS: Ascorbic Acid 500 mg Chewable Tablet PO SCH (09:29)
[2020-11-18] MEDS: Potassium Chloride 20 MEQ in Premix Bag 1 BAG IVPB SCH ×2 (09:29→09:36)
[2020-11-18] MEDS: Enoxaparin Sodium 40 MG/0.4 ML SYRINGE SC SCH ×2 (09:29→20:06)
[2020-11-18] MEDS: ALPRAZolam 0.5 MG TAB PO SCH ×3 (09:29→20:06)
[2020-11-18] MEDS ORDERED: predniSONE 20 MG TAB PO SCH (09:30)
[2020-11-18] MEDS: Pantoprazole 40 MG GRANULES PACKET PER TUBE SCH (09:30)
[2020-11-18] MEDS: Metoprolol Tartrate 25 MG TAB PO SCH ×2 (09:30→20:06)
[2020-11-18] MEDS: Zinc Sulfate 220 MG CAP PO SCH (09:30)
[2020-11-18] MEDS: Cholecalciferol (Vitamin D3) 400 UNITS TAB PO SCH (09:30)
--- NOTE | 2020-11-18 09:43 | PRG ---
DATE OF SERVICE: 11/18/2020 SUBJECTIVE: She is off the vent this morning. She is on a trach collar and doing quite well. Awake, alert, responsive. No longer agitated. 100% FiO2 on 40% trach collar. OBJECTIVE: VITAL SIGNS: Blood pressure 80/50 CHEST: No wheezing. No crackles. CARDIAC: Normal S1, S2. No gallops. ABDOMEN: No mass. LABORATORY DATA: Labs unremarkable. ASSESSMENT: Respiratory failure, payan positive pneumonia, slowly improving. PLAN: Discontinue daily lab. Supportive care, PT. Switch over to p.o. prednisone. TIME SPENT: One-half hour of critical care time. Job ID: [id number]
[2020-11-18] MEDS: Dexamethasone 4 mg/ml Vial SLOW IVP SCH (09:49)
[2020-11-18] MEDS: Loperamide HCl 2 MG CAP PO PRN ×2 (12:55→20:06)
[2020-11-18] MEDS: Lorazepam 1 MG TAB PO PRN ×2 (18:07→23:41)
--- NOTE | 2020-11-18 18:14 | PDOC.HOSPP ---
- Subjective Subjective: Patient was seen examined at bedside. No acute events overnight. Her diarrhea has improved. - Objective Vital Signs & Weight: Vital Signs (12 hours) Temp Pulse Pulse Pulse Resp BP BP 11/18/20 18:00 32 H 11/18/20 16:00 98.3 F 30 H 11/18/20 14:42 81 143/85 H 11/18/20 14:00 47 H 11/18/20 12:00 98.7 F 11/18/20 09:13 68 62 92/56 L 11/18/20 08:15 11/18/20 08:00 98.8 F 32 H 11/18/20 07:57 60 BP Pulse Ox Pulse Ox Pulse Ox 11/18/20 18:00 11/18/20 16:00 11/18/20 14:42 11/18/20 14:00 11/18/20 12:00 97 11/18/20 09:13 81/53 L 96 100 11/18/20 08:15 100 11/18/20 08:00 99 11/18/20 07:57 Weight Admit Weight 199 lb 9.6 oz Weight 184 lb 1.376 oz Most Recent Monitor Data Heart Rate from ECG 87 NIBP 104/62 NIBP BP-Mean 76 Respiration from ECG 30 SpO2 100 I&O: 11/17/20 11/18/20 11/19/20 06:59 06:59 06:59 Intake Total 2942.5 2606.5 292 Output Total 1650 2270 1320 Balance 1292.5 336.5 -1028 Result Diagrams: 11/18/20 03:35 11/18/20 03:35 Hospitalist ROS - Medication Medications: Active Medications Generic Name Dose Route Start Last Admin Trade Name Freq PRN Reason Stop Dose Admin Acetaminophen 650 mg 10/17/20 04:16 10/26/20 20:20 Acetaminophen 325 Mg Tab PO 650 mg Q4H PRN Administration Headache/Fever/Mild Pain (1-3) Albuterol Sulfate 0 puff 10/23/20 09:50 10/29/20 18:58 Proventil Inhaler 6.7 G (200 Inhalations) INH 2 puff Q4H PRN Administration SOB &/or Wheezing Alprazolam 0.5 mg 11/13/20 15:00 11/18/20 14:03 Alprazolam 0.5 Mg Tab PO 0.5 mg TID HEIDI Administration Ascorbic Acid 1,000 mg 10/17/20 09:00 11/18/20 09:29 Ascorbic Acid 500 Mg Chewable Tablet PO 1,000 mg DAILY HEIDI Administration Benzonatate 100 mg 10/24/20 02:50 10/25/20 03:34 Benzonatate 100 Mg Cap PO 100 mg TIDPRN PRN Administration Cough Calcium Carbonate 1,000 mg 10/17/20 04:16 10/17/20 04:51 Calcium Carbonate 500 Mg Chewtab PO 1,000 mg Q4H PRN Administration Heartburn or Indigestion Cholecalciferol 400 units 10/17/20 09:00 11/18/20 09:30 Cholecalciferol (Vitamin D3) 400 Units Tab PO 400 units DAILY HEIDI Administration Enoxaparin Sodium 40 mg 10/18/20 21:00 11/18/20 09:29 Enoxaparin Sodium 40 Mg/0.4 Ml Syringe SC 40 mg BID HEIDI Administration Guaifenesin 200 mg 10/30/20 12:00 11/18/20 18:07 Diabetic Tussin 200 Mg/10 Ml Udcup PO 200 mg Q6HR HEIDI Administration Guaifenesin/Codeine Phosphate 10 ml 10/20/20 13:04 11/15/20 20:01 Guaifenesin/Codeine 200 Mg/20 Mg 10 Ml Cup PO 10 ml Q6H PRN Administration Cough Lactulose 20 gm 11/05/20 08:50 11/10/20 09:17 Lactulose 20 Gm/30 Ml Udcup PO 20 gm DAILYPRN PRN Administration Constipation Loperamide HCl 2 mg 11/17/20 14:36 11/18/20 12:55 Loperamide Hcl 2 Mg Cap PO 2 mg PRN PRN Administration Diarrhea/Loose Stools Lorazepam 1 mg 11/18/20 14:36 11/18/20 18:07 Lorazepam 1 Mg Tab PO 1 mg Q4H PRN Administration Anxiety/Agitation Metoprolol Tartrate 12.5 mg 11/12/20 09:00 11/18/20 09:30 Metoprolol Tartrate 25 Mg Tab PO Not Given BID REPLACED BY [facility] Pantoprazole Sodium 40 mg 10/30/20 09:00 11/18/20 09:30 Pantoprazole 40 Mg Granules Packet PER TUBE 40 mg DAILY HEIDI Administration Sertraline HCl 25 mg 11/16/20 21:00 11/18/20 09:30 Sertraline Hcl 25 Mg Tab PER TUBE 25 mg BID HEIDI Administration Sodium Chloride 10 ml 10/26/20 21:00 11/18/20 09:30 Flush - Normal Saline 10 Ml Syringe IVF 10 ml Q12HR HEIDI Administration Sodium Chloride 10 ml 10/26/20 10:30 11/05/20 09:02 Flush - Normal Saline 10 Ml Syringe IVF 10 ml PRN PRN Administration Saline Flush Zinc Sulfate 220 mg 10/17/20 09:00 11/18/20 09:30 Zinc Sulfate 220 Mg Cap PO 220 mg DAILY HEIDI Administration Hospitalist Exam Vitals: Vital Signs (12 hours) Temp Pulse Pulse Pulse Resp BP BP 11/18/20 18:00 32 H 11/18/20 16:00 98.3 F 30 H 11/18/20 14:42 81 143/85 H 11/18/20 14:00 47 H 11/18/20 12:00 98.7 F 11/18/20 09:13 68 62 92/56 L 11/18/20 08:15 11/18/20 08:00 98.8 F 32 H 11/18/20 07:57 60 BP Pulse Ox Pulse Ox Pulse Ox 11/18/20 18:00 11/18/20 16:00 11/18/20 14:42 11/18/20 14:00 11/18/20 12:00 97 11/18/20 09:13 81/53 L 96 100 11/18/20 08:15 100 11/18/20 08:00 99 11/18/20 07:57 Weight Admit Weight 199 lb 9.6 oz Weight 184 lb 1.376 oz Most Recent Monitor Data Heart Rate from ECG 87 NIBP 104/62 NIBP BP-Mean 76 Respiration from ECG 30 SpO2 100 General Appearance: NAD Eye: PERRL ENT: normocephalic atraumatic ENT - other findings: s/p trach Neck: supple Heart: RRR Respiratory: CTAB Gastrointestinal: soft Extremities: no cyanosis Skin: normal turgor Neurological: cranial nerve grossly intact Musculoskeletal: normal tone Hosp A/P - Plan (1) Acute respiratory failure with hypoxia Code(s): J96.01 - ACUTE RESPIRATORY FAILURE WITH HYPOXIA Status: Acute (2) Pneumonia due to COVID-19 virus Code(s): U07.1 - COVID-19; J12.89 - OTHER VIRAL PNEUMONIA Status: Acute (3) HTN (hypertension) Code(s): I10 - ESSENTIAL (PRIMARY) HYPERTENSION Status: Chronic Qualifiers: Hypertension type: essential hypertension Qualified Code(s): I10 - Essential (primary) hypertension (4) MYLA (obstructive sleep apnea) Code(s): G47.33 - OBSTRUCTIVE SLEEP APNEA (ADULT) (PEDIATRIC) Status: Suspected (5) Hx of supraventricular tachycardia Code(s): Z86.79 - PERSONAL HISTORY OF OTHER DISEASES OF THE CIRCULATORY SYSTEM Status: Chronic - Plan Status post trach and PEG. Awaiting for LTAC placement. transition to oral prednisone Pt completed course of empiric IV abx. cont supportive cares, prn anxiolytics Pulmologist is following
[2020-11-19] MEDS: GUAIFENESIN SF SOLN 200 MG/10 ML UDCUP PO SCH ×3 (06:00→18:31)
[2020-11-19] MEDS: Lorazepam 1 MG TAB PO PRN (06:55)
[2020-11-19] MEDS: Cholecalciferol (Vitamin D3) 400 UNITS TAB PO SCH (08:49)
[2020-11-19] MEDS: Ascorbic Acid 500 mg Chewable Tablet PO SCH (08:49)
[2020-11-19] MEDS: Enoxaparin Sodium 40 MG/0.4 ML SYRINGE SC SCH ×2 (08:49→20:28)
[2020-11-19] MEDS: ALPRAZolam 0.5 MG TAB PO SCH ×3 (08:49→20:28)
[2020-11-19] MEDS: predniSONE 20 MG TAB PO SCH (08:49)
[2020-11-19] MEDS: Pantoprazole 40 MG GRANULES PACKET PER TUBE SCH (08:50)
[2020-11-19] MEDS: Zinc Sulfate 220 MG CAP PO SCH (08:50)
[2020-11-19] MEDS: Metoprolol Tartrate 25 MG TAB PO SCH ×2 (08:50→20:28)
--- NOTE | 2020-11-19 09:18 | PRG ---
DATE OF SERVICE: 11/19/2020 SUBJECTIVE: This morning, she is awake, alert, and responsive. She is back on a CPAP. She desatted last night. OBJECTIVE: VITAL SIGNS: Saturations are 100% on 30% FiO2, temperature 98, pulse 77, blood pressure 88/60, CHEST: Rhonchi. CARDIAC: Normal S1, S2. No gallops. ABDOMEN: No masses. IMPRESSION: Respiratory failure, morbid obesity, payan positive pneumonia, major anxiety. PLAN: Continue low-dose steroids, supportive care, PT, eventually placement. Obtaining an x-ray for baseline purposes. TIME SPENT: One-half hour of critical care time. Job ID: [id number]
--- NOTE | 2020-11-19 11:00 | RAD ---
PORTABLE CHEST: Date: 11/19/2020 HISTORY: Respiratory distress. COVID-positive. COMPARISON: 11/12/2020 exam. FINDINGS: Right-sided central line and tracheostomy tube remain in satisfactory position. Heart size is enlarge d. Parenchymal lung changes are stable. IMPRESSION: Stable overall exam. POS: ASMITA
[2020-11-19] MEDS ORDERED: Sodium Chloride 0.9% 10 ML ONE (13:51)
--- NOTE | 2020-11-19 18:25 | PDOC.HOSPP ---
- Subjective Subjective: Patient was seen examined at bedside. Repeat chest x-ray appears to be stable. She is resting comfortably. Discussed with her son at bedside. - Objective Vital Signs & Weight: Vital Signs (12 hours) Temp Pulse Resp BP Pulse Ox 11/19/20 18:00 27 H 11/19/20 16:00 99.0 F 25 H 11/19/20 14:40 95 112/59 L 11/19/20 14:00 31 H 11/19/20 12:00 98.2 F 37 H 11/19/20 11:17 83 110/58 L 11/19/20 10:00 34 H 11/19/20 08:01 77 86/50 L 11/19/20 08:00 98.0 F 30 H 100 Weight Admit Weight 199 lb 9.6 oz Weight 184 lb 1.376 oz Most Recent Monitor Data Heart Rate from ECG 85 NIBP 96/51 NIBP BP-Mean 66 Respiration from ECG 28 SpO2 100 I&O: 11/18/20 11/19/20 11/20/20 06:59 06:59 06:59 Intake Total 2606.5 1162 240 Output Total 2270 2055 1120 Balance 336.5 -893 -880 Result Diagrams: 11/18/20 03:35 11/18/20 03:35 Radiology Reviewed by me: Yes EKG Reviewed by me: Yes Hospitalist ROS - Medication Medications: Active Medications Generic Name Dose Route Start Last Admin Trade Name Freq PRN Reason Stop Dose Admin Acetaminophen 650 mg 10/17/20 04:16 10/26/20 20:20 Acetaminophen 325 Mg Tab PO 650 mg Q4H PRN Administration Headache/Fever/Mild Pain (1-3) Albuterol Sulfate 0 puff 10/23/20 09:50 10/29/20 18:58 Proventil Inhaler 6.7 G (200 Inhalations) INH 2 puff Q4H PRN Administration SOB &/or Wheezing Alprazolam 0.5 mg 11/13/20 15:00 11/19/20 17:35 Alprazolam 0.5 Mg Tab PO Not Given TID HEIDI Ascorbic Acid 1,000 mg 10/17/20 09:00 11/19/20 08:49 Ascorbic Acid 500 Mg Chewable Tablet PO 1,000 mg DAILY HEIDI Administration Benzonatate 100 mg 10/24/20 02:50 10/25/20 03:34 Benzonatate 100 Mg Cap PO 100 mg TIDPRN PRN Administration Cough Calcium Carbonate 1,000 mg 10/17/20 04:16 10/17/20 04:51 Calcium Carbonate 500 Mg Chewtab PO 1,000 mg Q4H PRN Administration Heartburn or Indigestion Cholecalciferol 400 units 10/17/20 09:00 11/19/20 08:49 Cholecalciferol (Vitamin D3) 400 Units Tab PO 400 units DAILY HEIDI Administration Enoxaparin Sodium 40 mg 10/18/20 21:00 11/19/20 08:49 Enoxaparin Sodium 40 Mg/0.4 Ml Syringe SC 40 mg BID HEIDI Administration Guaifenesin 200 mg 10/30/20 12:00 11/19/20 11:45 Diabetic Tussin 200 Mg/10 Ml Udcup PO 200 mg Q6HR HEIDI Administration Guaifenesin/Codeine Phosphate 10 ml 10/20/20 13:04 11/15/20 20:01 Guaifenesin/Codeine 200 Mg/20 Mg 10 Ml Cup PO 10 ml Q6H PRN Administration Cough Lactulose 20 gm 11/05/20 08:50 11/10/20 09:17 Lactulose 20 Gm/30 Ml Udcup PO 20 gm DAILYPRN PRN Administration Constipation Loperamide HCl 2 mg 11/17/20 14:36 11/18/20 20:06 Loperamide Hcl 2 Mg Cap PO 2 mg PRN PRN Administration Diarrhea/Loose Stools Lorazepam 1 mg 11/18/20 14:36 11/19/20 06:55 Lorazepam 1 Mg Tab PO 1 mg Q4H PRN Administration Anxiety/Agitation Metoprolol Tartrate 12.5 mg 11/12/20 09:00 11/19/20 08:50 Metoprolol Tartrate 25 Mg Tab PO 12.5 mg BID HEIDI Administration Pantoprazole Sodium 40 mg 10/30/20 09:00 11/19/20 08:50 Pantoprazole 40 Mg Granules Packet PER TUBE 40 mg DAILY HEIDI Administration Prednisone 20 mg 11/19/20 08:00 11/19/20 08:49 Prednisone 20 Mg Tab PO 20 mg QAM-WM HEIDI Administration Sertraline HCl 25 mg 11/16/20 21:00 11/19/20 08:50 Sertraline Hcl 25 Mg Tab PER TUBE 25 mg BID HEIDI Administration Sodium Chloride 10 ml 10/26/20 21:00 11/19/20 08:50 Flush - Normal Saline 10 Ml Syringe IVF 10 ml Q12HR HEIDI Administration Sodium Chloride 10 ml 10/26/20 10:30 11/05/20 09:02 Flush - Normal Saline 10 Ml Syringe IVF 10 ml PRN PRN Administration Saline Flush Zinc Sulfate 220 mg 10/17/20 09:00 11/19/20 08:50 Zinc Sulfate 220 Mg Cap PO 220 mg DAILY HEIDI Administration Hospitalist Exam Vitals: Vital Signs (12 hours) Temp Pulse Resp BP Pulse Ox 11/19/20 18:00 27 H 11/19/20 16:00 99.0 F 25 H 11/19/20 14:40 95 112/59 L 11/19/20 14:00 31 H 11/19/20 12:00 98.2 F 37 H 11/19/20 11:17 83 110/58 L 11/19/20 10:00 34 H 11/19/20 08:01 77 86/50 L 11/19/20 08:00 98.0 F 30 H 100 Weight Admit Weight 199 lb 9.6 oz Weight 184 lb 1.376 oz Most Recent Monitor Data Heart Rate from ECG 85 NIBP 96/51 NIBP BP-Mean 66 Respiration from ECG 28 SpO2 100 General Appearance: NAD Eye: PERRL ENT: normocephalic atraumatic Neck: supple Heart: RRR Respiratory: CTAB Gastrointestinal: soft, non-tender Extremities: no cyanosis Skin: normal turgor Neurological: cranial nerve grossly intact Hosp A/P - Plan (1) Acute respiratory failure with hypoxia Code(s): J96.01 - ACUTE RESPIRATORY FAILURE WITH HYPOXIA Status: Acute (2) Pneumonia due to COVID-19 virus Code(s): U07.1 - COVID-19; J12.89 - OTHER VIRAL PNEUMONIA Status: Acute (3) HTN (hypertension) Code(s): I10 - ESSENTIAL (PRIMARY) HYPERTENSION Status: Chronic Qualifiers: Hypertension type: essential hypertension Qualified Code(s): I10 - Essential (primary) hypertension (4) MYLA (obstructive sleep apnea) Code(s): G47.33 - OBSTRUCTIVE SLEEP APNEA (ADULT) (PEDIATRIC) Status: Suspected (5) Hx of supraventricular tachycardia Code(s): Z86.79 - PERSONAL HISTORY OF OTHER DISEASES OF THE CIRCULATORY SYSTEM Status: Chronic - Plan Status post trach and PEG. Awaiting for LTAC placement. transitioned to oral prednisone Pt completed course of empiric IV abx. cont supportive cares, prn anxiolytics Pulmologist is following
[2020-11-20] MEDS: GUAIFENESIN SF SOLN 200 MG/10 ML UDCUP PO SCH ×4 (01:12→17:18)
[2020-11-20] MEDS: Lorazepam 1 MG TAB PO PRN (01:32)
[2020-11-20] MEDS: Enoxaparin Sodium 40 MG/0.4 ML SYRINGE SC SCH ×2 (09:02→20:13)
[2020-11-20] MEDS: Zinc Sulfate 220 MG CAP PO SCH (09:03)
[2020-11-20] MEDS: ALPRAZolam 0.5 MG TAB PO SCH ×3 (09:03→20:13)
[2020-11-20] MEDS: Pantoprazole 40 MG GRANULES PACKET PER TUBE SCH (09:03)
[2020-11-20] MEDS: Cholecalciferol (Vitamin D3) 400 UNITS TAB PO SCH (09:03)
[2020-11-20] MEDS: Ascorbic Acid 500 mg Chewable Tablet PO SCH (09:03)
[2020-11-20] MEDS: Metoprolol Tartrate 25 MG TAB PO SCH ×2 (09:04→20:13)
[2020-11-20] MEDS: predniSONE 20 MG TAB PO SCH (09:04)
--- NOTE | 2020-11-20 09:56 | PRG ---
DATE OF SERVICE: 11/20/2020 SUBJECTIVE: Abida Bourgeois this morning is awake and responsive on CPAP. OBJECTIVE: VITAL SIGNS: Pulse 74, blood pressure 106/69, and saturations 100% on 35% FiO2. CHEST: No wheezing. No crackles. CARDIAC: Normal S1 and S2. No gallops. ABDOMEN: No masses. ASSESSMENT: 1. Morbid obesity. 2. [place] positive pneumonia. 3. Respiratory failure. 4. Probably obstructive sleep apnea. PLAN: She is doing better. We are in the process of trying to put back on a trach collar, eventually placement. Continue aggressive PT and supportive care. TIME SPENT: One-half hour of critical care time. Job ID: [id number]
[2020-11-20 12:54] VITALS: BMI 31.8
--- NOTE | 2020-11-20 19:26 | PDOC.HOSPP ---
- Subjective Subjective: Patient was seen examined at bedside. She is doing quite well today. She is currently is on trach collar and appears to be tolerated well. No other acute events overnight. Pending LTAC placement. - Objective Vital Signs & Weight: Vital Signs (12 hours) Temp Pulse Pulse BP BP Pulse Ox Pulse Ox 11/20/20 11:00 99.2 F 11/20/20 10:50 83 81 116/67 125/71 98 11/20/20 09:45 100 11/20/20 09:00 98.9 F Pulse Ox 11/20/20 11:00 11/20/20 10:50 98 11/20/20 09:45 11/20/20 09:00 Weight Admit Weight 199 lb 9.6 oz Weight 174 lb 1.6 oz Most Recent Monitor Data Heart Rate from ECG 73 NIBP 112/56 NIBP BP-Mean 74 Respiration from ECG 35 SpO2 98 I&O: 11/19/20 11/20/20 11/21/20 06:59 06:59 06:59 Intake Total 1162 1405.6 520 Output Total 8235 1765 115 Balance -893 -359.4 405 Result Diagrams: 11/18/20 03:35 11/18/20 03:35 Radiology Reviewed by me: Yes EKG Reviewed by me: Yes Hospitalist ROS - Medication Medications: Active Medications Generic Name Dose Route Start Last Admin Trade Name Freq PRN Reason Stop Dose Admin Acetaminophen 650 mg 10/17/20 04:16 10/26/20 20:20 Acetaminophen 325 Mg Tab PO 650 mg Q4H PRN Administration Headache/Fever/Mild Pain (1-3) Albuterol Sulfate 0 puff 10/23/20 09:50 10/29/20 18:58 Proventil Inhaler 6.7 G (200 Inhalations) INH 2 puff Q4H PRN Administration SOB &/or Wheezing Alprazolam 0.5 mg 11/13/20 15:00 11/20/20 16:00 Alprazolam 0.5 Mg Tab PO 0.5 mg TID HEIDI Administration Ascorbic Acid 1,000 mg 10/17/20 09:00 11/20/20 09:03 Ascorbic Acid 500 Mg Chewable Tablet PO 1,000 mg DAILY HEIDI Administration Benzonatate 100 mg 10/24/20 02:50 10/25/20 03:34 Benzonatate 100 Mg Cap PO 100 mg TIDPRN PRN Administration Cough Calcium Carbonate 1,000 mg 10/17/20 04:16 10/17/20 04:51 Calcium Carbonate 500 Mg Chewtab PO 1,000 mg Q4H PRN Administration Heartburn or Indigestion Cholecalciferol 400 units 10/17/20 09:00 11/20/20 09:03 Cholecalciferol (Vitamin D3) 400 Units Tab PO 400 units DAILY HEIDI Administration Enoxaparin Sodium 40 mg 10/18/20 21:00 11/20/20 09:02 Enoxaparin Sodium 40 Mg/0.4 Ml Syringe SC 40 mg BID HEIDI Administration Guaifenesin 200 mg 10/30/20 12:00 11/20/20 17:18 Diabetic Tussin 200 Mg/10 Ml Udcup PO 200 mg Q6HR HEIDI Administration Guaifenesin/Codeine Phosphate 10 ml 10/20/20 13:04 11/15/20 20:01 Guaifenesin/Codeine 200 Mg/20 Mg 10 Ml Cup PO 10 ml Q6H PRN Administration Cough Dexmedetomidine HCl 400 mcg/ 100 mls @ 0 mls/hr 11/19/20 07:45 11/20/20 09:12 Sodium Chloride IVPB 100 mls INF HEIDI Administration Protocol Titrate Lactulose 20 gm 11/05/20 08:50 11/10/20 09:17 Lactulose 20 Gm/30 Ml Udcup PO 20 gm DAILYPRN PRN Administration Constipation Loperamide HCl 2 mg 11/17/20 14:36 11/18/20 20:06 Loperamide Hcl 2 Mg Cap PO 2 mg PRN PRN Administration Diarrhea/Loose Stools Lorazepam 1 mg 11/18/20 14:36 11/20/20 01:32 Lorazepam 1 Mg Tab PO 1 mg Q4H PRN Administration Anxiety/Agitation Metoprolol Tartrate 12.5 mg 11/12/20 09:00 11/20/20 09:04 Metoprolol Tartrate 25 Mg Tab PO 12.5 mg BID HEIDI Administration Pantoprazole Sodium 40 mg 10/30/20 09:00 11/20/20 09:03 Pantoprazole 40 Mg Granules Packet PER TUBE 40 mg DAILY HEIDI Administration Prednisone 20 mg 11/19/20 08:00 11/20/20 09:04 Prednisone 20 Mg Tab PO 20 mg QAM-WM HEIDI Administration Sertraline HCl 25 mg 11/16/20 21:00 11/20/20 09:04 Sertraline Hcl 25 Mg Tab PER TUBE 25 mg BID HEIDI Administration Sodium Chloride 10 ml 10/26/20 21:00 11/20/20 09:03 Flush - Normal Saline 10 Ml Syringe IVF 10 ml Q12HR HEIDI Administration Sodium Chloride 10 ml 10/26/20 10:30 11/05/20 09:02 Flush - Normal Saline 10 Ml Syringe IVF 10 ml PRN PRN Administration Saline Flush Zinc Sulfate 220 mg 10/17/20 09:00 11/20/20 09:03 Zinc Sulfate 220 Mg Cap PO 220 mg DAILY HEIDI Administration Hospitalist Exam Vitals: Vital Signs (12 hours) Temp Pulse Pulse BP BP Pulse Ox Pulse Ox 11/20/20 11:00 99.2 F 11/20/20 10:50 83 81 116/67 125/71 98 11/20/20 09:45 100 11/20/20 09:00 98.9 F Pulse Ox 11/20/20 11:00 11/20/20 10:50 98 11/20/20 09:45 11/20/20 09:00 Weight Admit Weight 199 lb 9.6 oz Weight 174 lb 1.6 oz Most Recent Monitor Data Heart Rate from ECG 73 NIBP 112/56 NIBP BP-Mean 74 Respiration from ECG 35 SpO2 98 General Appearance: NAD General - other findings: Status post tracheotomy Eye: PERRL ENT: normocephalic atraumatic Neck: supple Heart: RRR Respiratory: CTAB Gastrointestinal: soft Extremities: no cyanosis Skin: normal turgor, no lesions Neurological: cranial nerve grossly intact Musculoskeletal: normal tone, normal strength, no muscle wasting Psychiatric: normal affect, normal behavior, A&O x 3 Hosp A/P (1) Acute respiratory failure with hypoxia Code(s): J96.01 - ACUTE RESPIRATORY FAILURE WITH HYPOXIA Status: Acute (2) Pneumonia due to COVID-19 virus Code(s): U07.1 - COVID-19; J12.89 - OTHER VIRAL PNEUMONIA Status: Acute (3) Sepsis Code(s): A41.9 - SEPSIS, UNSPECIFIED ORGANISM Status: Acute (4) HTN (hypertension) Code(s): I10 - ESSENTIAL (PRIMARY) HYPERTENSION Status: Chronic Qualifiers: Hypertension type: essential hypertension Qualified Code(s): I10 - Essential (primary) hypertension (5) Hx of supraventricular tachycardia Code(s): Z86.79 - PERSONAL HISTORY OF OTHER DISEASES OF THE CIRCULATORY SYSTEM Status: Chronic (6) MYLA (obstructive sleep apnea) Code(s): G47.33 - OBSTRUCTIVE SLEEP APNEA (ADULT) (PEDIATRIC) Status: Suspected - Plan Patient is a pleasant 60 years old female who has significant past medical history of SVT, who presented to ED with short of breath. She was diagnosed with COVID pneumonia on 10/08/2020 she was admitted for respiratory failure/Covid pneumonia on 10/17/2020. She was given convalescent plasma, and started on IV Decadron, and orders ancillary treatment. Patient was out of the timeframe for remdesivir. Despite aggressive therapy, her respiratory status continued to deteriorate, patient required high flow, subsequently escalated to BiPAP, and ultimately intubated on 10/28/2020. She required trach and PEG plac ement on November 11, 2020. Now pending for LTAC placement. Acute hypoxic respiratory failure due to COVID-19 pneumonia -s/p Trach and PEG on 11/11/20. s/p convalescent plasma. Completed course of empiric abx with doxy. Continue Vit C/D/Zinc -Steroid transitioned to Prednisone tapered. Cont Lovenox BID for DVT ppx -Pt is tolerating trach collar. -Pending LTAC placement. Appreciate pulmonology input. COVID-19 pneumonia --as above Sepsis, present on admission --follow cultures. d/t viral pna. Resolved History of SVT --NSR, resume home meds (Toprol, Dig) Hypokalemia --replaced. DVT ppx: Lovenox twice daily GI ppx: PPI Code Status: Full code Anticipated Dispo: LTAC placement
[2020-11-21] MEDS: GUAIFENESIN SF SOLN 200 MG/10 ML UDCUP PO SCH ×4 (06:28→17:05)
--- NOTE | 2020-11-21 09:19 | PRG ---
DATE OF SERVICE: 11/21/2020 SUBJECTIVE: Abida Bourgeois remains in the ICU on a trach collar. She is doing well, just weak. We are trying to get a placement for her. OBJECTIVE: VITAL SIGNS: Temperature 98, pulse 80, blood pressure is 104/58. GENERAL: She is awake and responsive. CHEST: No wheezing. No crackles. CARDIAC: Normal S1, S2. No gallops. ABDOMEN: No masses. IMPRESSION: Respiratory failure, payan positive pneumonia, probably sleep apnea, status post trach and PEG. PLAN: She is doing better. We will try and get placement for her. Major problem is anxiety. We are going to continue low-dose steroids for a period of time, eventually placement. Job ID: [id number]
[2020-11-21] MEDS: Cholecalciferol (Vitamin D3) 400 UNITS TAB PO SCH (09:27)
[2020-11-21] MEDS: Zinc Sulfate 220 MG CAP PO SCH (09:27)
[2020-11-21] MEDS: Ascorbic Acid 500 mg Chewable Tablet PO SCH (09:28)
[2020-11-21] MEDS: ALPRAZolam 0.5 MG TAB PO SCH ×3 (09:28→20:43)
[2020-11-21] MEDS: Metoprolol Tartrate 25 MG TAB PO SCH ×2 (09:28→20:43)
[2020-11-21] MEDS: Enoxaparin Sodium 40 MG/0.4 ML SYRINGE SC SCH ×2 (09:29→20:43)
[2020-11-21] MEDS: Pantoprazole 40 MG GRANULES PACKET PER TUBE SCH (09:29)
[2020-11-21] MEDS: Acetaminophen 325 MG TAB PO PRN (09:40)
[2020-11-21] MEDS: predniSONE 20 MG TAB PO SCH (09:47)
--- NOTE | 2020-11-21 18:52 | PDOC.HOSPP ---
- Subjective Subjective: Pt was quite anxious with PT today. She was on CPAP overnight, tolerating trach collar so far today - Objective Vital Signs & Weight: Vital Signs (12 hours) Temp Pulse Pulse BP BP Pulse Ox Pulse Ox 11/21/20 17:00 97.6 F 11/21/20 10:00 76 75 124/68 136/86 98 98 11/21/20 09:00 99.3 F Weight Admit Weight 199 lb 9.6 oz Weight 174 lb 1.6 oz Most Recent Monitor Data Heart Rate from ECG 68 NIBP 127/70 NIBP BP-Mean 89 Respiration from ECG 34 SpO2 100 I&O: 11/20/20 11/21/20 11/22/20 06:59 06:59 06:59 Intake Total 1405.6 1840.4 1180 Output Total 1765 1104 400 Balance -359.4 736.4 780 Result Diagrams: 11/18/20 03:35 11/18/20 03:35 Radiology Reviewed by me: Yes EKG Reviewed by me: Yes Hospitalist ROS - Medication Medications: Active Medications Generic Name Dose Route Start Last Admin Trade Name Freq PRN Reason Stop Dose Admin Acetaminophen 650 mg 10/17/20 04:16 11/21/20 09:40 Acetaminophen 325 Mg Tab PO 650 mg Q4H PRN Administration Headache/Fever/Mild Pain (1-3) Albuterol Sulfate 0 puff 10/23/20 09:50 10/29/20 18:58 Proventil Inhaler 6.7 G (200 Inhalations) INH 2 puff Q4H PRN Administration SOB &/or Wheezing Alprazolam 1 mg 11/21/20 15:00 11/21/20 17:06 Alprazolam 0.5 Mg Tab PO 1 mg TID HEIDI Administration Ascorbic Acid 1,000 mg 10/17/20 09:00 11/21/20 09:28 Ascorbic Acid 500 Mg Chewable Tablet PO 1,000 mg DAILY HEIDI Administration Benzonatate 100 mg 10/24/20 02:50 10/25/20 03:34 Benzonatate 100 Mg Cap PO 100 mg TIDPRN PRN Administration Cough Calcium Carbonate 1,000 mg 10/17/20 04:16 10/17/20 04:51 Calcium Carbonate 500 Mg Chewtab PO 1,000 mg Q4H PRN Administration Heartburn or Indigestion Cholecalciferol 400 units 10/17/20 09:00 11/21/20 09:27 Cholecalciferol (Vitamin D3) 400 Units Tab PO 400 units DAILY HEIDI Administration Enoxaparin Sodium 40 mg 10/18/20 21:00 11/21/20 09:29 Enoxaparin Sodium 40 Mg/0.4 Ml Syringe SC 40 mg BID HEIDI Administration Guaifenesin 200 mg 10/30/20 12:00 11/21/20 17:05 Diabetic Tussin 200 Mg/10 Ml Udcup PO 200 mg Q6HR HEIDI Administration Guaifenesin/Codeine Phosphate 10 ml 10/20/20 13:04 11/15/20 20:01 Guaifenesin/Codeine 200 Mg/20 Mg 10 Ml Cup PO 10 ml Q6H PRN Administration Cough Dexmedetomidine HCl 400 mcg/ 100 mls @ 0 mls/hr 11/19/20 07:45 11/20/20 09:12 Sodium Chloride IVPB 100 mls INF HEIDI Administration Protocol Titrate Lactulose 20 gm 11/05/20 08:50 11/10/20 09:17 Lactulose 20 Gm/30 Ml Udcup PO 20 gm DAILYPRN PRN Administration Constipation Loperamide HCl 2 mg 11/17/20 14:36 11/18/20 20:06 Loperamide Hcl 2 Mg Cap PO 2 mg PRN PRN Administration Diarrhea/Loose Stools Lorazepam 1 mg 11/18/20 14:36 11/20/20 01:32 Lorazepam 1 Mg Tab PO 1 mg Q4H PRN Administration Anxiety/Agitation Metoprolol Tartrate 12.5 mg 11/12/20 09:00 11/21/20 09:28 Metoprolol Tartrate 25 Mg Tab PO 12.5 mg BID HEIDI Administration Pantoprazole Sodium 40 mg 10/30/20 09:00 11/21/20 09:29 Pantoprazole 40 Mg Granules Packet PER TUBE 40 mg DAILY HEIDI Administration Prednisone 20 mg 11/19/20 08:00 11/21/20 09:47 Prednisone 20 Mg Tab PO 20 mg QAM-WM HEIDI Administration Sertraline HCl 25 mg 11/16/20 21:00 11/21/20 09:28 Sertraline Hcl 25 Mg Tab PER TUBE 25 mg BID HEIDI Administration Sodium Chloride 10 ml 10/26/20 21:00 11/21/20 09:29 Flush - Normal Saline 10 Ml Syringe IVF 10 ml Q12HR HEIDI Administration Sodium Chloride 10 ml 10/26/20 10:30 11/05/20 09:02 Flush - Normal Saline 10 Ml Syringe IVF 10 ml PRN PRN Administration Saline Flush Zinc Sulfate 220 mg 10/17/20 09:00 11/21/20 09:27 Zinc Sulfate 220 Mg Cap PO 220 mg DAILY HEIDI Administration Hospitalist Exam Vitals: Vital Signs (12 hours) Temp Pulse Pulse BP BP Pulse Ox Pulse Ox 11/21/20 17:00 97.6 F 11/21/20 10:00 76 75 124/68 136/86 98 98 11/21/20 09:00 99.3 F Weight Admit Weight 199 lb 9.6 oz Weight 174 lb 1.6 oz Most Recent Monitor Data Heart Rate from ECG 68 NIBP 127/70 NIBP BP-Mean 89 Respiration from ECG 34 SpO2 100 General Appearance: NAD General - other findings: trach in place Eye: PERRL ENT: normocephalic atraumatic Neck: supple Heart: RRR Respiratory: CTAB Gastrointestinal: soft Extremities: no cyanosis Skin: normal turgor Neurological: cranial nerve grossly intact Psychiatric: normal affect, normal behavior, A&O x 3 Hosp A/P (1) Acute respiratory failure with hypoxia Code(s): J96.01 - ACUTE RESPIRATORY FAILURE WITH HYPOXIA Status: Acute (2) Pneumonia due to COVID-19 virus Code(s): U07.1 - COVID-19; J12.89 - OTHER VIRAL PNEUMONIA Status: Acute (3) Sepsis Code(s): A41.9 - SEPSIS, UNSPECIFIED ORGANISM Status: Acute (4) HTN (hypertension) Code(s): I10 - ESSENTIAL (PRIMARY) HYPERTENSION Status: Chronic Qualifiers: Hypertension type: essential hypertension Qualified Code(s): I10 - Essential (primary) hypertension (5) Hx of supraventricular tachycardia Code(s): Z86.79 - PERSONAL HISTORY OF OTHER DISEASES OF THE CIRCULATORY SYSTEM Status: Chronic (6) MYLA (obstructive sleep apnea) Code(s): G47.33 - OBSTRUCTIVE SLEEP APNEA (ADULT) (PEDIATRIC) Status: Suspected - Plan Patient is a pleasant 60 years old female who has significant past medical history of SVT, who presented to ED with short of breath. She was diagnosed with COVID pneumonia on 10/08/2020 she was admitted for respiratory failure/Covid pneumonia on 10/17/2020. She was given convalescent plasma, and started on IV Decadron, and orders ancillary treatment. Patient was out of the timeframe for remdesivir. Despite aggressive therapy, her respiratory status continued to deteriorate, patient required high flow, subsequently escalated to BiPAP, and ultimately intubated on 10/28/2020. She required trach and PEG placement on November 11, 2020. Now pending for LTAC placement. Acute hypoxic respiratory failure due to COVID-19 pneumonia -s/p Trach and PEG on 11/11/20. s/p convalescent plasma. Completed course of empiric abx with doxy. Continue Vit C/D/Zinc -Steroid transitioned to Prednisone tapered. Cont Lovenox BID for DVT ppx -Pt is tolerating trach collar. -Pending LTAC placement. Appreciate pulmonology input. -cont PT COVID-19 pneumonia --as above Sepsis, present on admission --follow cultures. d/t viral pna. Resolved History of SVT --NSR, resume home meds (Toprol, Dig) Hypokalemia --replaced. Anxiety Disorder --increase Xanax DVT ppx: Lovenox twice daily GI ppx: PPI Code Status: Full code Anticipated Dispo: LTAC placement
[2020-11-22] MEDS: GUAIFENESIN SF SOLN 200 MG/10 ML UDCUP PO SCH ×4 (00:31→20:27)
[2020-11-22 04:11] LABS: Band 2 % (5-11); Eosinophils 2 % (0-10); Hemoglobin 9.4 g/dL (12.0-16.0); Hypochromia SLIGHT = 6-15 cells (100X) (0-5/hpf); Lymphocytes 14 % (21-51); MDiff Complete? YES; Mean Corpuscular HGB CONC 31.6 g/dL (32.0-36.0); Mean Corpuscular Hemoglobin 27.8 pg (27.0-31.0); Mean Corpuscular Volume 88.1 fL (78.0-98.0); Mean Platelet Volume 8.5 fL (7.4-10.4); Monocytes 14 % (0-10); Neutrophil 68 % (42-75); Platelet Count 268 thou/uL (130-400); Platelet Morphology Comment Appears Adequate; RBC Distribution Width 16.6 % (11.5-14.5); Red Blood Cell (RBC) Count 3.38 mill/uL (4.20-5.40); White Blood Cell (WBC) Count 7.1 thou/uL (4.8-10.8)
[2020-11-22 04:15] LABS: Anion Gap 14 mmol/L (10-20); BUN (Urea Nitrogen) 17 mg/dL (9.8-20.1); Calc. Creatinine Clearance 170 mL/min (70-130); Carbon Dioxide 33 mmol/L (22-29); Chloride 97 mmol/L (98-107); Glucose 86 mg/dL (70-105); Potassium 3.7 mmol/L (3.5-5.1); Sodium 140 mmol/L (136-145)
[2020-11-22] MEDS: ALPRAZolam 0.5 MG TAB PO SCH ×3 (08:56→20:27)
[2020-11-22] MEDS: predniSONE 20 MG TAB PO SCH (08:56)
[2020-11-22] MEDS: Metoprolol Tartrate 25 MG TAB PO SCH ×2 (08:57→20:28)
[2020-11-22] MEDS: Pantoprazole 40 MG GRANULES PACKET PER TUBE SCH (08:57)
[2020-11-22] MEDS: Cholecalciferol (Vitamin D3) 400 UNITS TAB PO SCH (08:57)
[2020-11-22] MEDS: Ascorbic Acid 500 mg Chewable Tablet PO SCH (08:57)
[2020-11-22] MEDS: Zinc Sulfate 220 MG CAP PO SCH (08:57)
[2020-11-22] MEDS: Enoxaparin Sodium 40 MG/0.4 ML SYRINGE SC SCH ×2 (08:57→20:28)
--- NOTE | 2020-11-22 11:42 | PDOC.HOSPP ---
- Subjective Encounter Date: 11/22/20 Encounter Time: 11:40 Subjective: f/u for prolonged hospital stay initially managed for COVID PNA/s/p trach and PEG awaiting LTAC placement. Receiving O2 via T-collar @10L/min - Objective Vital Signs & Weight: Vital Signs (12 hours) Temp Pulse Ox 11/22/20 04:00 98.3 F 11/22/20 03:33 100 Weight Admit Weight 199 lb 9.6 oz Weight 172 lb 12.8 oz Most Recent Monitor Data Heart Rate from ECG 66 NIBP 99/65 NIBP BP-Mean 76 Respiration from ECG 21 SpO2 100 I&O: 11/21/20 11/22/20 11/23/20 06:59 06:59 06:59 Intake Total 1840.4 2803.1 200 Output Total 1104 1320 Balance 736.4 1483.1 200 Result Diagrams: 11/22/20 03:10 11/22/20 03:10 EKG Reviewed by me: Yes (Tele - SR) Hospitalist ROS - Medication Medications: Active Medications Generic Name Dose Route Start Last Admin Trade Name Freq PRN Reason Stop Dose Admin Acetaminophen 650 mg 10/17/20 04:16 11/21/20 09:40 Acetaminophen 325 Mg Tab PO 650 mg Q4H PRN Administration Headache/Fever/Mild Pain (1-3) Albuterol Sulfate 0 puff 10/23/20 09:50 10/29/20 18:58 Proventil Inhaler 6.7 G (200 Inhalations) INH 2 puff Q4H PRN Administration SOB &/or Wheezing Alprazolam 1 mg 11/21/20 15:00 11/22/20 08:56 Alprazolam 0.5 Mg Tab PO 1 mg TID HEIDI Administration Ascorbic Acid 1,000 mg 10/17/20 09:00 11/22/20 08:57 Ascorbic Acid 500 Mg Chewable Tablet PO 1,000 mg DAILY HEIDI Administration Benzonatate 100 mg 10/24/20 02:50 10/25/20 03:34 Benzonatate 100 Mg Cap PO 100 mg TIDPRN PRN Administration Cough Calcium Carbonate 1,000 mg 10/17/20 04:16 10/17/20 04:51 Calcium Carbonate 500 Mg Chewtab PO 1,000 mg Q4H PRN Administration Heartburn or Indigestion Cholecalciferol 400 units 10/17/20 09:00 11/22/20 08:57 Cholecalciferol (Vitamin D3) 400 Units Tab PO 400 units DAILY HEIDI Administration Enoxaparin Sodium 40 mg 10/18/20 21:00 11/22/20 08:57 Enoxaparin Sodium 40 Mg/0.4 Ml Syringe SC 40 mg BID HEIDI Administration Guaifenesin 200 mg 10/30/20 12:00 11/22/20 00:31 Diabetic Tussin 200 Mg/10 Ml Udcup PO 200 mg Q6HR HEIDI Administration Guaifenesin/Codeine Phosphate 10 ml 10/20/20 13:04 11/15/20 20:01 Guaifenesin/Codeine 200 Mg/20 Mg 10 Ml Cup PO 10 ml Q6H PRN Administration Cough Dexmedetomidine HCl 400 mcg/ 100 mls @ 0 mls/hr 11/19/20 07:45 11/20/20 09:12 Sodium Chloride IVPB 100 mls INF HEIDI Administration Protocol Titrate Lactulose 20 gm 11/05/20 08:50 11/10/20 09:17 Lactulose 20 Gm/30 Ml Udcup PO 20 gm DAILYPRN PRN Administration Constipation Loperamide HCl 2 mg 11/17/20 14:36 11/18/20 20:06 Loperamide Hcl 2 Mg Cap PO 2 mg PRN PRN Administration Diarrhea/Loose Stools Lorazepam 1 mg 11/18/20 14:36 11/20/20 01:32 Lorazepam 1 Mg Tab PO 1 mg Q4H PRN Administration Anxiety/Agitation Metoprolol Tartrate 12.5 mg 11/12/20 09:00 11/22/20 08:57 Metoprolol Tartrate 25 Mg Tab PO 12.5 mg BID HEIDI Administration Pantoprazole Sodium 40 mg 10/30/20 09:00 11/22/20 08:57 Pantoprazole 40 Mg Granules Packet PER TUBE 40 mg DAILY HEIDI Administration Prednisone 20 mg 11/19/20 08:00 11/22/20 08:56 Prednisone 20 Mg Tab PO 20 mg QAM-WM HEIDI Administration Sertraline HCl 25 mg 11/16/20 21:00 11/22/20 08:57 Sertraline Hcl 25 Mg Tab PER TUBE 25 mg BID HEIDI Administration Sodium Chloride 10 ml 10/26/20 21:00 11/22/20 08:58 Flush - Normal Saline 10 Ml Syringe IVF 10 ml Q12HR HEIDI Administration Sodium Chloride 10 ml 10/26/20 10:30 11/05/20 09:02 Flush - Normal Saline 10 Ml Syringe IVF 10 ml PRN PRN Administration Saline Flush Zinc Sulfate 220 mg 10/17/20 09:00 11/22/20 08:57 Zinc Sulfate 220 Mg Cap PO 220 mg DAILY HEIDI Administration Hospitalist Exam Vitals: Vital Signs (12 hours) Temp Pulse Ox 11/22/20 04:00 98.3 F 11/22/20 03:33 100 Weight Admit Weight 199 lb 9.6 oz Weight 172 lb 12.8 oz Most Recent Monitor Data Heart Rate from ECG 66 NIBP 99/65 NIBP BP-Mean 76 Respiration from ECG 21 SpO2 100 General Appearance: NAD, awake alert Eye: PERRL, anicteric sclera ENT: normocephalic atraumatic, no oropharyngeal lesions Neck: supple, symmetric, no JVD, no thyromegaly, no lymphadenopathy Neck - other findings: Trach in place with T-piece Heart: RRR, no gallops, no rubs, normal peripheral pulses Heart - other findings: S1, S2 Respiratory: CTAB, no rales, no ronchi, normal chest expansion Gastrointestinal: soft, non-tender, non-distended, normal bowel sounds, no palpable masses, no hepatomegaly Gastrointestinal - other findings: PEG in place Extremities: no cyanosis, no clubbing, no edema Skin: normal turgor Neurological: cranial nerve grossly intact, no new deficit Musculoskeletal: generalized weakness Psychiatric: normal affect, A&O x 3 Hosp A/P (1) Pneumonia due to COVID-19 virus Code(s): U07.1 - COVID-19; J12.89 - OTHER VIRAL PNEUMONIA Status: Acute Plan: Improved, continue pulmonary support, continue Prednisone/Vit C/D3/Zinc/Lovenox (2) Acute respiratory failure Code(s): J96.00 - ACUTE RESPIRATORY FAILURE, UNSP W HYPOXIA OR HYPERCAPNIA Status: Acute Plan: Continue T-collar with Trach, continue Albuterol (3) HTN (hypertension) Code(s): I10 - ESSENTIAL (PRIMARY) HYPERTENSION Status: Chronic Qualifiers: Hypertension type: essential hypertension Qualified Code(s): I10 - Essential (primary) hypertension Plan: Continue Metoprolol, serial BP monitoring (4) Sepsis Code(s): A41.9 - SEPSIS, UNSPECIFIED ORGANISM Status: Acute Plan: Resolved - Plan plan discussed w/ family, PT/OT, rn social services, speech therapy, respiratory therapy, out of bed/ambulate continue supportive mgmt Continue Prednisone Continue Vit C/D3/Zinc/Lovenox Incentive spirometry OOB/ambulate Nutritional support with TF's Await bed availability at LTAC
--- NOTE | 2020-11-22 17:07 | PRG ---
DATE OF SERVICE: 11/22/2020 SUBJECTIVE: Ms. Bourgeois looks great. She is on a trach collar. Family is at the bedside. OBJECTIVE: GENERAL: She is in no distress. She still has relatively small tidal volumes, but she does not have any signs of fatigue. LUNGS: Clear. HEART: Regular rate and rhythm. ABDOMEN: Soft. EXTREMITIES: Without edema. LABORATORY DATA: White count 7.1, hemoglobin 9.4, platelets 268. Sodium 140, potassium 3.7, chloride 97, bicarb 33, BUN 17, creatinine 0.44. IMPRESSION: COVID pneumonia, now with a tracheostomy, doing extremely well. Job ID: [id number]
[2020-11-23] MEDS: GUAIFENESIN SF SOLN 200 MG/10 ML UDCUP PO SCH ×4 (01:08→17:30)
[2020-11-23] MEDS: Zinc Sulfate 220 MG CAP PO SCH (08:55)
[2020-11-23] MEDS: Enoxaparin Sodium 40 MG/0.4 ML SYRINGE SC SCH ×2 (08:55→21:14)
[2020-11-23] MEDS: Ascorbic Acid 500 mg Chewable Tablet PO SCH (08:55)
[2020-11-23] MEDS: predniSONE 20 MG TAB PO SCH (08:55)
[2020-11-23] MEDS: Pantoprazole 40 MG GRANULES PACKET PER TUBE SCH (08:55)
[2020-11-23] MEDS: Cholecalciferol (Vitamin D3) 400 UNITS TAB PO SCH (08:55)
[2020-11-23] MEDS: ALPRAZolam 0.5 MG TAB PO SCH ×3 (08:55→21:13)
[2020-11-23] MEDS: Metoprolol Tartrate 25 MG TAB PO SCH ×2 (08:56→21:14)
--- NOTE | 2020-11-23 15:14 | PRG ---
DATE OF SERVICE: 11/23/2020 SUBJECTIVE: Abida Bourgeois is sitting on the side of the bed, doing exercises with physical therapy. She is smiling. OBJECTIVE: VITAL SIGNS: Blood pressure is 111/73, heart rate is 80, respiratory rates in the teens, oximetry is 100%. LUNGS: Unchanged. HEART: Unchanged. ABDOMEN: Unchanged. IMPRESSION: COVID pneumonia, now doing well with a tracheostomy, cooperating with physical therapy. She is approaching to a point where she could be transferred out of the Critical Care Unit. Job ID: [id number]
--- NOTE | 2020-11-23 18:29 | PDOC.HOSPP ---
- Subjective Encounter Date: 11/23/20 Encounter Time: 18:30 Subjective: f/u for resp failure/COVID PNA with trach/PEG awaiting LTAC placement. Receiving O2 @ 10L/min T-collar. - Objective Vital Signs & Weight: Vital Signs (12 hours) Temp 11/23/20 16:00 98.8 F 11/23/20 12:00 99.1 F 11/23/20 09:00 98.1 F Weight Admit Weight 199 lb 9.6 oz Weight 170 lb 12.8 oz Most Recent Monitor Data Heart Rate from ECG 79 NIBP 110/56 NIBP BP-Mean 74 Respiration from ECG 20 SpO2 100 I&O: 11/22/20 11/23/20 11/24/20 06:59 06:59 06:59 Intake Total 2803.1 2778.5 890 Output Total 1320 1215 390 Balance 1483.1 1563.5 500 Result Diagrams: 11/22/20 03:10 11/22/20 03:10 Additional Labs: Laboratory Tests 10/20/20 10/21/20 10/22/20 04:41 04:36 05:11 C-Reactive Protein 11.30 H 20.94 H 18.62 H 10/23/20 10/24/20 10/25/20 04:03 04:29 04:58 C-Reactive Protein 8.39 H 5.12 H 7.10 H EKG Reviewed by me: Yes (Tele - SR) Hospitalist ROS - Medication Medications: Active Medications Generic Name Dose Route Start Last Admin Trade Name Freq PRN Reason Stop Dose Admin Acetaminophen 650 mg 10/17/20 04:16 11/21/20 09:40 Acetaminophen 325 Mg Tab PO 650 mg Q4H PRN Administration Headache/Fever/Mild Pain (1-3) Albuterol Sulfate 0 puff 10/23/20 09:50 10/29/20 18:58 Proventil Inhaler 6.7 G (200 Inhalations) INH 2 puff Q4H PRN Administration SOB &/or Wheezing Alprazolam 1 mg 11/21/20 15:00 11/23/20 15:34 Alprazolam 0.5 Mg Tab PO 1 mg TID HEIDI Administration Ascorbic Acid 1,000 mg 10/17/20 09:00 11/23/20 08:55 Ascorbic Acid 500 Mg Chewable Tablet PO 1,000 mg DAILY HEIDI Administration Benzonatate 100 mg 10/24/20 02:50 10/25/20 03:34 Benzonatate 100 Mg Cap PO 100 mg TIDPRN PRN Administration Cough Calcium Carbonate 1,000 mg 10/17/20 04:16 10/17/20 04:51 Calcium Carbonate 500 Mg Chewtab PO 1,000 mg Q4H PRN Administration Heartburn or Indigestion Cholecalciferol 400 units 10/17/20 09:00 11/23/20 08:55 Cholecalciferol (Vitamin D3) 400 Units Tab PO 400 units DAILY HEIDI Administration Enoxaparin Sodium 40 mg 10/18/20 21:00 11/23/20 08:55 Enoxaparin Sodium 40 Mg/0.4 Ml Syringe SC 40 mg BID HEIDI Administration Guaifenesin 200 mg 10/30/20 12:00 11/23/20 12:55 Diabetic Tussin 200 Mg/10 Ml Udcup PO 200 mg Q6HR HEIDI Administration Guaifenesin/Codeine Phosphate 10 ml 10/20/20 13:04 11/15/20 20:01 Guaifenesin/Codeine 200 Mg/20 Mg 10 Ml Cup PO 10 ml Q6H PRN Administration Cough Dexmedetomidine HCl 400 mcg/ 100 mls @ 0 mls/hr 11/19/20 07:45 11/20/20 09:12 Sodium Chloride IVPB 100 mls INF HEIDI Administration Protocol Titrate Lactulose 20 gm 11/05/20 08:50 11/10/20 09:17 Lactulose 20 Gm/30 Ml Udcup PO 20 gm DAILYPRN PRN Administration Constipation Loperamide HCl 2 mg 11/17/20 14:36 11/18/20 20:06 Loperamide Hcl 2 Mg Cap PO 2 mg PRN PRN Administration Diarrhea/Loose Stools Lorazepam 1 mg 11/18/20 14:36 11/20/20 01:32 Lorazepam 1 Mg Tab PO 1 mg Q4H PRN Administration Anxiety/Agitation Metoprolol Tartrate 12.5 mg 11/12/20 09:00 11/23/20 08:56 Metoprolol Tartrate 25 Mg Tab PO 12.5 mg BID HEIDI Administration Pantoprazole Sodium 40 mg 10/30/20 09:00 11/23/20 08:55 Pantoprazole 40 Mg Granules Packet PER TUBE 40 mg DAILY HEIDI Administration Prednisone 20 mg 11/19/20 08:00 11/23/20 08:55 Prednisone 20 Mg Tab PO 20 mg QAM-WM HEIDI Administration Sertraline HCl 25 mg 11/16/20 21:00 11/23/20 08:56 Sertraline Hcl 25 Mg Tab PER TUBE 25 mg BID HEIDI Administration Sodium Chloride 10 ml 10/26/20 21:00 11/23/20 08:57 Flush - Normal Saline 10 Ml Syringe IVF 10 ml Q12HR HEIDI Administration Sodium Chloride 10 ml 10/26/20 10:30 11/05/20 09:02 Flush - Normal Saline 10 Ml Syringe IVF 10 ml PRN PRN Administration Saline Flush Zinc Sulfate 220 mg 10/17/20 09:00 11/23/20 08:55 Zinc Sulfate 220 Mg Cap PO 220 mg DAILY HEIDI Administration Hospitalist Exam Vitals: Vital Signs (12 hours) Temp 11/23/20 16:00 98.8 F 11/23/20 12:00 99.1 F 11/23/20 09:00 98.1 F Weight Admit Weight 199 lb 9.6 oz Weight 170 lb 12.8 oz Most Recent Monitor Data Heart Rate from ECG 79 NIBP 110/56 NIBP BP-Mean 74 Respiration from ECG 20 SpO2 100 General Appearance: NAD, awake alert Eye: PERRL, anicteric sclera ENT: normocephalic atraumatic, no oropharyngeal lesions Neck: supple, symmetric, no JVD, no thyromegaly, no lymphadenopathy Heart: RRR, no gallops, no rubs, normal peripheral pulses Heart - other findings: S1, S2 Respiratory: CTAB, no wheezes, no ronchi Gastrointestinal: soft, non-tender, non-distended, normal bowel sounds, no palpable masses, no hepatomegaly Extremities: no cyanosis, no clubbing Skin: normal turgor Neurological: cranial nerve grossly intact, no focal deficits Musculoskeletal: generalized weakness Psychiatric: normal affect, A&O x 3 Hosp A/P (1) Pneumonia due to COVID-19 virus Code(s): U07.1 - COVID-19; J12.89 - OTHER VIRAL PNEUMONIA Status: Acute Plan: Continue Prednisone/Vit C/D3/Albuterol/Zinc (2) Acute respiratory failure Code(s): J96.00 - ACUTE RESPIRATORY FAILURE, UNSP W HYPOXIA OR HYPERCAPNIA Status: Acute Plan: Continue T-collar, trach care and pulmonary support (3) HTN (hypertension) Code(s): I10 - ESSENTIAL (PRIMARY) HYPERTENSION Status: Chronic Qualifiers: Hypertension type: essential hypertension Qualified Code(s): I10 - Essential (primary) hypertension (4) Sepsis Code(s): A41.9 - SEPSIS, UNSPECIFIED ORGANISM Status: Acute - Plan long term care social worker, respiratory therapy, DVT proph w/SCDs continue supportive mgmt Continue Prednisone Continue Vit C/D3/Zinc/Lovenox Incentive spirometry OOB/ambulate Nutritional support with TF's Await bed availability at LTAC
[2020-11-24] MEDS: GUAIFENESIN SF SOLN 200 MG/10 ML UDCUP PO SCH ×4 (03:11→16:54)
[2020-11-24] MEDS: Ascorbic Acid 500 mg Chewable Tablet PO SCH (07:49)
[2020-11-24] MEDS: ALPRAZolam 0.5 MG TAB PO SCH (07:49)
[2020-11-24] MEDS: Enoxaparin Sodium 40 MG/0.4 ML SYRINGE SC SCH (07:49)
[2020-11-24] MEDS: Zinc Sulfate 220 MG CAP PO SCH (07:49)
[2020-11-24] MEDS: predniSONE 20 MG TAB PO SCH (07:50)
[2020-11-24] MEDS: Metoprolol Tartrate 25 MG TAB PO SCH (07:50)
[2020-11-24] MEDS: Cholecalciferol (Vitamin D3) 400 UNITS TAB PO SCH (07:51)
[2020-11-24] MEDS: Pantoprazole 40 MG GRANULES PACKET PER TUBE SCH (07:51)
[2020-11-24] MEDS ORDERED: ALPRAZolam 0.5 MG TAB PO PRN (09:40)
--- NOTE | 2020-11-24 10:02 | PRG ---
DATE OF SERVICE: 11/24/2020 SUBJECTIVE: This morning, she is awake, alert, responsive, off the vent for several days, trach collar, no distress. OBJECTIVE: VITAL SIGNS: Temperature 98, pulse 83, blood pressure 130/80, respiratory rate 18, saturations 99%. CHEST: Rhonchi, crackles. CARDIAC: Normal S1, S2. ABDOMEN: No masses. ASSESSMENT: [place] positive pneumonia, respiratory failure, severe deconditioning, probably underlying sleep apnea. PLAN: She will be transferred to medical floor. I am trying to avoid excessive sedation if possible. PT, supportive care, eventually placement. Probably switch over to p.o. prednisone. One-half hour of critical care time. Job ID: [id number]
[2020-11-24 16:06] VITALS: TEMP 98.4
[2020-11-24 16:36] VITALS: BP 91/53
--- NOTE | 2020-11-25 07:11 | DIS ---
DATE OF ADMISSION: 10/17/2020 DATE OF DISCHARGE: 11/24/2020 DISCHARGE DIAGNOSES: 1. Pneumonia due to COVID-19 virus. 2. Acute hypoxic respiratory failure, status post tracheostomy, 11/11/2020. 3. Hypertension. 4. Sepsis secondarily to pneumonia, resolved. CONSULTATIONS: 1. Dr. Spivey with General Surgery Service. 2. Dr. Lyman, Dr. Crawford, and Dr. Golden with Pulmonology/Critical Care Service. PERTINENT LABORATORY AND X-RAY FINDINGS: Potassium ranged between 2.9 to 5.4. Ferritin 461. CRP ranged between 5.12 to 18.68. BNP 156. Hemoglobin ranged between 8.2 to 11.4. SARS-CoV-2 RNA positive on 10/16/2020. Influenza A and B RNA negative on 10/16/2020. Portable chest x-ray dated 10/21/2020 showed bilateral infiltrates, left greater than right. HOSPITAL COURSE: The patient was initially admitted after presenting with increasing respiratory distress with hypoxia and respiratory failure in the context of previous diagnosis of COVID-19 on 10/08/2020. The patient presented with O2 saturations in the 70% range on room air. Initially placed on oxygen supplementation. The patient was given IV Decadron, vitamin C, D3, and zinc supplements and placed on isolation protocol. The patient continued to clinically deteriorate, requiring high-flow oxygen supplementation by nasal cannula and was evaluated by the Pulmonology/Critical Care Service. The patient was also treated for sepsis criteria at the time of admission with broad-spectrum IV antibiotic therapy in addition to IV fluids. The patient continued to require high-flow oxygen supplementation, however, clinically deteriorated requiring mechanical ventilation after intubation. The patient was in the critical care unit for prolonged hospital course and was unable to wean off mechanical ventilation. The patient underwent tracheostomy and PEG tube placement on 11/11/2020 receiving tube feeds and general pulmonary supportive management. The patient continued to receive appropriate therapy including steroid supplementation with slow clinical improvement. The patient eventually weaned off mechanical ventilation and was tolerating a T-collar with oxygen at 10 L/minute. Due to the patient's prolonged hospital stay, deconditioned status requiring maximal assistance for all activities including sitting at the edge of bed and sit to stand, the patient was deemed appropriate candidate for ongoing acute care. The patient has been approved to transfer to [facility] in the [place] area after discharge. I have examined the patient at the time of discharge and discussed followup instructions. The patient verbalized understanding and in agreement and ready for discharge on 11/24/2020. DISCHARGE MEDICATIONS: 1. Metoprolol tartrate 12.5 mg p.o. b.i.d. 2. Albuterol sulfate 2 puffs inhaled q.4 hours p.r.n. 3. Lovenox 40 mg subcutaneously b.i.d. 4. Prednisone 20 mg p.o. q.a.m. 5. Protonix 40 mg per PEG tube daily. 6. Tessalon Perles 100 mg p.o. t.i.d. p.r.n. 7. Vitamin C 1000 mg p.o. daily. 8. Vitamin D3 of 400 units p.o. daily. 9. Xanax 1 mg p.o. t.i.d. p.r.n. 10. Zinc sulfate 220 mg p.o. daily. 11. Zoloft 25 mg per PEG tube b.i.d. FOLLOWUP: The patient may follow up with her primary care provider, Dr. Krystle Zurita after discharge from long-term acute care. CONDITION ON DISCHARGE: Fair. ACTIVITY: Ad-marisa. Standby/contact guard assistance for sit to stand and sitting at the edge of bed. High fall risk precautions. DIET: Vital HP 200 mL q.4 hours with water flushes 30 mL q.4 hours. SPECIAL INSTRUCTIONS: Continue tracheostomy and PEG tube care. CODE STATUS: Full. DISPOSITION: Discharged to [facility] in [facility] on 11/24/2020. TIME SPENT: Total time preparing and coordinating discharge, 39 minutes. Job ID: [id number]
== END 2020-11-24 18:49 | DRG 4 ==
LOC: ERS 01:38 → ERHOLD 03:16 → 2SW 10-19 01:34 → CCU 10-28 12:24 → T4-A 11-24 11:31
PROVIDERS: ADMIT Internal Medicine; ATTEND Family Medicine
PROC: 8E0ZXY6 Isolation (ICD-10-PCS; 2020-10-17)
PROC: XW13325 Transfusion of Convalescent Plasma (Nonautologous) into Peripheral Vein, Percutaneous Approach, New Technology Group 5 (ICD-10-PCS; 2020-10-18)
PROC: 5A1955Z Respiratory Ventilation, Greater than 96 Consecutive Hours (ICD-10-PCS; 2020-10-28)
PROC: 5A09357 Assistance with Respiratory Ventilation, Less than 24 Consecutive Hours, Continuous Positive Airway Pressure (ICD-10-PCS; 2020-10-28)
PROC: 0BH17EZ Insertion of Endotracheal Airway into Trachea, Via Natural or Artificial Opening (ICD-10-PCS; 2020-10-28)
PROC: 0B110F4 Bypass Trachea to Cutaneous with Tracheostomy Device, Open Approach (ICD-10-PCS; principal; 2020-11-11)
PROC: 0DH63UZ Insertion of Feeding Device into Stomach, Percutaneous Approach (ICD-10-PCS; 2020-11-11)
PROC: 3E033XZ Introduction of Vasopressor into Peripheral Vein, Percutaneous Approach (ICD-10-PCS; 2020-11-11)
DX: A41.89 Other specified sepsis (principal); U07.1 COVID-19; J12.82 Pneumonia due to coronavirus disease 2019; J96.21 Acute and chronic respiratory failure with hypoxia; E87.1 Hypo-osmolality and hyponatremia; E87.2 Acidosis; E46 Unspecified protein-calorie malnutrition; G93.40 Encephalopathy, unspecified; I47.1 Supraventricular tachycardia; E78.5 Hyperlipidemia, unspecified; E87.6 Hypokalemia; I10 Essential (primary) hypertension; E66.01 Morbid (severe) obesity due to excess calories; D63.8 Anemia in other chronic diseases classified elsewhere; G47.33 Obstructive sleep apnea (adult) (pediatric); R00.1 Bradycardia, unspecified; R19.7 Diarrhea, unspecified; F41.9 Anxiety disorder, unspecified; R13.12 Dysphagia, oropharyngeal phase; Z68.30 Body mass index [BMI] 30.0-30.9, adult; Z91.040 Latex allergy status; Z79.899 Other long term (current) drug therapy; Z86.79 Personal history of other diseases of the circulatory system; Z88.1 Allergy status to other antibiotic agents
CPT/HCPCS: 36415; 36416; 36430; 36600; 71045; 80048; 80053; 80076; 80162; 80202; 82728; 82805; 83605; 83880; 84484; 85007; 85025; 85027; 85610; 85652; 85730; 86140; 86850; 86900; 86901; 93005; 94002; 94003; 94640; 94660; 94760; J0692; J1100; J1650; J1885; J2060; J2250; J2270; J2704; J3010; J3370; J3480; J3490; J7050; J7512; P9017; P9045; S0020

== ENCOUNTER 2020-12-26 15:11 | Emergency (ER) | payer BC ==
[2020-12-26 16:18] LABS: ALT (SGPT) 24 U/L (8-55); AST (SGOT) 19 U/L (5-34); Albumin 3.7 g/dL (3.5-5.0); Alkaline Phosphatase 97 U/L (40-110); Anion Gap 16 mmol/L (10-20); BUN (Urea Nitrogen) 7 mg/dL (9.8-20.1); Bilirubin, Total 0.3 mg/dL (0.2-1.2); CK (CPK) 33 U/L (29-168); Calc. Creatinine Clearance 0 mL/min (70-130); Calcium 9.1 mg/dL (7.8-10.44); Carbon Dioxide 24 mmol/L (22-29); Chloride 105 mmol/L (98-107); Globulin 3.1 g/dL (2.4-3.5); Glucose 111 mg/dL (70-105); Potassium 3.9 mmol/L (3.5-5.1); Protein, Total 6.8 g/dL (6.0-8.3); Sodium 141 mmol/L (136-145)
[2020-12-26 16:37] LABS: #Basophils 0.1 thou/uL (0.0-0.2); #Eosinphils 0.3 thou/uL (0.0-0.7); #Lymphocytes 2.5 thou/uL (1.20-3.40); #Monocytes 0.7 thou/uL (0.11-0.59); #Neutrophils 5.2 thou/uL (1.40-6.50); %Basophils 0.8 % (0.0-1.0); %Eosinophils 2.9 % (0.0-10.0); %Lymphocytes 29.1 % (21.0-51.0); %Monocytes 7.6 % (0.0-10.0); %Neutrophils 59.6 % (42.0-75.0); Hemoglobin 9.4 g/dL (12.0-16.0); Mean Corpuscular Hemoglobin 27.1 pg (27.0-31.0); Mean Corpuscular Volume 84.6 fL (78.0-98.0); Mean Platelet Volume 8.1 fL (7.4-10.4); Platelet Count 284 thou/uL (130-400); RBC Distribution Width 16.3 % (11.5-14.5); Red Blood Cell (RBC) Count 3.49 mill/uL (4.20-5.40); White Blood Cell (WBC) Count 8.7 thou/uL (4.8-10.8)
[2020-12-26 16:52] LABS: Digoxin 0.38 ng/mL (0.8-2.0)
== END 2020-12-26 23:40 | disposition home or self-care (01) ==
LOC: ERS 15:11
DX: I47.1 Supraventricular tachycardia (principal); J18.9 Pneumonia, unspecified organism; E78.5 Hyperlipidemia, unspecified; I10 Essential (primary) hypertension; Z79.899 Other long term (current) drug therapy
CPT/HCPCS: 36415; 71045; 80053; 80162; 82550; 84484; 85025; 93005; 94760

== ENCOUNTER 2021-01-02 17:03 | Emergency (ER) | payer BC | END 2021-01-02 18:22 | disposition home or self-care (01) | LOC: ERS 17:03 | DX: K94.20 Gastrostomy complication, unspecified (principal); E78.5 Hyperlipidemia, unspecified; I10 Essential (primary) hypertension; Z79.899 Other long term (current) drug therapy | CPT/HCPCS: 99282 ==

== ENCOUNTER 2021-01-08 11:22 | Outpatient (CLI) | payer BC | END 2021-01-08 11:23 | disposition home or self-care (01) | LOC: BICRAD 11:22 | PROVIDERS: ATTEND Family Medicine | DX: B94.8 Sequelae of other specified infectious and parasitic diseases (principal); R91.8 Other nonspecific abnormal finding of lung field | CPT/HCPCS: 71046 ==

== ENCOUNTER 2021-02-24 16:11 | Outpatient (CLI) | payer BC | END 2021-02-24 16:12 | disposition home or self-care (01) | LOC: BICRAD 16:11 | PROVIDERS: ATTEND Internal Medicine Critical Care Medicine | DX: R06.00 Dyspnea, unspecified (principal); R91.8 Other nonspecific abnormal finding of lung field | CPT/HCPCS: 71046 ==

== ENCOUNTER 2021-08-27 09:22 | Outpatient (CLI) | payer BC | END 2021-08-27 09:23 | disposition home or self-care (01) | LOC: BICMAMMO 09:22 | PROVIDERS: ATTEND Family Medicine | DX: Z12.31 Encounter for screening mammogram for malignant neoplasm of breast (principal) | CPT/HCPCS: 77063; 77067 ==

== ENCOUNTER 2022-11-11 09:27 | Outpatient (CLI) | payer BC | END 2022-11-11 09:28 | disposition home or self-care (01) | LOC: BICMAMMO 09:27 | PROVIDERS: ATTEND Family Medicine | DX: Z12.39 Encounter for other screening for malignant neoplasm of breast (principal); Z13.820 Encounter for screening for osteoporosis; E55.9 Vitamin D deficiency, unspecified; M85.89 Other specified disorders of bone density and structure, multiple sites | CPT/HCPCS: 77063; 77067; 77080 ==